=== PATIENT | female | born 1945 | race Caucasian/White ===

== ENCOUNTER 2020-02-11 19:28 | Inpatient (IN) | payer MEDICARE ==
[2020-02-11] MEDS ORDERED: IPRATROPIUM-ALBUTEROL 3 ML NEB INHALATION STA (19:34)
[2020-02-11] MEDS ORDERED: SODIUM CHLORIDE 0.9% 1,000 ML IV STA (19:34)
--- NOTE | 2020-02-11 19:37 | ED ---
SOB HPI - General Stated Complaint: SOB Time Seen by Provider: 02/11/20 19:28 Source: patient, EMS, RN notes reviewed Mode of arrival: EMS - History of Present Illness Initial Comments: This is a 74-year-old female who admits that she is a smoker but denies any past medical history Will any heart or lung disease who states she's had shortness breath or past several days getting worse yesterday and very bad this prior to arrival. She did call 911 due to having weakness dizziness and exertional dyspnea. She states she had a cough of frothy phlegm. She was found have atrial fibrillation heart monitor per paramedics. The patient has no history of that she states. He denies any chest pain palpitations fevers chills nausea vomiting she has some equivocal sweats. No abdominal pain no other modifying factors MD Complaint: shortness of breath, cough - Related Data Allergies Allergy/AdvReac Type Severity Reaction Status Date / Time pollen extracts AdvReac Cough Verified 02/11/20 19:51 Review of Systems ROS Statement: Those systems with pertinent positive or pertinent negative responses have been documented in the HPI. ROS Other: All systems not noted in ROS Statement are negative. General Exam - General Exam Comments Initial Comments: This is a well-developed asthenic appearing female who is awake alert oriented 3 General appearance: alert, anxious, in distress Head exam: Present: atraumatic, normocephalic, normal inspection Eye exam: Present: normal appearance, PERRL, EOMI. Absent: scleral icterus, conjunctival injection, periorbital swelling ENT exam: Present: normal exam, mucous membranes moist Neck exam: Present: normal inspection, full ROM, other (No stridor or bruits). Absent: tenderness, meningismus, lymphadenopathy Respiratory exam: Present: decreased breath sounds. Absent: respiratory distress, wheezes, rales, rhonchi, stridor Cardiovascular Exam: Present: tachycardia, irregular rhythm. Absent: systolic murmur, diastolic murmur, rubs, gallop, clicks GI/Abdominal exam: Present: soft, normal bowel sounds. Absent: distended, tenderness, guarding, rebound, rigid Extremities exam: Present: normal inspection, full ROM, normal capillary refill. Absent: tenderness, pedal edema, joint swelling, calf tenderness Back exam: Present: normal inspection Neurological exam: Present: alert, oriented X3, CN II-XII intact Psychiatric exam: Present: normal affect, normal mood Skin exam: Present: warm, dry, intact, normal color. Absent: rash Course Vital Signs 02/11/20 02/11/20 02/11/20 19:30 20:20 20:30 Temperature 97.5 F L Pulse Rate 126 H 93 100 Respiratory 18 Rate Blood Pressure 146/103 O2 Sat by Pulse 99 Oximetry - Reevaluation(s) Reevaluation #1: 02/11/20 20:41 The patient is feeling somewhat improved after the nebulizer treatment. Medical Decision Making - Medical Decision Making I did discuss findings with patient and her family also with Taylor who is covering Dr. Malave, the patient will be admitted with cardiology consultation she does demonstrate evidence of A. fib CHF pleural effusion COPD exacerbation the elevation of the lactic acid is likely secondary to intravascular bilateral completion - Lab Data Result diagrams: 02/11/20 19:41 02/11/20 19:41 Lab Results 02/11/20 02/11/20 02/11/20 Range/Units 19:41 19:41 19:41 WBC 11.0 H (3.8-10.6) k/uL RBC 4.55 (3.80-5.40) m/uL Hgb 14.3 (11.4-16.0) gm/dL Hct 45.9 (34.0-46.0) % MCV 100.8 H (80.0-100.0) fL MCH 31.5 (25.0-35.0) pg MCHC 31.2 (31.0-37.0) g/dL RDW 14.0 (11.5-15.5) % Plt Count 278 (150-450) k/uL Neutrophils % 73 % Lymphocytes % 19 % Monocytes % 5 % Eosinophils % 1 % Basophils % 1 % Neutrophils # 8.0 H (1.3-7.7) k/uL Lymphocytes # 2.1 (1.0-4.8) k/uL Monocytes # 0.6 (0-1.0) k/uL Eosinophils # 0.1 (0-0.7) k/uL Basophils # 0.1 (0-0.2) k/uL Macrocytosis Slight PT 10.2 (9.0-12.0) sec INR 1.0 (<1.2) APTT 24.0 (22.0-30.0) sec Sodium 137 (137-145) mmol/L Potassium 5.5 H (3.5-5.1) mmol/L Chloride 105 (98-107) mmol/L Carbon Dioxide 23 (22-30) mmol/L Anion Gap 9 mmol/L BUN 16 (7-17) mg/dL Creatinine 0.86 (0.52-1.04) mg/dL Est GFR (CKD-EPI)AfAm 77 (>60 ml/min/1.73 sqM) Est GFR (CKD-EPI)NonAf 67 (>60 ml/min/1.73 sqM) Glucose 185 H (74-99) mg/dL Plasma Lactic Acid Navin (0.7-2.0) mmol/L Calcium 9.5 (8.4-10.2) mg/dL Magnesium 1.8 (1.6-2.3) mg/dL Total Bilirubin 1.5 H (0.2-1.3) mg/dL AST 53 H (14-36) U/L ALT 20 (4-34) U/L Alkaline Phosphatase 131 H (38-126) U/L Creatine Kinase 63 (30-135) U/L Troponin I (0.000-0.034) ng/mL NT-Pro-B Natriuret Pep pg/mL Total Protein 7.5 (6.3-8.2) g/dL Albumin 4.4 (3.5-5.0) g/dL 02/11/20 02/11/20 02/11/20 Range/Units 19:41 19:41 19:41 WBC (3.8-10.6) k/uL RBC (3.80-5.40) m/uL Hgb (11.4-16.0) gm/dL Hct (34.0-46.0) % MCV (80.0-100.0) fL MCH (25.0-35.0) pg MCHC (31.0-37.0) g/dL RDW (11.5-15.5) % Plt Count (150-450) k/uL Neutrophils % % Lymphocytes % % Monocytes % % Eosinophils % % Basophils % % Neutrophils # (1.3-7.7) k/uL Lymphocytes # (1.0-4.8) k/uL Monocytes # (0-1.0) k/uL Eosinophils # (0-0.7) k/uL Basophils # (0-0.2) k/uL Macrocytosis PT (9.0-12.0) sec INR (<1.2) APTT (22.0-30.0) sec Sodium (137-145) mmol/L Potassium (3.5-5.1) mmol/L Chloride (98-107) mmol/L Carbon Dioxide (22-30) mmol/L Anion Gap mmol/L BUN (7-17) mg/dL Creatinine (0.52-1.04) mg/dL Est GFR (CKD-EPI)AfAm (>60 ml/min/1.73 sqM) Est GFR (CKD-EPI)NonAf (>60 ml/min/1.73 sqM) Glucose (74-99) mg/dL Plasma Lactic Acid Navin 2.1 H* (0.7-2.0) mmol/L Calcium (8.4-10.2) mg/dL Magnesium (1.6-2.3) mg/dL Total Bilirubin (0.2-1.3) mg/dL AST (14-36) U/L ALT (4-34) U/L Alkaline Phosphatase (38-126) U/L Creatine Kinase (30-135) U/L Troponin I 0.044 H* (0.000-0.034) ng/mL NT-Pro-B Natriuret Pep 3990 pg/mL Total Protein (6.3-8.2) g/dL Albumin (3.5-5.0) g/dL - EKG Data -: EKG Interpreted by Me Rate: tachycardia EKG Comments: Atrial fibrillation rate of 101 QRS 126 QT since QTC 372/42 that exodeviation left bundle-branch block pattern - Radiology Data Radiology results: report reviewed (I did review the imaging and report evidence of bilateral pleural effusions more so on the right than the left), image reviewed Critical Care Time Critical Care Time: Yes Total Critical Care Time: 39 Critical Care Time: Critical care time includes initial presentation with history physical labs x- rays discussed with paramedics regarding the findings. Evaluation of the patient discussed with patient family regarding findings discussed with the admitting physician admission orders and documentation of the above Disposition Clinical Impression: Congestive heart failure, Acute exacerbation of chronic obstructive pulmonary disease, Acute respiratory distress syndrome in adult, Rapid atrial fibrillation Disposition: ADMITTED IP TO THIS HOSP Condition: Fair Referrals: None,Stated [Primary Care Provider] - 1-2 days
[2020-02-11 19:53] LABS: Basophils # (A) 0.1 k/uL (0-0.2); Basophils % (A) 1 %; Eosinophils # (A) 0.1 k/uL (0-0.7); Eosinophils % (A) 1 %; HCT 45.9 % (34.0-46.0); HGB 14.3 gm/dL (11.4-16.0); Lymphocytes # (A) 2.1 k/uL (1.0-4.8); Lymphocytes % (A) 19 %; MCH 31.5 pg (25.0-35.0); MCHC 31.2 g/dL (31.0-37.0); MCV 100.8 fL (80.0-100.0); Macrocytosis Slight; Mean Platelet Volume 8.6; Monocytes # (A) 0.6 k/uL (0-1.0); Monocytes % (A) 5 %; Neutrophils % (A) 73 %; Platelet Count 278 k/uL (150-450); RBC 4.55 m/uL (3.80-5.40)
[2020-02-11 20:00] LABS: Albumin 4.4 g/dL (3.5-5.0); Calcium 9.5 mg/dL (8.4-10.2); Magnesium 1.8 mg/dL (1.6-2.3); Potassium 5.5 mmol/L (3.5-5.1); Total Bilirubin 1.5 mg/dL (0.2-1.3); Total Protein 7.5 g/dL (6.3-8.2)
[2020-02-11 20:11] LABS: Prothrombin Time 10.2 sec (9.0-12.0)
[2020-02-11] MEDS ORDERED: FUROSEMIDE 10 MG/ML 4 ML VIAL IV STA (20:23)
--- NOTE | 2020-02-11 20:34 | XR ---
EXAMINATION TYPE: XR chest 2V DATE OF EXAM: 02/11/2020 COMPARISON: NONE HISTORY: Dizziness TECHNIQUE: 2 views FINDINGS: There is blunting of both costophrenic angles much more on the right side. Heart size is pr obably normal. There is left shoulder prosthesis. There is chest leads. Bony thorax is intact. IMPRESSION: Right pleural effusion and right lower lobe consolidation and atelectasis. Small left ple ural effusion. Mild heart failure is possible.
[2020-02-11] MEDS ORDERED: HEPARIN SODIUM,PORCINE 5,000 UNIT/ML 1 ML VIAL IV PRN (20:35)
[2020-02-11] MEDS ORDERED: HEPARIN SODIUM,PORCINE 5,000 UNIT/ML 1 ML VIAL IV ONE (20:35)
[2020-02-11] MEDS ORDERED: DILTIAZEM 125 MG in SODIUM CHLORIDE 0.9% 100 ML IV SCH (20:45)
[2020-02-11] MEDS ORDERED: HEPARIN SOD,PORK IN 0.45% NACL 25,000 UNIT in 0.45% NACL 1 250ML.BAG IV SCH (20:45)
[2020-02-11] MEDS ORDERED: NALOXONE 0.4 MG/ML 1 ML VIAL IV PRN (20:47)
[2020-02-11] MEDS ORDERED: NITROGLYCERIN OINT 1 INCH/GM PACKET TOPICAL STA (20:48)
[2020-02-12] MEDS ORDERED: IPRATROPIUM-ALBUTEROL 3 ML NEB INHALATION SCH (02:00)
[2020-02-12 02:41] LABS: Basophils % (A) 0 %; Eosinophils # (A) 0.1 k/uL (0-0.7); Eosinophils % (A) 1 %; HCT 45.5 % (34.0-46.0); HGB 14.4 gm/dL (11.4-16.0); Lymphocytes # (A) 2.8 k/uL (1.0-4.8); Lymphocytes % (A) 25 %; MCH 32.1 pg (25.0-35.0); MCHC 31.7 g/dL (31.0-37.0); MCV 101.3 fL (80.0-100.0); Macrocytosis Slight; Mean Platelet Volume 8.3; Monocytes # (A) 0.7 k/uL (0-1.0); Monocytes % (A) 6 %; Neutrophils # (A) 7.4 k/uL (1.3-7.7); Neutrophils % (A) 66 %; Platelet Count 268 k/uL (150-450); RBC 4.49 m/uL (3.80-5.40); RDW 14.1 % (11.5-15.5); WBC 11.2 k/uL (3.8-10.6)
[2020-02-12] MEDS: FUROSEMIDE 10 MG/ML 4 ML VIAL IV SCH ×3 (06:21→23:18)
[2020-02-12 09:16] LABS: Basophils # (A) 0.1 k/uL (0-0.2); Basophils % (A) 1 %; Eosinophils # (A) 0.2 k/uL (0-0.7); Eosinophils % (A) 1 %; HCT 45.9 % (34.0-46.0); HGB 14.4 gm/dL (11.4-16.0); Lymphocytes # (A) 2.2 k/uL (1.0-4.8); Lymphocytes % (A) 20 %; MCH 31.8 pg (25.0-35.0); MCHC 31.3 g/dL (31.0-37.0); MCV 101.5 fL (80.0-100.0); Macrocytosis Slight; Mean Platelet Volume 8.6; Monocytes # (A) 0.7 k/uL (0-1.0); Monocytes % (A) 6 %; Neutrophils # (A) 7.7 k/uL (1.3-7.7); Neutrophils % (A) 70 %; Platelet Count 274 k/uL (150-450); RBC 4.52 m/uL (3.80-5.40); WBC 10.9 k/uL (3.8-10.6)
[2020-02-12 09:36] LABS: Calcium 9.3 mg/dL (8.4-10.2); Potassium 3.7 mmol/L (3.5-5.1)
--- NOTE | 2020-02-12 09:38 | P.CRDCN ---
History of Present Illness Consult date: 02/12/20 History of present illness: CHIEF COMPLAINT: Shortness of breath HISTORY OF PRESENT ILLNESS: 74-year-old female with a history of nicotine dependence (1 pk/day) who presented to the emergency room secondary to shortness of breath. Patient denies a cardiac history and states she does not follow with a copy director outpatient. Patient reports she has had shortness of breath over the last 2-3 weeks. She reports her shortness of breath is worse when she is laying flat or with exertion. She reports a productive cough. She denies any chest pain. Upon admission to the emergency room patient was found to be in A. fib with RVR. She was started on a Cardizem drip and heparin drip. This morning, the patient denies chest pain. She is still coughing. She reports shortness of breath when she was up using the bathroom. Patient denies medical history besides nicotine dependence. She reports drinking 1 alcoholic drink per day. She reports her mother had uterine cancer and diabetes. She denies family history of cardiac disease to her knowledge. Surgical history includes a D&C. DIAGNOSTICS: EKG reveals atrial fibrillation with RVR. Left bundle branch block Chest xray right pleural effusion and right lower lobe consolidation and atelectasis. Small left pleural effusion. Mild heart failure is possible. Laboratory data: WBC 11.2. Hemoglobin 14.4. Platelet count 268. Sodium 137. Potassium 5.5. BUN 16. Creatinine 0.86. Lactic acid 2.1. Repeat 1.7. BNP 3990. Troponin 0.044. 0.054. 0.062. Current home cardiac medications include: none REVIEW OF SYSTEMS: CONSTITUTIONAL: Denies fever or chills. HEENT: Denies blurred vision, vision changes, or eye pain. Denies hemoptysis CARDIOVASCULAR: Denies chest pain or palpitations RESPIRATORY: Reports shortness of breath. Reports productive cough GASTROINTESTINAL: Denies abdominal pain. Denies nausea or vomiting. HEMATOLOGIC: Denies bleeding disorders. GENITOURINARY: Denies any blood in urine. SKIN: Denies pruitis. Denies rash. PHYSICAL EXAM: VITAL SIGNS: Reviewed. GENERAL: Well-developed in no acute distress. HEENT: Head is normocephalic. Pupils are equal, round. Sclerae anicteric. Mucous membranes of the mouth are moist. Neck supple. No JVD or thyromegaly LUNGS: Respirations even and unlabored. Lungs with occasional scattered rhonchi and crackles to right lower base HEART: Irregular rate and rhythm. S1 and S2 heard. ABDOMEN: Soft. Nondistended. Nontender. EXTREMITIES: Normal range of motion. No clubbing or cyanosis. Peripheral pulses intact. No lower extremity edema NEUROLOGIC: Awake and alert. Oriented x 3. ASSESSMENT: New-onset persistent atrial fibrillation with RVR Elevated troponins, secondary to above Acute exacerbation of congestive heart failure, type unknown, BNP 3900 Possible right-sided pneumonia Bilateral pleural effusions, right greater than left Nicotine dependence, patient smokes 1 pack per day PLAN: Discontinue IV heparin Begin Eliquis 5 mg BID Discontinue Cardizem drip Begin Toprol-XL 25 mg daily Continue IV Lasix for 24 hours. Repeat chest x-ray in a.m. Monitor kidney function Daily weights Accurate I&O Obtain 2-D echo to assess cardiac structure and function Further recommendations pending Nurse practitioner note has been reviewed by physician. Signing provider agrees with the documented findings, assessment, and plan of care. Past Medical History Past Medical History: No Reported History History of Any Multi-Drug Resistant Organisms: None Reported Past Surgical History: Orthopedic Surgery Additional Past Surgical History / Comment(s): Pt states she had a D&C Past Psychological History: Anxiety Smoking Status: Current every day smoker Past Alcohol Use History: Occasional Past Drug Use History: None Reported - Past Family History Mother Family Medical History: Cancer, Diabetes Mellitus Additional Family Medical History / Comment(s): Uterine CA, Father History Unknown: Yes Medications and Allergies Home Medications Medication Instructions Recorded Confirmed Type No Known Home Medications 02/11/20 02/11/20 History Allergies Allergy/AdvReac Type Severity Reaction Status Date / Time pollen extracts AdvReac Cough Verified 02/11/20 21:12 Physical Exam Vitals: Vital Signs Temp Pulse Pulse Resp BP BP Pulse Ox 02/12/20 08:11 94 L 02/12/20 04:22 98.1 F 76 18 128/80 97 02/11/20 23:35 82 18 02/11/20 21:45 97.6 F 91 18 176/95 95 02/11/20 20:38 98.2 F 100 18 140/94 95 02/11/20 20:30 100 02/11/20 20:20 93 02/11/20 19:30 97.5 F L 126 H 18 146/103 99 Intake and Output 02/11/20 02/12/20 02/12/20 22:59 06:59 14:59 Intake Total 53.75 Output Total 1900 Balance -1900 53.75 Intake: Intake, IV Titration 53.75 Amount Diltiazem 125 mg In 53.75 Sodium Chloride 0.9% 100 ml @ 5 MG/HR 5 mls/hr IV .Q24H [facility] Rx#:[id number] Output: Urine 1900 Other: Voiding Method Bedside Commode # Voids 1 Weight 63.503 kg 63.1 kg Results 02/12/20 08:46 02/12/20 08:46 Cardiac Enzymes 02/11/20 02/11/20 02/11/20 Range/Units 19:41 19:41 22:42 AST 53 H (14-36) U/L Troponin I 0.044 H* 0.054 H* (0.000-0.034) ng/mL 02/12/20 Range/Units 02:17 AST (14-36) U/L Troponin I 0.062 H* (0.000-0.034) ng/mL Coagulation 02/11/20 02/12/20 Range/Units 19:41 02:17 PT 10.2 (9.0-12.0) sec APTT 24.0 57.4 H (22.0-30.0) sec CBC 02/11/20 02/12/20 Range/Units 19:41 02:17 WBC 11.0 H 11.2 H (3.8-10.6) k/uL RBC 4.55 4.49 (3.80-5.40) m/uL Hgb 14.3 14.4 (11.4-16.0) gm/dL Hct 45.9 45.5 (34.0-46.0) % Plt Count 278 268 (150-450) k/uL Comprehensive Metabolic Panel 02/11/20 Range/Units 19:41 Sodium 137 (137-145) mmol/L Potassium 5.5 H (3.5-5.1) mmol/L Chloride 105 (98-107) mmol/L Carbon Dioxide 23 (22-30) mmol/L BUN 16 (7-17) mg/dL Creatinine 0.86 (0.52-1.04) mg/dL Glucose 185 H (74-99) mg/dL Calcium 9.5 (8.4-10.2) mg/dL AST 53 H (14-36) U/L ALT 20 (4-34) U/L Alkaline Phosphatase 131 H (38-126) U/L Total Protein 7.5 (6.3-8.2) g/dL Albumin 4.4 (3.5-5.0) g/dL Current Medications Generic Name Dose Route Start Last Admin Trade Name Freq PRN Reason Stop Dose Admin Albuterol/Ipratropium 3 ml 02/11/20 21:34 Duoneb 0.5 Mg-3 Mg/3 Ml Soln INHALATION RT-Q4H PRN Dyspnea Azithromycin 500 mg 02/12/20 09:00 Zithromax PO DAILY TRENT Famotidine 20 mg 02/12/20 09:00 Pepcid IV Q12HR TRENT Furosemide 40 mg 02/12/20 06:00 02/12/20 06:21 Lasix IV 40 mg Q8H TRENT Administration Heparin Sodium (Porcine) 0 unit 02/11/20 20:35 Heparin IV PER PROTOCOL PRN Low PTT Protocol Sodium Chloride 1,000 mls @ 20 mls/hr 02/11/20 19:34 02/11/20 19:49 Saline 0.9% IV 02/12/20 19:33 20 mls/hr .Q24H STA Administration Diltiazem HCl 125 mg/ Sodium 125 mls @ 5 mls/hr 02/11/20 20:45 02/12/20 08:02 Chloride IV 0 mg/hr .Q24H TRENT 0 mls/hr Infusion 5 MG/HR Heparin Sodium/Sodium Chloride 250 mls @ 7.62 mls/hr 02/11/20 20:45 02/11/20 21:14 25,000 unit/ Sodium Chloride IV 12 units/kg/hr .Q24H TRENT 7.62 mls/hr Administration Protocol 12 UNITS/KG/HR Sodium Chloride 1,000 mls @ 20 mls/hr 02/11/20 20:45 Saline 0.9% IV .Q24H TRENT Ceftriaxone Sodium 1 gm/ 50 mls @ 100 mls/hr 02/12/20 09:00 Sodium Chloride IVPB Q24HR TRENT Naloxone HCl 0.2 mg 02/11/20 20:47 Narcan IV Q2M PRN Opioid Reversal Intake and Output 02/11/20 02/12/20 02/12/20 22:59 06:59 14:59 Intake Total 53.75 Output Total 1900 Balance -1900 53.75 Intake: Intake, IV Titration 53.75 Amount Diltiazem 125 mg In 53.75 Sodium Chloride 0.9% 100 ml @ 5 MG/HR 5 mls/hr IV .Q24H [facility] Rx#:[id number] Output: Urine 1900 Other: Voiding Method Bedside Commode # Voids 1 Weight 63.503 kg 63.1 kg 02/12/20 02:17 02/11/20 19:41
[2020-02-12] MEDS: FAMOTIDINE 20 MG/2 ML VIAL IV SCH ×2 (10:09→19:54)
[2020-02-12] MEDS: AZITHROMYCIN 500 MG TAB PO SCH (10:09)
[2020-02-12] MEDS: METOPROLOL SUCCINATE (ER) 25 MG TAB.ER.24H PO SCH (10:29)
[2020-02-12] MEDS: APIXABAN 5 MG TAB PO SCH ×2 (10:29→19:54)
[2020-02-12 11:30] LABS: T4, Free (Free Thyroxine) 1.3 ng/dL (0.78-2.19)
[2020-02-12] MEDS: IPRATROPIUM-ALBUTEROL 3 ML NEB INHALATION PRN ×2 (11:47→15:30)
--- NOTE | 2020-02-12 12:00 | ECHOF ---
Referral Reason:LV function, CHF MEASUREMENTS -------- HEIGHT: 165.1 cm WEIGHT: 63.0 kg BP: 128/80 IVSd: 1.5 cm (0.6 - 1.1) LVIDd: 3.9 cm (3.9 - 5.3) LVPWd: 1.5 cm (0.6 - 1.1) IVSs: 1.5 cm LVIDs: 3.2 cm LVPWs: 1.6 cm LAESV Index (A-L): 29.73 ml/m Ao Diam: 2.7 cm (2.0 - 3.7) AV Cusp: 1.7 cm (1.5 - 2.6) MV EXCURSION: 15.184 mm (> 18.000) MV EF SLOPE: 73 mm/s (70 - 150) EPSS: 0.7 cm AR PHT: 836 ms RAP: 5.00 mmHg RVSP: 25.78 mmHg FINDINGS -------- This was a technically adequate study. The left ventricle is mildly dilated. There is moderate concentric left ventricular hypertrophy. Overall left ventricular systolic function is moderate-severely impaired with, an EF between 30 - 35 %. The right ventricle is normal in size. LA is moderately dilated 34-39 ml/m2 The right atrial size is normal. Interatrial and interventricular septum intact. The aortic valve is trileaflet and appears structurally normal. There is mild aortic valve sclerosi s. There is moderate aortic regurgitation. There is no evidence of aortic stenosis. Mild mitral annular calcification present. There is trace to mild mitral regurgitation. Mild tricuspid regurgitation present. There is no evidence of pulmonary hypertension. The right v entricular systolic pressure, as measured by Doppler, is 25.78mmHg. There is no pulmonic regurgitation present. The aortic root size is normal. Normal inferior vena cava with normal inspiratory collapse consistent with estimated right atrial pre ssure of 5 mmHg. There is a small, generalized pericardial effusion present. There is no evidence of cardiac tampona de. CONCLUSIONS -------- 1. There is moderate concentric left ventricular hypertrophy. 2. Overall left ventricular systolic function is moderate-severely impaired with, an EF between 30 - 35 %. 3. The aortic valve is trileaflet and appears structurally normal. 4. There is mild aortic valve sclerosis. 5. There is moderate aortic regurgitation. 6. Mild mitral annular calcification present. 7. There is trace to mild mitral regurgitation. 8. There is a small, generalized pericardial effusion present. [employer] LIBRARIAN: Florence Willis RDCS
--- NOTE | 2020-02-12 19:41 | P.HPIM ---
History of Present Illness This is a pleasant 74 years old female with no significant past medical history, she has history of anxiety and cigarette smoker. She used to see Dr. Carroll but she stopped doing that because of her insurance, no PCP Presents because of 10-14 days of dyspnea associated with cough and clear phlegm but no chest pain, yesterday she was coughing a lot so she decided to come to the hospital. She denies abdominal pain or nausea vomiting, no change in urine bowel habits, no weakness or numbness or headache, no blurred vision or slurred speech. She smokes about less than a pack per day, she's counseled and agrees to quit and agrees to nicotine patch. She drinks a glass of wine every day. Vitals are stable and she is saturating 97% and 2 L oxygen via nasal cannula. She has mild leukocytosis of 11.2. INR is normal, lap showing mild hyperkalemia at 5.5, rest of the BMP is unremarkable, elevated lactic acid, came back to normal from 2.1 down to 1.7. Bilirubin is slightly elevated at 1.5, AST slightly elevated at 53, ALT is normal at 20. Troponin were elevated at 0.04, 0.05, 0.06. I proBNP at 3990. EKG showing atrial fibrillation with rapid ventricular rate at 101 and QTC of 482 Chest x-ray showing right pleural effusion with right lower lobe consolidation and atelectasis In the emergency room she received 1 Dose of Lasix, and she was started on heparin drip as well as bronchodilator and nitroglycerin ointment. Also she was started on Cardizem drip at 5 mg per hour Review of Systems CONSTITUTIONAL: No fever, no malaise, no fatigue. HEENT: No recent visual problems or hearing problems. Denied any sore throat. CARDIOVASCULAR: No orthopnea, PND, no palpitations, no syncope. PULMONARY: No shortness of breath, no cough, no hemoptysis. GASTROINTESTINAL: No diarrhea, no nausea, no vomiting, no abdominal pain. Normoactive bowel sounds. NEUROLOGICAL: No headaches, no weakness, no numbness. HEMATOLOGICAL: Denies any bleeding or petechiae. GENITOURINARY: Denies any burning micturition, frequency, or urgency. MUSCULOSKELETAL/RHEUMATOLOGICAL: Denies any joint pain, swelling, or any muscle pain. ENDOCRINE: Denies any polyuria or polydipsia. Past Medical History Past Medical History: No Reported History History of Any Multi-Drug Resistant Organisms: None Reported Past Surgical History: Orthopedic Surgery Additional Past Surgical History / Comment(s): Pt states she had a D&C Past Psychological History: Anxiety Smoking Status: Current every day smoker Past Alcohol Use History: Occasional Past Drug Use History: None Reported - Past Family History Mother Family Medical History: Cancer, Diabetes Mellitus Additional Family Medical History / Comment(s): Uterine CA, Father History Unknown: Yes Medications and Allergies Home Medications Medication Instructions Recorded Confirmed Type No Known Home Medications 02/11/20 02/11/20 History Allergies Allergy/AdvReac Type Severity Reaction Status Date / Time pollen extracts AdvReac Cough Verified 02/11/20 21:12 Physical Exam Vitals: Vital Signs Temp Pulse Pulse Resp BP BP Pulse Ox 02/12/20 04:22 98.1 F 76 18 128/80 97 02/11/20 23:35 82 18 02/11/20 21:45 97.6 F 91 18 176/95 95 02/11/20 20:38 98.2 F 100 18 140/94 95 02/11/20 20:30 100 02/11/20 20:20 93 02/11/20 19:30 97.5 F L 126 H 18 146/103 99 Intake and Output 02/11/20 02/12/20 02/12/20 22:59 06:59 14:59 Intake Total 53.75 Output Total 1900 Balance -1900 53.75 Intake: Intake, IV Titration 53.75 Amount Diltiazem 125 mg In 53.75 Sodium Chloride 0.9% 100 ml @ 5 MG/HR 5 mls/hr IV .Q24H [facility] Rx#:[id number] Output: Urine 1900 Other: Voiding Method Bedside Commode # Voids 1 Weight 63.503 kg 63.1 kg GENERAL: The patient is alert and oriented x3, not in any acute distress. Well developed, well nourished. HEENT: Pupils are round and equally reacting to light. EOMI. No scleral icterus. No conjunctival pallor. Normocephalic, atraumatic. No pharyngeal erythema. No thyromegaly. CARDIOVASCULAR: S1 and S2 present. No murmurs, rubs, or gallops. PULMONARY: Chest is clear to auscultation, no wheezing or crackles. ABDOMEN: Soft, nontender, nondistended, normoactive bowel sounds. No palpable organomegaly. MUSCULOSKELETAL: No joint swelling or deformity. EXTREMITIES: No cyanosis, clubbing, or pedal edema. NEUROLOGICAL: Gross neurological examination did not reveal any focal deficits. SKIN: No rashes. No petechiae Results CBC & Chem 7: 02/12/20 08:46 02/12/20 08:46 Labs: Abnormal Lab Results - Last 24 Hours (Table) 02/11/20 02/11/20 02/11/20 Range/Units 19:41 19:41 19:41 WBC 11.0 H (3.8-10.6) k/uL MCV 100.8 H (80.0-100.0) fL Neutrophils # 8.0 H (1.3-7.7) k/uL APTT (22.0-30.0) sec Potassium 5.5 H (3.5-5.1) mmol/L Glucose 185 H (74-99) mg/dL Plasma Lactic Acid Navin 2.1 H* (0.7-2.0) mmol/L Total Bilirubin 1.5 H (0.2-1.3) mg/dL AST 53 H (14-36) U/L Alkaline Phosphatase 131 H (38-126) U/L Troponin I (0.000-0.034) ng/mL 02/11/20 02/11/20 02/12/20 Range/Units 19:41 22:42 02:17 WBC (3.8-10.6) k/uL MCV (80.0-100.0) fL Neutrophils # (1.3-7.7) k/uL APTT 57.4 H (22.0-30.0) sec Potassium (3.5-5.1) mmol/L Glucose (74-99) mg/dL Plasma Lactic Acid Navin (0.7-2.0) mmol/L Total Bilirubin (0.2-1.3) mg/dL AST (14-36) U/L Alkaline Phosphatase (38-126) U/L Troponin I 0.044 H* 0.054 H* (0.000-0.034) ng/mL 02/12/20 02/12/20 Range/Units 02:17 02:17 WBC 11.2 H (3.8-10.6) k/uL MCV 101.3 H (80.0-100.0) fL Neutrophils # (1.3-7.7) k/uL APTT (22.0-30.0) sec Potassium (3.5-5.1) mmol/L Glucose (74-99) mg/dL Plasma Lactic Acid Navin (0.7-2.0) mmol/L Total Bilirubin (0.2-1.3) mg/dL AST (14-36) U/L Alkaline Phosphatase (38-126) U/L Troponin I 0.062 H* (0.000-0.034) ng/mL Assessment and Plan Assessment: Atrial fibrillation with mild RVR with Elevated troponin, rule out cardiac disease Right lower lobe pneumonia Alcohol abuse, arthroscope alcohol withdrawal Elevated lactic acid, came back to normal Hyperkalemia. Nicotine dependence Anxiety, not in active tissue Plan: This is a pleasant 74 years old female who presents with A. fib and RVR pneumonia, rule out coronary artery disease. We'll do serial troponin, continue with heparin drip and Cardizem drip and switched to oral per cardiology team were consulted. Follow-up recommendation by cardiology team. Check a pro- calcitonin and start antibiotic. Follow-up culture results. Check echocardiogram and TSH Labs and medication were reviewed.. Continue same treatment. Continue with symptomatic treatment. Resume home medication. Monitor lytes and vitals. DVT and GI prophylaxis. Further recommendations of the clinical course of the p atient DVT prophylaxis: heparin GI Prophylaxis: Pepcid PT/OT: Pending Prognosis is guarded
[2020-02-12] MEDS: SODIUM CHLORIDE 0.9% 1,000 ML IV SCH (21:18)
[2020-02-13 02:08] LABS: Appearance,Urine Clear (Clear); Bilirubin,Urine Negative (Negative); Blood,Urine Negative (Negative); Color,Urine Colorless; Glucose,Urine (UA) Negative (Negative); Ketones,Urine Negative (Negative); Leukocyte Esterase,Urine Negative (Negative); Nitrite,Urine Negative (Negative); PH, Urine 6.5 (5.0-8.0); Protein,Urine Negative (Negative); Specific Gravity,Urine 1.003 (1.001-1.035); Urobilinogen,Urine <2.0 mg/dL (<2.0)
[2020-02-13] MEDS: FUROSEMIDE 10 MG/ML 4 ML VIAL IV SCH (06:16)
[2020-02-13 06:18] LABS: Basophils # (A) 0.1 k/uL (0-0.2); Basophils % (A) 1 %; Eosinophils # (A) 0.2 k/uL (0-0.7); Eosinophils % (A) 2 %; HCT 47.7 % (34.0-46.0); Lymphocytes # (A) 2.4 k/uL (1.0-4.8); Lymphocytes % (A) 24 %; MCH 31.4 pg (25.0-35.0); MCHC 31.4 g/dL (31.0-37.0); MCV 99.9 fL (80.0-100.0); Mean Platelet Volume 8.3; Monocytes # (A) 0.6 k/uL (0-1.0); Monocytes % (A) 6 %; Neutrophils # (A) 6.6 k/uL (1.3-7.7); Neutrophils % (A) 65 %; Platelet Count 290 k/uL (150-450); RBC 4.78 m/uL (3.80-5.40); RDW 13.9 % (11.5-15.5); WBC 10.2 k/uL (3.8-10.6)
[2020-02-13 06:24] LABS: Calcium 9.2 mg/dL (8.4-10.2); Potassium 3.5 mmol/L (3.5-5.1)
[2020-02-13] MEDS: AZITHROMYCIN 500 MG TAB PO SCH (07:56)
[2020-02-13] MEDS: APIXABAN 5 MG TAB PO SCH ×2 (07:56→19:59)
[2020-02-13] MEDS: METOPROLOL SUCCINATE (ER) 25 MG TAB.ER.24H PO SCH (07:56)
[2020-02-13] MEDS: FAMOTIDINE 20 MG/2 ML VIAL IV SCH (07:56)
--- NOTE | 2020-02-13 09:12 | XR ---
EXAMINATION TYPE: XR chest 2V DATE OF EXAM: 02/13/2020 CLINICAL HISTORY: CHF, pleural effusions, possible pneumonia TECHNIQUE: Frontal and lateral views of the chest are obtained. COMPARISON: 02/11/2020 chest radiograph FINDINGS: The visualized cardiomediastinal silhouette is within normal limits for size. Moderate rig ht pleural effusion. Blunting of the left costophrenic angle is essentially resolved on current exam. There is improved aeration of the bilateral lung bases. Degenerative changes of the spine. Left shou lder prosthesis. IMPRESSION: Moderate right pleural effusion unchanged. Improved aeration of the bilateral lung bases and resolved left pleural effusion versus 02/11/2020.
--- NOTE | 2020-02-13 11:21 | P.PN ---
Subjective Progress Note Date: 02/13/20 CHIEF COMPLAINT: Shortness of breath HISTORY OF PRESENT ILLNESS: Patient examined this morning at the bedside. She denies chest pain or pressure. She reports her shortness of breath is about the same as yesterday. She continues to have an occasional cough. She remains in atrial fibrillation. Heart rate is controlled. Chest x-ray this morning reveals moderate right pleural effusion unchanged. Improved aeration of the bilateral lung bases and resolved left pleural effusion from 02/11/2020. Echocardiogram reveals ejection fraction between 30 and 35%, moderate aortic regurgitation, trace to mild mitral regurgitation and small generalized pericardial effusion. PHYSICAL EXAM: VITAL SIGNS: Reviewed. GENERAL: Well-developed in no acute distress. HEENT: Head is normocephalic. Pupils are equal, round. Sclerae anicteric. Mucous membranes of the mouth are moist. Neck supple. No JVD or thyromegaly LUNGS: Respirations even and unlabored. Lungs with mild expiratory wheezing. HEART: Irregular rate and rhythm. S1 and S2 heard. ABDOMEN: Soft. Nondistended. Nontender. EXTREMITIES: Normal range of motion. No clubbing or cyanosis. Peripheral pulses intact. No lower extremity edema NEUROLOGIC: Awake and alert. Oriented x 3. ASSESSMENT: New-onset persistent atrial fibrillation with RVR Elevated troponins, secondary to above Acute exacerbation of systolic congestive heart failure, BNP 3900, EF 30-35% Possible right-sided pneumonia Bilateral pleural effusions, right greater than left Nicotine dependence, patient smokes 1 pack per day Abnormal TSH, 7.080 PLAN: Continue Eliquis 5 mg BID Continue Toprol 25 mg daily Increase Lasix to 60mg Q8 secondary to unchanged right moderate pleural effusion Monitor kidney function Daily weights Accurate I&O Patient with abnormal TSH. Defer to internal medicine for management. Nurse practitioner note has been reviewed by physician. Signing provider agrees with the documented findings, assessment, and plan of care. Objective - Vital Signs Vital signs: Vital Signs Temp 98 F 02/13/20 07:55 Pulse 96 02/13/20 07:55 Resp 20 02/13/20 07:55 BP 141/76 02/13/20 07:55 Pulse Ox 92 L 02/13/20 07:55 Intake & Output 02/12/20 02/13/20 02/13/20 18:59 06:59 18:59 Intake Total 465.75 200 Output Total 2600 775 400 Balance -2134.25 -775 -200 Weight 63.1 kg 52.7 kg Intake: Intake, IV Titration 243.75 Amount Diltiazem 125 mg In 53.75 Sodium Chloride 0.9% 100 ml @ 5 MG/HR 5 mls/hr IV .Q24H [facility] Rx#:[id number] Sodium Chloride 0.9% 1, 140 000 ml @ 20 mls/hr IV . Q24H [facility] Rx#:[id number] cefTRIAXone 1 gm In 50 Sodium Chloride 0.9% 50 ml @ 100 mls/hr IVPB Q24HR [facility] Rx#:[id number] Oral 222 200 Output: Urine 2600 775 400 Other: Voiding Method Bedside Commode Bedside Commode # Voids 2 1 1 - Labs CBC & Chem 7: 02/13/20 05:51 02/13/20 05:51 Labs: Abnormal Lab Results - Last 24 Hours (Table) 02/12/20 02/12/20 02/12/20 Range/Units 08:46 08:46 21:00 Hct (34.0-46.0) % Glucose 134 H (74-99) mg/dL Troponin I 0.056 H* (0.000-0.034) ng/mL C-Reactive Protein 29.4 H (<10.0) mg/L TSH 7.080 H (0.465-4.680) mIU/L 02/13/20 02/13/20 Range/Units 05:51 05:51 Hct 47.7 H (34.0-46.0) % Glucose 111 H (74-99) mg/dL Troponin I (0.000-0.034) ng/mL C-Reactive Protein (<10.0) mg/L TSH (0.465-4.680) mIU/L
[2020-02-13] MEDS: FUROSEMIDE 10 MG/ML 10 ML VIAL IV SCH ×2 (11:34→18:15)
--- NOTE | 2020-02-13 17:37 | P.PN ---
Subjective This is a pleasant 74 years old female with no significant past medical history, she has history of anxiety and cigarette smoker. She used to see Dr. Carroll but she stopped doing that because of her insurance, no PCP Presents because of 10-14 days of dyspnea associated with cough and clear phlegm but no chest pain, yesterday she was coughing a lot so she decided to come to the hospital. She denies abdominal pain or nausea vomiting, no change in urine bowel habits, no weakness or numbness or headache, no blurred vision or slurred speech. She smokes about less than a pack per day, she's counseled and agrees to quit and agrees to nicotine patch. She drinks a glass of wine every day. Vitals are stable and she is saturating 97% and 2 L oxygen via nasal cannula. She has mild leukocytosis of 11.2. INR is normal, lap showing mild hyperkalemia at 5.5, rest of the BMP is unremarkable, elevated lactic acid, came back to normal from 2.1 down to 1.7. Bilirubin is slightly elevated at 1.5, AST slightly elevated at 53, ALT is normal at 20. Troponin were elevated at 0.04, 0.05, 0.06. I proBNP at 3990. EKG showing atrial fibrillation with rapid ventricular rate at 101 and QTC of 482 Chest x-ray showing right pleural effusion with right lower lobe consolidation and atelectasis In the emergency room she received 1 Dose of Lasix, and she was started on heparin drip as well as bronchodilator and nitroglycerin ointment. Also she was started on Cardizem drip at 5 mg per hour 02/13/20 Patient still tachypneic and short of breath but is improved compared to yesterday, she still have dry cough but no phlegm although it looks wet to her. And she denies chest pain She has some runny nose but no UTI signs and symptoms She is on Eliquis for new onset A. fib and Lasix was increased to 60 mg 3 times a day Cardiology is on the case. High TSH 7.0 with normal T4 at 1.3, I instructed patient to recheck her thyroid function test as an outpatient and she agrees PT/OT is ordered Objective - Vital Signs Vital signs: Vital Signs Temp 98.1 F 02/13/20 15:45 Pulse 100 02/13/20 15:45 Resp 20 02/13/20 15:45 BP 149/81 02/13/20 15:45 Pulse Ox 95 02/13/20 15:45 Intake & Output 02/12/20 02/13/20 02/13/20 18:59 06:59 18:59 Intake Total 465.75 400 Output Total 2600 775 1650 Balance -2134.25 -775 -1250 Weight 63.1 kg 52.7 kg Intake: Intake, IV Titration 243.75 Amount Diltiazem 125 mg In 53.75 Sodium Chloride 0.9% 100 ml @ 5 MG/HR 5 mls/hr IV .Q24H [facility] Rx#:[id number] Sodium Chloride 0.9% 1, 140 000 ml @ 20 mls/hr IV . Q24H [facility] Rx#:[id number] cefTRIAXone 1 gm In 50 Sodium Chloride 0.9% 50 ml @ 100 mls/hr IVPB Q24HR [facility] Rx#:[id number] Oral 222 400 Output: Urine 2600 775 1650 Other: Voiding Method Bedside Commode Bedside Commode Bedside Commode # Voids 2 1 1 - Exam GENERAL: The patient is alert and oriented x3, not in any acute distress. Well developed, well nourished. HEENT: Pupils are round and equally reacting to light. EOMI. No scleral icterus. No conjunctival pallor. Normocephalic, atraumatic. No pharyngeal erythema. No thyromegaly. CARDIOVASCULAR: S1 and S2 present. No murmurs, rubs, or gallops. PULMONARY: Chest is clear to auscultation, no wheezing or crackles. ABDOMEN: Soft, nontender, nondistended, normoactive bowel sounds. No palpable organomegaly. MUSCULOSKELETAL: No joint swelling or deformity. EXTREMITIES: No cyanosis, clubbing, or pedal edema. NEUROLOGICAL: Gross neurological examination did not reveal any focal deficits. SKIN: No rashes. no petechiae. - Labs CBC & Chem 7: 02/13/20 05:51 02/13/20 05:51 Labs: Abnormal Lab Results - Last 24 Hours (Table) 02/12/20 02/13/20 02/13/20 Range/Units 21:00 05:51 05:51 Hct 47.7 H (34.0-46.0) % Glucose 111 H (74-99) mg/dL C-Reactive Protein 29.4 H (<10.0) mg/L Assessment and Plan Assessment: Atrial fibrillation with mild RVR with Elevated troponin, rule out cardiac disease Right lower lobe pneumonia Alcohol abuse, arthroscope alcohol withdrawal Elevated lactic acid, came back to normal Hyperkalemia. Nicotine dependence Anxiety, not in active tissue Plan: This is a pleasant 74 years old female who presents with A. fib and RVR pneumonia, rule out coronary artery disease. We'll do serial troponin, continue with heparin drip and Cardizem drip and switched to oral per cardiology team were consulted. Follow-up recommendation by cardiology team. Check a pro- calcitonin and start antibiotic. Follow-up culture results. Check echocardiogram and TSH Labs and medication were reviewed.. Continue same treatment. Continue with symptomatic treatment. Resume home medication. Monitor lytes and vitals. DVT and GI prophylaxis. Further recommendations of the clinical course of the patient DVT prophylaxis: heparin GI Prophylaxis: Pepcid PT/OT: Pending Prognosis is guarded
[2020-02-13] MEDS: SODIUM CHLORIDE 0.9% 1,000 ML IV SCH (20:00)
[2020-02-14] MEDS: FUROSEMIDE 10 MG/ML 10 ML VIAL IV SCH ×2 (04:31→12:17)
[2020-02-14 07:14] LABS: Basophils # (A) 0.1 k/uL (0-0.2); Basophils % (A) 1 %; Eosinophils # (A) 0.2 k/uL (0-0.7); Eosinophils % (A) 2 %; HCT 51.3 % (34.0-46.0); HGB 16.7 gm/dL (11.4-16.0); Lymphocytes # (A) 2.3 k/uL (1.0-4.8); Lymphocytes % (A) 21 %; MCH 32.7 pg (25.0-35.0); MCHC 32.6 g/dL (31.0-37.0); MCV 100.1 fL (80.0-100.0); Mean Platelet Volume 8.5; Monocytes # (A) 0.8 k/uL (0-1.0); Monocytes % (A) 7 %; Neutrophils # (A) 7.1 k/uL (1.3-7.7); Neutrophils % (A) 65 %; Platelet Count 299 k/uL (150-450); RBC 5.12 m/uL (3.80-5.40); RDW 13.8 % (11.5-15.5); WBC 10.8 k/uL (3.8-10.6)
[2020-02-14 07:38] LABS: Calcium 9.6 mg/dL (8.4-10.2)
[2020-02-14] MEDS: METOPROLOL SUCCINATE (ER) 25 MG TAB.ER.24H PO SCH (08:33)
[2020-02-14] MEDS: APIXABAN 5 MG TAB PO SCH ×2 (08:33→20:53)
[2020-02-14] MEDS: FAMOTIDINE 20 MG/2 ML VIAL IV SCH (08:33)
--- NOTE | 2020-02-14 11:55 | P.PN ---
Subjective Progress Note Date: 02/14/20 CHIEF COMPLAINT: Shortness of breath HISTORY OF PRESENT ILLNESS: Patient examined this morning at the bedside. She denies chest pain or pressure. She reports her shortness of breath is slightly improved. She continues to have an occasional cough. She remains in atrial fibrillation. Heart rate is controlled. IV Lasix was increased yesterday secondary to unchanged pleural effusion. Fluid balance over the last 24 hours is -1640cc. PHYSICAL EXAM: VITAL SIGNS: Reviewed. GENERAL: Well-developed in no acute distress. HEENT: Head is normocephalic. Pupils are equal, round. Sclerae anicteric. Mucous membranes of the mouth are moist. Neck supple. No JVD or thyromegaly LUNGS: Respirations even and unlabored. Lungs diminished at the bases. HEART: Irregular rate and rhythm. S1 and S2 heard. ABDOMEN: Soft. Nondistended. Nontender. EXTREMITIES: Normal range of motion. No clubbing or cyanosis. Peripheral pulses intact. No lower extremity edema NEUROLOGIC: Awake and alert. Oriented x 3. ASSESSMENT: New-onset persistent atrial fibrillation with RVR Elevated troponins, secondary to above Acute exacerbation of systolic congestive heart failure, BNP 3900, EF 30-35% Possible right-sided pneumonia Bilateral pleural effusions, right greater than left Nicotine dependence, patient smokes 1 pack per day Abnormal TSH, 7.080 PLAN: Continue Eliquis 5 mg BID Continue Toprol 25 mg daily Transition lasix to oral. 60mg BID. Will repeat CXR in AM Monitor kidney function Daily weights Accurate I&O Nurse practitioner note has been reviewed by physician. Signing provider agrees with the documented findings, assessment, and plan of care. Objective - Vital Signs Vital signs: Vital Signs Temp 96.1 F L 02/14/20 08:00 Pulse 102 H 02/14/20 08:00 Resp 18 02/14/20 04:00 BP 144/90 02/14/20 08:00 Pulse Ox 94 L 02/14/20 08:00 Intake & Output 02/13/20 02/14/20 02/14/20 18:59 06:59 18:59 Intake Total 500 10 120 Output Total 2150 Balance -1650 10 120 Weight 52.1 kg Intake: IV 10 0.9 10 Intake, IV Titration 100 Amount cefTRIAXone 1 gm In 100 Sodium Chloride 0.9% 50 ml @ 100 mls/hr IVPB Q24HR [facility] Rx#:[id number] Oral 400 120 Output: Urine 2150 Other: Voiding Method Bedside Commode Toilet # Voids 1 2 1 - Labs CBC & Chem 7: 02/14/20 06:46 02/14/20 06:46 Labs: Abnormal Lab Results - Last 24 Hours (Table) 02/14/20 02/14/20 Range/Units 06:46 06:46 WBC 10.8 H (3.8-10.6) k/uL Hgb 16.7 H (11.4-16.0) gm/dL Hct 51.3 H (34.0-46.0) % MCV 100.1 H (80.0-100.0) fL Chloride 97 L (98-107) mmol/L Carbon Dioxide 31 H (22-30) mmol/L BUN 23 H (7-17) mg/dL Creatinine 1.20 H (0.52-1.04) mg/dL Glucose 110 H (74-99) mg/dL
[2020-02-14] MEDS: FUROSEMIDE 20 MG TAB PO SCH (17:49)
[2020-02-14] MEDS: SODIUM CHLORIDE 0.9% 1,000 ML IV SCH (20:54)
--- NOTE | 2020-02-14 20:59 | P.PN ---
Subjective This is a pleasant 74 years old female with no significant past medical history, she has history of anxiety and cigarette smoker. She used to see Dr. Carroll but she stopped doing that because of her insurance, no PCP Presents because of 10-14 days of dyspnea associated with cough and clear phlegm but no chest pain, yesterday she was coughing a lot so she decided to come to the hospital. She denies abdominal pain or nausea vomiting, no change in urine bowel habits, no weakness or numbness or headache, no blurred vision or slurred speech. She smokes about less than a pack per day, she's counseled and agrees to quit and agrees to nicotine patch. She drinks a glass of wine every day. Vitals are stable and she is saturating 97% and 2 L oxygen via nasal cannula. She has mild leukocytosis of 11.2. INR is normal, lap showing mild hyperkalemia at 5.5, rest of the BMP is unremarkable, elevated lactic acid, came back to normal from 2.1 down to 1.7. Bilirubin is slightly elevated at 1.5, AST slightly elevated at 53, ALT is normal at 20. Troponin were elevated at 0.04, 0.05, 0.06. I proBNP at 3990. EKG showing atrial fibrillation with rapid ventricular rate at 101 and QTC of 482 Chest x-ray showing right pleural effusion with right lower lobe consolidation and atelectasis In the emergency room she received 1 Dose of Lasix, and she was started on heparin drip as well as bronchodilator and nitroglycerin ointment. Also she was started on Cardizem drip at 5 mg per hour 02/13/20 Patient still tachypneic and short of breath but is improved compared to yesterday, she still have dry cough but no phlegm although it looks wet to her. And she denies chest pain She has some runny nose but no UTI signs and symptoms She is on Eliquis for new onset A. fib and Lasix was increased to 60 mg 3 times a day Cardiology is on the case. High TSH 7.0 with normal T4 at 1.3, I instructed patient to recheck her thyroid function test as an outpatient and she agrees PT/OT is ordered 02/14/20 Patient is breathing quietly with significantly improved dyspnea, no chest pain. She is hemodynamically stable Lasix is switched to 60 mg by mouth twice daily today Repeat chest x-ray in the morning per cardiology team R following the case closely Continue with metoprolol and Eliquis Possible discharge in 24-48 hours and keep improvement Objective - Vital Signs Vital signs: Vital Signs Temp 96.1 F L 02/14/20 08:00 Pulse 80 02/14/20 16:00 Resp 18 02/14/20 04:00 BP 131/90 02/14/20 16:00 Pulse Ox 95 02/14/20 16:00 Intake & Output 02/13/20 02/14/20 02/14/20 18:59 06:59 18:59 Intake Total 500 10 130 Output Total 2150 Balance -1650 10 130 Weight 52.1 kg Intake: IV 10 0.9 10 Intake, IV Titration 100 10 Amount Sodium Chloride 0.9% 1, 10 000 ml @ 20 mls/hr IV . Q24H [facility] Rx#:[id number] cefTRIAXone 1 gm In 100 Sodium Chloride 0.9% 50 ml @ 100 mls/hr IVPB Q24HR [facility] Rx#:[id number] Oral 400 120 Output: Urine 2150 Other: Voiding Method Bedside Commode Toilet # Voids 1 2 1 - Exam GENERAL: The patient is alert and oriented x3, not in any acute distress. Well developed, well nourished. HEENT: Pupils are round and equally reacting to light. EOMI. No scleral icterus. No conjunctival pallor. Normocephalic, atraumatic. No pharyngeal erythema. No thyromegaly. CARDIOVASCULAR: S1 and S2 present. No murmurs, rubs, or gallops. PULMONARY: Chest is clear to auscultation, no wheezing or crackles. ABDOMEN: Soft, nontender, nondistended, normoactive bowel sounds. No palpable organomegaly. MUSCULOSKELETAL: No joint swelling or deformity. EXTREMITIES: No cyanosis, clubbing, or pedal edema. NEUROLOGICAL: Gross neurological examination did not reveal any focal deficits. SKIN: No rashes. no petechiae. - Labs CBC & Chem 7: 02/14/20 06:46 02/14/20 06:46 Labs: Abnormal Lab Results - Last 24 Hours (Table) 02/14/20 02/14/20 Range/Units 06:46 06:46 WBC 10.8 H (3.8-10.6) k/uL Hgb 16.7 H (11.4-16.0) gm/dL Hct 51.3 H (34.0-46.0) % MCV 100.1 H (80.0-100.0) fL Chloride 97 L (98-107) mmol/L Carbon Dioxide 31 H (22-30) mmol/L BUN 23 H (7-17) mg/dL Creatinine 1.20 H (0.52-1.04) mg/dL Glucose 110 H (74-99) mg/dL Assessment and Plan Assessment: Atrial fibrillation with mild RVR with Elevated troponin, rule out cardiac disease Right lower lobe pneumonia Alcohol abuse, arthroscope alcohol withdrawal Elevated lactic acid, came back to normal Hyperkalemia. Nicotine dependence Anxiety, not in active tissue Plan: This is a pleasant 74 years old female who presents with A. fib and RVR pneumonia, rule out coronary artery disease. We'll do serial troponin, continue with heparin drip and Cardizem drip and switched to oral per cardiology team were consulted. Follow-up recommendation by cardiology team. Check a pro- calcitonin and start antibiotic. Follow-up culture results. Check echocardiogram and TSH Labs and medication were reviewed.. Continue same treatment. Continue with symptomatic treatment. Resume home medication. Monitor lytes and vitals. DVT and GI prophylaxis. Further recommendations of the clinical course of the patient DVT prophylaxis: heparin GI Prophylaxis: Pepcid PT/OT: Pending Prognosis is guarded
[2020-02-14 21:49] LABS: Basophils # (A) 0.1 k/uL (0-0.2); Basophils % (A) 1 %; Eosinophils # (A) 0.3 k/uL (0-0.7); Eosinophils % (A) 2 %; HCT 50.2 % (34.0-46.0); HGB 15.9 gm/dL (11.4-16.0); Lymphocytes # (A) 2.7 k/uL (1.0-4.8); Lymphocytes % (A) 24 %; MCH 31.6 pg (25.0-35.0); MCHC 31.7 g/dL (31.0-37.0); MCV 99.5 fL (80.0-100.0); Mean Platelet Volume 8.6; Monocytes # (A) 0.6 k/uL (0-1.0); Monocytes % (A) 6 %; Neutrophils # (A) 7.1 k/uL (1.3-7.7); Neutrophils % (A) 64 %; Platelet Count 296 k/uL (150-450); RBC 5.04 m/uL (3.80-5.40); RDW 13.6 % (11.5-15.5); WBC 11.1 k/uL (3.8-10.6)
[2020-02-14 22:10] LABS: Calcium 9.6 mg/dL (8.4-10.2); Potassium 3.8 mmol/L (3.5-5.1)
[2020-02-14] MEDS ORDERED: AZITHROMYCIN 500 MG in SODIUM CHLORIDE 0.9% 250 ML IVPB SCH (22:45)
[2020-02-15 07:14] LABS: Basophils # (A) 0.1 k/uL (0-0.2); Basophils % (A) 1 %; Eosinophils # (A) 0.2 k/uL (0-0.7); Eosinophils % (A) 2 %; HCT 50.6 % (34.0-46.0); HGB 15.9 gm/dL (11.4-16.0); Lymphocytes # (A) 2.9 k/uL (1.0-4.8); Lymphocytes % (A) 25 %; MCH 31.6 pg (25.0-35.0); MCHC 31.4 g/dL (31.0-37.0); MCV 100.4 fL (80.0-100.0); Macrocytosis Slight; Mean Platelet Volume 8.4; Monocytes # (A) 0.8 k/uL (0-1.0); Monocytes % (A) 7 %; Neutrophils # (A) 7.2 k/uL (1.3-7.7); Neutrophils % (A) 63 %; Platelet Count 317 k/uL (150-450); RBC 5.04 m/uL (3.80-5.40); RDW 13.8 % (11.5-15.5); WBC 11.5 k/uL (3.8-10.6)
[2020-02-15 07:30] LABS: Calcium 9.7 mg/dL (8.4-10.2)
[2020-02-15] MEDS: APIXABAN 5 MG TAB PO SCH ×2 (08:10→20:56)
[2020-02-15] MEDS: METOPROLOL SUCCINATE (ER) 25 MG TAB.ER.24H PO SCH (08:10)
[2020-02-15] MEDS: FUROSEMIDE 20 MG TAB PO SCH ×2 (08:10→16:48)
[2020-02-15] MEDS: FAMOTIDINE 20 MG/2 ML VIAL IV SCH (08:10)
--- NOTE | 2020-02-15 08:58 | XR ---
EXAMINATION TYPE: XR chest 2V DATE OF EXAM: 02/15/2020 CLINICAL HISTORY: Pleural effusion TECHNIQUE: Frontal and lateral views of the chest are obtained. COMPARISON: 02/13/2020 chest radiograph FINDINGS: The cardiomediastinal silhouette is within normal limits for size. Pulmonary vasculature i s normal. There is unchanged moderate right pleural effusion. No left pleural effusion. No pneumothor ax. Degenerative changes of the spine. IMPRESSION: Unchanged right pleural effusion.
--- NOTE | 2020-02-15 12:30 | P.PN ---
Subjective Progress Note Date: 02/15/20 CHIEF COMPLAINT: Shortness of breath HISTORY OF PRESENT ILLNESS: Patient examined this morning at the bedside. She denies chest pain or pressure. Denies shortness of breath. Patient was transitioned to oral Lasix yesterday. Creatinine 1.27. Repeat chest x-ray this morning reveals unchanged right pleural effusion PHYSICAL EXAM: VITAL SIGNS: Reviewed. GENERAL: Well-developed in no acute distress. HEENT: Head is normocephalic. Pupils are equal, round. Sclerae anicteric. Mucous membranes of the mouth are moist. Neck supple. No JVD or thyromegaly LUNGS: Respirations even and unlabored. Lungs diminished at the bases. HEART: Irregular rate and rhythm. S1 and S2 heard. ABDOMEN: Soft. Nondistended. Nontender. EXTREMITIES: Normal range of motion. No clubbing or cyanosis. Peripheral pulses intact. No lower extremity edema NEUROLOGIC: Awake and alert. Oriented x 3. ASSESSMENT: New-onset persistent atrial fibrillation with RVR Elevated troponins, secondary to above Acute exacerbation of systolic congestive heart failure, BNP 3900, EF 30-35% Possible right-sided pneumonia Bilateral pleural effusions, right greater than left Nicotine dependence, patient smokes 1 pack per day Abnormal TSH, 7.080 PLAN: Continue Eliquis 5 mg BID Continue Toprol 25 mg daily Continue oral Lasix Monitor kidney function Daily weights Accurate I&O Nurse practitioner note has been reviewed by physician. Signing provider agrees with the documented findings, assessment, and plan of care. Objective - Vital Signs Vital signs: Vital Signs Temp 97.5 F L 02/15/20 12:00 Pulse 61 02/15/20 12:00 Resp 20 02/15/20 12:00 BP 159/85 02/15/20 12:00 Pulse Ox 95 02/15/20 12:00 Intake & Output 02/14/20 02/15/20 02/15/20 18:59 06:59 18:59 Intake Total 130 100 Output Total 100 Balance 130 -100 100 Weight 52.2 kg Intake: Intake, IV Titration 10 Amount Sodium Chloride 0.9% 1, 10 000 ml @ 20 mls/hr IV . Q24H [facility] Rx#:[id number] Oral 120 100 Output: Urine 100 Other: Voiding Method Toilet Toilet # Voids 1 2 - Labs CBC & Chem 7: 02/15/20 06:50 09/08/20 06:50 Labs: Abnormal Lab Results - Last 24 Hours (Table) 02/14/20 02/14/20 02/15/20 Range/Units 21:29 21:29 06:50 WBC 11.1 H 11.5 H (3.8-10.6) k/uL Hct 50.2 H 50.6 H (34.0-46.0) % MCV 100.4 H (80.0-100.0) fL Chloride 95 L (98-107) mmol/L Carbon Dioxide (22-30) mmol/L BUN 30 H (7-17) mg/dL Creatinine 1.27 H (0.52-1.04) mg/dL Glucose 145 H (74-99) mg/dL 02/15/20 Range/Units 06:50 WBC (3.8-10.6) k/uL Hct (34.0-46.0) % MCV (80.0-100.0) fL Chloride 96 L (98-107) mmol/L Carbon Dioxide 33 H (22-30) mmol/L BUN 30 H (7-17) mg/dL Creatinine 1.27 H (0.52-1.04) mg/dL Glucose 112 H (74-99) mg/dL
--- NOTE | 2020-02-15 14:24 | CDI ---
Documentation Clarification Form Date: 02/15/2020 1422 CDS: Aliyah Lopez RN, CCDS Admit Date: 02/11/20202043 Patient Name: Marry Duvall ATTENTION: The Clinical Documentation Specialists (CDI) and [facility] Coding Staff appreciate your assistance in clarifying documentation. Please respond to the clarification below the line at the bottom and electronically sign. The CDI & [facility] Coding staff will review the response and follow-up if needed. Please note: Queries are made part of the Legal Health Record. If you have any questions, please contact the author of this message via ITS. Dr. Romano, An increase and BUN and Creatinine has been noted during the stay. Please provide clinical significance. History/Risk Factors: ETOH, DM Patients baseline BUN/CR/GFR: there is no previous lab work from this facility available Clinical Indicators: 02/11 Cardiology consult: "Monitor kidney function Daily weights " 02/12 Cardiology progress note: "Increase Lasix to 60mg Q8 secondary to unchanged right moderate pleural effusion Monitor kidney function." Current BUN: 16/14/16/30/30 Cr: 0.86/.089/1/1.27/1.27 GFR: 67/64/56/41/41 Treatment: IVF: 0.9% NS @ 20 cc/hr 02/10 Lasix 40 mg IVP x 1 02/11 Lasix 40 mg IVP Q 8 hrs 02/12 Lasix 60 mg IVP q 8 hrs 02/13 Lasix 60 mg PO BID In order to capture the severity of condition, please clarify if the condition signifies: Acute renal failure, Please specify etiology (if known): Cortical Necrosis Medullary Necrosis Tubular Necrosis Acute kidney injury Acute on chronic renal failure CKD Stage 1 GFR >90 CKD Stage 2 GFR 60-89 CKD Stage 3 GFR 30-59 CKD Stage 4 GFR 15-29 CKD Stage 5 GFR <15 Other, please specify Unable to determine Please continue to document in your progress notes and discharge summary in order to capture severity of illness and risk of mortality. Include clinical findings that support your diagnosis. mild acute kid injury secondary MTDD
[2020-02-15] MEDS ORDERED: lisinopriL 5 MG TAB PO SCH (14:45)
[2020-02-15] MEDS: SODIUM CHLORIDE 0.9% 1,000 ML IV SCH (16:56)
[2020-02-15 18:18] LABS: Cholesterol 194 mg/dL (<200); HDL Cholesterol 47 mg/dL (40-60); LDL Cholesterol,Calculated 112 mg/dL (0-99); Triglycerides 177 mg/dL (<150)
[2020-02-15] MEDS ORDERED: LEVOFLOXACIN 500MG-D5W PMX 500 MG in DEXTROSE/WATER 1 100ML.BAG IVPB SCH (19:30)
[2020-02-16 07:20] LABS: Basophils # (A) 0.1 k/uL (0-0.2); Basophils % (A) 1 %; Eosinophils # (A) 0.2 k/uL (0-0.7); Eosinophils % (A) 2 %; HCT 47.8 % (34.0-46.0); HGB 14.9 gm/dL (11.4-16.0); Lymphocytes # (A) 2.2 k/uL (1.0-4.8); Lymphocytes % (A) 21 %; MCH 31.3 pg (25.0-35.0); MCHC 31.3 g/dL (31.0-37.0); MCV 100.1 fL (80.0-100.0); Mean Platelet Volume 8.4; Monocytes # (A) 0.7 k/uL (0-1.0); Monocytes % (A) 7 %; Neutrophils # (A) 6.9 k/uL (1.3-7.7); Neutrophils % (A) 66 %; Platelet Count 298 k/uL (150-450); RBC 4.78 m/uL (3.80-5.40); RDW 13.6 % (11.5-15.5); WBC 10.5 k/uL (3.8-10.6)
--- NOTE | 2020-02-16 07:37 | P.PN ---
Subjective This is a pleasant 74 years old female with no significant past medical history, she has history of anxiety and cigarette smoker. She used to see Dr. Carroll but she stopped doing that because of her insurance, no PCP Presents because of 10-14 days of dyspnea associated with cough and clear phlegm but no chest pain, yesterday she was coughing a lot so she decided to come to the hospital. She denies abdominal pain or nausea vomiting, no change in urine bowel habits, no weakness or numbness or headache, no blurred vision or slurred speech. She smokes about less than a pack per day, she's counseled and agrees to quit and agrees to nicotine patch. She drinks a glass of wine every day. Vitals are stable and she is saturating 97% and 2 L oxygen via nasal cannula. She has mild leukocytosis of 11.2. INR is normal, lap showing mild hyperkalemia at 5.5, rest of the BMP is unremarkable, elevated lactic acid, came back to normal from 2.1 down to 1.7. Bilirubin is slightly elevated at 1.5, AST slightly elevated at 53, ALT is normal at 20. Troponin were elevated at 0.04, 0.05, 0.06. I proBNP at 3990. EKG showing atrial fibrillation with rapid ventricular rate at 101 and QTC of 482 Chest x-ray showing right pleural effusion with right lower lobe consolidation and atelectasis In the emergency room she received 1 Dose of Lasix, and she was started on heparin drip as well as bronchodilator and nitroglycerin ointment. Also she was started on Cardizem drip at 5 mg per hour 02/13/20 Patient still tachypneic and short of breath but is improved compared to yesterday, she still have dry cough but no phlegm although it looks wet to her. And she denies chest pain She has some runny nose but no UTI signs and symptoms She is on Eliquis for new onset A. fib and Lasix was increased to 60 mg 3 times a day Cardiology is on the case. High TSH 7.0 with normal T4 at 1.3, I instructed patient to recheck her thyroid function test as an outpatient and she agrees PT/OT is ordered 02/14/20 Patient is breathing quietly with significantly improved dyspnea, no chest pain. She is hemodynamically stable Lasix is switched to 60 mg by mouth twice daily today Repeat chest x-ray in the morning per cardiology team R following the case closely Continue with metoprolol and Eliquis Possible discharge in 24-48 hours and keep improvement 02/15/20 Patient is awake and alert, no chest pain, only little dyspnea. She has rt pleural effusion Also she has acute kidney injury secondary to medications are correct including lisinopril and Lasix however her creatinine is stable over several days at 1.2. No NSAIDs, no hypertension, no contrast Patient still have some leukocytosis, and her pleural effusion, change antibiotics to Levaquin, monitored WBC. Check for procalcitonin Objective - Vital Signs Vital signs: Vital Signs Temp 97.5 F L 02/15/20 12:00 Pulse 61 02/15/20 12:00 Resp 20 02/15/20 12:00 BP 159/85 02/15/20 12:00 Pulse Ox 95 02/15/20 12:00 Intake & Output 02/14/20 02/15/20 02/15/20 18:59 06:59 18:59 Intake Total 130 100 Output Total 100 Balance 130 -100 100 Weight 52.2 kg Intake: Intake, IV Titration 10 Amount Sodium Chloride 0.9% 1, 10 000 ml @ 20 mls/hr IV . Q24H [facility] Rx#:[id number] Oral 120 100 Output: Urine 100 Other: Voiding Method Toilet Toilet # Voids 1 2 - Exam GENERAL: The patient is alert and oriented x3, not in any acute distress. Well developed, well nourished. HEENT: Pupils are round and equally reacting to light. EOMI. No scleral icterus. No conjunctival pallor. Normocephalic, atraumatic. No pharyngeal erythema. No thyromegaly. CARDIOVASCULAR: S1 and S2 present. No murmurs, rubs, or gallops. PULMONARY: Chest is clear to auscultation, no wheezing or crackles. ABDOMEN: Soft, nontender, nondistended, normoactive bowel sounds. No palpable organomegaly. MUSCULOSKELETAL: No joint swelling or deformity. EXTREMITIES: No cyanosis, clubbing, or pedal edema. NEUROLOGICAL: Gross neurological examination did not reveal any focal deficits. SKIN: No rashes. no petechiae. - Labs CBC & Chem 7: 02/16/20 06:56 02/15/20 06:50 Labs: Abnormal Lab Results - Last 24 Hours (Table) 02/14/20 02/14/20 02/15/20 Range/Units 21:29 21:29 06:50 WBC 11.1 H 11.5 H (3.8-10.6) k/uL Hct 50.2 H 50.6 H (34.0-46.0) % MCV 100.4 H (80.0-100.0) fL Chloride 95 L (98-107) mmol/L Carbon Dioxide (22-30) mmol/L BUN 30 H (7-17) mg/dL Creatinine 1.27 H (0.52-1.04) mg/dL Glucose 145 H (74-99) mg/dL 02/15/20 Range/Units 06:50 WBC (3.8-10.6) k/uL Hct (34.0-46.0) % MCV (80.0-100.0) fL Chloride 96 L (98-107) mmol/L Carbon Dioxide 33 H (22-30) mmol/L BUN 30 H (7-17) mg/dL Creatinine 1.27 H (0.52-1.04) mg/dL Glucose 112 H (74-99) mg/dL Assessment and Plan Assessment: Atrial fibrillation with mild RVR with Elevated troponin, rule out cardiac disease Right lower lobe pneumonia rt pleural effusion Also she has acute kidney injury secondary to medications Alcohol abuse, arthroscope alcohol withdrawal Elevated lactic acid, came back to normal Hyperkalemia. Nicotine dependence Anxiety, not in active tissue Plan: This is a pleasant 74 years old female who presents with A. fib and RVR pneumonia, rule out coronary artery disease. We'll do serial troponin, continue with heparin drip and Cardizem drip and switched to oral per cardiology team were consulted. Follow-up recommendation by cardiology team. Check a pro- calcitonin and start antibiotic. Follow-up culture results. Check echocardiogram and TSH Labs and medication were reviewed.. Continue same treatment. Continue with symptomatic treatment. Resume home medication. Monitor lytes and vitals. DVT and GI prophylaxis. Further recommendations of the clinical course of the patient DVT prophylaxis: heparin GI Prophylaxis: Pepcid PT/OT: Pending Prognosis is guarded
[2020-02-16 07:51] LABS: Calcium 9.3 mg/dL (8.4-10.2)
[2020-02-16] MEDS: APIXABAN 5 MG TAB PO SCH (09:37)
[2020-02-16] MEDS: FAMOTIDINE 20 MG TAB PO SCH (09:37)
[2020-02-16] MEDS: METOPROLOL SUCCINATE (ER) 25 MG TAB.ER.24H PO SCH (09:37)
[2020-02-16 11:36] LABS: Basophils # (A) 0.1 k/uL (0-0.2); Basophils % (A) 1 %; Eosinophils # (A) 0.2 k/uL (0-0.7); Eosinophils % (A) 2 %; HCT 48.3 % (34.0-46.0); Lymphocytes # (A) 1.9 k/uL (1.0-4.8); Lymphocytes % (A) 16 %; MCH 31.3 pg (25.0-35.0); MCHC 31.1 g/dL (31.0-37.0); MCV 100.4 fL (80.0-100.0); Mean Platelet Volume 8.7; Monocytes # (A) 0.8 k/uL (0-1.0); Monocytes % (A) 7 %; Neutrophils # (A) 8.3 k/uL (1.3-7.7); Neutrophils % (A) 72 %; Platelet Count 308 k/uL (150-450); RBC 4.81 m/uL (3.80-5.40); RDW 13.6 % (11.5-15.5); WBC 11.6 k/uL (3.8-10.6)
[2020-02-16 12:04] LABS: INR 1.1 (<1.2); Partial Thromboplastin Time 27.2 sec (22.0-30.0); Prothrombin Time 11.6 sec (9.0-12.0)
--- NOTE | 2020-02-16 13:47 | P.PN ---
Subjective Progress Note Date: 02/16/20 CHIEF COMPLAINT: Shortness of breath HISTORY OF PRESENT ILLNESS: Patient examined this morning at the bedside. She denies chest pain or pressure. Denies shortness of breath at rest. Creatinine increased a to 1.73, up from 1.27. Patient has been receiving oral Lasix 60 mg twice a day. Vital signs stable. PHYSICAL EXAM: VITAL SIGNS: Reviewed. GENERAL: Well-developed in no acute distress. HEENT: Head is normocephalic. Pupils are equal, round. Sclerae anicteric. Mucous membranes of the mouth are moist. Neck supple. No JVD or thyromegaly LUNGS: Respirations even and unlabored. Lungs diminished at the bases. HEART: Irregular rate and rhythm. S1 and S2 heard. ABDOMEN: Soft. Nondistended. Nontender. EXTREMITIES: Normal range of motion. No clubbing or cyanosis. Peripheral pulses intact. No lower extremity edema NEUROLOGIC: Awake and alert. Oriented x 3. ASSESSMENT: New-onset persistent atrial fibrillation with RVR Elevated troponins, secondary to above Acute exacerbation of systolic congestive heart failure, BNP 3900, EF 30-35% Possible right-sided pneumonia Bilateral pleural effusions, right greater than left Nicotine dependence, patient smokes 1 pack per day Abnormal TSH, 7.080 Acute kidney injury PLAN: Discontinue oral lasix secondary to ALEE Hold lisinopril secondary to ALEE 250cc 0.9NS fluid bolus Patient does not have prescription insurance coverage for Eliquis. Will discharge patient on Coumadin Patient with EF 30-35%. Cardiac cath was recommended. Discussed with Dr. Funes who will perform cardiac cath possibly tomorrow depending on patients renal function. Will DC Eliquis and begin IV heparin tonight. NPO at midnight. Nurse practitioner note has been reviewed by physician. Signing provider agrees with the documented findings, assessment, and plan of care. Objective - Vital Signs Vital signs: Vital Signs Temp 98.1 F 02/16/20 04:00 Pulse 59 L 02/16/20 04:00 Resp 18 02/16/20 04:00 BP 132/81 02/16/20 04:00 Pulse Ox 94 L 02/16/20 04:00 Intake & Output 02/15/20 02/16/20 02/16/20 18:59 06:59 18:59 Intake Total 200 240 Output Total 400 Balance 200 -400 240 Weight 52.3 kg Intake: Oral 200 240 Output: Urine 400 Other: Voiding Method Toilet Toilet # Voids 3 2 - Labs CBC & Chem 7: 02/16/20 10:53 02/16/20 06:56 Labs: Abnormal Lab Results - Last 24 Hours (Table) 02/15/20 02/16/20 02/16/20 Range/Units 06:50 06:56 06:56 WBC (3.8-10.6) k/uL Hct 47.8 H (34.0-46.0) % MCV 100.1 H (80.0-100.0) fL Neutrophils # (1.3-7.7) k/uL Carbon Dioxide 34 H (22-30) mmol/L BUN 35 H (7-17) mg/dL Creatinine 1.73 H (0.52-1.04) mg/dL Glucose 103 H (74-99) mg/dL Triglycerides 177 H (<150) mg/dL LDL Cholesterol, Calc 112 H (0-99) mg/dL 02/16/20 Range/Units 10:53 WBC 11.6 H (3.8-10.6) k/uL Hct 48.3 H (34.0-46.0) % MCV 100.4 H (80.0-100.0) fL Neutrophils # 8.3 H (1.3-7.7) k/uL Carbon Dioxide (22-30) mmol/L BUN (7-17) mg/dL Creatinine (0.52-1.04) mg/dL Glucose (74-99) mg/dL Triglycerides (<150) mg/dL LDL Cholesterol, Calc (0-99) mg/dL
[2020-02-16] MEDS: SODIUM CHLORIDE 0.9% 250 ML IV SCH ×8 (17:29→18:13)
[2020-02-16] MEDS ORDERED: LEVOFLOXACIN 250MG-D5W PMX 250 MG in DEXTROSE/WATER 1 50ML.BAG IVPB SCH (19:30)
[2020-02-16] MEDS: ATORVASTATIN 40 MG TAB PO SCH (19:56)
--- NOTE | 2020-02-16 20:31 | P.PN ---
Subjective This is a pleasant 74 years old female with no significant past medical history, she has history of anxiety and cigarette smoker. She used to see Dr. Carroll but she stopped doing that because of her insurance, no PCP Presents because of 10-14 days of dyspnea associated with cough and clear phlegm but no chest pain, yesterday she was coughing a lot so she decided to come to the hospital. She denies abdominal pain or nausea vomiting, no change in urine bowel habits, no weakness or numbness or headache, no blurred vision or slurred speech. She smokes about less than a pack per day, she's counseled and agrees to quit and agrees to nicotine patch. She drinks a glass of wine every day. Vitals are stable and she is saturating 97% and 2 L oxygen via nasal cannula. She has mild leukocytosis of 11.2. INR is normal, lap showing mild hyperkalemia at 5.5, rest of the BMP is unremarkable, elevated lactic acid, came back to normal from 2.1 down to 1.7. Bilirubin is slightly elevated at 1.5, AST slightly elevated at 53, ALT is normal at 20. Troponin were elevated at 0.04, 0.05, 0.06. I proBNP at 3990. EKG showing atrial fibrillation with rapid ventricular rate at 101 and QTC of 482 Chest x-ray showing right pleural effusion with right lower lobe consolidation and atelectasis In the emergency room she received 1 Dose of Lasix, and she was started on heparin drip as well as bronchodilator and nitroglycerin ointment. Also she was started on Cardizem drip at 5 mg per hour 02/13/20 Patient still tachypneic and short of breath but is improved compared to yesterday, she still have dry cough but no phlegm although it looks wet to her. And she denies chest pain She has some runny nose but no UTI signs and symptoms She is on Eliquis for new onset A. fib and Lasix was increased to 60 mg 3 times a day Cardiology is on the case. High TSH 7.0 with normal T4 at 1.3, I instructed patient to recheck her thyroid function test as an outpatient and she agrees PT/OT is ordered 02/14/20 Patient is breathing quietly with significantly improved dyspnea, no chest pain. She is hemodynamically stable Lasix is switched to 60 mg by mouth twice daily today Repeat chest x-ray in the morning per cardiology team R following the case closely Continue with metoprolol and Eliquis Possible discharge in 24-48 hours and keep improvement 02/15/20 Patient is awake and alert, no chest pain, only little dyspnea. She has rt pleural effusion Also she has acute kidney injury secondary to medications are correct including lisinopril and Lasix however her creatinine is stable over several days at 1.2. No NSAIDs, no hypertension, no contrast Patient still have some leukocytosis, and her pleural effusion, change antibiotics to Levaquin, monitored WBC. Check for procalcitonin 02/16/20 Patient still awake and alert, she still have some dyspnea on exertion but no chest pain no coughing. She has a right pleural effusion. Creatinine went up today to 1.7, yeast maker up the lisinopril and Lasix. Some normal saline is provided. Patient is planned to go for cardiac cath tomorrow so we called for nephrology consult. Also will check bladder scan She has mild leukocytosis but normal procalcitonin , continue with low dose of Lovenox. Monitor blood pressure closely Objective - Vital Signs Vital signs: Vital Signs Temp 98.1 F 02/16/20 20:00 Pulse 87 02/16/20 20:00 Resp 16 02/16/20 20:00 BP 120/78 02/16/20 20:00 Pulse Ox 96 02/16/20 20:00 Intake & Output 02/16/20 02/16/20 02/17/20 06:59 18:59 06:59 Intake Total 600 Output Total 400 Balance -400 600 Weight 52.3 kg Intake: Oral 600 Output: Urine 400 Other: Voiding Method Toilet Toilet Toilet Bedside Commode Bedside Commode # Voids 1 - Exam GENERAL: The patient is alert and oriented x3, not in any acute distress. Well developed, well nourished. HEENT: Pupils are round and equally reacting to light. EOMI. No scleral icterus. No conjunctival pallor. Normocephalic, atraumatic. No pharyngeal erythema. No thyromegaly. CARDIOVASCULAR: S1 and S2 present. No murmurs, rubs, or gallops. PULMONARY: Chest is clear to auscultation, no wheezing or crackles. ABDOMEN: Soft, nontender, nondistended, normoactive bowel sounds. No palpable organomegaly. MUSCULOSKELETAL: No joint swelling or deformity. EXTREMITIES: No cyanosis, clubbing, or pedal edema. NEUROLOGICAL: Gross neurological examination did not reveal any focal deficits. SKIN: No rashes. no petechiae. - Labs CBC & Chem 7: 02/16/20 10:53 02/16/20 06:56 Labs: Abnormal Lab Results - Last 24 Hours (Table) 02/16/20 02/16/20 02/16/20 Range/Units 06:56 06:56 10:53 WBC 11.6 H (3.8-10.6) k/uL Hct 47.8 H 48.3 H (34.0-46.0) % MCV 100.1 H 100.4 H (80.0-100.0) fL Neutrophils # 8.3 H (1.3-7.7) k/uL Carbon Dioxide 34 H (22-30) mmol/L BUN 35 H (7-17) mg/dL Creatinine 1.73 H (0.52-1.04) mg/dL Glucose 103 H (74-99) mg/dL Assessment and Plan Assessment: Atrial fibrillation with mild RVR with Elevated troponin, rule out cardiac disease rt pleural effusion, Possible Right lower lobe pneumonia but felt less likely in view of normal procalcitonin. acute kidney injury secondary to medications, hold Lasix and lisinopril. Give IV fluids and nephrology consult Alcohol abuse, arthroscope alcohol withdrawal Elevated lactic acid, came back to normal Hyperkalemia. Nicotine dependence Anxiety, not in active tissue Plan: This is a pleasant 74 years old female who presents with A. fib and RVR pneumonia, rule out coronary artery disease. Cardiology on the case the planning for cardiac cath tomorrow however her creatinine is up so we call nephrology consult. We will check bladder scan. Agree with holding lisinopril and Lasix. Monitor blood pressure and give normal saline as needed. Labs and medication were reviewed.. Continue same treatment. Continue with symptomatic treatment. Resume home medication. Monitor lytes and vitals. DVT and GI prophylaxis. Further recommendations of the clinical course of the patient DVT prophylaxis: heparin GI Prophylaxis: Pepcid PT/OT: Pending Prognosis is guarded
[2020-02-16] MEDS ORDERED: HEPARIN SODIUM,PORCINE 5,000 UNIT/ML 1 ML VIAL IV PRN (21:00)
[2020-02-16] MEDS ORDERED: HEPARIN SODIUM,PORCINE 5,000 UNIT/ML 1 ML VIAL IV ONE (21:00)
[2020-02-16] MEDS: HEPARIN SOD,PORK IN 0.45% NACL 25,000 UNIT in 0.45% NACL 1 250ML.BAG IV SCH (22:14)
[2020-02-16] MEDS: SODIUM CHLORIDE 0.9% 1,000 ML IV SCH (22:57)
[2020-02-17 06:56] LABS: Basophils # (A) 0.1 k/uL (0-0.2); Basophils % (A) 0 %; Eosinophils # (A) 0.2 k/uL (0-0.7); Eosinophils % (A) 2 %; HCT 47.3 % (34.0-46.0); HGB 14.5 gm/dL (11.4-16.0); Lymphocytes # (A) 2.9 k/uL (1.0-4.8); Lymphocytes % (A) 25 %; MCH 31.2 pg (25.0-35.0); MCHC 30.8 g/dL (31.0-37.0); MCV 101.4 fL (80.0-100.0); Macrocytosis Slight; Monocytes # (A) 0.8 k/uL (0-1.0); Monocytes % (A) 7 %; Neutrophils # (A) 7.5 k/uL (1.3-7.7); Neutrophils % (A) 64 %; Platelet Count 309 k/uL (150-450); RBC 4.66 m/uL (3.80-5.40); RDW 13.5 % (11.5-15.5); WBC 11.8 k/uL (3.8-10.6)
[2020-02-17 07:29] LABS: Calcium 9.1 mg/dL (8.4-10.2); Potassium 3.7 mmol/L (3.5-5.1)
[2020-02-17] MEDS: METOPROLOL SUCCINATE (ER) 25 MG TAB.ER.24H PO SCH ×2 (08:24→08:30)
[2020-02-17] MEDS: FAMOTIDINE 20 MG TAB PO SCH ×2 (08:24→08:31)
--- NOTE | 2020-02-17 09:53 | P.NPCON ---
History of Present Illness - Reason for Consult acute renal failure - History of Present Illness reason for consultation: Acute kidney injury History of present illness: Patient is a 74-year-old female seen in renal consultation for acute kidney injury. His baseline creatinine is near 1. It peaked at 1.73 this admission and is 1.55 today. Patient presented to the hospital with shortness of breath and orthopnea. Patient was being diuresed with IV Lasix and was subsequently changed over to oral Lasix. Due to worsening renal function diuretics were discontinued. She was noted to have a right-sided pleural effusion which has been persistent. Ejection fraction 30-35%. Plan was for cardiac cath eterization to be done inpatient but will now be done outpatient. No edema. No vomiting or diarrhea. Oral intake is fair. Denies regular use of nonsteroidals. Denies any personal or family history of renal disease. No chest pain or shortness of breath at this time. she was also started on raymundo nopril this admission but has now been discontinued. No history of diabetes. Vital signs are stable. General: The patient appeared well nourished and normally developed. HEENT: Head exam is unremarkable. Neck is without jugular venous distension. LUNGS: Lungs are clear to auscultation and percussion. Breath sounds decreased. HEART: Rate and Rhythm are regular. ABDOMEN: soft, nontender. EXTREMITITES: No clubbing, cyanosis, or edema. 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 History of Any Multi-Drug Resistant Organisms: None Reported Past Surgical History: Orthopedic Surgery Additional Past Surgical History / Comment(s): Pt states she had a D&C Past Psychological History: Anxiety Smoking Status: Current every day smoker Past Alcohol Use History: Occasional Past Drug Use History: None Reported - Past Family History Mother Family Medical History: Cancer, Diabetes Mellitus Additional Family Medical History / Comment(s): Uterine CA, Father History Unknown: Yes Medications and Allergies Home Medications Medication Instructions Recorded Confirmed Type No Known Home Medications 02/11/20 02/11/20 History Allergies Allergy/AdvReac Type Severity Reaction Status Date / Time pollen extracts AdvReac Cough Verified 02/11/20 21:12 Physical Exam Vitals: Vital Signs Temp Pulse Resp BP Pulse Ox 02/17/20 08:31 96.8 F L 91 16 126/72 96 02/17/20 04:00 98.0 F 85 16 112/70 98 02/16/20 22:50 88 16 120/76 97 02/16/20 20:00 98.1 F 87 16 120/78 96 02/16/20 15:58 89 02/16/20 15:57 97.8 F 89 16 105/58 97 Intake and Output 02/16/20 02/17/20 02/17/20 22:59 06:59 14:59 Intake Total 360 Output Total 350 100 Balance 10 -100 Intake: Oral 360 Output: Urine 350 100 Other: Voiding Method Toilet Bedside Commode # Voids 1 Weight 52.8 kg Results - Lab Results Most recent lab results Calcium 9.1 mg/dL (8.4-10.2) 02/17/20 06:04 Magnesium 1.8 mg/dL (1.6-2.3) 02/11/20 19:41 02/17/20 06:04 02/17/20 06:04 Assessment and Plan Plan: assessment: 1. Acute kidney injury mostly prerenal secondary to cardiorenal syndrome and hemodynamic instability. creatinine peaked at 1.73 this admission and is 1.55 today. Baseline creatinine near 1. urinalysis is benign. 2. Acute on chronic systolic CHF with ejection fraction of 30-35%. 3. A. fib with RVR. Stable. 4. Volume overload. Improved with diuresis. Plan: hold diuretics today. Plan to resume low-dose diuretics tomorrow. Avoid nephrotoxins. Continue to monitor renal function and urine output. Thank you for the consultation. I will continue to follow the patient with you during her hospital stay.
[2020-02-17 11:30] VITALS: BMI 19.3
--- NOTE | 2020-02-17 12:43 | P.PN ---
Subjective Progress Note Date: 02/17/20 CHIEF COMPLAINT: Shortness of breath HISTORY OF PRESENT ILLNESS: Patient examined this morning at the bedside. She denies chest pain or pressure. Denies shortness of breath. Creatinine 1.55 today down from 1.73. Diuretics remain on hold. Vital signs stable. PHYSICAL EXAM: VITAL SIGNS: Reviewed. GENERAL: Well-developed in no acute distress. HEENT: Head is normocephalic. Pupils are equal, round. Sclerae anicteric. Mucous membranes of the mouth are moist. Neck supple. No JVD or thyromegaly LUNGS: Respirations even and unlabored. Lungs diminished at the bases. HEART: Irregular rate and rhythm. S1 and S2 heard. ABDOMEN: Soft. Nondistended. Nontender. EXTREMITIES: Normal range of motion. No clubbing or cyanosis. Peripheral p ulses intact. No lower extremity edema NEUROLOGIC: Awake and alert. Oriented x 3. ASSESSMENT: New-onset persistent atrial fibrillation with RVR Elevated troponins, secondary to above Acute exacerbation of systolic congestive heart failure, BNP 3900, EF 30-35% Possible right-sided pneumonia Bilateral pleural effusions, right greater than left Nicotine dependence, patient smokes 1 pack per day Abnormal TSH, 7.080 Acute kidney injury PLAN: Continue to hold oral lasix secondary to ALEE. Nephrology following. Will likely initiate low-dose oral diuretic tomorrow if creatinine improves Hold lisinopril secondary to ALEE Patient will require cardiac catheterization. However due to AKA, this may be performed on an outpatient basis. Will begin patient on Coumadin. Patient has no prescription drug coverage. Continue IV heparin until INR is therapeutic Nurse practitioner note has been reviewed by physician. Signing provider agrees with the documented findings, assessment, and plan of care. Objective - Vital Signs Vital signs: Vital Signs Temp 96.5 F L 02/17/20 11:17 Pulse 68 02/17/20 11:17 Resp 16 02/17/20 11:17 BP 127/75 02/17/20 11:17 Pulse Ox 96 02/17/20 11:17 Intake & Output 02/16/20 02/17/20 02/17/20 18:59 06:59 18:59 Intake Total 600 120 120 Output Total 450 200 Balance 600 -330 -80 Weight 52.8 kg 52.8 kg Intake: Oral 600 120 120 Output: Urine 450 200 Other: Voiding Method Toilet Toilet Bedside Commode Bedside Commode # Voids 1 0 - Labs CBC & Chem 7: 02/17/20 06:04 02/17/20 06:04 Labs: Abnormal Lab Results - Last 24 Hours (Table) 02/17/20 02/17/20 02/17/20 Range/Units 06:04 06:04 06:04 WBC 11.8 H (3.8-10.6) k/uL Hct 47.3 H (34.0-46.0) % MCV 101.4 H (80.0-100.0) fL MCHC 30.8 L (31.0-37.0) g/dL APTT 51.3 H (22.0-30.0) sec BUN 31 H (7-17) mg/dL Creatinine 1.55 H (0.52-1.04) mg/dL Glucose 104 H (74-99) mg/dL C-Reactive Protein (<10.0) mg/L 02/17/20 Range/Units 06:04 WBC (3.8-10.6) k/uL Hct (34.0-46.0) % MCV (80.0-100.0) fL MCHC (31.0-37.0) g/dL APTT (22.0-30.0) sec BUN (7-17) mg/dL Creatinine (0.52-1.04) mg/dL Glucose (74-99) mg/dL C-Reactive Protein 12.4 H (<10.0) mg/L
[2020-02-17] MEDS ORDERED: WARFARIN 5 MG TAB PO ONE (18:00)
[2020-02-17] MEDS: LEVOFLOXACIN 250 MG TAB PO SCH (19:10)
--- NOTE | 2020-02-17 19:36 | P.PN ---
Subjective This is a pleasant 74 years old female with no significant past medical history, she has history of anxiety and cigarette smoker. She used to see Dr. Carroll but she stopped doing that because of her insurance, no PCP Presents because of 10-14 days of dyspnea associated with cough and clear phlegm but no chest pain, yesterday she was coughing a lot so she decided to come to the hospital. She denies abdominal pain or nausea vomiting, no change in urine bowel habits, no weakness or numbness or headache, no blurred vision or slurred speech. She smokes about less than a pack per day, she's counseled and agrees to quit and agrees to nicotine patch. She drinks a glass of wine every day. Vitals are stable and she is saturating 97% and 2 L oxygen via nasal cannula. She has mild leukocytosis of 11.2. INR is normal, lap showing mild hyperkalemia at 5.5, rest of the BMP is unremarkable, elevated lactic acid, came back to normal from 2.1 down to 1.7. Bilirubin is slightly elevated at 1.5, AST slightly elevated at 53, ALT is normal at 20. Troponin were elevated at 0.04, 0.05, 0.06. I proBNP at 3990. EKG showing atrial fibrillation with rapid ventricular rate at 101 and QTC of 482 Chest x-ray showing right pleural effusion with right lower lobe consolidation and atelectasis In the emergency room she received 1 Dose of Lasix, and she was started on heparin drip as well as bronchodilator and nitroglycerin ointment. Also she was started on Cardizem drip at 5 mg per hour 02/13/20 Patient still tachypneic and short of breath but is improved compared to yesterday, she still have dry cough but no phlegm although it looks wet to her. And she denies chest pain She has some runny nose but no UTI signs and symptoms She is on Eliquis for new onset A. fib and Lasix was increased to 60 mg 3 times a day Cardiology is on the case. High TSH 7.0 with normal T4 at 1.3, I instructed patient to recheck her thyroid function test as an outpatient and she agrees PT/OT is ordered 02/14/20 Patient is breathing quietly with significantly improved dyspnea, no chest pain. She is hemodynamically stable Lasix is switched to 60 mg by mouth twice daily today Repeat chest x-ray in the morning per cardiology team R following the case closely Continue with metoprolol and Eliquis Possible discharge in 24-48 hours and keep improvement 02/15/20 Patient is awake and alert, no chest pain, only little dyspnea. She has rt pleural effusion Also she has acute kidney injury secondary to medications are correct including lisinopril and Lasix however her creatinine is stable over several days at 1.2. No NSAIDs, no hypertension, no contrast Patient still have some leukocytosis, and her pleural effusion, change antibiotics to Levaquin, monitored WBC. Check for procalcitonin 02/16/20 Patient still awake and alert, she still have some dyspnea on exertion but no chest pain no coughing. She has a right pleural effusion. Creatinine went up today to 1.7, center director up the lisinopril and Lasix. Some normal saline is provided. Patient is planned to go for cardiac cath tomorrow so we called for nephrology consult. Also will check bladder scan She has mild leukocytosis but normal procalcitonin , continue with low dose of Lovenox. Monitor blood pressure closely 02/17/2020 pt is awake and alert , she is only a little short of breath , no chest pain , no coughing , breathing somewhat better as per pt she remains on heparin drip and center director started her on coumadine for insurance issues can not have eliquis, she is developing worsening kidney function however her creatinine is improving today 1.7 down to 1.5, nephrology on case , keep holding diurtics and may resume low dose lasix tomorrow , keeping holding baldomero inhibitor bladder scan showing only 7 ml due to her yoly, center director opted to do cardiac cath as outpatient Objective - Vital Signs Vital signs: Vital Signs Temp 98.2 F 02/17/20 15:53 Pulse 75 02/17/20 15:53 Resp 18 02/17/20 15:53 BP 118/81 02/17/20 15:53 Pulse Ox 96 02/17/20 15:53 Intake & Output 02/16/20 02/17/20 02/17/20 18:59 06:59 18:59 Intake Total 600 120 120 Output Total 450 200 Balance 600 -330 -80 Weight 52.8 kg 52.8 kg Intake: Oral 600 120 120 Output: Urine 450 200 Other: Voiding Method Toilet Toilet Bedside Commode Bedside Commode # Voids 1 2 - Exam GENERAL: The patient is alert and oriented x3, not in any acute distress. Well developed, well nourished. HEENT: Pupils are round and equally reacting to light. EOMI. No scleral icterus. No conjunctival pallor. Normocephalic, atraumatic. No pharyngeal erythema. No thyromegaly. CARDIOVASCULAR: S1 and S2 present. No murmurs, rubs, or gallops. PULMONARY: Chest is clear to auscultation, no wheezing or crackles. ABDOMEN: Soft, nontender, nondistended, normoactive bowel sounds. No palpable organomegaly. MUSCULOSKELETAL: No joint swelling or deformity. EXTREMITIES: No cyanosis, clubbing, or pedal edema. NEUROLOGICAL: Gross neurological examination did not reveal any focal deficits. SKIN: No rashes. no petechiae. - Labs CBC & Chem 7: 02/17/20 06:04 02/17/20 06:04 Labs: Abnormal Lab Results - Last 24 Hours (Table) 02/17/20 02/17/20 02/17/20 Range/Units 06:04 06:04 06:04 WBC 11.8 H (3.8-10.6) k/uL Hct 47.3 H (34.0-46.0) % MCV 101.4 H (80.0-100.0) fL MCHC 30.8 L (31.0-37.0) g/dL APTT 51.3 H (22.0-30.0) sec BUN 31 H (7-17) mg/dL Creatinine 1.55 H (0.52-1.04) mg/dL Glucose 104 H (74-99) mg/dL C-Reactive Protein (<10.0) mg/L 02/17/20 Range/Units 06:04 WBC (3.8-10.6) k/uL Hct (34.0-46.0) % MCV (80.0-100.0) fL MCHC (31.0-37.0) g/dL APTT (22.0-30.0) sec BUN (7-17) mg/dL Creatinine (0.52-1.04) mg/dL Glucose (74-99) mg/dL C-Reactive Protein 12.4 H (<10.0) mg/L Assessment and Plan Assessment: Atrial fibrillation with mild RVR with Elevated troponin, rule out cardiac disease rt pleural effusion, Possible Right lower lobe pneumonia but felt less likely in view of normal procalcitonin. acute kidney injury secondary to medications, hold Lasix and lisinopril. nephrology consult Alcohol abuse, arthroscope alcohol withdrawal Elevated lactic acid, came back to normal Hyperkalemia. Nicotine dependence Anxiety, not in active tissue Plan: This is a pleasant 74 years old female who presents with A. fib and RVR pneumonia, rule out coronary artery disease. Cardiology on the case the planning for cardiac cath which can be done as outpt for worsening kidney function , nephrology on case , keep holding lisinopril , may start diuretics per nephrology lateron Labs and medication were reviewed.. Continue same treatment. Continue with symptomatic treatment. Resume home medication. Monitor lytes and vitals. DVT and GI prophylaxis. Further recommendations of the clinical course of the patient DVT prophylaxis: heparin GI Prophylaxis: Pepcid PT/OT: Pending Prognosis is guarded
[2020-02-17] MEDS: ATORVASTATIN 40 MG TAB PO SCH (21:11)
[2020-02-17] MEDS: SODIUM CHLORIDE 0.9% 1,000 ML IV SCH (22:55)
[2020-02-17] MEDS: HEPARIN SOD,PORK IN 0.45% NACL 25,000 UNIT in 0.45% NACL 1 250ML.BAG IV SCH (22:55)
[2020-02-18 06:35] LABS: Basophils # (A) 0.1 k/uL (0-0.2); Basophils % (A) 1 %; Eosinophils # (A) 0.3 k/uL (0-0.7); Eosinophils % (A) 3 %; HCT 45.1 % (34.0-46.0); HGB 14.1 gm/dL (11.4-16.0); Lymphocytes # (A) 2.6 k/uL (1.0-4.8); Lymphocytes % (A) 26 %; MCH 31.4 pg (25.0-35.0); MCHC 31.3 g/dL (31.0-37.0); MCV 100.3 fL (80.0-100.0); Mean Platelet Volume 8.7; Monocytes # (A) 0.7 k/uL (0-1.0); Monocytes % (A) 6 %; Neutrophils # (A) 6.2 k/uL (1.3-7.7); Neutrophils % (A) 62 %; Platelet Count 293 k/uL (150-450); RDW 13.4 % (11.5-15.5); WBC 10.1 k/uL (3.8-10.6)
[2020-02-18 06:45] LABS: INR 1.1 (<1.2); Partial Thromboplastin Time 41.8 sec (22.0-30.0); Prothrombin Time 10.9 sec (9.0-12.0)
[2020-02-18 06:47] LABS: Calcium 9.2 mg/dL (8.4-10.2); Potassium 4.1 mmol/L (3.5-5.1)
[2020-02-18] MEDS: METOPROLOL SUCCINATE (ER) 25 MG TAB.ER.24H PO SCH (08:43)
[2020-02-18] MEDS: FAMOTIDINE 20 MG TAB PO SCH (08:43)
--- NOTE | 2020-02-18 10:13 | P.PN ---
Subjective patient is seen in follow-up for acute kidney injury. Renal function improving. No chest pain or shortness of breath at this time. Good urine output. Complains of loose bowel movements. Vital signs are stable. General: The patient appeared well nourished and normally developed. HEENT: Head exam is unremarkable. Neck is without jugular venous distension. LUNGS: Breath sounds decreased. HEART: Rate and Rhythm are regular. ABDOMEN: soft, nontender. EXTREMITITES: No clubbing, cyanosis, or edema. Objective - Vital Signs Vital signs: Vital Signs Temp 97.7 F 02/18/20 08:00 Pulse 72 02/18/20 08:00 Resp 16 02/18/20 08:00 BP 125/78 02/18/20 08:00 Pulse Ox 97 02/18/20 08:00 Intake & Output 02/17/20 02/18/20 02/18/20 18:59 06:59 18:59 Intake Total 120 154.913 61.191 Output Total 200 300 Balance -80 -145.087 61.191 Weight 52.8 kg 55 kg Intake: Intake, IV Titration 154.913 61.191 Amount Heparin Sod,Pork in 0.45% 154.913 61.191 NaCl 25,000 unit In 0.45 % NaCl 1 250ml.bag @ 12 UNITS/KG/HR 6.276 mls/hr IV .Q24H [facility] Rx#: [id number] Oral 120 Output: Urine 200 300 Other: # Voids 2 1 - Labs CBC & Chem 7: 02/18/20 05:59 02/18/20 05:59 Labs: Abnormal Lab Results - Last 24 Hours (Table) 02/18/20 02/18/20 02/18/20 Range/Units 05:59 05:59 05:59 MCV 100.3 H (80.0-100.0) fL APTT 41.8 H (22.0-30.0) sec Carbon Dioxide 33 H (22-30) mmol/L BUN 26 H (7-17) mg/dL Creatinine 1.31 H (0.52-1.04) mg/dL Assessment and Plan Plan: assessment: 1. Acute kidney injury mostly prerenal secondary to cardiorenal syndrome and hemodynamic instability. creatinine peaked at 1.73 this admission and is 1.31 today. Baseline creatinine near 1. urinalysis is benign. 2. Acute on chronic systolic CHF with ejection fraction of 30-35%. 3. A. fib with RVR. Stable. 4. Volume overload. Improved with diuresis. Plan: start Lasix 20 mg orally once daily. Avoid nephrotoxins. Continue to monitor renal function and urine output.
[2020-02-18] MEDS: FUROSEMIDE 20 MG TAB PO SCH (11:43)
[2020-02-18] MEDS: HEPARIN SOD,PORK IN 0.45% NACL 25,000 UNIT in 0.45% NACL 1 250ML.BAG IV SCH (11:45)
--- NOTE | 2020-02-18 12:52 | P.PN ---
Subjective Progress Note Date: 02/18/20 CHIEF COMPLAINT: Shortness of breath HISTORY OF PRESENT ILLNESS: Patient examined this morning at the bedside. She denies chest pain or pressure. Denies shortness of breath. Creatinine 1.31. Patient was started on Coumadin yesterday. INR 1.1 today. PHYSICAL EXAM: VITAL SIGNS: Reviewed. GENERAL: Well-developed in no acute distress. HEENT: Head is normocephalic. Pupils are equal, round. Sclerae anicteric. Mucous membranes of the mouth are moist. Neck supple. No JVD or thyromegaly LUNGS: Respirations even and unlabored. Lungs diminished at the bases. HEART: Irregular rate and rhythm. S1 and S2 heard. ABDOMEN: Soft. Nondistended. Nontender. EXTREMITIES: Normal range of motion. No clubbing or cyanosis. Peripheral pulses intact. No lower extremity edema NEUROLOGIC: Awake and alert. Oriented x 3. ASSESSMENT: New-onset persistent atrial fibrillation with RVR Elevated troponins, secondary to above Acute exacerbation of systolic congestive heart failure, BNP 3900, EF 30-35% Possible right-sided pneumonia Bilateral pleural effusions, right greater than left Nicotine dependence, patient smokes 1 pack per day Abnormal TSH, 7.080 Acute kidney injury PLAN: Oral Lasix reinitiated per nephrology. Continue to monitor kidney function Hold lisinopril secondary to ALEE Patient will require cardiac catheterization. However due to ALEE, this may be performed on an outpatient basis. Continue Coumadin. Patient has no prescription drug coverage. Continue IV heparin until INR is therapeutic Patient may be discharged home from a cardiac standpoint with Lovenox bridging Follow up in the office with Dr. Funes Nurse practitioner note has been reviewed by physician. Signing provider agrees with the documented findings, assessment, and plan of care. Objective - Vital Signs Vital signs: Vital Signs Temp 97.7 F 02/18/20 08:00 Pulse 77 02/18/20 11:40 Resp 18 02/18/20 11:40 BP 157/77 02/18/20 11:40 Pulse Ox 97 02/18/20 08:00 Intake & Output 02/17/20 02/18/20 02/18/20 18:59 06:59 18:59 Intake Total 120 154.913 203.767 Output Total 200 300 Balance -80 -145.087 203.767 Weight 52.8 kg 55 kg Intake: Intake, IV Titration 154.913 83.767 Amount Heparin Sod,Pork in 0.45% 154.913 83.767 NaCl 25,000 unit In 0.45 % NaCl 1 250ml.bag @ 12 UNITS/KG/HR 6.276 mls/hr IV .Q24H [facility] Rx#: [id number] Oral 120 120 Output: Urine 200 300 Other: # Voids 2 1 - Labs CBC & Chem 7: 02/18/20 05:59 02/18/20 05:59 Labs: Abnormal Lab Results - Last 24 Hours (Table) 02/18/20 02/18/20 02/18/20 Range/Units 05:59 05:59 05:59 MCV 100.3 H (80.0-100.0) fL APTT 41.8 H (22.0-30.0) sec Carbon Dioxide 33 H (22-30) mmol/L BUN 26 H (7-17) mg/dL Creatinine 1.31 H (0.52-1.04) mg/dL
[2020-02-18] MEDS ORDERED: WARFARIN 5 MG TAB PO ONE (18:00)
[2020-02-18] MEDS: LEVOFLOXACIN 250 MG TAB PO SCH (18:29)
[2020-02-18] MEDS: SODIUM CHLORIDE 0.9% 1,000 ML IV SCH (21:10)
[2020-02-18] MEDS: ATORVASTATIN 40 MG TAB PO SCH (21:36)
--- NOTE | 2020-02-19 04:24 | P.PN ---
Subjective This is a pleasant 74 years old female with no significant past medical history, she has history of anxiety and cigarette smoker. She used to see Dr. Carroll but she stopped doing that because of her insurance, no PCP Presents because of 10-14 days of dyspnea associated with cough and clear phlegm but no chest pain, yesterday she was coughing a lot so she decided to come to the hospital. She denies abdominal pain or nausea vomiting, no change in urine bowel habits, no weakness or numbness or headache, no blurred vision or slurred speech. She smokes about less than a pack per day, she's counseled and agrees to quit and agrees to nicotine patch. She drinks a glass of wine every day. Vitals are stable and she is saturating 97% and 2 L oxygen via nasal cannula. She has mild leukocytosis of 11.2. INR is normal, lap showing mild hyperkalemia at 5.5, rest of the BMP is unremarkable, elevated lactic acid, came back to normal from 2.1 down to 1.7. Bilirubin is slightly elevated at 1.5, AST slightly elevated at 53, ALT is normal at 20. Troponin were elevated at 0.04, 0.05, 0.06. I proBNP at 3990. EKG showing atrial fibrillation with rapid ventricular rate at 101 and QTC of 482 Chest x-ray showing right pleural effusion with right lower lobe consolidation and atelectasis In the emergency room she received 1 Dose of Lasix, and she was started on heparin drip as well as bronchodilator and nitroglycerin ointment. Also she was started on Cardizem drip at 5 mg per hour 02/13/20 Patient still tachypneic and short of breath but is improved compared to yesterday, she still have dry cough but no phlegm although it looks wet to her. And she denies chest pain She has some runny nose but no UTI signs and symptoms She is on Eliquis for new onset A. fib and Lasix was increased to 60 mg 3 times a day Cardiology is on the case. High TSH 7.0 with normal T4 at 1.3, I instructed patient to recheck her thyroid function test as an outpatient and she agrees PT/OT is ordered 02/14/20 Patient is breathing quietly with significantly improved dyspnea, no chest pain. She is hemodynamically stable Lasix is switched to 60 mg by mouth twice daily today Repeat chest x-ray in the morning per cardiology team R following the case closely Continue with metoprolol and Eliquis Possible discharge in 24-48 hours and keep improvement 02/15/20 Patient is awake and alert, no chest pain, only little dyspnea. She has rt pleural effusion Also she has acute kidney injury secondary to medications are correct including lisinopril and Lasix however her creatinine is stable over several days at 1.2. No NSAIDs, no hypertension, no contrast Patient still have some leukocytosis, and her pleural effusion, change antibiotics to Levaquin, monitored WBC. Check for procalcitonin 02/16/20 Patient still awake and alert, she still have some dyspnea on exertion but no chest pain no coughing. She has a right pleural effusion. Creatinine went up today to 1.7, licensed life and health agent up the lisinopril and Lasix. Some normal saline is provided. Patient is planned to go for cardiac cath tomorrow so we called for nephrology consult. Also will check bladder scan She has mild leukocytosis but normal procalcitonin , continue with low dose of Lovenox. Monitor blood pressure closely 02/17/2020 pt is awake and alert , she is only a little short of breath , no chest pain , no coughing , breathing somewhat better as per pt she remains on heparin drip and licensed life and health agent started her on coumadine for insurance issues can not have eliquis, she is developing worsening kidney function however her creatinine is improving today 1.7 down to 1.5, nephrology on case , keep holding diurtics and may resume low dose lasix tomorrow , keeping holding baldomero inhibitor bladder scan showing only 7 ml due to her yoly, licensed life and health agent opted to do cardiac cath as outpatient 02/18/20 Patient breathing a little better, she looks more comfortable today. She remains on heparin drip, Patient could not qualify for Eliquis and switched on warfarin however INR is subtherapeutic and is questionable about the ability of patient given herself of Lovenox after the nurse tried to teach her, given her age and limited capacity to understand, we will ask speech therapist to assess mental status. Patient had elevated troponin and licensed life and health agent recommended cardiac cath which is held for outpatient as creatinine is high Patient is short of breath and Lasix has been added by asparagus buncher, and monitor creatinine which is improving down to 1.3 now. Chest x-ray showing improvement in vascular congestion. Repeat chest x-ray in the morning Objective - Vital Signs Vital signs: Vital Signs Temp 98.3 F 02/18/20 19:39 Pulse 85 02/18/20 19:39 Resp 16 02/18/20 19:39 BP 138/74 02/18/20 19:39 Pulse Ox 97 02/18/20 08:00 Intake & Output 02/18/20 02/18/20 02/19/20 06:59 18:59 06:59 Intake Total 154.913 803.767 Output Total 300 400 Balance -145.087 403.767 Weight 55 kg Intake: Intake, IV Titration 154.913 83.767 Amount Heparin Sod,Pork in 0.45% 154.913 83.767 NaCl 25,000 unit In 0.45 % NaCl 1 250ml.bag @ 12 UNITS/KG/HR 6.276 mls/hr IV .Q24H [facility] Rx#: [id number] Oral 720 Output: Urine 300 400 Other: Voiding Method Toilet Bedside Commode # Voids 1 1 - Exam GENERAL: The patient is alert and oriented x3, not in any acute distress. Well developed, well nourished. HEENT: Pupils are round and equally reacting to light. EOMI. No scleral icterus. No conjunctival pallor. Normocephalic, atraumatic. No pharyngeal erythema. No thyromegaly. CARDIOVASCULAR: S1 and S2 present. No murmurs, rubs, or gallops. PULMONARY: Chest is clear to auscultation, no wheezing or crackles. ABDOMEN: Soft, nontender, nondistended, normoactive bowel sounds. No palpable organomegaly. MUSCULOSKELETAL: No joint swelling or deformity. EXTREMITIES: No cyanosis, clubbing, or pedal edema. NEUROLOGICAL: Gross neurological examination did not reveal any focal deficits. SKIN: No rashes. no petechiae. - Labs CBC & Chem 7: 02/18/20 05:59 02/18/20 05:59 Labs: Abnormal Lab Results - Last 24 Hours (Table) 02/18/20 02/18/20 02/18/20 Range/Units 05:59 05:59 05:59 MCV 100.3 H (80.0-100.0) fL APTT 41.8 H (22.0-30.0) sec Carbon Dioxide 33 H (22-30) mmol/L BUN 26 H (7-17) mg/dL Creatinine 1.31 H (0.52-1.04) mg/dL 02/18/20 Range/Units 14:43 MCV (80.0-100.0) fL APTT 53.5 H (22.0-30.0) sec Carbon Dioxide (22-30) mmol/L BUN (7-17) mg/dL Creatinine (0.52-1.04) mg/dL Assessment and Plan Assessment: Atrial fibrillation with mild RVR with Elevated troponin, rule out cardiac disease rt pleural effusion, secondary to fluid overload acute kidney injury secondary to medications, hold Lasix and lisinopril. nephrology consult Alcohol abuse, arthroscope alcohol withdrawal Elevated lactic acid, came back to normal Hyperkalemia. Nicotine dependence Anxiety, not in active tissue Plan: This is a pleasant 74 years old female who presents with A. fib and RVR pneumonia, rule out coronary artery disease. Cardiology on the case the planning for cardiac cath which can be done as outpt for worsening kidney function , nephrology on case , keep holding lisinopril , may start diuretics per nephrology team. Check chest x-ray. Follow-up creatinine. Assess for dementia. Continue with metoprolol Labs and medication were reviewed.. Continue same treatment. Continue with symptomatic treatment. Resume home medication. Monitor lytes and vitals. DVT and GI prophylaxis. Further recommendations of the clinical course of the patient DVT prophylaxis: heparin GI Prophylaxis: Pepcid PT/OT: Pending Prognosis is guarded
[2020-02-19 06:51] LABS: INR 1.1 (<1.2); Partial Thromboplastin Time 61.5 sec (22.0-30.0); Prothrombin Time 11.7 sec (9.0-12.0)
[2020-02-19 06:52] LABS: Basophils # (A) 0.1 k/uL (0-0.2); Basophils % (A) 1 %; Eosinophils # (A) 0.2 k/uL (0-0.7); Eosinophils % (A) 2 %; HCT 43.8 % (34.0-46.0); HGB 13.6 gm/dL (11.4-16.0); Lymphocytes # (A) 2.3 k/uL (1.0-4.8); Lymphocytes % (A) 25 %; MCH 31.1 pg (25.0-35.0); MCV 100.1 fL (80.0-100.0); Mean Platelet Volume 8.7; Monocytes # (A) 0.5 k/uL (0-1.0); Monocytes % (A) 6 %; Neutrophils # (A) 5.9 k/uL (1.3-7.7); Neutrophils % (A) 64 %; Platelet Count 274 k/uL (150-450); RBC 4.37 m/uL (3.80-5.40); RDW 13.6 % (11.5-15.5); WBC 9.3 k/uL (3.8-10.6)
[2020-02-19 07:13] LABS: Calcium 9.2 mg/dL (8.4-10.2); Magnesium 1.9 mg/dL (1.6-2.3); Potassium 3.9 mmol/L (3.5-5.1)
--- NOTE | 2020-02-19 09:42 | XR ---
EXAMINATION TYPE: XR chest 1V DATE OF EXAM: 02/19/2020 CLINICAL HISTORY: Shortness of breath TECHNIQUE: Portable upright view of the chest obtained COMPARISON: 02/15/2020 chest radiograph FINDINGS: The cardiomediastinal silhouette is within normal limits for size. Pulmonary vasculature i s normal. Moderate right pleural effusion not significantly changed. No pneumothorax seen. Left shoul nadege arthroplasty. IMPRESSION: Unchanged moderate right pleural effusion.
[2020-02-19] MEDS: FAMOTIDINE 20 MG TAB PO SCH (09:46)
[2020-02-19] MEDS: METOPROLOL SUCCINATE (ER) 25 MG TAB.ER.24H PO SCH (09:46)
[2020-02-19] MEDS: FUROSEMIDE 20 MG TAB PO SCH (09:46)
--- NOTE | 2020-02-19 09:58 | P.PN ---
Subjective patient is seen in follow-up for acute kidney injury. Renal function improving. No chest pain or shortness of breath at this time. Good urine output. maintained on oral Lasix. Eager to go home. Vital signs are stable. General: The patient appeared well nourished and normally developed. HEENT: Head exam is unremarkable. Neck is without jugular venous distension. LUNGS: Breath sounds decreased. HEART: Rate and Rhythm are regular. ABDOMEN: soft, nontender. EXTREMITITES: No clubbing, cyanosis, or edema. Objective - Vital Signs Vital signs: Vital Signs Temp 98.5 F 02/19/20 08:00 Pulse 60 02/19/20 08:00 Resp 18 02/19/20 08:00 BP 139/79 02/19/20 08:00 Pulse Ox 97 02/19/20 08:00 Intake & Output 02/18/20 02/19/20 02/19/20 18:59 06:59 18:59 Intake Total 803.767 200 Output Total 400 900 200 Balance 403.767 -900 0 Weight 53 kg Intake: Intake, IV Titration 83.767 Amount Heparin Sod,Pork in 0.45% 83.767 NaCl 25,000 unit In 0.45 % NaCl 1 250ml.bag @ 12 UNITS/KG/HR 6.276 mls/hr IV .Q24H [facility] Rx#: [id number] Oral 720 200 Output: Urine 400 900 200 Other: Voiding Method Toilet Toilet Bedside Commode # Voids 1 1 - Labs CBC & Chem 7: 02/19/20 05:57 02/19/20 05:57 Labs: Abnormal Lab Results - Last 24 Hours (Table) 02/18/20 02/19/20 02/19/20 Range/Units 14:43 05:57 05:57 MCV 100.1 H (80.0-100.0) fL APTT 53.5 H 61.5 H (22.0-30.0) sec BUN (7-17) mg/dL Creatinine (0.52-1.04) mg/dL 02/19/20 Range/Units 05:57 MCV (80.0-100.0) fL APTT (22.0-30.0) sec BUN 23 H (7-17) mg/dL Creatinine 1.08 H (0.52-1.04) mg/dL Assessment and Plan Plan: assessment: 1. Acute kidney injury mostly prerenal secondary to cardiorenal syndrome and hemodynamic instability. creatinine peaked at 1.73 this admission and is 1.08 today. Baseline creatinine near 1. urinalysis is benign. 2. Acute on chronic systolic CHF with ejection fraction of 30-35%. 3. A. fib with RVR. Stable. 4. Volume overload. Improved with diuresis. Plan: Lasix 20 mg orally once daily. Avoid nephrotoxins. Continue to monitor renal function and urine output. advised patient to follow a low-salt diet. Anticipate discharge soon. Follow up outpatient in 1-2 weeks.
[2020-02-19] MEDS ORDERED: WARFARIN 10 MG TAB PO ONE (18:00)
[2020-02-19] MEDS: ATORVASTATIN 40 MG TAB PO SCH (20:58)
[2020-02-19] MEDS: SODIUM CHLORIDE 0.9% 1,000 ML IV SCH (20:58)
[2020-02-19] MEDS: HEPARIN SOD,PORK IN 0.45% NACL 25,000 UNIT in 0.45% NACL 1 250ML.BAG IV SCH (20:59)
[2020-02-20 06:55] LABS: INR 1.6 (<1.2); Partial Thromboplastin Time 62.9 sec (22.0-30.0); Prothrombin Time 15.5 sec (9.0-12.0)
[2020-02-20] MEDS: FAMOTIDINE 20 MG TAB PO SCH (08:17)
[2020-02-20] MEDS: METOPROLOL SUCCINATE (ER) 25 MG TAB.ER.24H PO SCH (08:17)
[2020-02-20] MEDS: FUROSEMIDE 20 MG TAB PO SCH (08:19)
[2020-02-20 08:24] VITALS: RESP 16
--- NOTE | 2020-02-20 09:55 | P.PN ---
Subjective patient is seen in follow-up for acute kidney injury. Renal function improving. No chest pain or shortness of breath at this time. Good urine output. maintained on oral Lasix. Eager to go home. Vital signs are stable. General: The patient appeared well nourished and normally developed. HEENT: Head exam is unremarkable. Neck is without jugular venous distension. LUNGS: Breath sounds decreased. HEART: Rate and Rhythm are regular. ABDOMEN: soft, nontender. EXTREMITITES: No clubbing, cyanosis, or edema. Objective - Vital Signs Vital signs: Vital Signs Temp 97.6 F 02/20/20 08:00 Pulse 73 02/20/20 08:00 Resp 16 02/20/20 08:00 BP 149/80 02/20/20 08:00 Pulse Ox 95 02/20/20 08:00 Intake & Output 02/19/20 02/20/20 02/20/20 18:59 06:59 18:59 Intake Total 320 393.334 200 Output Total 200 Balance 120 393.334 200 Weight 52.8 kg Intake: Intake, IV Titration 243.334 Amount Heparin Sod,Pork in 0.45% 243.334 NaCl 25,000 unit In 0.45 % NaCl 1 250ml.bag @ 12 UNITS/KG/HR 6.276 mls/hr IV .Q24H [facility] Rx#: [id number] Oral 320 150 200 Output: Urine 200 Other: Voiding Method Toilet # Voids 1 - Labs CBC & Chem 7: 02/19/20 05:57 02/19/20 05:57 Labs: Abnormal Lab Results - Last 24 Hours (Table) 02/20/20 Range/Units 06:34 PT 15.5 H (9.0-12.0) sec INR 1.6 H (<1.2) APTT 62.9 H (22.0-30.0) sec Assessment and Plan Plan: assessment: 1. Acute kidney injury mostly prerenal secondary to cardiorenal syndrome and hemodynamic instability. creatinine peaked at 1.73 this admission and 1.08 as of yesterday. Baseline creatinine near 1. urinalysis is benign. 2. Acute on chronic systolic CHF with ejection fraction of 30-35%. 3. A. fib with RVR. Stable. 4. Volume overload. Improved with diuresis. Plan: Lasix 20 mg orally once daily. Avoid nephrotoxins. Continue to monitor renal function and urine output. advised patient to follow a low-salt diet. Anticipate discharge soon. Follow up outpatient in 1-2 weeks.
--- NOTE | 2020-02-20 14:11 | P.PN ---
Subjective Progress Note Date: 02/19/20 Principal diagnosis: New onset atrial fibrillation, congestive heart failure, right pleural effusion Mrs. Duvall is a 74-year-old female with a past medical history of anxiety and nicotine dependence admitted for dyspnea that has been ongoing for 2 weeks. At the time of admission, she was found to have atrial fibrillation with rapid ventricle or right. She was started on Cardizem and heparin drips and admitted. Patient also developed acute kidney injury for which nephrology was consulted. Patient was found to have a moderate right-sided pleural effusion. Patient had an echocardiogram done showing ejection fraction of 30-35%, so cardiac That radiation was planned. But as the patient's creatinine was high, cardiac catheterization was on hold. On 02/19/2020- patient was comfortably resting in the bed appears to be in no acute distress. Patient denies having any chest pain or palpitations. No cough or difficulty in breathing. She denies having any abdominal pain, nausea vomiting or diarrhea. No dysuria or hematuria. Patient denies having any blood in her stool or no bleeding from any other sites. On reviewing her vitals T-max 99, heart rate irregularly irregular rate controlled below 90, respiratory rate around 18, blood pressure 132.83 saturating at 90% on room air. On reviewing her labs her INR is 1.1, APTT 61.5, patient continues to be on heparin drip. Creatinine is trending down it is 1.08. Active Medications Albuterol/Ipratropium (Duoneb 0.5 Mg-3 Mg/3 Ml Soln) 3 ml INHALATION RT-Q4H PRN PRN Reason: Dyspnea Last Admin: 02/12/20 15:30 Dose: 3 ml Documented by: Atorvastatin Calcium (Lipitor) 40 mg PO HS [facility] Last Admin: 02/19/20 20:58 Dose: 40 mg Documented by: Famotidine (Famotidine 20 Mg Tab) 20 mg PO DAILY [facility] Last Admin: 02/19/20 09:46 Dose: 20 mg Documented by: Furosemide (Furosemide 20 Mg Tab) 20 mg PO DAILY [facility] Last Admin: 02/19/20 09:46 Dose: 20 mg Documented by: Heparin Sodium (Porcine) (Heparin) 0 unit IV PER PROTOCOL PRN; Protocol PRN Reason: Low PTT Last Admin: 02/18/20 08:41 Dose: 1,375 unit Documented by: Sodium Chloride (Saline 0.9%) 1,000 mls @ 20 mls/hr IV .Q24H [facility] Last Admin: 02/19/20 20:58 Dose: 20 mls/hr Documented by: Heparin Sodium/Sodium Chloride (25,000 unit/ Sodium Chloride) 250 mls @ 6.276 mls/hr IV .Q24H [facility]; Protocol Last Admin: 02/19/20 20:59 Dose: 14 units/kg/hr, 7.322 mls/hr Documented by: Metoprolol Succinate (Metoprolol Succinate (Er) 25 Mg Tab.Er.24h) 25 mg PO DAILY [facility] Last Admin: 02/19/20 09:46 Dose: 25 mg Documented by: Miscellaneous Information (Warfarin Per Pharmacy) 1 each MISCELLANE DIRECTED PRN; Protocol PRN Reason: Per Protocol Naloxone HCl (Narcan) 0.2 mg IV Q2M PRN PRN Reason: Opioid Reversal Objective - Vital Signs Vital signs: Vital Signs Temp 99 F 02/19/20 16:00 Pulse 60 02/19/20 16:00 Resp 16 02/19/20 16:00 BP 132/83 02/19/20 16:00 Pulse Ox 98 02/19/20 16:00 Intake & Output 02/18/20 02/19/20 02/19/20 18:59 06:59 18:59 Intake Total 803.767 320 Output Total 400 900 200 Balance 403.767 -900 120 Weight 53 kg Intake: Intake, IV Titration 83.767 Amount Heparin Sod,Pork in 0.45% 83.767 NaCl 25,000 unit In 0.45 % NaCl 1 250ml.bag @ 12 UNITS/KG/HR 6.276 mls/hr IV .Q24H [facility] Rx#: [id number] Oral 720 320 Output: Urine 400 900 200 Other: Voiding Method Toilet Toilet Bedside Commode # Voids 1 1 - Exam PHYSICAL EXAM GENERAL: The patient is alert and oriented x3, not in any acute distress. Well developed, well nourished. HEENT: Pupils are round and equally reacting to light. EOMI. No scleral icterus. No conjunctival pallor. No thyromegaly. CARDIOVASCULAR: S1 and S2 present. No murmurs, rubs, or gallops. PULMONARY: Chest is clear to auscultation. Diminished breath sounds on the right lower lobe. ABDOMEN: Soft, nontender, nondistended, normoactive bowel sounds. No palpable organomegaly. MUSCULOSKELETAL: No joint swelling or deformity. EXTREMITIES: No cyanosis, clubbing, or pedal edema. NEUROLOGICAL: Gross neurological examination did not reveal any focal deficits. SKIN: No rashes. no petechiae. - Labs CBC & Chem 7: 02/19/20 05:57 02/19/20 05:57 Labs: Abnormal Lab Results - Last 24 Hours (Table) 02/19/20 02/19/20 02/19/20 Range/Units 05:57 05:57 05:57 MCV 100.1 H (80.0-100.0) fL APTT 61.5 H (22.0-30.0) sec BUN 23 H (7-17) mg/dL Creatinine 1.08 H (0.52-1.04) mg/dL Assessment and Plan Assessment: ASSESSMENT Atrial fibrillation with rapid ventricular rate Right-sided pleural effusion Acute kidney injury New-onset congestive heart failure Acute exacerbation of systolic congestive heart failure EF 30-35% Hyperkalemia Nicotine dependence Macrocytosis PLAN: Patient's heart rate is better control, still in atrial fibrillation. Patient is being anticoagulated with Coumadin, as her insurance would not cover new oral anticoagulants. Cardiology signed off, advised to follow-up as outpatient for cardiac cath. Patient's creatinine is trending down, nephrology on board and following the patient. Continue the current medication regimen. Further recommendations to follow depending on the progress of the patient.
--- NOTE | 2020-02-20 16:24 | P.PN ---
Subjective Progress Note Date: 02/20/20 Principal diagnosis: New onset atrial fibrillation, congestive heart failure, right pleural effusion Mrs. Duvall is a 74-year-old female with a past medical history of anxiety and nicotine dependence admitted for dyspnea that has been ongoing for 2 weeks. At the time of admission, she was found to have atrial fibrillation with rapid ventricle or right. She was started on Cardizem and heparin drips and admitted. Patient also developed acute kidney injury for which nephrology was consulted. Patient was found to have a moderate right-sided pleural effusion. Patient had an echocardiogram done showing ejection fraction of 30-35%, so cardiac That radiation was planned. But as the patient's creatinine was high, cardiac catheterization was on hold. On 02/19/2020- patient was comfortably resting in the bed appears to be in no acute distress. Patient denies having any chest pain or palpitations. No cough or difficulty in breathing. She denies having any abdominal pain, nausea vomiting or diarrhea. No dysuria or hematuria. Patient denies having any blood in her stool or no bleeding from any other sites. On reviewing her vitals T-max 99, heart rate irregularly irregular rate controlled below 90, respiratory rate around 18, blood pressure 132.83 saturating at 90% on room air. On reviewing her labs her INR is 1.1, APTT 61.5, patient continues to be on heparin drip. Creatinine is trending down it is 1.08. On 02/20/2020 - patient is comfortably sitting up on her bed appears to be no acute distress. Patient denies having any chest pain or palpitations. No cough or difficulty in breathing. Patient denies having any abdominal pain, nausea vomiting or diarrhea. Last bowel movement was couple of days back. Patient denies having any dysuria or hematuria. On reviewing her vitals she has been afebrile for the past 24 hours, irregularly irregular heart rate with mostly below 100, Saturating at 95% on room air. On reviewing her labs her INR is 1.6, APTT of 62.9. She is currently being bridged to Coumadin on heparin. Active Medications Albuterol/Ipratropium (Duoneb 0.5 Mg-3 Mg/3 Ml Soln) 3 ml INHALATION RT-Q4H PRN PRN Reason: Dyspnea Last Admin: 02/12/20 15:30 Dose: 3 ml Documented by: Atorvastatin Calcium (Lipitor) 40 mg PO HS [facility] Last Admin: 02/19/20 20:58 Dose: 40 mg Documented by: Famotidine (Famotidine 20 Mg Tab) 20 mg PO DAILY [facility] Last Admin: 02/20/20 08:17 Dose: 20 mg Documented by: Furosemide (Furosemide 20 Mg Tab) 20 mg PO DAILY [facility] Last Admin: 02/20/20 08:19 Dose: 20 mg Documented by: Heparin Sodium (Porcine) (Heparin) 0 unit IV PER PROTOCOL PRN; Protocol PRN Reason: Low PTT Last Admin: 02/18/20 08:41 Dose: 1,375 unit Documented by: Sodium Chloride (Saline 0.9%) 1,000 mls @ 20 mls/hr IV .Q24H [facility] Last Admin: 02/19/20 20:58 Dose: 20 mls/hr Documented by: Heparin Sodium/Sodium Chloride (25,000 unit/ Sodium Chloride) 250 mls @ 6.276 mls/hr IV .Q24H [facility]; Protocol Last Admin: 02/19/20 20:59 Dose: 14 units/kg/hr, 7.322 mls/hr Documented by: Metoprolol Succinate (Metoprolol Succinate (Er) 25 Mg Tab.Er.24h) 25 mg PO DAILY [facility] Last Admin: 02/20/20 08:17 Dose: 25 mg Documented by: Miscellaneous Information (Warfarin Per Pharmacy) 1 each MISCELLANE DIRECTED PRN; Protocol PRN Reason: Per Protocol Naloxone HCl (Narcan) 0.2 mg IV Q2M PRN PRN Reason: Opioid Reversal Warfarin Sodium (Warfarin 7.5 Mg Tab) 7.5 mg PO ONCE@1800 ONE Stop: 02/20/20 18:01 Objective - Vital Signs Vital signs: Vital Signs Temp 98.4 F 02/20/20 12:00 Pulse 67 02/20/20 12:00 Resp 16 02/20/20 12:00 BP 154/79 02/20/20 12:00 Pulse Ox 95 02/20/20 12:00 Intake & Output 02/19/20 02/20/20 02/20/20 18:59 06:59 18:59 Intake Total 320 393.334 200 Output Total 200 Balance 120 393.334 200 Weight 52.8 kg 52.8 kg Intake: Intake, IV Titration 243.334 Amount Heparin Sod,Pork in 0.45% 243.334 NaCl 25,000 unit In 0.45 % NaCl 1 250ml.bag @ 12 UNITS/KG/HR 6.276 mls/hr IV .Q24H [facility] Rx#: [id number] Oral 320 150 200 Output: Urine 200 Other: Voiding Method Toilet # Voids 1 2 - Exam PHYSICAL EXAM GENERAL: The patient is alert and oriented x3, not in any acute distress. Well developed, well nourished. HEENT: Pupils are round and equally reacting to light. EOMI. No scleral icterus. No conjunctival pallor. CARDIOVASCULAR: S1 and S2 present. No murmurs, rubs, or gallops. PULMONARY: Chest is clear to auscultation. Diminished breath sounds on the right lower lobe. ABDOMEN: Soft, nontender, nondistended, normoactive bowel sounds. No palpable organomegaly. MUSCULOSKELETAL: No joint swelling or deformity. EXTREMITIES: No cyanosis, clubbing, or pedal edema. NEUROLOGICAL: Gross neurological examination did not reveal any focal deficits. SKIN: No rashes. no petechiae. - Labs CBC & Chem 7: 02/19/20 05:57 02/19/20 05:57 Labs: Abnormal Lab Results - Last 24 Hours (Table) 02/20/20 Range/Units 06:34 PT 15.5 H (9.0-12.0) sec INR 1.6 H (<1.2) APTT 62.9 H (22.0-30.0) sec Assessment and Plan Assessment: ASSESSMENT Atrial fibrillation with rapid ventricular rate Right-sided pleural effusion Acute kidney injury New-onset congestive heart failure Acute exacerbation of systolic congestive heart failure EF 30-35% Hyperkalemia Nicotine dependence Macrocytosis PLAN: Patient continues to be in atrial fibrillation, rate controlled. Patient is being anticoagulated with Coumadin, as her insurance would not cover new oral anticoagulants. PT of 1.6, trending up, pharmacy to dose for an INR between 2- 3. Cardiology signed off, advised to follow-up as outpatient for cardiac cath. Patient's creatinine is trending down, nephrology on board and following the patient. Discussed in detail with the patient today, about had echocardiogram results and that her ejection fraction is 30-35%, and the need for her to get cardiac catheterization as a workup for her congestive heart failure. Continue the current medication regimen. Further recommendations to follow depending on the progress of the patient.
[2020-02-20] MEDS ORDERED: WARFARIN 7.5 MG TAB PO ONE (18:00)
[2020-02-20] MEDS: HEPARIN SOD,PORK IN 0.45% NACL 25,000 UNIT in 0.45% NACL 1 250ML.BAG IV SCH (20:35)
[2020-02-20] MEDS: ATORVASTATIN 40 MG TAB PO SCH (20:35)
[2020-02-20] MEDS: SODIUM CHLORIDE 0.9% 1,000 ML IV SCH (20:36)
[2020-02-21 06:57] LABS: Basophils # (A) 0.1 k/uL (0-0.2); Basophils % (A) 1 %; Eosinophils # (A) 0.2 k/uL (0-0.7); Eosinophils % (A) 2 %; HCT 46.2 % (34.0-46.0); HGB 14.4 gm/dL (11.4-16.0); Lymphocytes # (A) 3.3 k/uL (1.0-4.8); Lymphocytes % (A) 34 %; MCH 31.4 pg (25.0-35.0); MCHC 31.2 g/dL (31.0-37.0); MCV 100.6 fL (80.0-100.0); Monocytes # (A) 0.6 k/uL (0-1.0); Monocytes % (A) 6 %; Neutrophils # (A) 5.3 k/uL (1.3-7.7); Neutrophils % (A) 55 %; Platelet Count 277 k/uL (150-450); RBC 4.59 m/uL (3.80-5.40); RDW 13.5 % (11.5-15.5); WBC 9.7 k/uL (3.8-10.6)
[2020-02-21 07:03] LABS: INR 2.6 (<1.2); Prothrombin Time 25.7 sec (9.0-12.0)
[2020-02-21 07:46] LABS: Calcium 9.4 mg/dL (8.4-10.2); Potassium 3.8 mmol/L (3.5-5.1)
[2020-02-21] MEDS: FUROSEMIDE 20 MG TAB PO SCH (08:59)
[2020-02-21] MEDS: FAMOTIDINE 20 MG TAB PO SCH (08:59)
[2020-02-21] MEDS: METOPROLOL SUCCINATE (ER) 25 MG TAB.ER.24H PO SCH (08:59)
[2020-02-21 09:31] VITALS: PULSE 89
[2020-02-21 09:32] VITALS: TEMP 98.3
[2020-02-21 12:08] VITALS: BP 145/83
--- NOTE | 2020-02-21 15:00 | P.DS ---
Providers Date of admission: 02/11/20 20:44 Expected date of discharge: 02/21/20 Attending physician: Sandra Malave Consults: 02/11/20 20:44 Consult Physician Routine Consulting Provider: Ki Funes Consult Reason/Comments: CHF, atrial fibrillation Do you want consulting provider notified?: Yes 02/16/20 14:34 Consult Physician Urgent Consulting Provider: Papi Sheikh Consult Reason/Comments: yoly going for cardiac cath Do you want consulting provider notified?: Yes 02/16/20 20:13 Consult Physician Urgent Consulting Provider: Papi Sheikh Consult Reason/Comments: yoly going for cardiac cath Do you want consulting provider notified?: Yes Primary care physician: Stated None Hospital Course: FRANCISCO schmid is a pleasant 74 years old female with no significant past medical history, she has history of anxiety and cigarette smoker. She used to see Dr. Carroll but she stopped doing that because of her insurance, no PCP Presents because of 10-14 days of dyspnea associated with cough and clear phlegm but no chest pain, yesterday she was coughing a lot so she decided to come to the hospital. She denies abdominal pain or nausea vomiting, no change in urine bowel habits, no weakness or numbness or headache, no blurred vision or slurred speech. She smokes about less than a pack per day, she's counseled and agrees to quit and agrees to nicotine patch. She drinks a glass of wine every day. Vitals are stable and she is saturating 97% and 2 L oxygen via nasal cannula. She has mild leukocytosis of 11.2. INR is normal, lap showing mild hyperkalemia at 5.5, rest of the BMP is unremarkable, elevated lactic acid, came back to normal from 2.1 down to 1.7. Bilirubin is slightly elevated at 1.5, AST slightly elevated at 53, ALT is normal at 20. Troponin were elevated at 0.04, 0.05, 0.06. I proBNP at 3990. EKG showing atrial fibrillation with rapid ventricular rate at 101 and QTC of 482 Chest x-ray showing right pleural effusion with right lower lobe consolidation and atelectasis In the emergency room she received 1 Dose of Lasix, and she was started on heparin drip as well as bronchodilator and nitroglycerin ointment. Also she was started on Cardizem drip at 5 mg per hour. Hospital course: The patient was found to have atrial fibrillation with rapid ventricular rate, she was started on Cardizem drip and heparin drip and admitted for further management. Patient also had acute kidney injury for which nephrology was consulted. Patient also developed moderate right-sided pleural effusion. He she had an echocardiogram done showing ejection fraction of 30- 35%. Cardiology was following the patient, as the patient had acute kidney injury, he suggested cardiac catheterization as outpatient. As the patient has insurance issues and coverage with her medications and none of the new and that oral contents could not be covered and she could not afford any. So patient was bridged to Coumadin on heparin. Patient denies having any bleeding from any site. Today her INR was at 2.6. She has been cleared by cardiology and nephrology to be discharged home. Patient was advised to follow-up with cardiology to have cardiac catheterization done as a part of workup for her new onset congestive heart failure. This was discussed in detail with the patient at bedside and she is agreeable to the plan. So the patient is being discharged home in a stable condition with home healthcare services. She also has a follow-up appointment with Dr. Woods on Friday. She was advised to get her PT/INR checked in 2 days and the prescription was provided to her today. Vital Signs 02/21/20 02/21/20 08:00 11:43 Temperature 98.3 F Pulse Rate [ 89 60 Left] Respiratory 16 16 Rate Blood Pressure 152/95 145/83 [Left Arm] O2 Sat by Pulse 98 94 L Oximetry PHYSICAL EXAM GENERAL: The patient is alert and oriented x3, not in any acute distress. Well developed, well nourished. HEENT: Pupils are round and equally reacting to light. EOMI. No scleral icterus. No conjunctival pallor. CARDIOVASCULAR: S1 and S2 present. No murmurs, rubs, or gallops. PULMONARY: Chest is clear to auscultation. Diminished breath sounds on the right lower lobe. ABDOMEN: Soft, nontender, nondistended, normoactive bowel sounds. No palpable organomegaly. MUSCULOSKELETAL: No joint swelling or deformity. EXTREMITIES: No cyanosis, clubbing, or pedal edema. NEUROLOGICAL: Gross neurological examination did not reveal any focal deficits. SKIN: No rashes. no petechiae. DISCHARGE DIAGNOSIS Atrial fibrillation with rapid ventricular rate Right-sided pleural effusion Acute kidney injury New-onset congestive heart failure Acute exacerbation of systolic congestive heart failure EF 30-35% Hyperkalemia Nicotine dependence Macrocytosis Follow-up: Patient is advised to follow with her PCP in 2 days she has an appointment with Dr. Woods advised to get her PT/INR checked and prescription provided today. Follow-up with cardiology within 1 week for possible cardiac catheterization for new onset CHF. More than 40 minutes spent with the discharge of the patient. Health Concerns: Thyroid panel upon follow up with primary care physician. Patient Condition at Discharge: Fair Plan - Discharge Summary New Discharge Prescriptions: New Warfarin [Coumadin] 5 mg PO ONCE 30 Days #30 tab Furosemide [Lasix] 20 mg PO DAILY 30 Days #30 tab Atorvastatin [Lipitor] 40 mg PO HS 30 Days #30 tab Famotidine [Pepcid] 20 mg PO DAILY 30 Days #30 tab Metoprolol Succinate (ER) [Toprol XL] 25 mg PO DAILY 30 Days #30 tab.er.24h Discharge Medication List Atorvastatin [Lipitor] 40 mg PO HS 30 Days #30 tab 02/21/20 [Rx] Famotidine [Pepcid] 20 mg PO DAILY 30 Days #30 tab 02/21/20 [Rx] Furosemide [Lasix] 20 mg PO DAILY 30 Days #30 tab 02/21/20 [Rx] Metoprolol Succinate (ER) [Toprol XL] 25 mg PO DAILY 30 Days #30 tab.er.24h 02/21/20 [Rx] Warfarin [Coumadin] 5 mg PO ONCE 30 Days #30 tab 02/21/20 [Rx] Follow up Appointment(s)/Referral(s): Ara Woods III, MD [STAFF PHYSICIAN] - 02/23/20 2:30 pm (with Pastora GONSALES) [facility], [NON-STAFF] - Ki Funes MD [STAFF PHYSICIAN] - 1 Week Ambulatory/Diagnostic Orders: Prothrombin Time INR [LAB.AMB] Time Frame: 2 Days, Location: None Selected Patient Instructions/Handouts: A-fib (Atrial Fibrillation) (DC), Safe Use of Anticoagulants (DC) Discharge Disposition: HOME WITH HOME HEALTH SERVICES
--- NOTE | 2020-02-21 15:59 | PN ---
PROGRESS NOTE Patient is seen for followup for acute kidney injury. She is currently doing well. Serum creatinine is down to 0.9 mg/dL. PHYSICAL EXAMINATION: On examination today, blood pressure was 145/83, heart rate 60 per minute, she is afebrile. Examination of the heart S1, S2. Examination of the lungs decreased breath sounds at bases. Abdomen is soft, nontender. Examination of the lower extremities shows trace edema. [employer] exam grossly intact. LABS: Show sodium of 141, potassium 3.8, chloride 103, BUN 19, serum creatinine 0.95. ASSESSMENT: 1. Acute kidney injury, mostly prerenal and cardiorenal, currently improved. 2. Acute on chronic systolic congestive heart failure, now improved. 3. Atrial fibrillation with RVR currently with controlled ventricular response. 4. Volume overload improved with diuresis. PLAN: Continue current medications including loop diuretics. Maintain salt and fluid restriction. Monitor labs as outpatient. MMODL / IJN: [id number] /
[2020-02-21] MEDS: ATORVASTATIN 40 MG TAB PO SCH (16:52)
[2020-02-21] MEDS ORDERED: WARFARIN 5 MG TAB PO ONE (18:00)
== END 2020-02-21 17:12 | disposition home health service (06) | DRG 291 ==
LOC: EC 19:28 → 3SCARD 20:44
PROVIDERS: ADMIT Internal Medicine; ATTEND Internal Medicine
DX: I13.0 Hypertensive heart and chronic kidney disease with heart failure and stage 1 through stage 4 chronic kidney disease, or unspecified chronic kidney disease (principal); I50.21 Acute systolic (congestive) heart failure; I48.19 Other persistent atrial fibrillation; N17.9 Acute kidney failure, unspecified; J44.1 Chronic obstructive pulmonary disease with (acute) exacerbation; J98.11 Atelectasis; F10.239 Alcohol dependence with withdrawal, unspecified; I08.0 Rheumatic disorders of both mitral and aortic valves; N18.9 Chronic kidney disease, unspecified; D75.89 Other specified diseases of blood and blood-forming organs; I44.7 Left bundle-branch block, unspecified; E87.5 Hyperkalemia; T50.1X5A Adverse effect of loop [high-ceiling] diuretics, initial encounter; T46.4X5A Adverse effect of angiotensin-converting-enzyme inhibitors, initial encounter; R79.89 Other specified abnormal findings of blood chemistry; F17.210 Nicotine dependence, cigarettes, uncomplicated; Z71.6 Tobacco abuse counseling; Z87.39 Personal history of other diseases of the musculoskeletal system and connective tissue; Z87.42 Personal history of other diseases of the female genital tract; Z86.59 Personal history of other mental and behavioral disorders; Z96.612 Presence of left artificial shoulder joint; Z98.890 Other specified postprocedural states; Z91.048 Other nonmedicinal substance allergy status; Z80.49 Family history of malignant neoplasm of other genital organs; Z83.3 Family history of diabetes mellitus
CPT/HCPCS: 36415; 71045; 71046; 80048; 80053; 80061; 81003; 82550; 83605; 83735; 83880; 84145; 84439; 84443; 84484; 85025; 85610; 85730; 86140; 93005; 93306; 94640; 94760; 96365; 96368; 96375; 96376; 99291

== ENCOUNTER 2020-03-14 06:29 | Day surgery (SDC) | payer MEDICARE ==
[2020-03-13 12:17] VITALS: BMI 19.3
[~2020-03-14 06:29] MED LIST: ALPRAZolam 0.25 MG TAB PO PRN; ALPRAZolam 0.5 MG TAB PO PRN; ASPIRIN 325 MG TAB PO STA; ATORVASTATIN 80 MG TAB PO STA; NITROGLYCERIN SL TABS 0.4 MG TAB SUBLINGUAL PRN; SODIUM CHLORIDE 0.9% 1,000 ML in EMPTY BAG 1 BAG IV ONE
[2020-03-14] MEDS ORDERED: SODIUM CHLORIDE 0.9% 1,000 ML IV ONE (06:42)
[2020-03-14 07:17] VITALS: RESP 16; TEMP 98.3
[2020-03-14] MEDS ORDERED: LIDOCAINE 1% INJ 10MG/ML (20 ML MDV) ONE (07:25)
[2020-03-14 07:37] LABS: INR 1.2 (<1.2)
[2020-03-14] MEDS ORDERED: fentaNYL (PF) 50 MCG/ML 2 ML AMP ONE (07:44)
[2020-03-14] MEDS ORDERED: MIDAZOLAM 2 MG/2 ML VIAL IV ONE (07:47)
[2020-03-14] MEDS ORDERED: fentaNYL (PF) 50 MCG/ML 2 ML AMP IV ONE (07:48)
[2020-03-14] MEDS ORDERED: LIDOCAINE 1% INJ 10MG/ML (20 ML MDV) SQ ONE (07:49)
[2020-03-14] MEDS ORDERED: IOPAMIDOL-370 125ML BTL INJ ONE (08:06)
[2020-03-14] MEDS ORDERED: RX INFO: IV CONTRAST WAS GIVEN 1 EACH MISC MISCELLANE PRN (08:07)
--- NOTE | 2020-03-14 10:31 | LTR ---
DATE OF SERVICE: 03/14/2020 RE: Marry Duvall; Dear Sacha; I performed cardiac catheterization on Marry Duvall, a detailed catheterization noted is being forwarded for your records. In brief, the cardiac catheterization did not reveal significant obstructive CAD and patient's cardiomyopathy is nonischemic in origin. Thank you for giving me the privilege to participate in the care of this pleasant lady. Sincerely, MD JOAO Crook / SHADY: [id number] /
--- NOTE | 2020-03-14 10:31 | CC ---
CARDIAC CATHETERIZATION REPORT INDICATION: Cardiomyopathy. PROCEDURE NOTE: After obtaining informed consent, left heart catheterization is performed using standard True catheters. Patient tolerated the procedure well without any obvious immediate complication. A femoral angiogram was performed and Angio-Seal was deployed for hemostasis. Patient received moderate conscious sedation. Total sedation time was 16 minutes. FINDINGS: HEMODYNAMICS: Left ventricular end-diastolic pressure is 20 mm. There is no significant gradient across the aortic valve. LEFT VENTRICULOGRAM: Left ventriculogram is not performed. ANGIOGRAPHIC DATA: LEFT MAIN CORONARY ARTERY: Left main coronary artery is a normal-sized vessel and is free of stenosis. Divides into left anterior descending coronary artery and circumflex coronary artery. LEFT ANTERIOR DESCENDING CORONARY ARTERY: LAD shows appears calcified but is free of significant stenosis. CIRCUMFLEX CORONARY ARTERY: Is a codominant vessel and shows mild nonobstructive disease. RIGHT CORONARY ARTERY: Shows mild atherosclerotic plaque in its midportion. CONCLUSION: 1. No significant obstructive CAD on this study. 2. Cardiomyopathy is nonischemic in origin. MMODL / IJN: [id number] /
[2020-03-14 15:00] VITALS: BP 142/78; PULSE 86
== END 2020-03-14 13:30 | disposition home or self-care (01) ==
LOC: CATHCVL 06:29
PROVIDERS: ATTEND Internal Medicine Cardiovascular Disease
DX: I25.10 Atherosclerotic heart disease of native coronary artery without angina pectoris (principal); I25.84 Coronary atherosclerosis due to calcified coronary lesion; I48.19 Other persistent atrial fibrillation; I42.8 Other cardiomyopathies; I50.23 Acute on chronic systolic (congestive) heart failure; Z87.01 Personal history of pneumonia (recurrent); R93.1 Abnormal findings on diagnostic imaging of heart and coronary circulation; N28.9 Disorder of kidney and ureter, unspecified; F17.200 Nicotine dependence, unspecified, uncomplicated; Z79.01 Long term (current) use of anticoagulants; Z79.899 Other long term (current) drug therapy
CPT/HCPCS: 93458; 85610; C1769 ×2; C1760; C1894; J2250; J2001; J3010; Q9967

== ENCOUNTER → 2020-07-21 | Outpatient (CLI) | payer MEDICARE ==
--- NOTE | 2020-07-22 09:43 | US ---
EXAMINATION TYPE: US kidneys/renal and bladder DATE OF EXAM: 07/21/2020 COMPARISON: NONE CLINICAL HISTORY: 75-year-old female R94.4 Abnormal Kidney Function. Abnormal labs. TECHNIQUE: Multiple sonographic images of the kidneys and bladder are obtained. FINDINGS: EXAM MEASUREMENTS: Right Kidney: 7.7 x 3.6 x 3.5 cm Left Kidney: 9.0 x 5.0 x 4.2 cm No hydronephrosis on either side. Bladder: wnl Bilateral Jets seen: Yes IMPRESSION: No hydronephrosis on either side.
== END | disposition home or self-care (01) ==
LOC: RADUSWWP 15:49
PROVIDERS: ATTEND Family Medicine
DX: R94.4 Abnormal results of kidney function studies (principal)
CPT/HCPCS: 76770

== ENCOUNTER 2023-07-08 18:07 | Inpatient (IN) | payer MEDICARE ==
--- NOTE | 2023-07-08 19:36 | ED ---
Headache HPI - General Source: patient, family Mode of arrival: ambulatory Limitations: no limitations <Keshawn Dao - Last Filed: 07/09/23 04:05> - General Source: RN notes reviewed, old records reviewed, Caregiver Mode of arrival: ambulatory Limitations: no limitations - History of Present Illness MD Complaint: headache -: hour(s) Onset Description: gradual Location: frontal Severity: moderate Severity scale (1-10): 5 Quality: throbbing, pulsatile Consistency: constant Improves With: nothing Worsens With: none Associated Symptoms: nausea Other Symptoms: other Treatments Prior to Arrival: none <Rojelio Santos - Last Filed: 07/16/23 11:30> - General Chief Complaint: Headache Stated Complaint: headache dizziness Time Seen by Provider: 07/08/23 19:36 - History of Present Illness Initial Comments: 78-year-old female presenting with chief complaint of headache. Headache has been ongoing since this morning. She admits to nausea. She is unsure if she took her blood pressure medication today. (Keshawn Dao) This is a 78-year-old female to the ER for evaluation. Patient has a headache since waking up this morning also complaining of nausea some confusion, patient's brings her in for headache is on coumadin for atrial fibrillation, denies any trauma (Rojelio Santos) - Related Data Home Medications Medication Instructions Recorded Confirmed lisinopriL [Prinivil] 20 mg PO DAILY 07/08/23 07/08/23 Previous Rx's Medication Instructions Recorded Atorvastatin [Lipitor] 40 mg PO HS 30 Days #30 tab 07/13/23 Famotidine [Pepcid] 20 mg PO DAILY tab 07/13/23 Metoprolol Succinate (ER) [Toprol 50 mg PO DAILY #60 tab 07/14/23 XL] Warfarin [Coumadin] 6 mg PO ONCE@1800 30 Days #60 tab 07/14/23 Allergies Allergy/AdvReac Type Severity Reaction Status Date / Time pollen extracts AdvReac Cough Verified 07/08/23 22:39 Review of Systems ROS Other: All systems not noted in ROS Statement are negative. <Keshawn Dao - Last Filed: 07/09/23 04:05> ROS Other: All systems not noted in ROS Statement are negative. <Rojelio Santos - Last Filed: 07/16/23 11:30> ROS Statement: Those systems with pertinent positive or pertinent negative responses have been documented in the HPI. Past Medical History Past Medical History: Atrial Fibrillation, Hyperlipidemia, Hypertension Additional Past Medical History / Comment(s): daughter states pt is etoh, occasional diarrhea, recent admission for dyspnea History of Any Multi-Drug Resistant Organisms: None Reported Past Surgical History: Orthopedic Surgery Additional Past Surgical History / Comment(s): Pt states she had a D&C, shoulder surg. Past Anesthesia/Blood Transfusion Reactions: No Reported Reaction Past Psychological History: Anxiety Smoking Status: Current every day smoker - Past Family History Mother Family Medical History: Cancer, Diabetes Mellitus Additional Family Medical History / Comment(s): Uterine CA, Father History Unknown: Yes <Keshawn Dao - Last Filed: 07/09/23 04:05> General Exam Limitations: no limitations <Keshawn Dao - Last Filed: 07/09/23 04:05> General appearance: alert, in no apparent distress Head exam: Present: atraumatic, normocephalic, normal inspection Eye exam: Present: normal appearance, PERRL, EOMI. Absent: scleral icterus, conjunctival injection, periorbital swelling ENT exam: Present: normal exam, mucous membranes moist Neck exam: Present: normal inspection. Absent: tenderness, meningismus, lymphadenopathy Respiratory exam: Present: normal lung sounds bilaterally. Absent: respiratory distress, wheezes, rales, rhonchi, stridor Cardiovascular Exam: Present: regular rate, normal rhythm, normal heart sounds. Absent: systolic murmur, diastolic murmur, rubs, gallop, clicks GI/Abdominal exam: Present: soft, normal bowel sounds. Absent: distended, tenderness, guarding, rebound, rigid Extremities exam: Present: normal inspection, full ROM, normal capillary refill. Absent: tenderness, pedal edema, joint swelling, calf tenderness Back exam: Present: normal inspection Neurological exam: Present: alert, oriented X3, CN II-XII intact Psychiatric exam: Present: normal affect, normal mood Skin exam: Present: warm, dry, intact, normal color. Absent: rash <Rojelio Santos - Last Filed: 07/16/23 11:30> - General Exam Comments Initial Comments: Visual Physical Exam Vital signs reviewed General: no acute distress. Head: Normocephalic, atraumatic Eyes: no periorbital swelling ENT: Airway patent Chest: Nonlabored breathing Skin: No visual rash, normal skin tone Musculoskeletal: No gross abnormalities (Keshawn Dao) Course <Rojelio Santos B - Last Filed: 07/16/23 11:30> Vital Signs 07/08/23 07/08/23 07/08/23 18:26 21:28 21:41 Temperature 98.2 F Pulse Rate 103 H 102 H 110 H Pulse Rate [ Pulse Oximetery ] Respiratory 20 18 16 Rate Blood Pressure 199/91 167/136 162/91 O2 Sat by Pulse 95 94 L 94 L Oximetry 07/08/23 07/08/23 07/08/23 21:46 22:04 22:50 Temperature 97.8 F 98.4 F Pulse Rate 102 H 98 87 Pulse Rate [ Pulse Oximetery ] Respiratory 16 18 18 Rate Blood Pressure 152/92 163/98 158/129 O2 Sat by Pulse 88 L 96 99 Oximetry 07/08/23 07/09/23 07/09/23 23:59 00:02 01:00 Temperature 98.3 F Pulse Rate 92 94 90 Pulse Rate [ Pulse Oximetery ] Respiratory 16 3 L 18 Rate Blood Pressure 142/109 153/116 153/116 O2 Sat by Pulse 96 94 L 98 Oximetry 07/09/23 07/09/23 07/09/23 02:00 03:37 05:48 Temperature 98.2 F 97.9 F Pulse Rate 80 64 88 Pulse Rate [ Pulse Oximetery ] Respiratory 13 16 16 Rate Blood Pressure 153/116 129/70 149/95 O2 Sat by Pulse 97 96 Oximetry 07/09/23 07/09/23 07/09/23 07:00 08:00 09:00 Temperature Pulse Rate 81 83 78 Pulse Rate [ Pulse Oximetery ] Respiratory 18 16 18 Rate Blood Pressure 150/108 148/98 151/101 O2 Sat by Pulse Oximetry 07/09/23 07/09/23 07/09/23 10:00 11:00 15:36 Temperature Pulse Rate 81 93 74 Pulse Rate [ Pulse Oximetery ] Respiratory 18 18 18 Rate Blood Pressure 154/76 146/86 149/75 O2 Sat by Pulse 98 Oximetry 07/09/23 07/09/23 07/09/23 18:19 19:27 20:00 Temperature 98.3 F 98.4 F Pulse Rate 70 95 Pulse Rate [ 88 Pulse Oximetery ] Respiratory 18 19 16 Rate Blood Pressure 149/75 160/92 O2 Sat by Pulse 95 96 Oximetry 07/09/23 20:36 Temperature Pulse Rate Pulse Rate [ Pulse Oximetery ] Respiratory Rate Blood Pressure O2 Sat by Pulse 95 Oximetry - Reevaluation(s) Reevaluation #1: 07/08/23 22:29 Medical records reviewed 07/08/23 22:29 Code stroke was paged as patient is not a tenecteplase candidate secondary to being on anticoagulation (Rojelio Santos) Reevaluation #2: 07/08/23 22:29 Patient symptoms unchanged (Rojelio Santos) Reevaluation #3: 07/08/23 22:29 Patient informed of results and questions answered (Rojelio Santos) Reevaluation #4: 07/08/23 22:29 Was pt. sent in by a medical professional or institution ([facility], [employer], urgent care, hospital, or [place] health [place] facility...) When possible be specific @ -no Did you speak to anyone other than the patient for history (EMS, parent, family, police, friend...)? What history was obtained from this source @ -no Did you review nursing and triage notes (agree or disagree)? Why? @ -agree Are old charts reviewed (outside hosp., previous admission, EMS record, old EKG, old radiological studies, urgent care reports/EKG's, [place] health [facility] facility records)? Report findings @ -yes Differential Diagnosis (chest pain, altered mental status, abdominal pain women, abdominal pain men, vaginal bleeding, weakness, fever, dyspnea, syncope, headache, dizziness, GI bleed, back pain, seizure, CVA, palpatations, mental health, musculoskeletal)? @ -prior EKG interpreted by me (3pts min.). @ -yes X-rays interpreted by me (1pt min.). @ -no CT interpreted by me (1pt min.). @ -yes negative for acute disease U/S interpreted by me (1pt. min.). @ -no What testing was considered but not performed or refused? (CT, X-rays, U/S, labs)? Why? @ -none What meds were considered but not given or refused? Why? @ -none Did you discuss the management of the patient with other professionals (professionals i.e. , PA, [employer], lab, RT, psych nurse, rn social services, account development specialist, teacher, state patrol officer, egg caser)? Give summary @ -no Was smoking cessation discussed for >3mins.? @ -no Was critical care preformed (if so, how long)? @ -yes31 Were there social determinants of health that impacted care today? How? (Homelessness, low income, unemployed, alcoholism, drug addiction, transportation, low edu. Level, literacy, decrease access to med. care, correction, rehab)? @ -none Was there de-escalation of care discussed even if they declined (Discuss DNR or withdrawal of care, Hospice)? DNR status @ -no What co-morbidities impacted this encounter? (DM, HTN, Smoking, COPD, CAD, Cancer, CVA, ARF, Chemo, Hep., AIDS, mental health diagnosis, sleep apnea, morbid obesity)? @ -none Was patient admitted / discharged? Hospital course, mention meds given and route, prescriptions, significant lab abnormalities, going to OR and other pertinent info. @ - 78 female to ER for evaluation of acute headache progressing throughout the day symptoms of acute CVA, significant headache here in the ER, with elevated hypertensive blood pressure here in the ER patient is on Coumadin, does have Coumadin coagulopathy, patient admitted for neurology evaluation Admitted Undiagnosed new problem with uncertain prognosis? @ -no Drug Therapy requiring intensive monitoring for toxicity (Heparin, Nitro, Insulin, Cardizem)? @ -no Were any procedures done? @ -no Diagnosis/symptom? @ -Headache, including coagulopathy, CVA Acute, or Chronic, or Acute on Chronic? @ -Acute Uncomplicated (without systemic symptoms) or Complicated (systemic symptoms)? @ -Complicated Side effects of treatment? @ -no Exacerbation, Progression, or Severe Exacerbation? @ -exacerbation Poses a threat to life or bodily function? How? (Chest pain, [place], [place], pneumonia, PE, COPD, DKA, ARF, appy, cholecystitis, CVA, Diverticulitis, Homicidal, Suicidal, threat to staff... and all critical care pts) @ -yes Coumadin coagulopathy headache and CVA (Rojelio Santos) Reevaluation #5: 07/08/23 22:29 Differential Headache: Migraine, tension, cluster, carbon monoxide, central venous thrombosis, pension karma temporal arteritis, acute closure glaucoma, intercranial hemorrhage, mastoiditis, sinusitis, head injury, this is not meant to be an all-inclusive list. Differential CVA Ischemic stroke, hemorrhagic stroke, brain tumor, atypical migraine, Wernicke's encephalopathy, seizure, multiple sclerosis, meningitis, encephalitis, hypoglycemia, Guillain-Norton, electrolytes disturbance, myasthenia gravis.... This is not meant to be an all-inclusive list (Rojelio Santos) - Consultations Consultation #1: Spoke with interventional neurology with no recommendations (Rojelio Santos) Consultation #2: Poke with [facility] [address] who agrees to admit this patient (Rojelio Santos) Medical Decision Making - Lab Data Result diagrams: 07/08/23 19:24 07/08/23 19:24 <Keshawn Dao - Last Filed: 07/09/23 04:05> - Lab Data Result diagrams: 07/11/23 08:44 07/13/23 09:21 - EKG Data -: EKG Interpreted by Me (EKG is atrial fibrillation with RVR 115 QRS 102 QTc 402) - Radiology Data Radiology results: report reviewed (CT brain is negative for acute disease CT angio is negative for acute disease), image reviewed <Rojelio Santos - Last Filed: 07/16/23 11:30> - Medical Decision Making I performed the quick note portion of this visit electronically signed Keshawn Dao PA-C (Keshawn Dao) 78 female to ER for evaluation of acute headache progressing throughout the day symptoms of acute CVA, significant headache here in the ER, with elevated hypertensive blood pressure here in the ER patient is on Coumadin, does have Coumadin coagulopathy, patient admitted for neurology evaluation (Winnie Santos) - Lab Data Lab Results 07/08/23 07/08/23 07/08/23 Range/Units 19:24 19:24 19:24 WBC 13.2 H (3.8-10.6) k/uL RBC 5.22 (3.80-5.40) m/uL Hgb 15.5 (11.4-16.0) gm/dL Hct 47.2 H (34.0-46.0) % MCV 90.4 (80.0-100.0) fL MCH 29.6 (25.0-35.0) pg MCHC 32.8 (31.0-37.0) g/dL RDW 13.8 (11.5-15.5) % Plt Count 267 (150-450) k/uL MPV 8.3 Neutrophils % 76 % Lymphocytes % 18 % Monocytes % 4 % Eosinophils % 1 % Basophils % 0 % Neutrophils # 10.0 H (1.3-7.7) k/uL Lymphocytes # 2.3 (1.0-4.8) k/uL Monocytes # 0.6 (0-1.0) k/uL Eosinophils # 0.1 (0-0.7) k/uL Basophils # 0.0 (0-0.2) k/uL PT 71.8 H (10.0-12.5) sec INR 7.3 H* (<1.2) APTT 58.5 H (22.0-30.0) sec Sodium 138 (137-145) mmol/L Potassium 4.3 (3.5-5.1) mmol/L Chloride 102 (98-107) mmol/L Carbon Dioxide 24 (22-30) mmol/L Anion Gap 12 mmol/L BUN 23 H (7-17) mg/dL Creatinine 1.16 H (0.52-1.04) mg/dL Est GFR (CKD-EPI)AfAm 52 (>60 ml/min/1.73 sqM) Est GFR (CKD-EPI)NonAf 45 (>60 ml/min/1.73 sqM) Glucose 147 H (74-99) mg/dL Calcium 9.4 (8.4-10.2) mg/dL Total Bilirubin 0.6 (0.2-1.3) mg/dL AST 31 (14-36) U/L ALT 22 (4-34) U/L Alkaline Phosphatase 118 (38-126) U/L Creatine Kinase 57 (30-135) U/L Troponin I (0.000-0.034) ng/mL Total Protein 7.4 (6.3-8.2) g/dL Albumin 4.3 (3.5-5.0) g/dL 07/08/23 Range/Units 19:24 WBC (3.8-10.6) k/uL RBC (3.80-5.40) m/uL Hgb (11.4-16.0) gm/dL Hct (34.0-46.0) % MCV (80.0-100.0) fL MCH (25.0-35.0) pg MCHC (31.0-37.0) g/dL RDW (11.5-15.5) % Plt Count (150-450) k/uL MPV Neutrophils % % Lymphocytes % % Monocytes % % Eosinophils % % Basophils % % Neutrophils # (1.3-7.7) k/uL Lymphocytes # (1.0-4.8) k/uL Monocytes # (0-1.0) k/uL Eosinophils # (0-0.7) k/uL Basophils # (0-0.2) k/uL PT (10.0-12.5) sec INR (<1.2) APTT (22.0-30.0) sec Sodium (137-145) mmol/L Potassium (3.5-5.1) mmol/L Chloride (98-107) mmol/L Carbon Dioxide (22-30) mmol/L Anion Gap mmol/L BUN (7-17) mg/dL Creatinine (0.52-1.04) mg/dL Est GFR (CKD-EPI)AfAm (>60 ml/min/1.73 sqM) Est GFR (CKD-EPI)NonAf (>60 ml/min/1.73 sqM) Glucose (74-99) mg/dL Calcium (8.4-10.2) mg/dL Total Bilirubin (0.2-1.3) mg/dL AST (14-36) U/L ALT (4-34) U/L Alkaline Phosphatase (38-126) U/L Creatine Kinase (30-135) U/L Troponin I 0.012 (0.000-0.034) ng/mL Total Protein (6.3-8.2) g/dL Albumin (3.5-5.0) g/dL Critical Care Time Critical Care Time: Yes Total Critical Care Time: 31 <Rojelio Santos - Last Filed: 07/16/23 11:30> Disposition <Keshawn Dao - Last Filed: 07/09/23 04:05> Is patient prescribed a controlled substance at d/c from ED?: No Time of Disposition: 22:30 <Rojelio Santos - Last Filed: 07/16/23 11:30> Clinical Impression: Coagulopathy, Headache, CVA (cerebral vascular accident), Hypertension Disposition: ADMITTED IP TO THIS HOSP Condition: Serious
[2023-07-08 19:46] LABS: Basophils % (A) 0 %; Eosinophils # (A) 0.1 k/uL (0-0.7); Eosinophils % (A) 1 %; HCT 47.2 % (34.0-46.0); HGB 15.5 gm/dL (11.4-16.0); Lymphocytes # (A) 2.3 k/uL (1.0-4.8); Lymphocytes % (A) 18 %; MCH 29.6 pg (25.0-35.0); MCHC 32.8 g/dL (31.0-37.0); MCV 90.4 fL (80.0-100.0); Mean Platelet Volume 8.3; Monocytes # (A) 0.6 k/uL (0-1.0); Monocytes % (A) 4 %; Neutrophils % (A) 76 %; Platelet Count 267 k/uL (150-450); RBC 5.22 m/uL (3.80-5.40); RDW 13.8 % (11.5-15.5); WBC 13.2 k/uL (3.8-10.6)
[2023-07-08 19:58] LABS: ALT 22 U/L (4-34); AST 31 U/L (14-36); African American GFR (CKD) 52 (>60 ml/min/1.73 sqM); Albumin 4.3 g/dL (3.5-5.0); Alkaline Phosphatase 118 U/L (38-126); Anion Gap 12 mmol/L; Blood Urea Nitrogen 23 mg/dL (7-17); Calcium 9.4 mg/dL (8.4-10.2); Carbon Dioxide 24 mmol/L (22-30); Chloride 102 mmol/L (98-107); Creatine Kinase 57 U/L (30-135); Glucose 147 mg/dL (74-99); Non-African American GFR(CKD) 45 (>60 ml/min/1.73 sqM); Potassium 4.3 mmol/L (3.5-5.1); Sodium 138 mmol/L (137-145); Total Bilirubin 0.6 mg/dL (0.2-1.3); Total Protein 7.4 g/dL (6.3-8.2)
[2023-07-08 20:05] LABS: Partial Thromboplastin Time 58.5 sec (22.0-30.0); Prothrombin Time 71.8 sec (10.0-12.5)
[2023-07-08 20:10] LABS: INR 7.3 (<1.2)
[2023-07-08] MEDS: ONDANSETRON 4 MG/2 ML VIAL IVP STA (20:51)
[2023-07-08] MEDS: LABETALOL 5 MG/ML VIAL MDV IVP STA (21:24)
[2023-07-08] MEDS: HYDROmorphone 1 MG/ML 1 ML SYRINGE IVP STA (21:24)
--- NOTE | 2023-07-08 21:38 | CT ---
EXAMINATION TYPE: CT brain wo con CT DLP: 1153.4 mGycm, Automated exposure control for dose reduction was used. DATE OF EXAM: 07/08/2023 9:03 PM COMPARISON: None. CLINICAL INDICATION:Female, 78 years old with history of headache, high INR, headache, high INR, conf usion. TECHNIQUE: Brain: Axial CT images of the brain were obtained with coronal and sagittal reformats created and rev iewed. Contrast used: None. Oral contrast used: None. FINDINGS: Extra-axial spaces: No abnormal extra-axial fluid collections. Ventricular system: Ventricles appear dilated in proportion to the degree of cerebral atrophy. Cerebral parenchyma: No increased attenuation to suggest acute intraparenchymal hemorrhage. The gra y-white matter interface appears maintained. Moderate generalized brain atrophy. Scattered hypoatte nuating areas are seen within the cerebral white matter, nonspecific but most often seen with chronic microvascular ischemic changes; moderate in degree. Moderate-sized area of hypoattenuation involvin g the cortex and deep white matter in the right parietal lobe consistent with remote infarct. Cerebellum: No acute abnormality. Mass effect: No evidence of mass effect or midline shift. Intracranial vasculature: Mild calcifications of the cavernous ICAs. Soft tissues: No acute or concerning abnormality. Visualized orbits: Orbital contents appear grossly intact. Calvarium/osseous structures: No evidence of calvarial fracture. Bones appear osteopenic. Paranasal sinuses and mastoid air cells: Frontal sinuses are developmentally hypoplastic. Soft tissue opacification of the left sphenoid sinus. No significant paranasal sinus fluid. Mastoid air cells ar e clear. Material in the right more than left external auditory canal suggesting cerumen. Nasal septa l deviation towards the left in its anterior to midportion. MRI is more sensitive for detecting acute processes such as infarct, and may be considered if clinica lly warranted. IMPRESSION: 1. No acute intracranial hemorrhage, mass effect, or midline shift. 2. Moderate atrophy and chronic microvascular ischemic changes. 3. Moderate size remote right parietal infarct.
[2023-07-08] MEDS: SODIUM CHLORIDE 0.9% 1,000 ML IV SCH (22:49)
--- NOTE | 2023-07-08 23:06 | CT ---
EXAMINATION TYPE: CT angio head neck DATE OF EXAM: 07/08/2023 10:19 PM COMPARISON: CT head without contrast earlier today. CLINICAL INDICATION:Female, 78 years old with history of pain; PHH, Code stroke TECHNIQUE: Axially acquired helical CT angiogram of the head and neck was obtained with contrast. Axi al images are supplemented with 3D reconstructions which [facility] NASCET criteria used. Contrast used: 65 ml mL of Isovue 370 with IV Contrast, Oral contrast used: None. CT DLP: 474.2 mGycm, Automated exposure control for dose reduction was used. FINDINGS: Adoption Worker view shows left humeral head arthroplasty. CTA Neck: A 3 vessel aortic arch is shown. Atherosclerotic plaque is present in the aortic arch and at the rema gin of the branch vessels without hemodynamically significant stenosis seen. Right carotid system: The common carotid is patent. Mixed atherosclerotic disease at the bifurcation and proximal ICA with no hemodynamically significant stenosis. There is mild narrowing of the proxima l ECA. ICA appears patent to the skull base. Left carotid system: The common carotid is patent. Minimal atherosclerotic disease at the bifurcation without hemodynamically significant stenosis. ICA is rather tortuous proximally but appears normally patent to the skull base. ECA is patent. Vertebral arteries: There is no significant atherosclerotic plaque at the origins of the vertebral ar teries. Proximal left vertebral is tortuous. The left vertebral is dominant. The vertebrals are then otherwise patent to the skull base. Other: Visualized neck soft tissues show no concerning abnormality. Admixing of unenhanced and enhanc ed blood in the left internal jugular vein is likely present, rather than thrombus. Cervical spine shows mild degenerative changes without evidence of critical canal or foraminal stenos is. Included lung apices show probable emphysematous changes without evidence of acute infiltrate or pneumothorax. Mild biapical scarring. CTA Head: Left vertebral artery is dominant. Basilar artery is normally patent. No evidence of basilar tip aneu rysm. The bilateral superior cerebellar arteries appear patent. On the right, the V[employer]UAL [employer] .NET DEVELOPER appears supplie d from the anterior circulation, variant origin of the VISUAL [employer]IC .NET DEVELOPER. Left VIS[employer]IC .NET DEVELOPER appears supplied from the basilar. Both proximal motel operator appear patent. The bilateral intracranial ICAs are patent. Bilateral MCAs and ACAs appear patent. No evidence of lar ge vessel occlusion, hemodynamically significant stenosis, AVM, or aneurysm detected in the limits of CTA. Anterior cerebral arteries appear patent with an anterior communicating artery appearing presen t. No abnormal masslike intracranial enhancement is seen. Area of hypoattenuation consistent with enc ephalomalacia from remote infarct in the right parietal lobe is again seen. Grossly preserved enhancement of the dural venous sinuses, without evidence of thrombosis. Other: Please refer to same-day CT head report for further description of findings. IMPRESSION: CTA neck: 1. No dissection, hemodynamically significant stenosis, or pseudoaneurysm detected in the carotid or vertebral arteries in the neck. 2. Mixed atherosclerotic disease at the right carotid bifurcation and proximal ICA with no hemodynam ically significant stenosis. CTA head: No intracranial large vessel occlusion, significant stenosis, or sizable aneurysm detected in the stinson its of CTA.
--- NOTE | 2023-07-09 00:09 | XR ---
EXAMINATION TYPE: XR chest 2V DATE OF EXAM: 07/08/2023 9:09 PM CLINICAL INDICATION:Female, 78 years old with history of altered mental status; [facility] COMPARISON: Chest x-ray 02/19/2020 TECHNIQUE: XR chest 2V. Frontal and lateral views of the chest.. FINDINGS: Heart size upper limits of normal. Mildly tortuous aorta. Pulmonary vasculature appears similar to pr evious. No overt edema, consolidation, sizable effusion, or pneumothorax. Lungs appear mildly hyperin flated with coarsening of the interstitium suggesting background COPD. Left humeral head arthroplasty. Mild to moderate diffuse degenerative changes. No acute bony patholog y demonstrated. IMPRESSION: No acute cardiopulmonary abnormality.
[2023-07-09] MEDS: ASPIRIN 325 MG TAB PO SCH (07:34)
--- NOTE | 2023-07-09 08:25 | P.HPIM ---
History of Present Illness This is a pleasant 78 years old female with past medical history of atrial fibrillation, hypertension, hyperlipidemia Patient awake and alert and follows commands and communicates appropriately however she has memory problem. She wasn't sure of why she came to the hospital On reviewing the symptoms with her she says that she had a headache earlier but now feels better, and she states yesterday she had blurred vision and slurred speech but now is better. She denies dizziness weakness or tingling currently She denies chest pain or dyspnea. Denies GI or urinary symptoms. She states she smokes but she could not remember, she smokes and then with difficulty she said it might be half pack per day and she was counseled to quit and she agrees but she declines nicotine patch. She denies alcohol or illicit drugs. As per documentation came with frontal headache and dizziness, also there was some mention about nausea and confusion, currently patient does not think she is confused. I called the Mr. Jamar Duvall at [phone] and , cystoscopy called back Patient is hemodynamically stable INR is elevated 7.3 WBCs 13.2, rest of the CBC is unremarkable, creatinine 1.1 which is within the reference range at baseline 1.0-1.5. Liver enzymes were unremarkable EKG showing atrial fibrillation at [address]-T changes Add process CT of the brain showing moderate size remote right parietal infarct with no acute process CTA of the head and neck is negative for acute pathology in either one. Patient was started on aspirin 325 mg daily and admitted with a neurology consult Review of Systems Review of systems CONSTITUTIONAL: No fever, no malaise, no fatigue. HEENT: No recent visual problems or hearing problems. Denied any sore throat. CARDIOVASCULAR: No orthopnea, PND, no palpitations, no syncope. PULMONARY: No shortness of breath, no cough, no hemoptysis. GASTROINTESTINAL: No diarrhea, no nausea, no vomiting, no abdominal pain. Normoactive bowel sounds. NEUROLOGICAL: No headaches, no weakness, no numbness. HEMATOLOGICAL: Denies any bleeding or petechiae. GENITOURINARY: Denies any burning micturition, frequency, or urgency. MUSCULOSKELETAL/RHEUMATOLOGICAL: Denies any joint pain, swelling, or any muscle pain. ENDOCRINE: Denies any polyuria or polydipsia. Past Medical History Past Medical History: Atrial Fibrillation, Hyperlipidemia, Hypertension Additional Past Medical History / Comment(s): daughter states pt is etoh, occasional diarrhea, recent admission for dyspnea History of Any Multi-Drug Resistant Organisms: None Reported Past Surgical History: Orthopedic Surgery Additional Past Surgical History / Comment(s): Pt states she had a D&C, shoulder surg. Past Anesthesia/Blood Transfusion Reactions: No Reported Reaction Past Psychological History: Anxiety Smoking Status: Current every day smoker - Past Family History Mother Family Medical History: Cancer, Diabetes Mellitus Additional Family Medical History / Comment(s): Uterine CA, Father History Unknown: Yes Medications and Allergies Home Medications Medication Instructions Recorded Confirmed Type Metoprolol Succinate (ER) [Toprol 25 mg PO DAILY 30 Days #30 02/21/20 07/08/23 Rx XL] tab.er.24h Warfarin [Coumadin] 7.5 mg PO DAILY@1800 07/08/23 07/08/23 History lisinopriL [Prinivil] 20 mg PO DAILY 07/08/23 07/08/23 History Allergies Allergy/AdvReac Type Severity Reaction Status Date / Time pollen extracts AdvReac Cough Verified 07/08/23 22:39 Physical Exam Vitals: Vital Signs Temp Pulse Resp BP Pulse Ox 07/09/23 05:48 97.9 F 88 16 149/95 96 07/09/23 03:37 98.2 F 64 16 129/70 97 07/08/23 23:59 98.3 F 92 16 142/109 96 07/08/23 22:50 98.4 F 87 18 158/129 99 07/08/23 22:04 98 18 163/98 96 07/08/23 21:46 97.8 F 102 H 16 152/92 88 L 07/08/23 21:41 110 H 16 162/91 94 L 07/08/23 21:28 102 H 18 167/136 94 L 07/08/23 18:26 98.2 F 103 H 20 199/91 95 Intake and Output 07/08/23 07/09/23 07/09/23 22:59 06:59 14:59 Other: Weight 58.967 kg GENERAL: The patient is alert and oriented x3, not in any acute distress. Well developed, well nourished. HEENT: Pupils are round and equally reacting to light. EOMI. No scleral icterus. No conjunctival pallor. Normocephalic, atraumatic. No pharyngeal erythema. No thyromegaly. CARDIOVASCULAR: S1 and S2 present. No murmurs, rubs, or gallops. PULMONARY: Chest is clear to auscultation, no wheezing , no crackles. ABDOMEN: Soft, nontender, nondistended, normoactive bowel sounds. No palpable organomegaly. MUSCULOSKELETAL: No joint swelling or deformity. EXTREMITIES: No cyanosis, clubbing, or pedal edema. NEUROLOGICAL: Gross neurological examination did not reveal any focal deficits. SKIN: No rashes. no petechiae. Results CBC & Chem 7: 07/08/23 19:24 07/08/23 19:24 Labs: Abnormal Lab Results - Last 24 Hours (Table) 07/08/23 07/08/23 07/08/23 Range/Units 19:24 19:24 19:24 WBC 13.2 H (3.8-10.6) k/uL Hct 47.2 H (34.0-46.0) % Neutrophils # 10.0 H (1.3-7.7) k/uL PT 71.8 H (10.0-12.5) sec INR 7.3 H* (<1.2) APTT 58.5 H (22.0-30.0) sec BUN 23 H (7-17) mg/dL Creatinine 1.16 H (0.52-1.04) mg/dL Glucose 147 H (74-99) mg/dL Assessment and Plan Assessment: Transient Period is of headache and dizziness Memory problem could be vascular dementia Nicotine dependence Paroxysmal atrial fibrillation hypertension Hyperlipidemia Plan: Continue with aspirin hold Coumadin and monitor INR Neurology consult Echocardiogram ordered by emergency room Labs and medication were reviewed.. Continue same treatment. Continue with symptomatic treatment. Resume home medication. Monitor labs and vitals. DVT and GI prophylaxis. Further recommendations as per clinical course of the patient DVT prophylaxis: on warfarin GI Prophylaxis: Pepcid PT/OT: Pending Prognosis is guarded
[2023-07-09] MEDS: HEPARIN SODIUM,PORCINE 5,000 UNIT/ML 1 ML VIAL SQ SCH (08:59)
[2023-07-09] MEDS: FAMOTIDINE 20 MG/2 ML VIAL IV SCH (08:59)
[2023-07-09 10:36] LABS: INR 6.2 (<1.2); Prothrombin Time 61.3 sec (10.0-12.5)
--- NOTE | 2023-07-09 12:29 | CA ---
Transthoracic Echo Report Name: Marry Duvall Age: 78 Gender: F : 1945 Exam Date: 07/09/2023 10:00 Exam Location: [facility] Ht (in): 65 Wt (lb): 130 Ordering Physician: Rojelio Santos DO Attending/Referring Phys: [id number], Danielle Engineering Manager [employer] Donovan Golden RD Procedure CPT: Indications: Thrombus Cardiac Hx: Technical Quality: Fair Contrast 1: Total Dose (mL): Contrast 2: Total Dose (mL): MEASUREMENTS (Male / Female) Normal Values 2D ECHO LV Diastolic Diameter PLAX 3.8 cm 4.2 - 5.9 / 3.9 - 5.3 cm LV Systolic Diameter PLAX 3.2 cm IVS Diastolic Thickness 1.3 cm 0.6 - 1.0 / 0.6 - 0.9 cm LVPW Diastolic Thickness 1.3 cm 0.6 - 1.0 / 0.6 - 0.9 cm LV Relative Wall Thickness 0.7 RV Internal Dim ED PLAX 2.2 cm LVOT Diameter 1.9 cm Aortic Root Diameter 2.3 cm LA Systolic Diameter LX 2.7 cm 3.0 - 4.0 / 2.7 - 3.8 cm LV Diastolic Volume MOD BP 34.3 cm??? 67 - 155 / 56 - 104 cm??? LV Systolic Volume MOD BP 13.8 cm??? 22 - 58 / 19 - 49 cm??? LV Ejection Fraction MOD BP 59.8 % >= 55 % LV Cardiac Index MOD BP 1023.5 cm???/min???m??? LV Diastolic Volume MOD 4C 32.5 cm??? LV Systolic Volume MOD 4C 12.5 cm??? LV Ejection Fraction MOD 4C 61.5 % LV Cardiac Index MOD 4C 994.3 cm???/min???m??? LV Diastolic Length 4C 5.7 cm LV Systolic Length 4C 5.2 cm LV Diastolic Volume MOD 2C 35.0 cm??? LV Systolic Volume MOD 2C 15.4 cm??? LV Ejection Fraction MOD 2C 56.0 % LV Cardiac Index MOD 2C 978.1 cm???/min???m??? LV Diastolic Length 2C 5.9 cm LV Systolic Length 2C 5.2 cm LA Volume 43.8 cm??? 18 - 58 / 22 - 52 cm??? LA Volume Index 26.6 cm???/m??? 16 - 28 cm???/m??? DOPPLER AV Peak Velocity 103.7 cm/s AV Peak Gradient 4.3 mmHg AV Mean Velocity 74.4 cm/s AV Mean Gradient 2.5 mmHg AV Velocity Time Integral 20.8 cm AI Peak Velocity 415.4 cm/s AI Peak Gradient 69.0 mmHg AI Pressure Half Time 695.2 ms LVOT Peak Velocity 70.5 cm/s LVOT Peak Gradient 2.0 mmHg LVOT Velocity Time Integral 13.4 cm LVOT Stroke Volume 39.9 cm??? LVOT Stroke Volume Index 24.2 ml/m??? LVOT Cardiac Index 1989.4 cm???/min???m??? AV Area Cont Eq vti 1.9 cm??? AV Area Cont Eq pk 2.0 cm??? MV Peak Velocity 133.0 cm/s MV Peak Gradient 7.1 mmHg MV Mean Velocity 74.0 cm/s MV Mean Gradient 2.7 mmHg MV Velocity Time Integral 23.0 cm MR Peak Velocity 416.6 cm/s MR Peak Gradient 69.4 mmHg TR Peak Velocity 240.6 cm/s TR Peak Gradient 23.1 mmHg Right Ventricular Systolic Press 28.1 mmHg PV Peak Velocity 86.5 cm/s PV Peak Gradient 3.0 mmHg FINDINGS Left Ventricle Normal LV size. Mild concentric LVH. Left ventricular ejection fraction is estimated at 50-55 %. Right Ventricle Normal right ventricular size and function. RVSP= 28mmHg. Right Atrium Normal right atrial size. Left Atrium Mild left atrial dilatation. LA volume index= 27ml/m2 Mitral Valve Structurally normal mitral valve. Mild MR. Aortic Valve Trileaflet aortic valve. No aortic stenosis. Mild to moderate regurgitation. Tricuspid Valve Structurally normal tricuspid valve. Mild TR. Pulmonic Valve Pulmonic valve not well visualized. Mild PI. Pericardium Small posterior pericardial effusion. Aorta Normal size aortic gerardo. CONCLUSIONS LVEF estimated at 55% No obvious regional wall motion abnormality. Paradoxical septal motion suggestive of bundle branch block Mild MR Mild to moderate AI Mild left atrial dilatation dilatation Small pericardial effusion, likely physiological Previewed by: Dr Ankush Pruitt (Electronically Signed) Final Date: 09 July 2023 12:28
--- NOTE | 2023-07-09 14:03 | MR ---
EXAMINATION TYPE: MR brain wo con DATE OF EXAM: 07/09/2023 12:51 PM COMPARISON: NONE HISTORY: Encephalopathy of unknown etiology. FINDINGS: The ventricles, basal cisterns and sulci overlying the cerebral convexities are mildly to moderately enlarged. Remote insult posterior right MCA territory. There is evidence of moderate periventricular white matter ischemic demyelination. Remote deep white matter insults are also noted. Tiny focus of increased signal on diffusion-weighted imaging posterior left temporal lobe image 14 of 32 could reflect a small area of acute ischemic insult. There is no evidence for midline shift or mass effect. Acute intracranial hemorrhage or extra-axial collection is not evident. The paranasal sinuses and mastoid air cells are well-aerated. IMPRESSION: Age-related atrophic and chronic small vessel ischemic change. Tiny focus of increased signal on dif fusion-weighted imaging posterior left temporal lobe image 14 of 32 could reflect a small area of acu te ischemic insult.
[2023-07-09] MEDS: WARFARIN 0.5 MG TAB PO ONE (15:44)
[2023-07-09 16:28] LABS: Chol/HDL Ratio 6.04 Ratio; LDL Cholesterol,Calculated 144.5 mg/dL (0.0-131.0)
--- NOTE | 2023-07-09 19:58 | P.CNNES ---
History of Present Illness Consult date: 07/09/23 Requesting physician: Rojelio Santos Reason for Consult: cva History of Present Illness: This is a 78-year-old woman with history of atrial from position on Coumadin, hypertension who states that she came to the hospital because of a headache. She states the headache is over the left frontal temporal region and she noticed a headache yesterday when she woke up and felt severe and felt a 10 over 10 and just felt like an aggravating headache. She had nausea and vomiting episodes. Denies any visual disturbance, focal weakness, numbness. She denies any radiation of the headache. She stated the headache lasted yesterday and today at it's dramatically better the headache is very mild and 3 out of 10. She d enies any similar headaches like this in the past. Denies any head trauma or fall. She states she is on Coumadin for A. fib and the does not always check her INR level. Her INR presentation was 7.3 and currently 6.2. Denies any history of stroke. It seems the per the primary team and she has mem ory issues. Some of the workup during this hospital visit consisted of: As stated earlier her INR was supratherapeutic, PTT is 71.8 and PTT is 58.5. Creatinine is 1.16. Platelets is 277,000 hemoglobin 15.5. Sodium is 138, AST ALT, CK level is within normal limits Lipid panel is triglycerides 183, cholesterol is 217, LDLs 144 HDL is 35.9 Vitamin B12 is 581 Folate is 11.3 TSH is a 3.480 CT of the head is reported as no acute intracranial hemorrhage, mass effect or midline shift. Moderate atrophy and chronic microvascular ischemic changes. A moderate sized remote right parietal infarct. I personally reviewed the CT head and I agree the patient has an hypodensity over the right parietal and this seems old. There is no previous images to compare with. There is no bleeding that is noticeable. CT angiography of the head and neck was reported as no intracranial large vessel occlusion, significant stenosis or sizable aneurysm detected in the limits of CTA. Regarding CT of the artery of the neck is reported as no dissection, hemodynamically significant stenosis or pseudoaneurysm detected in the carotid vertebral artery in the neck. Mixed upper sclerotic disease at the right carotid bifurcation and proximal ICA with no hemodynamic significant stenosis. MRI the brain is reported as age-related atrophy and chronic small vessel ischemic change. Tiny focus of increased signal on diffusion-weighted image left temporal lobe image 14 and of 30 to could reflect a small area of acute is chemic insult. I personally reviewed that MRI and I felt the spot that the radiologist was taken off there is no ADC with DWI correlation felt was more artifact and again was a very tiny small spot on the left temporal 2-D echo was reported as a ejection fraction 55%. No obvious regional wall jluis on abnormality. Paradoxical septal motion suggestive of bundle branch block. Review of Systems The positive and negative as per HPI. Past Medical History Past Medical History: Atrial Fibrillation, Hyperlipidemia, Hypertension Additional Past Medical History / Comment(s): daughter states pt is etoh, occa sional diarrhea, recent admission for dyspnea History of Any Multi-Drug Resistant Organisms: None Reported Past Surgical History: Orthopedic Surgery Additional Past Surgical History / Comment(s): Pt states she had a D&C, shoulder surg. Past Anesthesia/Blood Transfusion Reactions: No Reported Reaction Past Psychological History: Anxiety Smoking Status: Current every day smoker - Past Family History Mother Family Medical History: Cancer, Diabetes Mellitus Additional Family Medical History / Comment(s): Uterine CA, Father History Unknown: Yes Medications and Allergies Home Medications Medication Instructions Recorded Confirmed Type Metoprolol Succinate (ER) [Toprol 25 mg PO DAILY 30 Days #30 02/21/20 07/08/23 Rx XL] tab.er.24h Warfarin [Coumadin] 7.5 mg PO DAILY@1800 07/08/23 07/08/23 History lisinopriL [Prinivil] 20 mg PO DAILY 07/08/23 07/08/23 History Allergies Allergy/AdvReac Type Severity Reaction Status Date / Time pollen extracts AdvReac Cough Verified 07/08/23 22:39 Physical Examination - Vital Signs Vital Signs: Vital Signs Temp Pulse Resp BP Pulse Ox 07/09/23 18:19 70 18 149/75 07/09/23 15:36 74 18 149/75 98 07/09/23 11:00 93 18 146/86 07/09/23 10:00 81 18 154/76 07/09/23 09:00 78 18 151/101 07/09/23 08:00 83 16 148/98 07/09/23 07:00 81 18 150/108 07/09/23 05:48 97.9 F 88 16 149/95 96 07/09/23 03:37 98.2 F 64 16 129/70 97 07/09/23 02:00 80 13 153/116 07/09/23 01:00 90 18 153/116 98 07/09/23 00:02 94 3 L 153/116 94 L 07/08/23 23:59 98.3 F 92 16 142/109 96 07/08/23 22:50 98.4 F 87 18 158/129 99 07/08/23 22:04 98 18 163/98 96 07/08/23 21:46 97.8 F 102 H 16 152/92 88 L 07/08/23 21:41 110 H 16 162/91 94 L 07/08/23 21:28 102 H 18 167/136 94 L GENERAL: The patient is lying in bed and is not in acute distress. NEUROLOGICAL: Higher mental function: The patient is awake, alert, oriented to self, place and time. Somewhat slow responding at time. Patient is following simple commands. No aphasia and no neglect. Cranial nerves: The pupils are round, equal and reactive to light. Visual duke are full to confrontation throughout. Extraocular movement is intact no nystagmus is noted. Facial sensation is normal to touch throughout. The facial strength is normal throughout. Hearing is mildly to moderate decreased to hand rub bilaterally. Tongue is midline and moved [id number] without any difficulty. No dysarthria is noted. Shoulder shrug is normal bilaterally. Motor: The strength is 5 over 5 throughout. Normal tone and bulk. Cerebellum: Normal finger to nose bilaterally. Sensation: Sensation is normal to touch throughout. Reflexes (right/left): 2+ Plantars are mute bilaterally. Results - Laboratory Findings CBC and BMP: 07/08/23 19:24 07/08/23 19:24 Abnormal Lab Findings: Abnormal Labs 07/08/23 07/08/23 07/08/23 19:24 19:24 19:24 WBC 13.2 H Hct 47.2 H Neutrophils # 10.0 H PT 71.8 H INR 7.3 H* APTT 58.5 H BUN 23 H Creatinine 1.16 H Glucose 147 H Triglycerides Cholesterol LDL Cholesterol, Calc HDL Cholesterol 07/09/23 07/09/23 09:04 09:04 WBC Hct Neutrophils # PT 61.3 H INR 6.2 H* APTT BUN Creatinine Glucose Triglycerides 183.00 H Cholesterol 217.00 H LDL Cholesterol, Calc 144.5 H HDL Cholesterol 35.90 L Assessment and Plan Assessment: This is a 78-year-old woman with history of atrial fibrillation on Coumadin who presents because the headache over the left frontal temporal region that new onset. She was found to have INR supratherapeutic as high 7.3 and currently 6.2. Her headache has drastically improved. He denies of any new focal deficit. So on presentation her blood pressure was as high as 199/91 which is improved. She states that she does not get her INR monitored on a regular basis Cephalgia likely due to escalated hypertension with supratherapeutic INR.---headache drastically improved. CT of the head and CT angiography of the head and neck is negative for bleed or aneurysm. Shows an old stroke over the right parietal. MRI the brain is reported increased signal diffusion weighted over the left temporal and it's a tiny focus and it's reported as good reflect a small acute ischemic insult but I pursue reviewed the MRI and there is no correlation with the DWI and ADC for ischemia and I felt more artifact. Supratherapeutic INR as high as 7.3-->6.2 Escalated hypertension Dyslipidemia Atrial fibrillation on Coumadin Underlying history of hypertension Plan: Tomrrow I'll have the reading radiologist we reviewed the MRI brain. I personally do not feel there is an acute or subacute stroke. Since the patient is a having difficulty monitoring her Coumadin consider switching to a different anticoagulant we'll defer that decision to the primary and electrical high tension tester I ordered a routine EEG and the preliminary read is a mild encephalopathy. Otherwise there is no focal slowing, epileptiform discharges or seizure on the EEG. Regarding the per therapeutic INR will defer the management to the primary team Patient started on aspirin 325 daily by the ED team as well as Lipitor 80 mg daily at bedtime. I'll defer dose of statin to the primary team. From a neurology perspective the patient to be on the Lipitor 4 mg Neurochecks Cardiac monitoring PT OT, OT and ACCOUNT EXECUTIVE KEY ACCOUNTS are consulted We'll defer the rest of the medical management to the primary team For DVT prophylaxis patient has a super therapeutic INR but the primary team started her on subcu heparin. Not sure if she needs subcu heparin since she has supratherapeutic INR but I'll defer that decision to the primary team Thank you for the consultation Time with Patient: Greater than 30
[2023-07-09] MEDS: ATORVASTATIN 80 MG TAB PO SCH (21:00)
--- NOTE | 2023-07-09 22:10 | EEG ---
ELECTROENCEPHALOGRAM REPORT CLINICAL HISTORY: This is a 78-year-old woman with memory loss. The video EEG is obtained to evaluate for seizure epileptiform activity. RELEVANT MEDICATION: The patient is not on any antiepileptic drugs. EEG TYPE: A routine 21-channel EEG with video using the 10/20 electrode placement system. DESCRIPTION: Wakefulness is only obtained. During the awake state, the posterior-dominant rhythm consists of [id number] voltage of 6.5 to 7 hertz activity that is well modulated and well sustained. There is no physiological stage 2 sleep architecture. There is no focal slowing. Interictal and ictal is none. ACTIVATION PROCEDURE: Photic stimulation did not evoke posterior driving response. There is no abnormality during the photic stimulation. Hyperventilation is not performed. CLINICAL INTERPRETATION: This is an abnormal routine EEG. The background slowing is suggestive of mild encephalopathy. Otherwise, there is no focal slowing, epileptiform discharges or seizure on the EEG. Clinical correlation is recommended. JOAO / SHADY: [id number] / MTDD
[2023-07-10 09:32] LABS: INR 4.4 (<1.2); Prothrombin Time 43.1 sec (10.0-12.5)
[2023-07-10 09:45] LABS: African American GFR (CKD) 48 (>60 ml/min/1.73 sqM); Blood Urea Nitrogen 19 mg/dL (7-17); Calcium 8.6 mg/dL (8.4-10.2); Carbon Dioxide 26 mmol/L (22-30); Glucose 128 mg/dL (74-99); Non-African American GFR(CKD) 41 (>60 ml/min/1.73 sqM)
[2023-07-10 09:46] LABS: Anion Gap 6 mmol/L; Chloride 107 mmol/L (98-107); Potassium 4.3 mmol/L (3.5-5.1); Sodium 139 mmol/L (137-145)
[2023-07-10 09:55] LABS: Basophils # (A) 0.1 k/uL (0-0.2); Basophils % (A) 1 %; Eosinophils # (A) 0.1 k/uL (0-0.7); Eosinophils % (A) 1 %; HCT 41.3 % (34.0-46.0); Lymphocytes # (A) 2.8 k/uL (1.0-4.8); Lymphocytes % (A) 27 %; MCH 28.8 pg (25.0-35.0); MCHC 31.4 g/dL (31.0-37.0); MCV 91.6 fL (80.0-100.0); Monocytes # (A) 0.5 k/uL (0-1.0); Monocytes % (A) 5 %; Neutrophils # (A) 6.5 k/uL (1.3-7.7); Neutrophils % (A) 64 %; Platelet Count 234 k/uL (150-450); RBC 4.51 m/uL (3.80-5.40); RDW 14.2 % (11.5-15.5); WBC 10.2 k/uL (3.8-10.6)
[2023-07-10] MEDS: FAMOTIDINE 20 MG/2 ML VIAL IV SCH (10:35)
--- NOTE | 2023-07-10 15:59 | P.PN ---
Subjective This is a pleasant 78 years old female with past medical history of atrial fibrillation, hypertension, hyperlipidemia Patient awake and alert and follows commands and communicates appropriately however she has memory problem. She wasn't sure of why she came to the hospital On reviewing the symptoms with her she says that she had a headache earlier but now feels better, and she states yesterday she had blurred vision and slurred speech but now is better. She denies dizziness weakness or tingling currently She denies chest pain or dyspnea. Denies GI or urinary symptoms. She states she smokes but she could not remember, she smokes and then with difficulty she said it might be half pack per day and she was counseled to quit and she agrees but she declines nicotine patch. She denies alcohol or illicit drugs. As per documentation came with frontal headache and dizziness, also there was some mention about nausea and confusion, currently patient does not think she is confused. I called the Mr. Jamar Duvall at [phone] and , cystoscopy called back Patient is hemodynamically stable INR is elevated 7.3 WBCs 13.2, rest of the CBC is unremarkable, creatinine 1.1 which is within the reference range at baseline 1.0-1.5. Liver enzymes were unremarkable EKG showing atrial fibrillation at [address]-T changes Add process CT of the brain showing moderate size remote right parietal infarct with no acute process CTA of the head and neck is negative for acute pathology in either one. Patient was started on aspirin 325 mg daily and admitted with a neurology consult 07/10/2023 Patient's has mild headache but dizziness improved She feels little congested with cough No diarrhea no chest pain no dyspnea Patient originally normal saline 100 mL/h which will be stopped. Also I'll give the patient one time dose of Lasix 40 mg times once. No other new complaints MRI of the brain shows tiny temporal region in the left temporal area, per neurologist is of no significance. EEG is of no significant abnormality for epileptiform discharge. I reviewed myself Also she is on aspirin 325 mg. Lipitor dose w2 milligrams on 40 mg She remains on Coumadin 4.4, WBC back to normal 10.2. Creatinine is stable at 1.2 and patient is known to have chronic kidney disease. Patient educated about the need to check her INR as an outpatient and she had poor monitoring noncompliance and now she verbalized understanding and acceptance. I think it's possible for the patient remains on Coumadin for now and start monitoring as an outpatient. Echocardiogram ordered by emergency roomEjection fraction 50-55% with [id number] aortic regurgitation . Results reviewed by myself Possible discharge in 24-48 hours if patient remains stable and improving Review of systems CONSTITUTIONAL: No fever, no malaise, no fatigue. HEENT: No recent visual problems or hearing problems. Denied any sore throat. CARDIOVASCULAR: No orthopnea, PND, no palpitations, no syncope. PULMONARY: No shortness of breath, no cough, no hemoptysis. GASTROINTESTINAL: No diarrhea, no nausea, no vomiting, no abdominal pain. Normoa ctive bowel sounds. Active Medications Generic Name Dose Route Start Last Admin Trade Name Freq PRN Reason Stop Dose Admin Aspirin 325 mg 07/09/23 09:00 07/10/23 10:40 Aspirin 325 Mg Tab PO 325 mg DAILY [facility] Administration Atorvastatin Calcium 40 mg 07/10/23 21:00 Atorvastatin 40 Mg Tab PO HS [facility] Famotidine 20 mg 07/11/23 09:00 Famotidine 20 Mg Tab PO DAILY [facility] Metoprolol Succinate 25 mg 07/11/23 09:00 Metoprolol Succinate (Er) 25 Mg Tab.Er.24h PO DAILY [facility] Miscellaneous Information 1 each 07/09/23 08:24 Warfarin Per Pharmacy MISCELLANE DIRECTED PRN Per Protocol Protocol Warfarin Sodium 0 mg 07/10/23 18:00 Warfarin 0.5 Mg Tab PO 07/10/23 18:01 ONCE@1800 ONE Objective - Vital Signs Vital signs: Vital Signs Temp 96.3 F L 07/10/23 11:30 Pulse 83 07/10/23 11:30 Resp 18 07/10/23 11:30 BP 149/76 07/10/23 11:30 Pulse Ox 93 L 07/10/23 11:30 FiO2 Intake & Output 07/09/23 07/10/23 07/10/23 18:59 06:59 18:59 Intake Total 236 Balance 236 Intake: Oral 236 Other: Voiding Method Toilet # Voids 1 - Exam GENERAL: The patient is alert and oriented x3, not in any acute distress. Well developed, well nourished. HEENT: Pupils are round and equally reacting to light. EOMI. No scleral icterus. No conjunctival pallor. Normocephalic, atraumatic. No pharyngeal erythema. No thyromegaly. CARDIOVASCULAR: S1 and S2 present. No murmurs, rubs, or gallops. PULMONARY: Chest is clear to auscultation, no wheezing , no crackles. ABDOMEN: Soft, nontender, nondistended, normoactive bowel sounds. No palpable organomegaly. MUSCULOSKELETAL: No joint swelling or deformity. EXTREMITIES: No cyanosis, clubbing, or pedal edema. NEUROLOGICAL: Gross neurological examination did not reveal any focal deficits. SKIN: No rashes. no petechiae. - Labs CBC & Chem 7: 07/10/23 08:42 07/10/23 08:28 Labs: Abnormal Lab Results - Last 24 Hours (Table) 07/09/23 07/10/23 07/10/23 Range/Units 09:04 08:28 08:42 PT 43.1 H (10.0-12.5) sec INR 4.4 H (<1.2) BUN 19 H (7-17) mg/dL Creatinine 1.24 H (0.52-1.04) mg/dL Glucose 128 H (74-99) mg/dL Triglycerides 183.00 H (0.00-149.00) mg/dL Cholesterol 217.00 H (0.00-200.00) mg/dL LDL Cholesterol, Calc 144.5 H (0.0-131.0) mg/dL HDL Cholesterol 35.90 L (40.00-60.00) mg/dL Assessment and Plan Assessment: Transient Period is of headache and dizziness. 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 Continue same treatment. Continue with symptomatic treatment. Resume home medication. Monitor labs and vitals. DVT and GI prophylaxis. Further recommendations as per clinical course of the patient DVT prophylaxis: on warfarin GI Prophylaxis: Pepcid PT/OT: Pending Prognosis is guarded
[2023-07-10] MEDS: WARFARIN 0.5 MG TAB PO ONE (17:30)
[2023-07-10] MEDS: FUROSEMIDE 40 MG TAB PO STA (17:31)
--- NOTE | 2023-07-10 18:11 | P.PN ---
Subjective Progress Note Date: 07/10/23 I am following-up with patient and she feels she is doing well. Denies currently of headache. Feels headache is drastically better compared to initial presentation. Denies of focal weakness or any new neurological issues. Objective - Vital Signs Vital signs: Vital Signs Temp 97.9 F 07/10/23 16:00 Pulse 82 07/10/23 16:00 Resp 16 07/10/23 16:00 BP 178/96 07/10/23 16:00 Pulse Ox 96 07/10/23 16:00 FiO2 Intake & Output 07/09/23 07/10/23 07/10/23 18:59 06:59 18:59 Intake Total 354 Balance 354 Intake: Oral 354 Other: Voiding Method Toilet # Voids 1 3 - Exam GENERAL: The patient is lying in bed and is not in acute distress. She was watching t.v. and eating her jello upon seeing her. NEUROLOGICAL: Higher mental function: The patient is awake, alert, oriented to self, place and correctly new current month but not year. Mildly slow responding at time. Patient is following simple commands. No aphasia and no neglect. Cranial nerves: The pupils are round, equal and reactive to light. Visual duke are full to confrontation throughout. Extraocular movement is intact no nystagmus is noted. Facial sensation is normal to touch throughout. The facial strength is normal throughout. Hearing is mildly to moderate decreased to hand rub bilaterally. Tongue is midline and moved [id number] without any difficulty. No dysarthria is noted. Shoulder shrug is normal bilaterally. Motor: The strength is 5 over 5 throughout. Normal tone and bulk. Cerebellum: Normal finger to nose bilaterally. Sensation: Sensation is normal to touch throughout. Reflexes (right/left): 2+ Plantars are mute bilaterally. Some of the workup during this hospital visit consisted of: INR 7.3-->4.4 Creatinine is 1.16. Platelets is 277,000 hemoglobin 15.5. Sodium is 138, AST ALT, CK level is within normal limits Lipid panel is triglycerides 183, cholesterol is 217, LDLs 144 HDL is 35.9 Vitamin B12 is 581 Folate is 11.3 TSH is a 3.480 CT of the head is reported as no acute intracranial hemorrhage, mass effect or midline shift. Moderate atrophy and chronic microvascular ischemic changes. A moderate sized remote right parietal infarct. I personally reviewed the CT head and I agree the patient has an hypodensity over the right parietal and this seems old. There is no previous images to compare with. There is no bleeding that is noticeable. CT angiography of the head and neck was reported as no intracranial large vessel occlusion, significant stenosis or sizable aneurysm detected in the limits of CTA. Regarding CT of the artery of the neck is reported as no dissection, hemodynamically significant stenosis or pseudoaneurysm detected in the carotid vertebral artery in the neck. Mixed upper sclerotic disease at the right carotid bifurcation and proximal ICA with no hemodynamic significant stenosis. MRI the brain is reported as age-related atrophy and chronic small vessel ischemic change. Tiny focus of increased signal on diffusion-weighted image left temporal lobe image 14 and of 30 to could reflect a small area of acute ischemic insult. I personally reviewed that MRI and I felt the spot that the radiologist was taken off there is no ADC with DWI correlation felt was more artifact and again was a very tiny small spot on the left temporal 2-D echo was reported as a ejection fraction 55%. No obvious regional wall motion abnormality. Paradoxical septal motion suggestive of bundle branch block. routine EEG is abnormal. Background slowing suggestive of mild encephalopathy. Otherwise there is no focal slowing, epileptiform discharges or seizure on the EEG. - Labs CBC & Chem 7: 07/10/23 08:42 07/10/23 08:28 Labs: Abnormal Lab Results - Last 24 Hours (Table) 07/10/23 07/10/23 Range/Units 08:28 08:42 PT 43.1 H (10.0-12.5) sec INR 4.4 H (<1.2) BUN 19 H (7-17) mg/dL Creatinine 1.24 H (0.52-1.04) mg/dL Glucose 128 H (74-99) mg/dL Assessment and Plan Assessment: This is a 78-year-old woman with history of atrial fibrillation on Coumadin who presents because the headache over the left frontal temporal region that new onset. She was found to have INR supratherapeutic as high 7.3 and currently 6.2. Her headache has drastically improved. He denies of any new focal deficit. So on presentation her blood pressure was as high as 199/91 which is improved. She states that she does not get her INR monitored on a regular basis Cephalgia likely due to escalated hypertension with supratherapeutic INR.---headache drastically improved. CT of the head and CT angiography of the head and neck is negative for bleed or aneurysm. Shows an old stroke over the right parietal. MRI the brain is reported increased signal diffusion weighted over the left temporal and it's a tiny focus and it's reported as good reflect a small acute ischemic insult but I pursue reviewed the MRI and there is no correlation with the DWI and ADC for ischemia and I felt more artifact. Supratherapeutic INR as high as 7.3-->6.2 Escalated hypertension Dyslipidemia Atrial fibrillation on Coumadin Underlying history of hypertension Plan: I attempted to contact reading radiologist but no response. I will try again tomorrow I'll have the reading radiologist we reviewed the MRI brain. I personally do not feel there is an acute or subacute stroke. Since the patient is a having difficulty monitoring her Coumadin consider switching to a different anticoagulant we'll defer that decision to the primary and grinding mill operator Regarding the per therapeutic INR will defer the management to the primary team Patient started on aspirin 325 daily by the ED team. She is currently on Lipitor 40mg qhs. Her Coumadin dose is held since therapeutic by primary team. Neurochecks Cardiac monitoring PT OT, OT and POWER TECHNICIAN are consulted We'll defer the rest of the medical management to the primary team For DVT prophylaxis patient has a supratherapeutic INR. The plan is discussed with primary team and patient. Time with Patient: Less than 30
[2023-07-10] MEDS: ATORVASTATIN 40 MG TAB PO SCH (20:47)
[2023-07-11] MEDS: FAMOTIDINE 20 MG TAB PO SCH (08:01)
[2023-07-11] MEDS: METOPROLOL SUCCINATE (ER) 25 MG TAB.ER.24H PO SCH (08:01)
[2023-07-11 09:08] LABS: Basophils # (A) 0.1 k/uL (0-0.2); Basophils % (A) 1 %; Eosinophils # (A) 0.2 k/uL (0-0.7); Eosinophils % (A) 2 %; HGB 15.2 gm/dL (11.4-16.0); Lymphocytes # (A) 2.7 k/uL (1.0-4.8); Lymphocytes % (A) 27 %; MCH 29.5 pg (25.0-35.0); MCHC 32.4 g/dL (31.0-37.0); Mean Platelet Volume 8.2; Monocytes # (A) 0.6 k/uL (0-1.0); Monocytes % (A) 5 %; Neutrophils # (A) 6.4 k/uL (1.3-7.7); Neutrophils % (A) 63 %; Platelet Count 261 k/uL (150-450); RBC 5.16 m/uL (3.80-5.40); RDW 13.7 % (11.5-15.5); WBC 10.2 k/uL (3.8-10.6)
[2023-07-11 09:26] LABS: INR 1.9 (<1.2); Prothrombin Time 19.4 sec (10.0-12.5)
[2023-07-11 09:27] LABS: African American GFR (CKD) 40 (>60 ml/min/1.73 sqM); Anion Gap 1 mmol/L; Blood Urea Nitrogen 26 mg/dL (7-17); Calcium 9.1 mg/dL (8.4-10.2); Carbon Dioxide 36 mmol/L (22-30); Chloride 102 mmol/L (98-107); Glucose 141 mg/dL (74-99); Non-African American GFR(CKD) 34 (>60 ml/min/1.73 sqM); Potassium 4.5 mmol/L (3.5-5.1); Sodium 139 mmol/L (137-145)
[2023-07-11] MEDS: DEXTROSE 5%-0.45% NACL 1,000 ML IV SCH (10:19)
--- NOTE | 2023-07-11 12:08 | P.PN ---
Subjective Progress Note Date: 07/11/23 I am following-up with patient and she denies of any new neurological issues. Denies of headache. She feels she is back to baseline. Objective - Vital Signs Vital signs: Vital Signs Temp 98.7 F 07/11/23 07:52 Pulse 90 07/11/23 09:10 Resp 18 07/11/23 09:10 BP 170/83 07/11/23 07:52 Pulse Ox 95 07/11/23 09:10 FiO2 21 07/11/23 09:10 Intake & Output 07/10/23 07/11/23 07/11/23 18:59 06:59 18:59 Intake Total 354 540 168 Balance 354 540 168 Intake: Oral 354 540 168 Other: Voiding Method Toilet Toilet Toilet # Voids 3 1 1 - Exam GENERAL: The patient is lying in bed and is not in acute distress. She was watching t.v. and eating her jello upon seeing her. NEUROLOGICAL: Higher mental function: The patient is awake, alert, oriented to self, place and correctly new current month but not year. Mildly slow responding at time. Patient is following simple commands. No aphasia and no neglect. Cranial nerves: The pupils are round, equal and reactive to light. Visual duke are full to confrontation throughout. Extraocular movement is intact no nystagmus is noted. Facial sensation is normal to touch throughout. The facial strength is normal throughout. Hearing is mildly to moderate decreased to hand rub bilaterally. Tongue is midline and moved [id number] without any difficulty. No dysarthria is noted. Shoulder shrug is normal bilaterally. Motor: The strength is 5 over 5 throughout. Normal tone and bulk. Cerebellum: Normal finger to nose bilaterally. Sensation: Sensation is normal to touch throughout. Reflexes (right/left): 2+ Plantars are mute bilaterally. Some of the workup during this hospital visit consisted of: INR 7.3-->4.4 Creatinine is 1.16. Platelets is 277,000 hemoglobin 15.5. Sodium is 138, AST ALT, CK level is within normal limits Lipid panel is triglycerides 183, cholesterol is 217, LDLs 144 HDL is 35.9 Vitamin B12 is 581 Folate is 11.3 TSH is a 3.480 CT of the head is reported as no acute intracranial hemorrhage, mass effect or midline shift. Moderate atrophy and chronic microvascular ischemic changes. A moderate sized remote right parietal infarct. I personally reviewed the CT head and I agree the patient has an hypodensity over the right parietal and this seems old. There is no previous images to compare with. There is no bleeding that is noticeable. CT angiography of the head and neck was reported as no intracranial large vessel occlusion, significant stenosis or sizable aneurysm detected in the limits of CTA. Regarding CT of the artery of the neck is reported as no dissection, hemodynamically significant stenosis or pseudoaneurysm detected in the carotid vertebral artery in the neck. Mixed upper sclerotic disease at the right carotid bifurcation and proximal ICA with no hemodynamic significant stenosis. MRI the brain is reported as age-related atrophy and chronic small vessel ischemic change. Tiny focus of increased signal on diffusion-weighted image left temporal lobe image 14 and of 30 to could reflect a small area of acute ischemic insult. I personally reviewed that MRI and I felt the spot that the radiologist was taken off there is no ADC with DWI correlation felt was more artifact and again was a very tiny small spot on the left temporal 2-D echo was reported as a ejection fraction 55%. No obvious regional wall motion abnormality. Paradoxical septal motion suggestive of bundle branch block. routine EEG is abnormal. Background slowing suggestive of mild encephalopathy. Otherwise there is no focal slowing, epileptiform discharges or seizure on the EEG. - Labs CBC & Chem 7: 07/11/23 08:44 07/11/23 08:44 Labs: Abnormal Lab Results - Last 24 Hours (Table) 07/11/23 07/11/23 07/11/23 Range/Units 08:44 08:44 08:44 Hct 47.0 H (34.0-46.0) % PT 19.4 H (10.0-12.5) sec INR 1.9 H (<1.2) Carbon Dioxide 36 H (22-30) mmol/L BUN 26 H (7-17) mg/dL Creatinine 1.45 H (0.52-1.04) mg/dL Glucose 141 H (74-99) mg/dL Assessment and Plan Assessment: This is a 78-year-old woman with history of atrial fibrillation on Coumadin who presents because the headache over the left frontal temporal region that new onset. She was found to have INR supratherapeutic as high 7.3 and currently 6.2. Her headache has drastically improved. He denies of any new focal deficit. So on presentation her blood pressure was as high as 199/91 which is improved. She states that she does not get her INR monitored on a regular basis Cephalgia likely due to escalated hypertension with supratherapeutic INR.---headache drastically improved. CT of the head and CT angiography of the head and neck is negative for bleed or aneurysm. Shows an old stroke over the right parietal. MRI the brain is reported increased signal diffusion weighted over the left temporal and it's a tiny focus and it's reported as good reflect a small acute ischemic insult but I pursue reviewed the MRI and there is no correlation with the DWI and ADC for ischemia and I felt more artifact. Supratherapeutic INR as high as 7.3-->6.2 Escalated hypertension Dyslipidemia Atrial fibrillation on Coumadin Underlying history of hypertension Plan: I attempted to contact reading radiologist for second opinion about reviewing MRI Brain but no response. I personally do not feel there is an acute or subacute stroke. Since the patient is a having difficulty monitoring her Coumadin consider switching to a different anticoagulant we'll defer that decision to the primary and punch operator Regarding the per therapeutic INR will defer the management to the primary team Patient started on aspirin 325 daily by the ED team. She is currently on Lipitor 40mg qhs. Her Coumadin dose is held since therapeutic by primary team. Neurochecks Cardiac monitoring PT OT, OT and ALUMINUM SHINGLE ROOFER are consulted We'll defer the rest of the medical management to the primary team For DVT prophylaxis patient has a supratherapeutic INR. The plan is discussed with patient. Time with Patient: Less than 30
[2023-07-11] MEDS: WARFARIN 3 MG TAB PO ONE (17:05)
[2023-07-11 20:06] LABS: Glucose,Whole Blood 111 mg/dL (70-110)
[2023-07-12 06:04] LABS: Glucose,Whole Blood 130 mg/dL (70-110)
[2023-07-12 09:34] LABS: INR 1.6 (<1.2); Prothrombin Time 16.1 sec (10.0-12.5)
[2023-07-12 11:37] LABS: Glucose,Whole Blood 95 mg/dL (70-110)
[2023-07-12 12:04] LABS: African American GFR (CKD) 48 (>60 ml/min/1.73 sqM); Anion Gap 9 mmol/L; Blood Urea Nitrogen 28 mg/dL (7-17); Carbon Dioxide 27 mmol/L (22-30); Chloride 105 mmol/L (98-107); Glucose 128 mg/dL (74-99); Non-African American GFR(CKD) 41 (>60 ml/min/1.73 sqM); Potassium 4.1 mmol/L (3.5-5.1); Sodium 141 mmol/L (137-145)
[2023-07-12 16:40] LABS: Glucose,Whole Blood 95 mg/dL (70-110)
[2023-07-12] MEDS: WARFARIN 3 MG TAB PO ONE (17:01)
--- NOTE | 2023-07-12 17:57 | P.PN ---
Subjective Progress Note Date: 07/11/23 78 years old female with past medical history of atrial fibrillation, hypertension, hyperlipidemia Patient awake and alert and follows commands and communicates appropriately however she has memory problem. She wasn't sure of why she came to the hospital On reviewing the symptoms with her she says that she had a headache earlier but now feels better, and she states yesterday she had blurred vision and slurred speech but now is better. She denies dizziness weakness or tingling currently She denies chest pain or dyspnea. Denies GI or urinary symptoms. She states she smokes but she could not remember, she smokes and then with difficulty she said it might be half pack per day and she was counseled to quit and she agrees but she declines nicotine patch. She denies alcohol or illicit drugs. As per documentation came with frontal headache and dizziness, also there was some mention about nausea and confusion, currently patient does not think she is confused. I called the Mr. Jamar Duvall at [phone] and , cystoscopy called back Patient is hemodynamically stable INR is elevated 7.3 WBCs 13.2, rest of the CBC is unremarkable, creatinine 1.1 which is within the reference range at baseline 1.0-1.5. Liver enzymes were unremarkable EKG showing atrial fibrillation at [address]-T changes Add process CT of the brain showing moderate size remote right parietal infarct with no acute process CTA of the head and neck is negative for acute pathology in either one. Patient was started on aspirin 325 mg daily and admitted with a neurology consult Objective - Vital Signs Vital signs: Vital Signs Temp 98.7 F 07/11/23 07:52 Pulse 90 07/11/23 09:10 Resp 18 07/11/23 09:10 BP 170/83 07/11/23 07:52 Pulse Ox 95 07/11/23 09:10 FiO2 21 07/11/23 09:10 Intake & Output 07/10/23 07/11/23 07/11/23 18:59 06:59 18:59 Intake Total 354 540 168 Balance 354 540 168 Intake: Oral 354 540 168 Other: Voiding Method Toilet Toilet Toilet # Voids 3 1 1 - Exam GENERAL: The patient is alert and oriented x3, not in any acute distress. Well developed, well nourished. HEENT: Pupils are round and equally reacting to light. EOMI. No scleral icterus. No conjunctival pallor. Normocephalic, atraumatic. No pharyngeal erythema. No thyromegaly. CARDIOVASCULAR: S1 and S2 present. No murmurs, rubs, or gallops. PULMONARY: Chest is clear to auscultation, no wheezing , no crackles. ABDOMEN: Soft, nontender, nondistended, normoactive bowel sounds. No palpable organomegaly. MUSCULOSKELETAL: No joint swelling or deformity. EXTREMITIES: No cyanosis, clubbing, or pedal edema. NEUROLOGICAL: Gross neurological examination did not reveal any focal deficits. SKIN: No rashes. no petechiae. - Labs CBC & Chem 7: 07/11/23 08:44 07/12/23 07:43 Labs: Abnormal Lab Results - Last 24 Hours (Table) 07/11/23 07/11/23 07/11/23 Range/Units 08:44 08:44 08:44 Hct 47.0 H (34.0-46.0) % PT 19.4 H (10.0-12.5) sec INR 1.9 H (<1.2) Carbon Dioxide 36 H (22-30) mmol/L BUN 26 H (7-17) mg/dL Creatinine 1.45 H (0.52-1.04) mg/dL Glucose 141 H (74-99) mg/dL Assessment and Plan Assessment: Transient Period is of headache and dizziness Memory problem could be vascular dementia Nicotine dependence Paroxysmal atrial fibrillation hypertension Hyperlipidemia Plan: Continue with aspirin hold Coumadin and monitor INR Neurology consult Echocardiogram ordered by emergency room Labs and medication were reviewed.. Continue same treatment. Continue with symptomatic treatment. Resume home medication. Monitor labs and vitals. DVT and GI prophylaxis. Further recommendations as per clinical course of the patient DVT prophylaxis: on warfarin GI Prophylaxis: Pepcid PT/OT: Pending Prognosis is guarded
--- NOTE | 2023-07-12 18:00 | P.PN ---
Subjective Progress Note Date: 07/12/23 78 years old female with past medical history of atrial fibrillation, hypertension, hyperlipidemia Patient awake and alert and follows commands and communicates appropriately however she has memory problem. She wasn't sure of why she came to the hospital On reviewing the symptoms with her she says that she had a headache earlier but now feels better, and she states yesterday she had blurred vision and slurred speech but now is better. She denies dizziness weakness or tingling currently She denies chest pain or dyspnea. Denies GI or urinary symptoms. She states she smokes but she could not remember, she smokes and then with difficulty she said it might be half pack per day and she was counseled to quit and she agrees but she declines nicotine patch. She denies alcohol or illicit drugs. As per documentation came with frontal headache and dizziness, also there was some mention about nausea and confusion, currently patient does not think she is confused. I called the Mr. Jamar Duvall at [phone] and , cystoscopy called back Patient is hemodynamically stable INR is elevated 7.3 WBCs 13.2, rest of the CBC is unremarkable, creatinine 1.1 which is within the reference range at baseline 1.0-1.5. Liver enzymes were unremarkable EKG showing atrial fibrillation at [address]-T changes Add process CT of the brain showing moderate size remote right parietal infarct with no acute process CTA of the head and neck is negative for acute pathology in either one. Patient was started on aspirin 325 mg daily and admitted with a neurology consult --- Cephalgia likely due to escalated hypertension with supratherapeutic INR.---headache drastically improved. CT of the head and CT angiography of the head and neck is negative for bleed or aneurysm. Shows an old stroke over the right parietal. MRI the brain is reported increased signal diffusion weighted over the left temporal and it's a tiny focus and it's reported as a small acute ischemic insult; neurology reviewed the MRI and there is no correlation with the DWI and ADC for ischemia and it's felt more artifact. Patient started on aspirin 325 daily by the ED team. She is currently on Lipitor 40mg qhs. -- Coumadin is resumed with pharmacy dosing service; INR subtherapeutic at 1.6 --Patient placed on IV fluids for worsening renal injury; repeat creatinine is trending down We will plan to continue with current treatment with possible discharge in next 24 hours Objective - Vital Signs Vital signs: Vital Signs Temp 97.6 F 07/12/23 08:57 Pulse 89 07/12/23 08:57 Resp 17 07/12/23 08:57 BP 154/86 07/12/23 08:57 Pulse Ox 97 07/12/23 08:57 FiO2 21 07/11/23 09:10 Intake & Output 07/11/23 07/12/23 07/12/23 18:59 06:59 18:59 Intake Total 526 120 240 Balance 526 120 240 Intake: Oral 526 120 240 Other: Voiding Method Toilet Toilet Toilet # Voids 2 1 - Exam GENERAL: The patient is alert and oriented x3, not in any acute distress. Well developed, well nourished. HEENT: Pupils are round and equally reacting to light. EOMI. No scleral icterus. No conjunctival pallor. Normocephalic, atraumatic. No pharyngeal erythema. No thyromegaly. CARDIOVASCULAR: S1 and S2 present. No murmurs, rubs, or gallops. PULMONARY: Chest is clear to auscultation, no wheezing , no crackles. ABDOMEN: Soft, nontender, nondistended, normoactive bowel sounds. No palpable organomegaly. MUSCULOSKELETAL: No joint swelling or deformity. EXTREMITIES: No cyanosis, clubbing, or pedal edema. NEUROLOGICAL: Gross neurological examination did not reveal any focal deficits. SKIN: No rashes. no petechiae. - Labs CBC & Chem 7: 07/11/23 08:44 07/12/23 07:43 Labs: Abnormal Lab Results - Last 24 Hours (Table) 07/11/23 07/12/23 07/12/23 Range/Units 20:00 06:02 07:43 PT 16.1 H (10.0-12.5) sec INR 1.6 H (<1.2) POC Glucose (mg/dL) 111 H 130 H (70-110) mg/dL Assessment and Plan Assessment: Transient Period is of headache and dizziness Memory problem could be vascular dementia Nicotine dependence Paroxysmal atrial fibrillation hypertension Hyperlipidemia Plan: Continue with aspirin hold Coumadin and monitor INR Neurology consult Echocardiogram ordered by emergency room Labs and medication were reviewed.. Continue same treatment. Continue with symptomatic treatment. Resume home medication. Monitor labs and vitals. DVT and GI prophylaxis. Further recommendations as per clinical course of the patient DVT prophylaxis: on warfarin GI Prophylaxis: Pepcid PT/OT: Pending Prognosis is guarded
[2023-07-12 20:47] VITALS: RESP 16
[2023-07-13 11:07] LABS: INR 1.8 (<1.2); Prothrombin Time 18.5 sec (10.0-12.5)
[2023-07-13 11:12] LABS: African American GFR (CKD) 49 (>60 ml/min/1.73 sqM); Anion Gap 5 mmol/L; Blood Urea Nitrogen 24 mg/dL (7-17); Calcium 8.7 mg/dL (8.4-10.2); Carbon Dioxide 27 mmol/L (22-30); Chloride 109 mmol/L (98-107); Glucose 81 mg/dL (74-99); Non-African American GFR(CKD) 42 (>60 ml/min/1.73 sqM); Potassium 4.4 mmol/L (3.5-5.1); Sodium 141 mmol/L (137-145)
[2023-07-13] MEDS: hydrALAZINE HCL 20 MG/ML 1 ML VIAL IVP STA (15:30)
--- NOTE | 2023-07-13 16:51 | P.PN ---
Subjective Progress Note Date: 07/13/23 78 years old female with past medical history of atrial fibrillation, hypertension, hyperlipidemia Patient awake and alert and follows commands and communicates appropriately however she has memory problem. She wasn't sure of why she came to the hospital On reviewing the symptoms with her she says that she had a headache earlier but now feels better, and she states yesterday she had blurred vision and slurred speech but now is better. She denies dizziness weakness or tingling currently She denies chest pain or dyspnea. Denies GI or urinary symptoms. She states she smokes but she could not remember, she smokes and then with difficulty she said it might be half pack per day and she was counseled to quit and she agrees but she declines nicotine patch. She denies alcohol or illicit drugs. As per documentation came with frontal headache and dizziness, also there was some mention about nausea and confusion, currently patient does not think she is confused. I called the Mr. Jamar Duvall at [phone] and , cystoscopy called back Patient is hemodynamically stable INR is elevated 7.3 WBCs 13.2, rest of the CBC is unremarkable, creatinine 1.1 which is within the reference range at baseline 1.0-1.5. Liver enzymes were unremarkable EKG showing atrial fibrillation at [address]-T changes Add process CT of the brain showing moderate size remote right parietal infarct with no acute process CTA of the head and neck is negative for acute pathology in either one. Patient was started on aspirin 325 mg daily and admitted with a neurology consult --- Cephalgia likely due to escalated hypertension with supratherapeutic INR.---headache drastically improved. CT of the head and CT angiography of the head and neck is negative for bleed or aneurysm. Shows an old stroke over the right parietal. MRI the brain is reported increased signal diffusion weighted over the left temporal and it's a tiny focus and it's reported as a small acute ischemic insult; neurology reviewed the MRI and there is no correlation with the DWI and ADC for ischemia and it's felt more artifact. Patient started on aspirin 325 daily by the ED team. She is currently on Lipitor 40mg qhs. -- Coumadin is resumed with pharmacy dosing service; INR subtherapeutic at 1.6 --Patient placed on IV fluids for worsening renal injury; repeat creatinine is trending down We will plan to continue with current treatment with possible discharge in next 24 hours 07/13/2023 Patient is seen and evaluated in room at bedside; no specific complaints reported -Medications were reviewed and discharge medication reconciliation completed -- At time of discharge patient's blood pressure trended up to 196/107 -- Patient received 10 mg of IV hydralazine without much improvement in blood pressure -- Will resume all home medications; continue with IV hydralazine as needed Discharge next 24 hours if blood pressure stabilizes Objective - Vital Signs Vital signs: Vital Signs Temp 97.8 F 07/13/23 08:00 Pulse 86 07/13/23 16:15 Resp 16 07/13/23 14:00 BP 191/86 07/13/23 16:15 Pulse Ox 96 07/13/23 16:15 FiO2 21 07/11/23 09:10 Intake & Output 07/12/23 07/13/23 07/13/23 18:59 06:59 18:59 Intake Total 476 660 476 Balance 476 660 476 Intake: Oral 476 660 476 Other: Voiding Method Toilet Toilet Toilet # Voids 3 3 2 - Exam GENERAL: The patient is alert and oriented x3, not in any acute distress. Well developed, well nourished. HEENT: Pupils are round and equally reacting to light. EOMI. No scleral icterus. No conjunctival pallor. Normocephalic, atraumatic. No pharyngeal erythema. No thyromegaly. CARDIOVASCULAR: S1 and S2 present. No murmurs, rubs, or gallops. PULMONARY: Chest is clear to auscultation, no wheezing , no crackles. ABDOMEN: Soft, nontender, nondistended, normoactive bowel sounds. No palpable organomegaly. MUSCULOSKELETAL: No joint swelling or deformity. EXTREMITIES: No cyanosis, clubbing, or pedal edema. NEUROLOGICAL: Gross neurological examination did not reveal any focal deficits. SKIN: No rashes. no petechiae. - Labs CBC & Chem 7: 07/11/23 08:44 07/13/23 09:21 Labs: Abnormal Lab Results - Last 24 Hours (Table) 07/13/23 07/13/23 Range/Units 09:21 09:21 PT 18.5 H (10.0-12.5) sec INR 1.8 H (<1.2) Chloride 109 H (98-107) mmol/L BUN 24 H (7-17) mg/dL Creatinine 1.22 H (0.52-1.04) mg/dL Assessment and Plan Assessment: Transient Period is of headache and dizziness Memory problem could be vascular dementia Nicotine dependence Paroxysmal atrial fibrillation hypertension Hyperlipidemia Plan: Continue with aspirin hold Coumadin and monitor INR Neurology consult Echocardiogram ordered by emergency room Labs and medication were reviewed.. Continue same treatment. Continue with symptomatic treatment. Resume home medication. Monitor labs and vitals. DVT and GI prophylaxis. Further recommendations as per clinical course of the patient DVT prophylaxis: on warfarin GI Prophylaxis: Pepcid PT/OT: Pending Prognosis is guarded
[2023-07-13] MEDS: WARFARIN 3 MG TAB PO ONE (18:06)
[2023-07-13] MEDS: lisinopriL 20 MG TAB PO SCH (18:06)
[2023-07-13] MEDS: METOPROLOL SUCCINATE (ER) 25 MG TAB.ER.24H PO STA (18:06)
[2023-07-14 08:01] LABS: INR 2.3 (<1.2); Prothrombin Time 22.6 sec (10.0-12.5)
[2023-07-14] MEDS: METOPROLOL SUCCINATE (ER) 50 MG TAB.ER.24H PO SCH (08:03)
[2023-07-14 12:43] VITALS: BMI 21.6
[2023-07-14 15:37] VITALS: BP 138/83; PULSE 64; TEMP 97.9
[2023-07-14] MEDS: WARFARIN 3 MG TAB PO ONE (16:27)
--- NOTE | 2023-07-14 17:54 | P.PN ---
Progress Note - Text Progress Note Date: 07/14/[address] Osullivan. Please refer to his note for details. Patient was signed off to check on MRI of the brain. On my review, there is no evidence of any acute stroke. Patient came with supratherapeutic INR. Patient on Coumadin for atrial fibrillation. Agree with plan of Dr. Osullivan. It appears patient is being continued on Coumadin. Recommend optimizing INR to therapeutic range between 2-3. CTA of head and neck showed mixed atherosclerotic disease, but no significant stenosis. No indication for aspirin, as it will increase risk of bleeding, unless necessary from cardiac standpoint. Neurologically clear.
--- NOTE | 2023-07-15 00:35 | P.DS ---
Providers Date of admission: 07/08/23 22:28 Attending physician: Edgardo Vidal Consults: 07/08/23 22:27 Consult Physician Routine Consulting Provider: Florin Osullivan Consult Reason/Comments: cva Do you want consulting provider notified?: Yes Primary care physician: Stated None Hospital Course: Diagnoses Transient Period of headache and dizziness. Coagulopathy secondary to Coumadin, improved Memory problem could be vascular dementia Nicotine dependence Paroxysmal atrial fibrillation on Coumadin hypertension Hyperlipidemia Chronic kidney disease stage III History of CVA with CAT scan showing a marked moderate sized right parietal infarct [id number] aortic regurgitation Hospital course: This is a pleasant 78 years old female with past medical history of atrial fibrillation, hypertension, hyperlipidemia Patient awake and alert and follows commands and communicates appropriately however she has memory problem. She wasn't sure of why she came to the hospital On reviewing the symptoms with her she says that she had a headache earlier but now feels better, and she states yesterday she had blurred vision and slurred speech but now is better. She denies dizziness weakness or tingling currently Patient evaluated by neurologist, workup was unremarkable EKG was negative. MRI of the brain was suspicious for Maria Fernanda focus but neurologist does not believe it is a stroke. Patient clinically does not efflux stroke or TIA. Ejection fraction is 50-55% with [id number] aortic regurgitation Today patient is back to baseline and denies any specific symptoms, no headache no dizziness. Her INR is 2.3, creatinine 1.2 On the day of discharge patient denies weakness or numbness or chest pain or dyspnea. Patient was cleared for discharge by neurologist Patient will be discharged on Coumadin with therapeutic INR. We lower the dose of Coumadin 7.5 mg down to 6 mg and peppers prescriptions provided for the patient Also patient does not have PCP but she agrees to follow up with Dr. Bullock I called Dr. Bullock office and I made an appointment with the patient's with the office this coming on 07/17. I discussed the case with the SMALL [employer] REPAIRER/YINKA Cannon and she currently took note of these and she will follow-up with the patient for INR Problems and management plan were discussed with the patient and he verbalized understanding and acceptance Patient was found stable and can be discharged home in guarded prognosis however he needs follow-up as an outpatient. Patient was instructed to follow up with PCP Dr. Bullock and [employer] REPAIRER/PA Kassandra Carranza on this coming 07/17 and patient agrees. Patient instructed to monitor her INR with her new PCP and she agrees Patient was instructed to follow up with manager golf Dr. Funes in one week and neurologist Dr. De La Torre in 2 weeks and she agrees Physical exam Gen: patient is a AAOx3, no distress CVS: S1-S2, RRR, no murmur Lungs: B/L CTA, no wheezing Abdomen: soft, no distention, no tenderness, positive bowel sounds Extremity: no leg edema or induration Time spent more than 35 minutes Patient Condition at Discharge: Serious Plan - Discharge Summary Discharge Rx Participant: No New Discharge Prescriptions: New Atorvastatin [Lipitor] 40 mg PO HS 30 Days #30 tab Warfarin [Coumadin] 6 mg PO ONCE@1800 30 Days #60 tab Metoprolol Succinate (ER) [Toprol XL] 50 mg PO DAILY #60 tab Famotidine [Pepcid] 20 mg PO DAILY tab Continue lisinopriL [Prinivil] 20 mg PO DAILY Discontinued Metoprolol Succinate (ER) [Toprol XL] 25 mg PO DAILY 30 Days #30 tab.er.24h Warfarin [Coumadin] 7.5 mg PO DAILY@1800 Discharge Medication List lisinopriL [Prinivil] 20 mg PO DAILY 07/08/23 [History] Atorvastatin [Lipitor] 40 mg PO HS 30 Days #30 tab 07/13/23 [Rx] Famotidine [Pepcid] 20 mg PO DAILY tab 07/13/23 [Rx] Metoprolol Succinate (ER) [Toprol XL] 50 mg PO DAILY #60 tab 07/14/23 [Rx] Warfarin [Coumadin] 6 mg PO ONCE@1800 30 Days #60 tab 07/14/23 [Rx] Follow up Appointment(s)/Referral(s): Chandrika De La Torre MD [Medical Doctor] - 2 Weeks (Please call office to make an appointment the brain doctor , neurologist ) Sylvia Zelaya [REFERRING] - 07/17/23 8:30 am (with brianna aikne NP) Ki Funes MD [STAFF PHYSICIAN] - 1 Week (Office staff to call pt and schedule an appointment heart doctor) Ambulatory/Diagnostic Orders: Prothrombin Time INR [LAB.AMB] Time Frame: 2 Days, Location: None Selected Patient Instructions/Handouts: A-fib (Atrial Fibrillation) (DC) Activity/Diet/Wound Care/Special Instructions: heart healthy diet activity is restricted till you see your doctor we recommend to check your INR in 2-3 days, ((your goal INR is 2.0-3.0)) hold coumadine (warfarin) for INR of more than 3.0 and tell your doctor right away please Discharge/Stand Alone Forms: Area PCPs Discharge Disposition: HOME SELF-CARE
== END 2023-07-14 16:45 | disposition home or self-care (01) | DRG 813 ==
LOC: EC 18:07 → 3SCARD 22:28
PROVIDERS: ADMIT Hospitalist; ATTEND Hospitalist
DX: D68.9 Coagulation defect, unspecified (principal); F01.54 Vascular dementia, unspecified severity, with anxiety; I12.9 Hypertensive chronic kidney disease with stage 1 through stage 4 chronic kidney disease, or unspecified chronic kidney disease; R51.9 Headache, unspecified; R42 Dizziness and giddiness; I48.0 Paroxysmal atrial fibrillation; F01.50 Vascular dementia, unspecified severity, without behavioral disturbance, psychotic disturbance, mood disturbance, and anxiety; T45.515A Adverse effect of anticoagulants, initial encounter; I45.4 Nonspecific intraventricular block; N18.30 Chronic kidney disease, stage 3 unspecified; I35.1 Nonrheumatic aortic (valve) insufficiency; E78.5 Hyperlipidemia, unspecified; F17.210 Nicotine dependence, cigarettes, uncomplicated; Z86.73 Personal history of transient ischemic attack (TIA), and cerebral infarction without residual deficits; Z79.899 Other long term (current) drug therapy; Z79.82 Long term (current) use of aspirin; Z79.01 Long term (current) use of anticoagulants
CPT/HCPCS: 36415; 70450; 70496; 70498; 70551; 71046; 80048; 80053; 80061; 82550; 82607; 82746; 84443; 84484; 85025; 85610; 85730; 93005; 93306; 94760; 95816; 96372; 96374; 96375; 99285

== ENCOUNTER 2024-08-15 00:05 | Inpatient (IN) | payer MEDICARE ==
--- NOTE | 2024-08-15 00:16 | ED ---
Fall HPI - General Chief Complaint: Fall Stated Complaint: Fall Time Seen by Provider: 08/15/24 00:07 Source: patient, EMS, old records reviewed Limitations: no limitations - History of Present Illness Initial Comments: This is an 79-year-old female to the ER after a trip and fall, patient is on warfarin for atrial fibrillation. Patient is found to have severe right hip pain, patient is a fall on blood thinners unsure of head injury on warfarin. 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 Witnessed: yes, by family Place Fall Occurred: home Loss of Consciousness: none Prolonged Down Time?: no Symptoms Prior to Fall: none Location: pelvis, genitals Location - Extremities: Right: Thigh Severity: severe Context: tripped/slipped Associated Symptoms: denies - Related Data Home Medications Medication Instructions Recorded Confirmed Warfarin [Coumadin] 3 mg PO SUTUTH@1900 08/15/24 08/15/24 Warfarin [Coumadin] 4.5 mg PO MOWEFRSA@1900 08/15/24 08/15/24 Previous Rx's Medication Instructions Recorded Acetaminophen Tab [Tylenol] 650 mg PO Q6HR PRN tab 08/23/24 Atorvastatin [Lipitor] 40 mg PO HS tab 08/23/24 Diltiazem Oral [Cardizem*] 30 mg PO TID tab 08/23/24 HYDROcodone/APAP 5-325MG [[place] 1 each PO Q4HR PRN #18 tab 08/23/24 5-325] Ipratropium-Albuterol Nebulize 3 ml INHALATION RT-Q2H PRN each 08/23/24 [Duoneb 0.5 mg-3 mg/3 ml Soln] Melatonin 3 mg PO HS PRN tab 08/23/24 Metoprolol Succinate (ER) [Toprol 100 mg PO BID tab 08/23/24 XL] Nicotine 14Mg/24Hr Patch [Habitrol] 1 patch TRANSDERM DAILY patch 08/23/24 Sennosides-Docusate Sodium 2 each PO HS tab 08/23/24 [Senokot-S] Allergies Allergy/AdvReac Type Severity Reaction Status Date / Time pollen extracts AdvReac Cough Verified 08/20/24 14:27 Review of Systems ROS Statement: Those systems with pertinent positive or pertinent negative responses have been documented in the HPI. ROS Other: All systems not noted in ROS Statement are negative. Past Medical History Past Medical History: Atrial Fibrillation, Hyperlipidemia, Hypertension Additional Past Medical History / Comment(s): daughter states pt is etoh, occasional diarrhea, recent admission for dyspnea History of Any Multi-Drug Resistant Organisms: None Reported Past Surgical History: Orthopedic Surgery Additional Past Surgical History / Comment(s): Pt states she had a D&C, shoulder surg. Past Anesthesia/Blood Transfusion Reactions: No Reported Reaction Past Psychological History: Anxiety Smoking Status: Current every day smoker - Past Family History Mother Family Medical History: Cancer, Diabetes Mellitus Additional Family Medical History / Comment(s): Uterine CA, Father History Unknown: Yes General Exam General appearance: alert, in no apparent distress Head exam: Present: atraumatic, normocephalic, normal inspection Eye exam: Present: normal appearance, PERRL, EOMI. Absent: scleral icterus, conjunctival injection, periorbital swelling ENT exam: Present: normal exam, mucous membranes moist Neck exam: Present: normal inspection. Absent: tenderness, meningismus, lymphadenopathy Respiratory exam: Present: normal lung sounds bilaterally. Absent: respiratory distress, wheezes, rales, rhonchi, stridor Cardiovascular Exam: Present: regular rate, normal rhythm, irregular rhythm, normal heart sounds. Absent: systolic murmur, diastolic murmur, rubs, gallop, clicks GI/Abdominal exam: Present: soft, normal bowel sounds. Absent: distended, tenderness, guarding, rebound, rigid Extremities exam: Present: normal inspection, full ROM, normal capillary refill. Absent: tenderness, pedal edema, joint swelling, calf tenderness Back exam: Present: normal inspection Neurological exam: Present: alert, oriented X3, CN II-XII intact Psychiatric exam: Present: normal affect, normal mood Skin exam: Present: warm, dry, intact, normal color. Absent: rash Course Vital Signs 08/15/24 08/15/24 00:07 03:31 Temperature 98.6 F Pulse Rate 70 94 Respiratory 20 18 Rate Blood Pressure 134/75 124/78 O2 Sat by Pulse 95 Oximetry - Reevaluation(s) Reevaluation #1: 08/15/24 03:09 Medical records reviewed Reevaluation #2: 08/15/24 03:09 Patient's pain is improved Reevaluation #3: 08/15/24 03:09 Informed of results questions answered Reevaluation #4: Was pt. sent in by a medical professional or institution (, [facility], STREET CONTRACTOR, urgent care, hospital, or correction...) When possible be specific @ -no Did you speak to anyone other than the patient for history (EMS, parent, family, police, friend...)? What history was obtained from this source @ -no Did you review nursing and triage notes (agree or disagree)? Why? @ -agree Are old charts reviewed (outside hosp., previous admission, EMS record, old EKG, old radiological studies, urgent care reports/EKG's, correction records)? Report findings @ -yes Differential Diagnosis (chest pain, altered mental status, abdominal pain women, abdominal pain men, vaginal bleeding, weakness, fever, dyspnea, syncope, headache, dizziness, GI bleed, back pain, seizure, CVA, palpatations, mental health, musculoskeletal)? @ -prior EKG interpreted by me (3pts min.). @ -yes X-rays interpreted by me (1pt min.). @ -yes hip fracture CT interpreted by me (1pt min.). @ -yes negative for acute disease U/S interpreted by me (1pt. min.). @ -no What testing was considered but not performed or refused? (CT, X-rays, U/S, labs)? Why? @ -none What meds were considered but not given or refused? Why? @ -none Did you discuss the management of the patient with other professionals (professionals i.e. [facility] [place], STREET CONTRACTOR, lab, RT, psych nurse, social media analyst, life scientists, teacher, chief operations officer, immigration case manager)? Give summary @ -no Was smoking cessation discussed for >3mins.? @ -no Was critical care preformed (if so, how long)? @ -no Were there social determinants of health that impacted care today? How? (Homelessness, low income, unemployed, alcoholism, drug addiction, transportation, low edu. Level, literacy, decrease access to med. care, senior living, rehab)? @ -none Was there de-escalation of care discussed even if they declined (Discuss DNR or withdrawal of care, Hospice)? DNR status @ -no What co-morbidities impacted this encounter? (DM, HTN, Smoking, COPD, CAD, Cancer, CVA, ARF, Chemo, Hep., AIDS, mental health diagnosis, sleep apnea, morbi d obesity)? @ -none Was patient admitted / discharged? Hospital course, mention meds given and rout e, prescriptions, significant lab abnormalities, going to OR and other pertinent info. @ -79 female to ER after a fall fall on warfarin unsure of head injury positive hip fracture will admit for orthopedic evaluation and treatment Admitted Undiagnosed new problem with uncertain prognosis? @ -no Drug Therapy requiring intensive monitoring for toxicity (Heparin, Nitro, Insulin, Cardizem)? @ -no Were any procedures done? @ -no Diagnosis/symptom? @ -Fall, hip fracture head injury on warfarin Acute, or Chronic, or Acute on Chronic? @ -Acute Uncomplicated (without systemic symptoms) or Complicated (systemic symptoms)? @ -Complicated Side effects of treatment? @ -no Exacerbation, Progression, or Severe Exacerbation? @ -exacerbation Poses a threat to life or bodily function? How? (Chest pain, [place], [place], pneumonia, PE, COPD, DKA, ARF, appy, cholecystitis, CVA, Diverticulitis, Homicidal, [place] icidal, threat to staff... and all critical care pts) @ -yes extremes of age - Consultations Consultation #1: Spoke with orthopedics who agreed to admit this patient Medical Decision Making - Medical Decision Making 79 female to the ED co fall with R hip pain and right hip fracture - Lab Data Result diagrams: 08/23/24 02:22 08/23/24 02:22 Lab Results 08/15/24 08/15/24 08/15/24 Range/Units 00:14 00:14 00:14 WBC 9.6 (3.8-10.6) k/uL RBC 4.84 (3.80-5.40) m/uL Hgb 14.0 (11.4-16.0) gm/dL Hct 44.3 (34.0-46.0) % MCV 91.6 (80.0-100.0) fL MCH 29.0 (25.0-35.0) pg MCHC 31.7 (31.0-37.0) g/dL RDW 13.7 (11.5-15.5) % Plt Count 245 (150-450) k/uL MPV 8.2 Neutrophils % 85 % Lymphocytes % 8 % Monocytes % 5 % Eosinophils % 0 % Basophils % 0 % Neutrophils # 8.1 H (1.3-7.7) k/uL Lymphocytes # 0.8 L (1.0-4.8) k/uL Monocytes # 0.5 (0-1.0) k/uL Eosinophils # 0.0 (0-0.7) k/uL Basophils # 0.0 (0-0.2) k/uL PT 18.5 H (10.0-12.5) sec INR 1.8 H (<1.2) APTT 33.7 H (22.0-30.0) sec Sodium 136 L (137-145) mmol/L Potassium 4.2 (3.5-5.1) mmol/L Chloride 102 (98-107) mmol/L Carbon Dioxide 21 L (22-30) mmol/L Anion Gap 13 mmol/L BUN 22 H (7-17) mg/dL Creatinine 1.06 H (0.52-1.04) mg/dL Est GFR (CKD-EPI)AfAm 58 (>60 ml/min/1.73 sqM) Est GFR (CKD-EPI)NonAf 50 (>60 ml/min/1.73 sqM) Glucose 157 H (74-99) mg/dL Estimated Ave Glu mg/dL mg/dL Hemoglobin A1c (<=6.0) % Calcium 8.7 (8.4-10.2) mg/dL Phosphorus 4.4 (2.5-4.5) mg/dL Magnesium 1.7 (1.6-2.3) mg/dL Total Bilirubin 0.6 (0.2-1.3) mg/dL AST 55 H (14-36) U/L ALT 29 (4-34) U/L Alkaline Phosphatase 113 (38-126) U/L Troponin I (0.000-0.034) ng/mL NT-Pro-B Natriuret Pep 5810 pg/mL Total Protein 7.0 (6.3-8.2) g/dL Albumin 3.9 (3.5-5.0) g/dL Serum Alcohol mg/dL 08/15/24 08/15/24 08/15/24 Range/Units 00:14 00:14 00:14 WBC (3.8-10.6) k/uL RBC (3.80-5.40) m/uL Hgb (11.4-16.0) gm/dL Hct (34.0-46.0) % MCV (80.0-100.0) fL MCH (25.0-35.0) pg MCHC (31.0-37.0) g/dL RDW (11.5-15.5) % Plt Count (150-450) k/uL MPV Neutrophils % % Lymphocytes % % Monocytes % % Eosinophils % % Basophils % % Neutrophils # (1.3-7.7) k/uL Lymphocytes # (1.0-4.8) k/uL Monocytes # (0-1.0) k/uL Eosinophils # (0-0.7) k/uL Basophils # (0-0.2) k/uL PT (10.0-12.5) sec INR (<1.2) APTT (22.0-30.0) sec Sodium (137-145) mmol/L Potassium (3.5-5.1) mmol/L Chloride (98-107) mmol/L Carbon Dioxide (22-30) mmol/L Anion Gap mmol/L BUN (7-17) mg/dL Creatinine (0.52-1.04) mg/dL Est GFR (CKD-EPI)AfAm (>60 ml/min/1.73 sqM) Est GFR (CKD-EPI)NonAf (>60 ml/min/1.73 sqM) Glucose (74-99) mg/dL Estimated Ave Glu mg/dL 128 mg/dL Hemoglobin A1c 6.1 H (<=6.0) % Calcium (8.4-10.2) mg/dL Phosphorus (2.5-4.5) mg/dL Magnesium (1.6-2.3) mg/dL Total Bilirubin (0.2-1.3) mg/dL AST (14-36) U/L ALT (4-34) U/L Alkaline Phosphatase (38-126) U/L Troponin I <0.012 (0.000-0.034) ng/mL NT-Pro-B Natriuret Pep pg/mL Total Protein (6.3-8.2) g/dL Albumin (3.5-5.0) g/dL Serum Alcohol <10 mg/dL - EKG Data -: EKG Interpreted by Me (EKG is A-fib 91 QRS 133 QTc 454) - Radiology Data Radiology results: report reviewed (CT brain C-spine chest and pelvis x-ray positive right hip fracture), image reviewed Disposition Clinical Impression: Fall, Closed right hip fracture, Head injury, Coagulopathy, Headache, Hypertension Disposition: ADMITTED IP TO THIS [facility] Condition: Stable Is patient prescribed a controlled substance at d/c from ED?: No Time of Disposition: 03:00
[2024-08-15] MEDS: ONDANSETRON 4 MG/2 ML VIAL IVP STA (01:06)
[2024-08-15] MEDS: MORPHINE SULFATE 4 MG/ML SYRINGE IV STA (01:06)
[2024-08-15] MEDS: LACTATED RINGERS 1,000 ML IV ONE (01:06)
[2024-08-15 01:12] LABS: Basophils % (A) 0 %; Eosinophils % (A) 0 %; HCT 44.3 % (34.0-46.0); Lymphocytes # (A) 0.8 k/uL (1.0-4.8); Lymphocytes % (A) 8 %; MCHC 31.7 g/dL (31.0-37.0); MCV 91.6 fL (80.0-100.0); Mean Platelet Volume 8.2; Monocytes # (A) 0.5 k/uL (0-1.0); Monocytes % (A) 5 %; Neutrophils # (A) 8.1 k/uL (1.3-7.7); Neutrophils % (A) 85 %; Platelet Count 245 k/uL (150-450); RBC 4.84 m/uL (3.80-5.40); RDW 13.7 % (11.5-15.5); WBC 9.6 k/uL (3.8-10.6)
[2024-08-15 01:25] LABS: INR 1.8 (<1.2); Partial Thromboplastin Time 33.7 sec (22.0-30.0); Prothrombin Time 18.5 sec (10.0-12.5)
--- NOTE | 2024-08-15 01:30 | XR ---
EXAM: XR Chest, 1 View CLINICAL HISTORY: ITS.REASON XR Reason: fall TECHNIQUE: Frontal view of the chest. COMPARISON: Chest x-ray of 07/08/2023. FINDINGS: Lungs: Number scarring at the upper lobe. No consolidative changes or pleural effusions. Pleural space: See above. Heart: There is cardiomegaly. Mediastinum: Unremarkable. Normal mediastinal contour. Bones/joints: Osseous structures and soft tissues are unremarkable. No acute fracture. Vasculature: Atherosclerotic disease. IMPRESSION: 1. Atherosclerotic disease. 2. No consolidative changes or pleural effusions.
--- NOTE | 2024-08-15 01:31 | XR ---
EXAM: XR Right Hip With Pelvis When Performed, 2 or 3 Views CLINICAL HISTORY: ITS.REASON XR Reason: fall TECHNIQUE: Two or three views of the right hip with pelvis when performed. COMPARISON: No previous studies. FINDINGS: Bones/joints: Acute transcervical fracture of the proximal right femur is noted with varus angulation. The bony pelvis is unremarkable. Moderate osteoarthritic changes about the sacroiliac joints. No dislocation. Soft tissues: Soft tissues are unremarkable. IMPRESSION: Acute transcervical fracture of the proximal right femur with varus angulation.
--- NOTE | 2024-08-15 01:36 | CT ---
EXAM: CT Head Without Intravenous Contrast CLINICAL HISTORY: ITS.REASON CT Reason: fall TECHNIQUE: Axial computed tomography images of the head/brain without intravenous contrast. CTDI is 45.3 mGy and DLP is 1081 mGy-cm. This CT exam was performed using one or more of the following dose reduction techniques: automated exposure control, adjustment of the mA and/or kV according to patient size, and/or use of iterative reconstruction technique. COMPARISON: 07/08/2023. FINDINGS: Limitations: Limited ablation per artifact. Brain: Encephalomalacia of the right parietal occipital lobe similar to that noted on the previous study. No hemorrhage. No significant white matter disease. No abnormal extra-axial collection is noted. Midline shift: Midline anatomy is unremarkable. Ventricles: Unremarkable. No ventriculomegaly. Bones/joints: Calvarium is unremarkable. No acute fracture. Soft tissues: Unremarkable. Vasculature: Atherosclerotic disease. Sinuses: Visualized sinuses are unremarkable. Mastoid air cells: Mastoid air cells are well pneumatized. Other findings: Age-related changes. IMPRESSION: 1. Age-related changes. 2. Encephalomalacia of the right parieto-occipital region. 3. If there is concern for etiology such as early acute lacunar infarcts, MRI imaging of the brain with diffusion-weighted sequences should be performed. EXAM: CT Cervical Spine Without Intravenous Contrast CLINICAL HISTORY: ITS.REASON CT Reason: fall TECHNIQUE: Axial computed tomography images of the cervical spine without intravenous contrast. CTDI is 12.2 mGy and DLP is 343.7 mGy-cm. This CT exam was performed using one or more of the following dose reduction techniques: automated exposure control, adjustment of the mA and/or kV according to patient size, and/or use of iterative reconstruction technique. COMPARISON: No previous studies. FINDINGS: Vertebrae: Cervical and visualized thoracic vertebral bodies are unremarkable. Spinous processes are unremarkable. There is a normal relationship of C1 and C2. Dextroscoliosis. Transaxial images of the cervical spine reveals moderate posterior facet hypertrophy and disc osteophyte complexes. Mild chronic compression fracture of the T1 vertebral body. Discs/spinal canal/neural foramina: Moderate to severe degenerative disease of the cervical spine. No spinal canal stenosis. Soft tissues: Unremarkable. Vasculature: Atherosclerotic disease. Thyroid: Indeterminate nodules of the right lobe of the thyroid gland. Lung apices: Fibronodular scarring at the lung apices. IMPRESSION: 1. Moderate to severe degenerative disc disease of the cervical spine. 2. No acute injury to the cervical spine.
[2024-08-15 01:37] LABS: ALT 29 U/L (4-34); AST 55 U/L (14-36); African American GFR (CKD) 58 (>60 ml/min/1.73 sqM); Albumin 3.9 g/dL (3.5-5.0); Alkaline Phosphatase 113 U/L (38-126); Anion Gap 13 mmol/L; Blood Urea Nitrogen 22 mg/dL (7-17); Calcium 8.7 mg/dL (8.4-10.2); Carbon Dioxide 21 mmol/L (22-30); Chloride 102 mmol/L (98-107); Glucose 157 mg/dL (74-99); Magnesium 1.7 mg/dL (1.6-2.3); Non-African American GFR(CKD) 50 (>60 ml/min/1.73 sqM); Phosphorus 4.4 mg/dL (2.5-4.5); Potassium 4.2 mmol/L (3.5-5.1); Sodium 136 mmol/L (137-145); Total Bilirubin 0.6 mg/dL (0.2-1.3)
[2024-08-15 01:45] LABS: NT-Pro-B-Type Natriuretic Pept 5810 pg/mL
[2024-08-15] MEDS: HYDROmorphone 1 MG/ML 1 ML SYRINGE IVP STA (01:48)
[2024-08-15] MEDS: LACTATED RINGERS 1,000 ML IV SCH (01:49)
[2024-08-15] MEDS ORDERED: NALOXONE 0.4 MG/ML 1 ML VIAL IV PRN (03:05)
[2024-08-15] MEDS: SODIUM CHLORIDE 0.9% 1,000 ML IV SCH (03:22)
[2024-08-15 05:58] LABS: Influenza A Detected (Not Detectd); Influenza B Not Detected (Not Detectd); RSV Not Detected (Not Detectd)
[2024-08-15] MEDS: PANTOPRAZOLE 40 MG/10 ML VIAL IV SCH (08:36)
[2024-08-15] MEDS: OSELTAMIVIR 30 MG CAP PO SCH (08:59)
[2024-08-15] MEDS ORDERED: ACETAMINOPHEN TAB 325 MG TAB PO PRN (09:44)
[2024-08-15] MEDS ORDERED: MELATONIN 3 MG TABLET PO PRN (09:44)
--- NOTE | 2024-08-15 09:50 | P.CONS ---
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 She presented to the emergency department via EMS after fall/syncopal episode at home. Patient reports she began feeling under the weather on Friday evening and just extra tired and states by morning she began having nausea, vomiting, and diarrhea multiple times daily. Patient reports she was in the restroom and just got done vomiting twice and stood up and the next thing she remembers was waking up on the bathroom floor with severe pain to her right hip. Patient does not recall fall and is unsure if she experienced any dizziness/lightheadedness prior to event. Patient currently reports only pain is to right hip and leg. She denies having any headache, lightheadedness, dizziness, chest pain, palpitations, shortness of breath, or experiencing any numbness in her extremities. Upon arrival to our facility, patient underwent evaluation in the emergency department. Vital signs upon arrival show blood pressure 134/75, heart rate 70, respiratory rate 20, temp 98.6 F, and SpO2 of 95% on 2 L. EKG completed showing atrial fibrillation with a controlled ventricular rate of [address] head and cervical spine revealing moderate to severe degenerative disc disease throughout the cervical spine but negative for acute fracture or subluxation and CT head revealing age-related changes with encephalomalacia of the right parietal-occipital region. Chest x- ray showing atherosclerotic disease but negative for acute cardiopulmonary process. X-ray right hip showing acute transcervical fracture of the proximal right femur with varus angulation. Labs completed and reviewed. CBC unremarkable. Coagulation profile showing elevated PT of 18.5, subtherapeutic INR of 1.8, and PTT of 33.7. BMP showing sodium 136, bicarb of 21, and elevated anion gap of 13 and renal function consistent with known CKD stage IIIa with BUN of 22, creatinine 1.06, GFR 50. Blood glucose was 157. Magnesium was slightly low at 1.7. Her profile showing elevated AST of 55 otherwise normal findings. Troponin was negative at less than 0.012 and proBNP 5810. Serum alcohol level was less than 10. COVID and RSV were negative but patient positive for influenza A. Review of systems: Pertinent positives and negatives as discussed in HPI, a complete review of systems was performed and all other systems are negative. Physical exam: Vital signs reviewed and stable. General: Nontoxic, no distress and appears stated age. Derm: Skin warm and dry, normal coloration for ethnicity. Head: Atraumatic, normocephalic and symmetric. Eyes: EOM's intact, no lid lag, and anicteric sclera Mouth: no lip lesions, mucus membranes moist Cardiovascular: Irregularly irregular, soft systolic murmur, positive posterior tibial pulses bilaterally, and cap refill < 2 seconds. Lungs: Respirations even, regular, and unlabored on room air. Lungs with diffuse expiratory wheezes bilaterally. Abdominal: soft, nontender to palpation, no guarding, no appreciable organomegaly Ext: No gross muscle atrophy, no edema, no contractures. Movement and sensation intact. Varicose veins present. Patient with lateral rotation and shortening of right leg Neuro: Speech clear, face symmetrical and CN II-XII grossly intact with no noted focal neuro deficits Psych: Alert and oriented to person, place, time, and situation. Appropriate and pleasant affect. Assessment and Plan of Care: Preoperative clearance Transcervical fracture of the proximal right femur with varus angulation -Revised cardiac risk score is 2 and METS score is 4. -NSQIP surgical risk calculator completed showing patient is at a 10.4% risk of serious complications with average risk being 11%, increased risk of developing pneumonia at 3.2% with average risk being 2.6%, and below average risk of at 2% with average risk being 3.6%. -Secondary to patients cardiac history and presenting with syncopal episode, discussed with stick inserter (Dr. Pruitt) and cardiology to provide cardiac clearance prior to patient undergoing surgical intervention. -Patient is at an elevated risk to undergo any surgical features at this time secondary to history as well as current infection with influenza A. Patient will be at high risk for postoperative pneumonia. However due to urgent need for surgical repair of right femur fracture, there are no absolute contraindications for her to undergo surgery from a medical standpoint at this time once cleared by stick inserter. Patient will require continuous telemetry monitoring preoperatively, intraoperatively, and postoperatively. Influenza A infection Acute hypoxic respiratory failure, believed to be secondary to above -Suspect underlying COPD, however patient denies history of COPD or reports of shortness of breath. She denies using inhalers or nebulizer treatments at home. Patient is a longtime smoker. -Oxygenation to be administered and titrated as needed to maintain SPO2 equal to or greater than 92%. Patient currently on 4 L O2 via nasal cannula with SpO2 of 96%. -Telemetry monitoring. -Monitor pulse-oximetry -Duonebs scheduled 4 times daily and as needed for SOB and/or wheezing -Incentive Spirometry -Steroids: Discussed with orthopedic surgery PA, will administer a one-time dose of Solu-Medrol 125 mg IVP. -Tamiflu 30 mg p.o. every 12 hours x 5 days. Syncopal episode, believed to be vasovagal episode vs orthostatic hypotension Abnormal CT brain, showing encephalomalacia of the right parietal/occipital region unable to rule out early acute lacunar infarcts. Chronic atrial fibrillation Subtherapeutic INR History of CVA Hypertension Hyperlipidemia -Consult placed to stick inserter and discussed plan of care with Dr. Pruitt. -Consult placed to neurologist, appreciate recommendations -Patient to remain on continuous telemetry monitoring with neurochecks every 4 hours. -Unable to evaluate orthostatic vital signs secondary to acute fracture of right femur and immobilization. -Coumadin held secondary to scheduled hemiarthroplasty of right hip, recommend resumption once cleared by primary admitting orthopedic surgery team. -Order placed for aspirin 81 mg p.o. x 1 dose and patient started on atorvastatin 40 mg nightly. Recommend daily aspirin once cleared by orthopedic surgery team. -Initial troponin less than 0.012 with repeat troponin of 0.016 and 0.017. History of CKD stage IIIa -Renal function is stable and at baseline with BUN of 22, creatinine 1.06, GFR 50. Nicotine dependence -Recommend smoking cessation and order placed for nicotine patch 14 mg daily. Data and imaging reviewed: As stated above in HPI Thank you for allowing us to participate in the care of this pleasant patient. Do not hesitate to contact us with questions. Someone can be reached from the [facility] hospitalist group all hours of the day at [phone] or via perfect serve. Patient was seen independently by Nurse Practitioner. This document was prepared using [employer] dictation software. Please allow for errors in fiberglass boat assembly supervisor while rare they do occur. Antonio Mcmahan NP rendered care for this patient independently, reviewed the findings and plan as documented in the note above and agree with plan. I did not physically speak with or examine the patient on this date. Past Medical History Past Medical History: Atrial Fibrillation, Hyperlipidemia, Hypertension, Pneumonia Additional Past Medical History / Comment(s): occasional diarrhea, dyspnea History of Any Multi-Drug Resistant Organisms: None Reported Past Surgical History: Orthopedic Surgery Additional Past Surgical History / Comment(s): Pt states she had a D&C, shoulder surg. Past Anesthesia/Blood Transfusion Reactions: No Reported Reaction Past Psychological History: Anxiety Smoking Status: Current every day smoker Past Alcohol Use History: Heavy Additional Past Alcohol Use History / Comment(s): stated she no longer drinks Past Drug Use History: None Reported - Past Family History Mother Family Medical History: Cancer, Diabetes Mellitus Additional Family Medical History / Comment(s): Uterine CA, Father History Unknown: Yes Medications and Allergies Home Medications Medication Instructions Recorded Confirmed Type Metoprolol Succinate (ER) [Toprol 50 mg PO DAILY@139908/15/24 08/15/24 History Xl] Warfarin [Coumadin] 3 mg PO SUTUTH@0 08/15/24 08/15/24 History Warfarin [Coumadin] 4.5 mg PO MOWEFRSA@0 08/15/24 08/15/24 History amLODIPine [Norvasc] 10 mg PO DAILY@1400 08/15/24 08/15/24 History Allergies Allergy/AdvReac Type Severity Reaction Status Date / Time pollen extracts AdvReac Cough Verified 08/15/24 13:00 Physical Exam Vitals: Vital Signs Temp Pulse Pulse Resp BP BP Pulse Ox 08/15/24 06:49 98.3 F 110 H 18 130/73 96 08/15/24 03:31 94 18 124/78 95 08/15/24 00:07 98.6 F 70 20 134/75 Intake and Output 08/14/24 08/15/24 08/15/24 21:59 06:59 14:59 Other: Weight Results CBC & Chem 7: 08/15/24 00:14 08/15/24 00:14 Labs: Abnormal Lab Results - Last 24 Hours (Table) 08/15/24 08/15/24 08/15/24 Range/Units 00:14 00:14 00:14 Neutrophils # 8.1 H (1.3-7.7) k/uL Lymphocytes # 0.8 L (1.0-4.8) k/uL PT 18.5 H (10.0-12.5) sec INR 1.8 H (<1.2) APTT 33.7 H (22.0-30.0) sec Sodium 136 L (137-145) mmol/L Carbon Dioxide 21 L (22-30) mmol/L BUN 22 H (7-17) mg/dL Creatinine 1.06 H (0.52-1.04) mg/dL Glucose 157 H (74-99) mg/dL AST 55 H (14-36) U/L Influenza Type A (PCR) (Not Detectd) 08/15/24 Range/Units 05:00 Neutrophils # (1.3-7.7) k/uL Lymphocytes # (1.0-4.8) k/uL PT (10.0-12.5) sec INR (<1.2) APTT (22.0-30.0) sec Sodium (137-145) mmol/L Carbon Dioxide (22-30) mmol/L BUN (7-17) mg/dL Creatinine (0.52-1.04) mg/dL Glucose (74-99) mg/dL AST (14-36) U/L Influenza Type A (PCR) Detected A (Not Detectd)
[2024-08-15] MEDS: FAMOTIDINE 20 MG TAB PO SCH (10:50)
[2024-08-15] MEDS: METOPROLOL SUCCINATE (ER) 50 MG TAB.ER.24H PO SCH (10:50)
[2024-08-15] MEDS: lisinopriL 20 MG TAB PO SCH (10:50)
[2024-08-15] MEDS: HYDROmorphone 1 MG/ML 1 ML SYRINGE IVP PRN (10:53)
--- NOTE | 2024-08-15 12:38 | P.HPOR ---
History of Present Illness H&P Date: 08/15/24 This is an 79-year-old female who is admitted for a right hip fracture. Patient is seen and evaluated at bedside today and states that she fell yesterday at home. Patient states that she has been sick for the last few days and is unsure if she passed out or had a mechanical fall. Patient states that she is unsure if she hit her head. Patient reports pain in the right hip, but denies any obvious pain anywhere else. X-rays in the emergency room revealed a right femoral neck fracture. Patient states that she lives at home with her . Patient's past medical history significant for atrial fibrillation on Coumadin, hyperlipidemia, hypertension and history of pneumonia. Patient denies any fever/chills, chest pain, shortness breath, abdominal pain, numbness, weakness or tingling. Review of Systems See HPI. Past Medical History Past Medical History: Atrial Fibrillation, Hyperlipidemia, Hypertension, Pneumonia Additional Past Medical History / Comment(s): occasional diarrhea, dyspnea History of Any Multi-Drug Resistant Organisms: None Reported Past Surgical History: Orthopedic Surgery Additional Past Surgical History / Comment(s): Pt states she had a D&C, shoulder surg. Past Anesthesia/Blood Transfusion Reactions: No Reported Reaction Past Psychological History: Anxiety Smoking Status: Current every day smoker Past Alcohol Use History: Heavy Additional Past Alcohol Use History / Comment(s): stated she no longer drinks Past Drug Use History: None Reported - Past Family History Mother Family Medical History: Cancer, Diabetes Mellitus Additional Family Medical History / Comment(s): Uterine CA, Father History Unknown: Yes Medications and Allergies Home Medications Medication Instructions Recorded Confirmed Type lisinopriL [Prinivil] 20 mg PO DAILY 07/08/23 07/08/23 History Atorvastatin [Lipitor] 40 mg PO HS 30 Days #30 tab 07/13/23 Rx Famotidine [Pepcid] 20 mg PO DAILY tab 07/13/23 Rx Metoprolol Succinate (ER) [Toprol 50 mg PO DAILY #60 tab 07/14/23 Rx XL] Warfarin [Coumadin] 6 mg PO ONCE@1800 30 Days #60 tab 07/14/23 Rx Allergies Allergy/AdvReac Type Severity Reaction Status Date / Time pollen extracts AdvReac Cough Verified 08/15/24 00:12 Physical Examination On exam patient is resting comfortably in bed in no acute distress. Patient is alert and oriented 3. Right lower extremity: Skin is intact. There is mild soft tissue swelling. There is tenderness over the right hip. Patient has limited range of motion of the right hip secondary to pain. Right lower extremity is warm and well- perfused. Calf is soft and nontender to palpation. Sensation intact. Neurovascular status and circulatory status are intact. Exams of the head, neck, bilateral upper extremities, and the left lower extremity are within normal limits. Results X-rays of the right hip and pelvis dated 08/15/2024 reveal a right femoral neck fracture. A CT report of the brain and C-spine dated 08/15/2024 shows: 1. Age-related changes. 2. Encephalomalacia of the right parieto-occipital region. 3. If there is concern for etiology such as early acute lacunar infarcts, MRI imaging of the brain with diffusion weighted sequences should be performed. CT cervical spine report shows: 1. Moderate to severe degenerative disc disease of the cervical spine. 2. No acute injury to the cervical spine. - Labs Labs: Abnormal Lab Results - Last 24 Hours (Table) 08/15/24 08/15/24 08/15/24 Range/Units 00:14 00:14 00:14 Neutrophils # 8.1 H (1.3-7.7) k/uL Lymphocytes # 0.8 L (1.0-4.8) k/uL PT 18.5 H (10.0-12.5) sec INR 1.8 H (<1.2) APTT 33.7 H (22.0-30.0) sec Sodium 136 L (137-145) mmol/L Carbon Dioxide 21 L (22-30) mmol/L BUN 22 H (7-17) mg/dL Creatinine 1.06 H (0.52-1.04) mg/dL Glucose 157 H (74-99) mg/dL AST 55 H (14-36) U/L Influenza Type A (PCR) (Not Detectd) 08/15/24 Range/Units 05:00 Neutrophils # (1.3-7.7) k/uL Lymphocytes # (1.0-4.8) k/uL PT (10.0-12.5) sec INR (<1.2) APTT (22.0-30.0) sec Sodium (137-145) mmol/L Carbon Dioxide (22-30) mmol/L BUN (7-17) mg/dL Creatinine (0.52-1.04) mg/dL Glucose (74-99) mg/dL AST (14-36) U/L Influenza Type A (PCR) Detected A (Not Detectd) H & H 08/15/24 Range/Units 00:14 Hgb 14.0 (11.4-16.0) gm/dL Hct 44.3 (34.0-46.0) % Coagulation 08/15/24 Range/Units 00:14 INR 1.8 H (<1.2) Result Diagrams: 08/15/24 00:14 08/15/24 00:14 Assessment and Plan (1) Closed right hip fracture Current Visit: Yes Status: Acute Code(s): S72.001A - FRACTURE OF UNSP PART OF NECK OF RIGHT FEMUR, INIT SNOMED Code(s): 925242443 (2) Fall Current Visit: Yes Status: Acute Code(s): W19.XXXA - UNSPECIFIED FALL, INITIAL ENCOUNTER SNOMED Code(s): 1537015 Plan: 1. N.p.o. after midnight. 2. Continue bedrest and pain control. 3. Appreciate input from internal medicine. 4. Imaging is reviewed. Planning for right hip hemiarthroplasty on 08/16/2024 pending medical clearance and patient consent.
[2024-08-15] MEDS ORDERED: IPRATROPIUM-ALBUTEROL 3 ML NEB INHALATION PRN (15:57)
[2024-08-15] MEDS: IPRATROPIUM-ALBUTEROL 3 ML NEB INHALATION SCH (16:39)
[2024-08-15] MEDS: ASPIRIN 81 MG PO STA (17:34)
[2024-08-15] MEDS: methylPREDNISolone SOD SUCCI 125 MG/2 ML VIAL IV STA (17:34)
[2024-08-15] MEDS: MAGNESIUM OXIDE 400 MG TAB PO STA (17:34)
[2024-08-15 18:18] LABS: Appearance,Urine Cloudy (Clear); Bilirubin,Urine Negative (Negative); Blood,Urine Trace (Negative); Color,Urine Yellow; Glucose,Urine (UA) Negative (Negative); Ketones,Urine Negative (Negative); Leukocyte Esterase,Urine Negative (Negative); Mucus,Urine Rare /hpf; Nitrite,Urine Negative (Negative); PH, Urine 5.5 (5.0-8.0); Protein,Urine 1+ (Negative); RBC,Urine 4 /hpf (0-5); Specific Gravity,Urine 1.023 (1.001-1.035); Squamous Epithelial Cell,Urine <1 /hpf (0-4); Urobilinogen,Urine <2.0 mg/dL (<2.0); WBC,Urine 2 /hpf (0-5)
--- NOTE | 2024-08-15 20:18 | P.CRDCN ---
History of Present Illness Consult date: 08/15/24 History of present illness: HISTORY OF PRESENTING ILLNESS: Patient is a 79-year-old female with past medical history of chronic atrial fibrillation on anticoagulation with warfarin, hypertension dyslipidemia prior CVA. She also has CKD and is a smoker. She presented to the hospital because for last few days she has been feeling more weak, nauseous, having vomiting and diarrhea. Apparently she had influenza A and since then she has been very weak. She reports that she was in the restroom and was just gotten vomiting and when she stood up she remember waking up on the floor of the bathroom with severe pain in the right hip. She is not able to give me specifications if she passed out. The last thing she remembers was vomiting the next and she remembers was finding herself on floor. REVIEW OF SYSTEMS: 14 point review of system is negative except what is mentioned above in HPI. PHYSICAL EXAMINATION: Neck: Brisk carotid upstroke, no jugular venous distention. Lungs: Clear to auscultation. Heart: Irregularly irregular pulse, mild systolic murmur audible Abdomen: Soft nontender, positive bowel sounds. Extremities: Limited motion in right leg, 1+ swelling in bilateral lower extremity Neuro: Alert, oritented, no focal deficits. Detailed neuro exam was not performed. ASSESSMENT: # Syncope, likely vasovagal in setting of vomiting # Right hip fracture # Chronic atrial fibrillation # Prior history of CVA # Essential hypertension and dyslipidemia # CKD PLAN: At this time patient appears euvolemic. Her labs are essentially at her baseline with troponin not being elevated and NT-proBNP at 5800. Her previous NT-proBNP was 4000 which appears to be similar in the range 5 years ago. She has chronic atrial fibrillation and appears rate controlled. At this time patient is at moderate risk for the hip surgery which is most likely urgent considering patient's right hip pain. Patient is cleared for surgery from cardiovascular standpoint with no obvious contraindications at this time. INR is 1.8, hold warfarin Resume warfarin once cleared by surgery for A-fib stroke prevention especially because this patient has prior history of CVA. She is on aspirin and Lipitor, will continue. She is on metoprolol succinate 50 mg daily at home. Will continue. Obtain echocardiogram and HBa1c levels Ankush Pruitt MD, FACC, RPVI Thank you for allowing [facility] to participate in this patient's care. Feel free to reach out in case of any followup questions. Past Medical History Past Medical History: Atrial Fibrillation, Hyperlipidemia, Hypertension, Pneumonia Additional Past Medical History / Comment(s): occasional diarrhea, dyspnea History of Any Multi-Drug Resistant Organisms: None Reported Past Surgical History: Orthopedic Surgery Additional Past Surgical History / Comment(s): Pt states she had a D&C, shoulder surg. Past Anesthesia/Blood Transfusion Reactions: No Reported Reaction Past Psychological History: Anxiety Smoking Status: Current every day smoker Past Alcohol Use History: Heavy Additional Past Alcohol Use History / Comment(s): stated she no longer drinks Past Drug Use History: None Reported - Past Family History Mother Family Medical History: Cancer, Diabetes Mellitus Additional Family Medical History / Comment(s): Uterine CA, Father History Unknown: Yes Medications and Allergies Home Medications Medication Instructions Recorded Confirmed Type Metoprolol Succinate (ER) [Toprol 50 mg PO DAILY@1400 08/15/24 08/15/24 History Xl] Warfarin [Coumadin] 3 mg PO SUTUTH@1900 08/15/24 08/15/24 History Warfarin [Coumadin] 4.5 mg PO MOWEFRSA@1900 08/15/24 08/15/24 History amLODIPine [Norvasc] 10 mg PO DAILY@1400 08/15/24 08/15/24 History Allergies Allergy/AdvReac Type Severity Reaction Status Date / Time pollen extracts AdvReac Cough Verified 08/15/24 13:00 Physical Exam Vitals: Vital Signs Temp Pulse Pulse Resp BP BP Pulse Ox 08/15/24 16:53 60 08/15/24 16:39 62 08/15/24 13:19 98.6 F 67 18 131/68 93 L 08/15/24 06:49 98.3 F 110 H 18 130/73 96 08/15/24 03:31 94 18 124/78 95 08/15/24 00:07 98.6 F 70 20 134/75 Intake and Output 08/15/24 08/15/24 08/15/24 06:59 14:59 22:59 Other: # Voids 2 # Bowel Movements 1 Weight Results 08/15/24 00:14 08/15/24 00:14 Cardiac Enzymes 08/15/24 08/15/24 08/15/24 Range/Units 00:14 00:14 06:20 AST 55 H (14-36) U/L Troponin I <0.012 0.016 (0.000-0.034) ng/mL 08/15/24 Range/Units 09:01 AST (14-36) U/L Troponin I 0.017 (0.000-0.034) ng/mL Coagulation 08/15/24 Range/Units 00:14 PT 18.5 H (10.0-12.5) sec APTT 33.7 H (22.0-30.0) sec CBC 08/15/24 Range/Units 00:14 WBC 9.6 (3.8-10.6) k/uL RBC 4.84 (3.80-5.40) m/uL Hgb 14.0 (11.4-16.0) gm/dL Hct 44.3 (34.0-46.0) % Plt Count 245 (150-450) k/uL Comprehensive Metabolic Panel 08/15/24 Range/Units 00:14 Sodium 136 L (137-145) mmol/L Potassium 4.2 (3.5-5.1) mmol/L Chloride 102 (98-107) mmol/L Carbon Dioxide 21 L (22-30) mmol/L BUN 22 H (7-17) mg/dL Creatinine 1.06 H (0.52-1.04) mg/dL Glucose 157 H (74-99) mg/dL Calcium 8.7 (8.4-10.2) mg/dL AST 55 H (14-36) U/L ALT 29 (4-34) U/L Alkaline Phosphatase 113 (38-126) U/L Total Protein 7.0 (6.3-8.2) g/dL Albumin 3.9 (3.5-5.0) g/dL Current Medications Generic Name Dose Route Start Last Admin Trade Name Freq PRN Reason Stop Dose Admin Acetaminophen 650 mg 08/15/24 09:44 Acetaminophen Tab 325 Mg Tab PO Q6HR PRN Mild Pain or Fever > 100.5 Hydrocodone Bitart/Acetaminophen 1 each 08/15/24 09:44 Hydrocodone/Apap 5-325mg 1 Each Tab PO Q4HR PRN Moderate Pain (Scale 4 to 6) Albuterol/Ipratropium 3 ml 08/15/24 16:00 08/15/24 16:39 Ipratropium-Albuterol 3 Ml Neb INHALATION 3 ml RT-QID TRENT Administration Albuterol/Ipratropium 3 ml 08/15/24 15:57 Ipratropium-Albuterol 3 Ml Neb INHALATION RT-Q2H PRN Shortness Of Breath Or Wheezing Atorvastatin Calcium 40 mg 08/15/24 21:00 Atorvastatin 40 Mg Tab PO HS TRENT Hydromorphone HCl 1 mg 08/15/24 03:05 08/15/24 17:35 Hydromorphone 1 Mg/Ml 1 Ml Syringe IVP 1 mg Q3HR PRN Administration Severe Pain (Scale 7 to 10) Lactated Ringer's 1,000 mls @ 130 mls/hr 08/15/24 01:00 08/15/24 17:35 Lactated Ringers IV Not Given .[id number] TRENT Sodium Chloride 1,000 mls @ 75 mls/hr 08/15/24 03:15 08/15/24 17:36 Saline 0.9% IV 75 mls/hr .[id number] TRENT Administration Melatonin 3 mg 08/15/24 09:44 Melatonin 3 Mg Tablet PO HS PRN Insomnia Metoprolol Succinate 50 mg 08/16/24 14:00 Metoprolol Succinate (Er) 50 Mg Tab.Er.24h PO DAILY@1400 TRENT Naloxone HCl 0.2 mg 08/15/24 03:05 Naloxone 0.4 Mg/Ml 1 Ml Vial IV Q2M PRN Opioid Reversal Nicotine 1 patch 08/16/24 09:00 Nicotine 14mg/24hr Patch TRANSDERM DAILY TRENT Ondansetron HCl 4 mg 08/15/24 03:05 Ondansetron 4 Mg/2 Ml Vial IVP Q8HR PRN Nausea And Vomiting Oseltamivir Phosphate 30 mg 08/15/24 09:00 08/15/24 08:59 Oseltamivir 30 Mg Cap PO 08/19/24 21:01 30 mg Q12HR TRENT Administration Protocol Pantoprazole Sodium 40 mg 08/15/24 09:00 08/15/24 08:36 Pantoprazole 40 Mg/10 Ml Vial IV 40 mg DAILY TRENT Administration Intake and Output 08/15/24 08/15/24 08/15/24 06:59 14:59 22:59 Other: # Voids 2 # Bowel Movements 1 Weight 08/15/24 00:14 08/15/24 00:14
[2024-08-15] MEDS: ATORVASTATIN 40 MG TAB PO SCH (20:30)
[2024-08-15] MEDS ORDERED: ATORVASTATIN 40 MG TAB PO SCH (21:00)
[2024-08-16] MEDS: HYDROcodone/APAP 5-325MG 1 EACH TAB PO PRN (01:48)
[2024-08-16 03:27] LABS: INR 1.6 (<1.2); Prothrombin Time 16.9 sec (10.0-12.5)
[2024-08-16 08:24] LABS: ALT 28 U/L (8-44); AST 64 U/L (13-35); Albumin 3.4 g/dL (3.8-4.9); Albumin/Globulin Ratio 1.55 Ratio (1.60-3.17); Alkaline Phosphatase 95 U/L (41-126); BUN/Creat Ratio 18.65 Ratio (12.00-20.00); Blood Urea Nitrogen 31.7 mg/dL (9.0-27.0); Calcium 8.2 mg/dL (8.7-10.3); Carbon Dioxide 22.7 mmol/L (21.6-31.8); Chloride 101 mmol/L (96-109); Globulin 2.2 g/dL (1.6-3.3); Glucose 135 mg/dL (70-110); Magnesium 1.9 mg/dL (1.5-2.4); Phosphorus 4.9 mg/dL (2.4-5.1); Sodium 136 mmol/L (135-145); Total Bilirubin <0.2 mg/dL (0.3-1.2); Total Protein 5.6 g/dL (6.2-8.2)
[2024-08-16 09:00] LABS: Basophils # (A) 0.01 X 10*3/uL (0.00-0.10); Basophils % (A) 0.1 %; Eosinophils # (A) 0 X 10*3/uL (0.04-0.35); Eosinophils % (A) 0 %; HCT 39.5 % (37.2-46.3); HGB 12.4 g/dL (12.0-15.0); Lymphocytes # (A) 0.55 X 10*3/uL (0.90-5.00); Lymphocytes % (A) 6.4 %; MCH 29.3 pg (27.0-32.0); MCHC 31.4 g/dL (32.0-37.0); MCV 93.4 FL (80.0-97.0); Mean Platelet Volume 11.1 FL (9.5-12.2); Monocytes # (A) 0.38 X 10*3/uL (0.20-1.00); Monocytes % (A) 4.4 %; NRBC Per 100 WBC 0 X 10*3/uL (0.00-0.01); Neutrophils # (A) 7.67 X 10*3/uL (1.80-7.70); Neutrophils % (A) 88.8 %; Platelet Count 216 X 10*3/uL (140-440); RBC 4.23 X 10*6/uL (4.10-5.20); RDW 14.8 % (11.5-14.5); WBC 8.64 X 10*3/uL (4.50-10.00)
[2024-08-16] MEDS: NICOTINE 14MG/24HR PATCH TRANSDERM SCH (09:38)
--- NOTE | 2024-08-16 09:59 | P.PN ---
Subjective Progress Note Date: 08/16/24 This is an 79-year-old female who is admitted for right hip fracture. Patient is seen and evaluated at bedside today and denies any new complaints today. Coumadin is being held. Objective - Vital Signs Vital signs: Vital Signs Temp 98.5 F 08/16/24 07:17 Pulse 78 08/16/24 08:16 Resp 18 08/16/24 07:17 BP 111/72 08/16/24 07:17 Pulse Ox 91 L 08/16/24 08:09 FiO2 Intake & Output 08/15/24 08/16/24 08/16/24 18:59 06:59 18:59 Output Total 250 Balance -250 Output: Urine 250 Other: Voiding Method Indwelling Catheter # Voids 2 # Bowel Movements 1 - Exam On exam patient is resting comfortably in bed in no acute distress. Patient is alert and oriented 3. Right lower extremity: Skin is intact. There is mild soft tissue swelling. There is tenderness over the right hip. Patient has limited range of motion of the right hip secondary to pain. Right lower extremity is warm and well- perfused. Calf is soft and nontender to palpation. Sensation intact. Neurovascular status and circulatory status are intact. Exams of the head, neck, bilateral upper extremities, and the left lower extremity are within normal limits. - Labs CBC & Chem 7: 08/16/24 02:32 08/16/24 02:32 Labs: Abnormal Lab Results - Last 24 Hours (Table) 08/15/24 08/15/24 08/16/24 Range/Units 00:14 16:56 02:32 MCHC 31.4 L (32.0-37.0) g/dL RDW 14.8 H (11.5-14.5) % Lymphocytes # 0.55 L (0.90-5.00) X 10*3/uL Eosinophils # 0 L (0.04-0.35) X 10*3/uL PT (10.0-12.5) sec INR (<1.2) Anion Gap (4.00-12.00) mmol/L BUN (9.0-27.0) mg/dL Creatinine (0.6-1.5) mg/dL Est GFR (CKD-EPI) (>=60) Glucose (70-110) mg/dL Hemoglobin A1c 6.1 H (<=6.0) % Calcium (8.7-10.3) mg/dL Total Bilirubin (0.3-1.2) mg/dL AST (13-35) U/L Total Protein (6.2-8.2) g/dL Albumin (3.8-4.9) g/dL Albumin/Globulin Ratio (1.60-3.17) Ratio Urine Appearance Cloudy H (Clear) Urine Protein 1+ H (Negative) Urine Blood Trace H (Negative) Urine Mucus Rare H (None) /hpf 08/16/24 08/16/24 Range/Units 02:32 02:32 MCHC (32.0-37.0) g/dL RDW (11.5-14.5) % Lymphocytes # (0.90-5.00) X 10*3/uL Eosinophils # (0.04-0.35) X 10*3/uL PT 16.9 H (10.0-12.5) sec INR 1.6 H (<1.2) Anion Gap 12.30 H (4.00-12.00) mmol/L BUN 31.7 H (9.0-27.0) mg/dL Creatinine 1.7 H (0.6-1.5) mg/dL Est GFR (CKD-EPI) 30 L (>=60) Glucose 135 H (70-110) mg/dL Hemoglobin A1c (<=6.0) % Calcium 8.2 L (8.7-10.3) mg/dL Total Bilirubin <0.2 L (0.3-1.2) mg/dL AST 64 H (13-35) U/L Total Protein 5.6 L (6.2-8.2) g/dL Albumin 3.4 L (3.8-4.9) g/dL Albumin/Globulin Ratio 1.55 L (1.60-3.17) Ratio Urine Appearance (Clear) Urine Protein (Negative) Urine Blood (Negative) Urine Mucus (None) /hpf Assessment and Plan (1) Closed right hip fracture Current Visit: Yes Status: Acute Code(s): S72.001A - FRACTURE OF UNSP PART OF NECK OF RIGHT FEMUR, INIT SNOMED Code(s): 190554251 (2) Fall Current Visit: Yes Status: Acute Code(s): W19.XXXA - UNSPECIFIED FALL, INITIAL ENCOUNTER SNOMED Code(s): 7866419 Plan: 1. N.p.o. after midnight. 2. Continue bedrest and pain control. 3. Appreciate input from internal medicine and cardiology. 4. INR is still elevated at 1.6 today. Planning to recheck INR in the morning. Planning for right hip hemiarthroplasty on 08/17/2024.
[2024-08-16] MEDS: SODIUM CHLORIDE 0.9% 1,000 ML IV ONE (10:12)
[2024-08-16] MEDS: METOPROLOL SUCCINATE (ER) 50 MG TAB.ER.24H PO SCH (14:18)
--- NOTE | 2024-08-16 15:37 | P.CNNES ---
History of Present Illness Consult date: 08/16/24 Requesting physician: Antonio Mcmahan Reason for Consult: syncope, abnormal CT brain with encephalomalacia of the right parietal-occi History of Present Illness: This is an 79-year-old woman who presented emergency department because of a fall. Stated that she was in the kitchen and she was walking back to her room and she fell. She stated that earlier that day she had 2 episodes of vomiting. She denies losing consciousness. Denies any new focal deficit. She denies any seizure-like activity that she remembers. She presents with right hip pain. Patient has been feeling under the weather recently and began to have nausea vomiting and diarrhea multiple times. Per the primary team nurse practitioner she stated that the patient woke up on the bathroom floor with severe pain of the right hip. Patient did not provide the information. Denies any seizure- like activity in the past. She does have a history of stroke in the past. Patient has history of atrial fibrillation and she is on Coumadin. Some of the workup during this hospital visit consisted of: Sodium is 136, initial serum glucose is 157, AST is 55 ALT is 29 Influenza A PCR is detected. CT of the head is reported as encephalomalacia over the right parietal occipital region. There is no acute process. I reviewed the CT and I agree there is no acute process. Encephalomalacia is more right parietal. CT cervical spine is reported as moderate to severe degenerative disc disease of the cervical spine. No acute injury of the cervical spine. Review of Systems per HPI. Past Medical History Past Medical History: Atrial Fibrillation, Hyperlipidemia, Hypertension Additional Past Medical History / Comment(s): occasional diarrhea, dyspnea History of Any Multi-Drug Resistant Organisms: None Reported Past Surgical History: Orthopedic Surgery Additional Past Surgical History / Comment(s): Pt states she had a D&C, shoulder surg. Past Anesthesia/Blood Transfusion Reactions: No Reported Reaction Past Psychological History: Anxiety Smoking Status: Current every day smoker Past Alcohol Use History: Heavy Additional Past Alcohol Use History / Comment(s): stated she no longer drinks Past Drug Use History: None Reported - Past Family History Mother Family Medical History: Cancer, Diabetes Mellitus Additional Family Medical History / Comment(s): Uterine CA, Father History Unknown: Yes Medications and Allergies Home Medications Medication Instructions Recorded Confirmed Type Metoprolol Succinate (ER) [Toprol 50 mg PO DAILY@1400 08/15/24 08/15/24 History Xl] Warfarin [Coumadin] 3 mg PO SUTUTH@1900 08/15/24 08/15/24 History Warfarin [Coumadin] 4.5 mg PO MOWEFRSA@1900 08/15/24 08/15/24 History amLODIPine [Norvasc] 10 mg PO DAILY@1400 08/15/24 08/15/24 History Allergies Allergy/AdvReac Type Severity Reaction Status Date / Time pollen extracts AdvReac Cough Verified 08/15/24 13:00 Physical Examination - Vital Signs Vital Signs: Vital Signs Temp Pulse Pulse Resp BP Pulse Ox 08/16/24 13:15 98.4 F 82 18 105/67 90 L 08/16/24 11:38 82 90 L 08/16/24 11:26 82 08/16/24 08:16 78 08/16/24 08:09 91 L 08/16/24 08:06 83 08/16/24 07:17 98.5 F 71 18 111/72 90 L 08/16/24 01:30 99.1 F 71 18 104/66 91 L 08/15/24 21:13 72 08/15/24 21:03 75 08/15/24 18:59 99.0 F 72 18 103/63 96 08/15/24 16:53 60 08/15/24 16:39 62 Intake and Output 08/16/24 08/16/24 08/16/24 06:59 14:59 22:59 Output Total 250 Balance -250 Output: Urine 250 Other: Voiding Method Indwelling Catheter GENERAL: The patient is lying in bed and is not in acute distress. NEUROLOGICAL: Higher mental function: The patient is awake, alert, oriented to self, place and time. Patient is following commands. No aphasia and no neglect. Cranial nerves: The pupils are round, equal and reactive to light and accommodation. Visual duke are full to confrontation throughout. Extraocular movement is intact no nystagmus is noted. Facial sensation is normal to touch throughout. The facial strength is normal throughout. Hearing is mildly decreased bilaterally to hand rub. Tongue is midline and moved [id number] without any difficulty. No dysarthria is noted. Shoulder shrug is normal bilaterally. Motor: The strength is uppers are 5 out of 5 while lowers is severely limited because of the pain but the patient was able to wiggle her toes. Cerebellum: Normal finger to nose bilaterally. Patient does have end of action tremor. No resting tremor noted. Sensation: Sensation is normal to touch throughout. Plantars are mute bilaterally. Results - Laboratory Findings CBC and BMP: 08/16/24 02:32 08/16/24 02:32 Abnormal Lab Findings: Abnormal Labs 08/15/24 08/15/24 08/15/24 00:14 00:14 00:14 MCHC RDW Neutrophils # 8.1 H Lymphocytes # 0.8 L Eosinophils # PT 18.5 H INR 1.8 H APTT 33.7 H Sodium 136 L Carbon Dioxide 21 L Anion Gap BUN 22 H Creatinine 1.06 H Est GFR (CKD-EPI) Glucose 157 H Hemoglobin A1c Calcium Total Bilirubin AST 55 H Total Protein Albumin Albumin/Globulin Ratio Urine Appearance Urine Protein Urine Blood Urine Mucus Influenza Type A (PCR) 08/15/24 08/15/24 08/15/24 00:14 05:00 16:56 MCHC RDW Neutrophils # Lymphocytes # Eosinophils # PT INR APTT Sodium Carbon Dioxide Anion Gap BUN Creatinine Est GFR (CKD-EPI) Glucose Hemoglobin A1c 6.1 H Calcium Total Bilirubin AST Total Protein Albumin Albumin/Globulin Ratio Urine Appearance Cloudy H Urine Protein 1+ H Urine Blood Trace H Urine Mucus Rare H Influenza Type A (PCR) Detected A 08/16/24 08/16/24 08/16/24 02:32 02:32 02:32 MCHC 31.4 L RDW 14.8 H Neutrophils # Lymphocytes # 0.55 L Eosinophils # 0 L PT 16.9 H INR 1.6 H APTT Sodium Carbon Dioxide Anion Gap 12.30 H BUN 31.7 H Creatinine 1.7 H Est GFR (CKD-EPI) 30 L Glucose 135 H Hemoglobin A1c Calcium 8.2 L Total Bilirubin <0.2 L AST 64 H Total Protein 5.6 L Albumin 3.4 L Albumin/Globulin Ratio 1.55 L Urine Appearance Urine Protein Urine Blood Urine Mucus Influenza Type A (PCR) Assessment and Plan Assessment: This is an 79-year-old woman who presented emergency department because of a fa ll. Seems that recently she has been having multiple episodes of nausea vomiting as well as diarrhea and later during the day as she had a fall. She is having she came in with right hip pain. Patient was found to have influenza A she denies any history of seizure. She does have underlying history of stroke in the past as well as has history of atrial fibrillation on A-fib. Recent fall/syncopal episode likely due to vasovagal from recurrent diarrhea vomiting. Right hip pain due to fall Positive influenza A History of stroke and it seems right parietal Chronic ongoing atrial fibrillation and patient is on Coumadin Hypertension Hyperlipidemia Chronic kidney insufficiency Nicotine use Plan: I ordered a routine EEG. I doubt this was due to stroke. Notified the primary team nurse practitioner that CT findings are old from her previous stroke. 2D echo was ordered by the cardiology team Patient is on aspirin 81 mg and Lipitor 40 mg nightly. The Coumadin is held for surgery from orthopedic team and they are planning for right hemiarthroplasty. Cardiology is on board Commend resuming Coumadin once cleared by orthopedic surgery team especially with a history of A-fib with history of stroke Will defer the rest of the medical management to primary and other specialist Plan discussed with the patient and the primary team nurse practitioner Thank you for the consultation Time with Patient: Greater than 30
--- NOTE | 2024-08-16 16:25 | CA ---
Transthoracic Echo Report Name: Marry Duvall Age: 79 Gender: F : 1945 Exam Date: 08/16/2024 07:22 Exam Location: [place] [facility] Ht (in): 65 Wt (lb): 155 Ordering Physician: Ankush Pruitt MD ([id number]) Attending/Referring Phys: General Production Laborer Michael Hoang, STEPHANIE Procedure CPT: Indications: cardiomyopathy Cardiac Hx: A-Fib, HTN, CVA, CKD Technical Quality: Fair Contrast 1: Definity Total Dose (mL): 2 Contrast 2: Total Dose (mL): MEASUREMENTS (Male / Female) Normal Values 2D ECHO LV Diastolic Diameter PLAX 4.3 cm 4.2 - 5.9 / 3.9 - 5.3 cm LV Systolic Diameter PLAX 3.3 cm IVS Diastolic Thickness 1.1 cm 0.6 - 1.0 / 0.6 - 0.9 cm LVPW Diastolic Thickness 1.1 cm 0.6 - 1.0 / 0.6 - 0.9 cm LV Relative Wall Thickness 0.5 RV Internal Dim ED PLAX 2.6 cm LVOT Diameter 1.6 cm Aortic Root Diameter 2.8 cm LA Systolic Diameter LX 3.3 cm 3.0 - 4.0 / 2.7 - 3.8 cm LV Diastolic Volume MOD BP 61.2 cm??? 67 - 155 / 56 - 104 cm??? LV Systolic Volume MOD BP 31.3 cm??? 22 - 58 / 19 - 49 cm??? LV Ejection Fraction MOD BP 48.9 % >= 55 % LV Diastolic Volume MOD 4C 74.8 cm??? LV Systolic Volume MOD 4C 31.8 cm??? LV Ejection Fraction MOD 4C 57.4 % LV Diastolic Length 4C 6.7 cm LV Systolic Length 4C 6.6 cm LV Diastolic Volume MOD 2C 49.9 cm??? LV Systolic Volume MOD 2C 26.0 cm??? LV Ejection Fraction MOD 2C 47.9 % LV Diastolic Length 2C 6.8 cm LV Systolic Length 2C 5.5 cm LA Volume 47.3 cm??? 18 - 58 / 22 - 52 cm??? LA Volume Index 26.1 cm???/m??? 16 - 28 cm???/m??? DOPPLER AI Peak Velocity 324.9 cm/s AI Peak Gradient 42.2 mmHg AI Pressure Half Time 415.5 ms MV Peak Velocity 104.9 cm/s MV Peak Gradient 4.4 mmHg MV Mean Velocity 46.5 cm/s MV Mean Gradient 1.8 mmHg MV Velocity Time Integral 19.3 cm MV Area PHT 3.2 cm??? Mitral E Point Velocity 119.8 cm/s Mitral A Point Velocity 130.9 cm/s Mitral E to A Ratio 0.9 MV Deceleration Time 209.7 ms TR Peak Velocity 311.5 cm/s TR Peak Gradient 38.8 mmHg Right Atrial Pressure 10.0 mmHg Pulmonary Artery Systolic Pressu 48.8 mmHg Right Ventricular Systolic Press 48.8 mmHg FINDINGS Left Ventricle Left ventricular ejection fraction is estimated at 50-55%. Mildly increased septal wall thickness. Mildly increased posterior wall thickness. Mildly decreased left ventricular ejection fraction. Right Ventricle Moderate right ventricular dilatation. Moderate pulmonary hypertension. Right Atrium Mild right atrial dilatation. Left Atrium Normal left atrial size. Mitral Valve Mitral valve thickened. No mitral stenosis. Trace mitral regurgitation. Aortic Valve Trileaflet aortic valve. Thickened aortic valve without stenosis. Mild-to- moderate aortic regurgitation. Tricuspid Valve Structurally normal tricuspid valve. No tricuspid stenosis. Mild tricuspid regurgitation. Pulmonic Valve Pulmonic valve not well visualized No pulmonic stenosis. No pulmonic regurgitation. Pericardium No pericardial effusion. Aorta Normal size aortic root and proximal ascending aorta. CONCLUSIONS Left ventricular ejection fraction is estimated at 50-55% Moderate right ventricular dilatation RVSP 48 Mild to moderate aortic regurgitation Mild tricuspid regurgitation Previewed by: Dr. Kaan Thayer DO (Electronically Signed) Final Date: 16 August 2024 16:24
--- NOTE | 2024-08-16 17:07 | P.PN ---
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 She presented to the emergency department via EMS after fall/syncopal episode at home. Patient reports she began feeling under the weather on Friday evening and just extra tired and states by morning she began having nausea, vomiting, and diarrhea multiple times daily. Patient reports she was in the restroom and just got done vomiting twice and stood up and the next thing she remembers was waking up on the bathroom floor with severe pain to her right hip. Patient does not recall fall and is unsure if she experienced any dizziness/lightheadedness prior to event. Patient currently reports only pain is to right hip and leg. She denies having any headache, lightheadedness, dizziness, chest pain, palpitations, shortness of breath, or experiencing any numbness in her extremities. Upon arrival to our facility, patient underwent evaluation in the emergency department. Vital signs upon arrival show blood pressure 134/75, heart rate 70, respiratory rate 20, temp 98.6 F, and SpO2 of 95% on 2 L. EKG completed showing atrial fibrillation with a controlled ventricular rate of [address] head and cervical spine revealing moderate to severe degenerative disc disease throughout the cervical spine but negative for acute fracture or subluxation and CT head revealing age-related changes with encephalomalacia of the right parietal-occipital region. Chest x- ray showing atherosclerotic disease but negative for acute cardiopulmonary process. X-ray right hip showing acute transcervical fracture of the proximal right femur with varus angulation. Labs completed and reviewed. CBC unremarkable. Coagulation profile showing elevated PT of 18.5, subtherapeutic INR of 1.8, and PTT of 33.7. BMP showing sodium 136, bicarb of 21, and elevated anion gap of 13 and renal function consistent with known CKD stage IIIa with BUN of 22, creatinine 1.06, GFR 50. Blood glucose was 157. Magnesium was slightly low at 1.7. Her profile showing elevated AST of 55 otherwise normal findings. Troponin was negative at less than 0.012 and proBNP 5810. Serum alcohol level was less than 10. COVID and RSV were negative but patient positive for influenza A. Physical exam: Patient was seen and fully evaluated at bedside this morning. Vital signs reviewed and stable. General: Nontoxic, no distress and appears stated age. Derm: Skin warm and dry, normal coloration for ethnicity. Head: Atraumatic, normocephalic and symmetric. Eyes: EOM's intact, no lid lag, and anicteric sclera Mouth: no lip lesions, mucus membranes moist Cardiovascular: Irregularly irregular, soft systolic murmur, positive posterior tibial pulses bilaterally, and cap refill < 2 seconds. Lungs: Respirations even, regular, and unlabored on 4 L O2 via nasal cannula. Lungs with diffuse expiratory wheezes bilaterally. Abdominal: soft, nontender to palpation, no guarding, no appreciable organomegaly Ext: No gross muscle atrophy, no edema, no contractures. Movement and sensation intact. Varicose veins present. Patient with lateral rotation and shortening of right leg Neuro: Speech clear, face symmetrical and CN II-XII grossly intact with no noted focal neuro deficits Psych: Alert and oriented to person, place, time, and situation. Appropriate and pleasant affect. Assessment and Plan of Care: Preoperative clearance Transcervical fracture of the proximal right femur with varus angulation -Revised cardiac risk score is 2 and METS score is 4. -NSQIP surgical risk calculator completed showing patient is at a 10.4% risk of serious complications with average risk being 11%, increased risk of developing pneumonia at 3.2% with average risk being 2.6%, and below average risk of at 2% with average risk being 3.6%. -Secondary to patients cardiac history and presenting with syncopal episode, discussed with furnace charging machine operator (Dr. Pruitt) and cardiology to provide cardiac clearance prior to patient undergoing surgical intervention. -Patient is at an elevated risk to undergo any surgical procedures at this time secondary to history as well as current infection with influenza A. Patient will be at high risk for postoperative pneumonia. However due to urgent need for surgical repair of right femur fracture, there are no absolute contraindica tions for her to undergo surgery from a medical standpoint at this time once cleared by furnace charging machine operator and solid waste truck driver. Patient will require continuous telemetry monitoring preoperatively, intraoperatively, and postoperatively. Influenza A infection Acute hypoxic respiratory failure, secondary to above and suspect underlying undiagnosed COPD -Suspect underlying COPD, however patient denies history of COPD or reports of shortness of breath at home. She denies using inhalers or nebulizer treatments at home. Patient is a longtime smoker. -Consult placed to pulmonology as patient is requiring 4 L O2 with morning SpO2 of 91%. With increased oxygen needs and current influenza A infection with suspected underlying COPD, recommend pulmonology clearance for surgery. Discussed case in detail with Dr. Gunn. -Oxygenation to be administered and titrated as needed to maintain SPO2 equal to or greater than 92%. Patient currently on 4 L O2 via nasal cannula with SpO2 of 96%. -Telemetry monitoring. -Monitor pulse-oximetry -Duonebs scheduled 4 times daily and as needed for SOB and/or wheezing -Incentive Spirometry -Steroids: Discussed with orthopedic surgery PA, they were in agreement for administration of one-time dose of Solu-Medrol 125 mg IVP prior to surgery. -Tamiflu 30 mg p.o. every 12 hours x 5 days (day 2). Syncopal episode, believed to be vasovagal episode vs orthostatic hypotension Abnormal CT brain, showing encephalomalacia of the right parietal/occipital region Chronic atrial fibrillation Subtherapeutic INR History of CVA Hypertension Hyperlipidemia -Consult placed to furnace charging machine operator and discussed plan of care with Dr. Pruitt stating patient cleared from cardiac perspective for discharge. -Consult placed to neurologist, discussed with neurologist, Dr. Osullivan stating a bnormal CT findings appear old, not acute finding. -Patient to remain on continuous telemetry monitoring with neurochecks every 4 hours. -Unable to evaluate orthostatic vital signs secondary to acute fracture of right femur and immobilization. -Coumadin held secondary to scheduled hemiarthroplasty of right hip, recommend resumption once cleared by primary admitting orthopedic surgery team. -Order placed for aspirin 81 mg p.o. x 1 dose and patient started on atorvastatin 40 mg nightly. Recommend daily aspirin once cleared by orthopedic surgery team. -Initial troponin less than 0.012 with repeat troponin of 0.016 and 0.017. -Echocardiogram completed, awaiting report ALEE on CKD stage IIIa -BMP showing ALEE on CKD stage IIIa with BUN of 31.7, creatinine 1.7, GFR of 30. Nolasco catheter in place, patient has only had a documented 250 cc of urinary output over the past 24 hours. Nolasco catheter flushed and tubing checked for kinks. Patient to be given a 1 L bolus and continue gentle IV fluid hydration with 0.9% normal saline at 100 cc/h. -Strict I's and O's -Continue close monitoring with repeat morning labs. Nicotine dependence -Recommend smoking cessation and order placed for nicotine patch 14 mg daily. Data and imaging reviewed: Vital signs reviewed. Blood pressure 111/72, heart rate 71, respiratory rate 18, temp 98.5 F, and SpO2 of 90% on 4 L. -Morning labs reviewed. CBC showing no significant abnormalities with stable hemoglobin of 12.4 and WBC count of 8.64 with platelet count of 206. Coagulation profile showing PT of 16.9 and INR of 1.6. BMP showing acute kidney injury BMP showing acute kidney injury with BUN of 31.7, creatinine of 1.7, GFR of 30. Blood glucose 135. Magnesium 1.9. Liver profile showing slightly elevated AST of 64 and hypoalbuminemia with albumin of 3.4. Thank you for allowing us to participate in the care of this pleasant patient. Do not hesitate to contact us with questions. Someone can be reached from the [facility] hospitalist group all hours of the day at [phone] or via [employer]. Patient was seen independently by Nurse Practitioner. This document was prepared using [employer] dictation software. Please allow for errors in equipment validation engineer while rare they do occur. Antonio Mcmahan NP rendered care for this patient independently, reviewed the findings and plan as documented in the note above and agree with plan. I did not physically speak with or examine the patient on this date. Objective - Vital Signs Vital signs: Vital Signs Temp 98.5 F 08/16/24 07:17 Pulse 78 08/16/24 08:16 Resp 18 08/16/24 07:17 BP 111/72 08/16/24 07:17 Pulse Ox 91 L 08/16/24 08:09 FiO2 Intake & Output 08/15/24 08/16/24 08/16/24 18:59 06:59 18:59 Output Total 250 Balance -250 Output: Urine 250 Other: # Voids 2 # Bowel Movements 1 - Labs CBC & Chem 7: 08/16/24 02:32 08/16/24 02:32 Labs: Abnormal Lab Results - Last 24 Hours (Table) 08/15/24 08/15/24 08/16/24 Range/Units 00:14 16:56 02:32 MCHC 31.4 L (32.0-37.0) g/dL RDW 14.8 H (11.5-14.5) % Lymphocytes # 0.55 L (0.90-5.00) X 10*3/uL Eosinophils # 0 L (0.04-0.35) X 10*3/uL PT (10.0-12.5) sec INR (<1.2) Anion Gap (4.00-12.00) mmol/L BUN (9.0-27.0) mg/dL Creatinine (0.6-1.5) mg/dL Est GFR (CKD-EPI) (>=60) Glucose (70-110) mg/dL Hemoglobin A1c 6.1 H (<=6.0) % Calcium (8.7-10.3) mg/dL Total Bilirubin (0.3-1.2) mg/dL AST (13-35) U/L Total Protein (6.2-8.2) g/dL Albumin (3.8-4.9) g/dL Albumin/Globulin Ratio (1.60-3.17) Ratio Urine Appearance Cloudy H (Clear) Urine Protein 1+ H (Negative) Urine Blood Trace H (Negative) Urine Mucus Rare H (None) /hpf 08/16/24 08/16/24 Range/Units 02:32 02:32 MCHC (32.0-37.0) g/dL RDW (11.5-14.5) % Lymphocytes # (0.90-5.00) X 10*3/uL Eosinophils # (0.04-0.35) X 10*3/uL PT 16.9 H (10.0-12.5) sec INR 1.6 H (<1.2) Anion Gap 12.30 H (4.00-12.00) mmol/L BUN 31.7 H (9.0-27.0) mg/dL Creatinine 1.7 H (0.6-1.5) mg/dL Est GFR (CKD-EPI) 30 L (>=60) Glucose 135 H (70-110) mg/dL Hemoglobin A1c (<=6.0) % Calcium 8.2 L (8.7-10.3) mg/dL Total Bilirubin <0.2 L (0.3-1.2) mg/dL AST 64 H (13-35) U/L Total Protein 5.6 L (6.2-8.2) g/dL Albumin 3.4 L (3.8-4.9) g/dL Albumin/Globulin Ratio 1.55 L (1.60-3.17) Ratio Urine Appearance (Clear) Urine Protein (Negative) Urine Blood (Negative) Urine Mucus (None) /hpf
--- NOTE | 2024-08-16 17:13 | P.CNPUL ---
History of Present Illness Consult date: 08/16/24 Reason for consult: dyspnea, hypoxemia History of present illness: This is a 79-year-old female patient who is being seen in consult for an acute hypoxic respiratory failure and a fall and a hip fracture. This patient has history of CVA without any residual deficits, chronic stage IIIa kidney disease, hypertension hyperlipidemia and history of chronic atrial fibrillation and she has been maintained on anticoagulation with warfarin. The patient presents to the emergency department after a fall. Apparently, she was getting progressively more tired and she was also having episodes of nausea and emesis and diarrhea on multiple occasions. She was getting progressively more dehydrated. She is not recalling the fall and she is unsure if she experienced any dizziness or lightheadedness prior to this event. The patient is complaining of pain in her right hip/right lower extremity area. In the emergency department, further investigation was done. CAT scan of the brain showed no acute abnormalities other than some age-related changes with encephalomalacia and an old right occipital/parietal infarcts. CT scan of the neck showed moderate to severe degenerative changes involving the cervical spine. The blood work showed a white cell count of 8.6 with a was 1.4 and a platelet count of 216. Her INR is at 1.6 and a PT of 16.9 off warfarin. Her BUN is at 31 with a creatinine of 1.7 and the patient has sustained acute kidney injury probably due to his advanced ago depletion and dehydration. Sodium levels at 136 and a potassium of 5. Serum bicarb is at 22. LFTs are normal. She tested positive for influenza A. Serum alcohol was negative. UA was nonsignificant other than +1 protein. Chest x-ray was reviewed and it showed no acute abnormalities. There is some increased bilateral pulmonary vascular markings. No consolidation. No airspace disease. Echocardiogram showed a preserved LV function. X-ray of the hip and the pelvis showed a acute transcervical fracture of the proximal right femur and orthopedic surgery has been consulted and the patient is being contemplated for surgery with the next 24 hours. In terms of oxygenation, the patient was initially on 2 L and her oxygen requirements progressively went up and she is currently up to 8 L nasal cannula. No previous history of DVTs or pulmonary embolism. No angina. No palpitations. No other complaints otherwise for now. Review of Systems Constitutional: Reports fatigue, Reports lethargy Eyes: denies as per HPI, denies blurred vision, denies bulging eye, denies decreased vision, denies diplopia, denies discharge, denies dry eye, denies irritation, denies itching, denies pain, denies photophobia, denies loss of peripheral vision, denies loss of vision, denies tunnel vision/blind spots Ears: deny: decreased hearing, ear discharge, earache, tinnitus Ears, nose, mouth and throat: Reports as per HPI Breasts: absent: as per HPI, change in shape, gynecomastia, masses, nipple discharge, pain, skin changes, swelling Cardiovascular: Reports decreased exercise tolerance, Reports dyspnea on exertion Respiratory: Reports dyspnea Gastrointestinal: Reports diarrhea, Reports nausea, Reports vomiting Genitourinary: Reports as per HPI Menstruation: Reports as per HPI Musculoskeletal: Reports fractures Musculoskeletal: absent: ankle pain, ankle stiffness, ankle swelling, as per HPI, elbow pain, elbow stiffness, elbow swelling, foot pain, foot stiffness, foot swelling, hand pain, hand stiffness, hand swelling, hip pain, hip stiffnes s, hip swelling, knee pain, knee stiffness, knee swelling, shoulder pain, shoulder stiffness, shoulder swelling, wrist pain, wrist stiffness, wrist swelling Integumentary: Reports as per HPI Neurological: Reports as per HPI Psychiatric: Reports as per HPI Endocrine: Reports as per HPI Hematologic/Lymphatic: Reports as per HPI Allergic/Immunologic: Reports as per HPI Past Medical History Past Medical History: Atrial Fibrillation, Hyperlipidemia, Hypertension Additional Past Medical History / Comment(s): occasional diarrhea, dyspnea History of Any Multi-Drug Resistant Organisms: None Reported Past Surgical History: Orthopedic Surgery Additional Past Surgical History / Comment(s): Pt states she had a D&C, shoulder surg. Past Anesthesia/Blood Transfusion Reactions: No Reported Reaction Past Psychological History: Anxiety Smoking Status: Current every day smoker Past Alcohol Use History: Heavy Additional Past Alcohol Use History / Comment(s): stated she no longer drinks Past Drug Use History: None Reported - Past Family History Mother Family Medical History: Cancer, Diabetes Mellitus Additional Family Medical History / Comment(s): Uterine CA, Father History Unknown: Yes Medications and Allergies Home Medications Medication Instructions Recorded Confirmed Type Metoprolol Succinate (ER) [Toprol 50 mg PO DAILY@1400 08/15/24 08/15/24 History Xl] Warfarin [Coumadin] 3 mg PO SUTUTH@1900 08/15/24 08/15/24 History Warfarin [Coumadin] 4.5 mg PO MOWEFRSA@1900 08/15/24 08/15/24 History amLODIPine [Norvasc] 10 mg PO DAILY@1400 08/15/24 08/15/24 History Allergies Allergy/AdvReac Type Severity Reaction Status Date / Time pollen extracts AdvReac Cough Verified 08/15/24 13:00 Physical Exam Vitals: Vital Signs Temp Pulse Pulse Resp BP Pulse Ox 08/16/24 11:38 82 90 L 08/16/24 11:26 82 08/16/24 08:16 78 08/16/24 08:09 91 L 08/16/24 08:06 83 08/16/24 07:17 98.5 F 71 18 111/72 90 L 08/16/24 01:30 99.1 F 71 18 104/66 91 L 08/15/24 21:13 72 08/15/24 21:03 75 08/15/24 18:59 99.0 F 72 18 103/63 96 08/15/24 16:53 60 08/15/24 16:39 62 Intake and Output 08/15/24 08/16/24 08/16/24 22:59 06:59 14:59 Output Total 250 Balance -250 Output: Urine 250 Other: Voiding Method Indwelling Catheter # Voids 2 # Bowel Movements 1 The patient is currently on 8 L of oxygen by nasal cannula. Denies having any significant respiratory distress General: Nontoxic, no distress and appears stated age. Derm: Skin warm and dry, normal coloration for ethnicity. Head: Atraumatic, normocephalic and symmetric. Eyes: EOM's intact, no lid lag, and anicteric sclera Mouth: no lip lesions, mucus membranes moist Cardiovascular: Irregularly irregular, soft systolic murmur, positive posterior tibial pulses bilaterally, and cap refill < 2 seconds. Lungs: Respirations even, regular, and unlabored on room air. Lungs with diffuse expiratory wheezes bilaterally. Abdominal: soft, nontender to palpation, no guarding, no appreciable organomegaly Ext: No gross muscle atrophy, no edema, no contractures. Movement and sensation intact. Varicose veins present. Patient with lateral rotation and shortening of right leg Neuro: Speech clear, face symmetrical and CN II-XII grossly intact with no noted focal neuro deficits Psych: Alert and oriented to person, place, time, and situation. Appropriate and pleasant affect. Results - Laboratory Findings CBC and BMP: 08/16/24 02:32 08/16/24 02:32 PT/INR, D-dimer PT 16.9 sec (10.0-12.5) H 08/16/24 02:32 INR 1.6 (<1.2) H 08/16/24 02:32 Abnormal lab findings: Abnormal Labs 08/15/24 08/15/24 08/15/24 00:14 00:14 00:14 MCHC RDW Neutrophils # 8.1 H Lymphocytes # 0.8 L Eosinophils # PT 18.5 H INR 1.8 H APTT 33.7 H Sodium 136 L Carbon Dioxide 21 L Anion Gap BUN 22 H Creatinine 1.06 H Est GFR (CKD-EPI) Glucose 157 H Hemoglobin A1c Calcium Total Bilirubin AST 55 H Total Protein Albumin Albumin/Globulin Ratio Urine Appearance Urine Protein Urine Blood Urine Mucus Influenza Type A (PCR) 08/15/24 08/15/24 08/15/24 00:14 05:00 16:56 MCHC RDW Neutrophils # Lymphocytes # Eosinophils # PT INR APTT Sodium Carbon Dioxide Anion Gap BUN Creatinine Est GFR (CKD-EPI) Glucose Hemoglobin A1c 6.1 H Calcium Total Bilirubin AST Total Protein Albumin Albumin/Globulin Ratio Urine Appearance Cloudy H Urine Protein 1+ H Urine Blood Trace H Urine Mucus Rare H Influenza Type A (PCR) Detected A 08/16/24 08/16/24 08/16/24 02:32 02:32 02:32 MCHC 31.4 L RDW 14.8 H Neutrophils # Lymphocytes # 0.55 L Eosinophils # 0 L PT 16.9 H INR 1.6 H APTT Sodium Carbon Dioxide Anion Gap 12.30 H BUN 31.7 H Creatinine 1.7 H Est GFR (CKD-EPI) 30 L Glucose 135 H Hemoglobin A1c Calcium 8.2 L Total Bilirubin <0.2 L AST 64 H Total Protein 5.6 L Albumin 3.4 L Albumin/Globulin Ratio 1.55 L Urine Appearance Urine Protein Urine Blood Urine Mucus Influenza Type A (PCR) - Diagnostic Findings Chest x-ray: image reviewed Assessment and Plan Plan: Acute hypoxic respiratory failure, under investigation. Chest x-ray shows no airspace disease or consolidation. Pulmonary embolism is less likely. The patient has been maintained on warfarin on outpatient basis regarding chronic atrial fibrillation. CAT scan of the chest is to follow Acute influenza A infection Acute dehydration with nausea emesis and diarrhea with intravascular volume depletion Acute kidney injury likely due to intravascular volume depletion Acute fracture of the right femur post fall Presyncope secondary to above History of CVA Chronic A-fib, maintained on anticoagulation with warfarin. PT/INR subtherapeutic at this point in the Coumadin is on hold in preparation for hip surgery Hypertension Hyperlipidemia Plan Based on ongoing hypoxemia, repeat chest x-ray was done and is clearly shows the development of a right upper lobe lobar pulmonary infiltrate. Pneumonia is whitney spected. This could be a bacterial pneumonia on top of influenza A and based on that the patient will be covered with a combination of Rocephin and Zithromax. Continue Tamiflu. Monitor oxygenation status. Echocardiogram was within normal limits. Coumadin will be placed on hold for now in preparation for hip surgery as long as the patient remains stable and there is no interval worsening and her respiratory status. Meanwhile, the patient will be given IV fluids. She was already given a liter of IV fluids and the patient will maintain lactated Ringer at rate of 130 cc an hour. Will continue to follow. Continue bronchodilators. Time with Patient: Greater than 30
--- NOTE | 2024-08-16 17:14 | XR ---
EXAMINATION TYPE: XR chest 1V portable DATE OF EXAM: 08/16/2024 4:58 PM COMPARISON: Chest radiographs from 07/08/2023 TECHNIQUE: XR chest 1V portable Portable AP radiograph of the chest. CLINICAL INDICATION:Female, 79 years old with history of increased O2 needs, influenza A; FINDINGS: Lungs/Pleura: No pleural effusion or pneumothorax. Right upper lung patchy airspace opacities. Pulmonary vascularity: Unremarkable. Heart/mediastinum: Cardiomediastinal silhouette is unremarkable. Musculoskeletal: No acute osseous pathology. Postsurgical changes from left shoulder arthroplasty. IMPRESSION: Right upper lobe patchy airspace opacities consistent with pneumonia. [facility], , 08/16/2024 5:12 PM
--- NOTE | 2024-08-16 17:26 | P.PN ---
Subjective HISTORY OF PRESENTING ILLNESS: Patient is a 79-year-old female with past medical history of chronic atrial fibrillation on anticoagulation with warfarin, hypertension dyslipidemia prior CVA. She also has CKD and is a smoker. She presented to the hospital because for last few days she has been feeling more weak, nauseous, having vomiting and diarrhea. Apparently she had influenza A and since then she has been very weak. She reports that she was in the restroom and was just gotten vomiting and when she stood up she remember waking up on the floor of the bathroom with severe pain in the right hip. She is not able to give me specifications if she passed out. The last thing she remembers was vomiting the next and she remembers was finding herself on floor. 08/16 Patient seen and examined. Patient has been having some more confusion. She has with a one-to-one sitter. Her creatinine went from 1.0-1.7 and had decreased urine output and therefore given liter bolus. She has had worsening hypoxia with increasing oxygen demands and currently on high flow. She denies any chest pain or pressure. She states she has some appetite. Currently receiving IV fluids at 100 cc/h. Echocardiogram performed which shows EF 50 to 55%. Chest x-ray concerning for upper infiltrate. PHYSICAL EXAMINATION: Neck: Brisk carotid upstroke, no jugular venous distention. Lungs: Clear to auscultation. Heart: Irregularly irregular pulse, mild systolic murmur audible Abdomen: Soft nontender, positive bowel sounds. Extremities: Limited motion in right leg, 1+ swelling in bilateral lower extremity Neuro: Alert, oritented, no focal deficits. Detailed neuro exam was not performed. ASSESSMENT: # Syncope, likely vasovagal in setting of vomiting # Right hip fracture # Chronic atrial fibrillation # Prior history of CVA # Essential hypertension and dyslipidemia # CKD PLAN: Patient with acute kidney injury and monitor response of IV fluids. Echo s howing preserved EF. Increasing oxygen demands and may be related to pneumonia, always possibility of aspiration. Continue with current regimen. Prognosis guarded. Objective - Vital Signs Vital signs: Vital Signs Temp 98.4 F 08/16/24 13:15 Pulse 76 08/16/24 15:49 Resp 18 08/16/24 13:15 BP 105/67 08/16/24 13:15 Pulse Ox 90 L 08/16/24 13:15 FiO2 Intake & Output 08/15/24 08/16/24 08/16/24 18:59 06:59 18:59 Output Total 250 Balance -250 Output: Urine 250 Other: Voiding Method Indwelling Catheter # Voids 2 # Bowel Movements 1 - Labs CBC & Chem 7: 08/16/24 02:32 08/16/24 02:32 Labs: Abnormal Lab Results - Last 24 Hours (Table) 08/15/24 08/15/24 08/16/24 Range/Units 00:14 16:56 02:32 MCHC 31.4 L (32.0-37.0) g/dL RDW 14.8 H (11.5-14.5) % Lymphocytes # 0.55 L (0.90-5.00) X 10*3/uL Eosinophils # 0 L (0.04-0.35) X 10*3/uL PT (10.0-12.5) sec INR (<1.2) Anion Gap (4.00-12.00) mmol/L BUN (9.0-27.0) mg/dL Creatinine (0.6-1.5) mg/dL Est GFR (CKD-EPI) (>=60) Glucose (70-110) mg/dL Hemoglobin A1c 6.1 H (<=6.0) % Calcium (8.7-10.3) mg/dL Total Bilirubin (0.3-1.2) mg/dL AST (13-35) U/L Total Protein (6.2-8.2) g/dL Albumin (3.8-4.9) g/dL Albumin/Globulin Ratio (1.60-3.17) Ratio Urine Appearance Cloudy H (Clear) Urine Protein 1+ H (Negative) Urine Blood Trace H (Negative) Urine Mucus Rare H (None) /hpf 08/16/24 08/16/24 Range/Units 02:32 02:32 MCHC (32.0-37.0) g/dL RDW (11.5-14.5) % Lymphocytes # (0.90-5.00) X 10*3/uL Eosinophils # (0.04-0.35) X 10*3/uL PT 16.9 H (10.0-12.5) sec INR 1.6 H (<1.2) Anion Gap 12.30 H (4.00-12.00) mmol/L BUN 31.7 H (9.0-27.0) mg/dL Creatinine 1.7 H (0.6-1.5) mg/dL Est GFR (CKD-EPI) 30 L (>=60) Glucose 135 H (70-110) mg/dL Hemoglobin A1c (<=6.0) % Calcium 8.2 L (8.7-10.3) mg/dL Total Bilirubin <0.2 L (0.3-1.2) mg/dL AST 64 H (13-35) U/L Total Protein 5.6 L (6.2-8.2) g/dL Albumin 3.4 L (3.8-4.9) g/dL Albumin/Globulin Ratio 1.55 L (1.60-3.17) Ratio Urine Appearance (Clear) Urine Protein (Negative) Urine Blood (Negative) Urine Mucus (None) /hpf
[2024-08-16] MEDS: AZITHROMYCIN 500 MG in SODIUM CHLORIDE 0.9% 250 ML IVPB SCH (18:36)
[2024-08-17 05:20] LABS: INR 1.5 (<1.2); Prothrombin Time 15.9 sec (10.0-12.5)
--- NOTE | 2024-08-17 07:11 | XR ---
EXAMINATION TYPE: XR chest 1V portable DATE OF EXAM: 08/17/2024 CLINICAL INDICATION: Female, 79 years old with history of follow up on RUL consolidation, acute resp failure, progress study. TECHNIQUE: Single AP portable upright view of the chest is obtained. COMPARISON: Chest x-ray from one day earlier FINDINGS: Persistent right upper lobe increased opacity. New right basilar increased opacity. Left l jimy remains clear. Cardiac silhouette size is stable and upper limits of normal. Surgical change left shoulder is redemonstrated. IMPRESSION: Persistent right upper lung acute infiltrate with new right basilar acute infiltrate and/ or atelectasis. [facility] Francisca Gusman, , 08/17/2024 7:08 AM
[2024-08-17] MEDS: OSELTAMIVIR 30 MG CAP PO SCH (07:52)
[2024-08-17 08:41] LABS: HCT 37.5 % (37.2-46.3); HGB 11.8 g/dL (12.0-15.0); MCH 29.1 pg (27.0-32.0); MCHC 31.5 g/dL (32.0-37.0); MCV 92.6 FL (80.0-97.0); Mean Platelet Volume 11.3 FL (9.5-12.2); NRBC Per 100 WBC 0 X 10*3/uL (0.00-0.01); Platelet Count 211 X 10*3/uL (140-440); RBC 4.05 X 10*6/uL (4.10-5.20); RDW 15.2 % (11.5-14.5); WBC 10.88 X 10*3/uL (4.50-10.00)
[2024-08-17 08:43] LABS: ALT 30 U/L (8-44); AST 84 U/L (13-35); Albumin 3.1 g/dL (3.8-4.9); Albumin/Globulin Ratio 1.41 Ratio (1.60-3.17); Alkaline Phosphatase 82 U/L (41-126); BUN/Creat Ratio 20.19 Ratio (12.00-20.00); Blood Urea Nitrogen 32.3 mg/dL (9.0-27.0); Calcium 8.1 mg/dL (8.7-10.3); Chloride 109 mmol/L (96-109); Globulin 2.2 g/dL (1.6-3.3); Glucose 109 mg/dL (70-110); Potassium 4.8 mmol/L (3.5-5.5); Sodium 142 mmol/L (135-145); Total Bilirubin <0.2 mg/dL (0.3-1.2); Total Protein 5.3 g/dL (6.2-8.2)
[2024-08-17 10:18] LABS: INR 1.6 (<1.2); Prothrombin Time 16.3 sec (10.0-12.5)
--- NOTE | 2024-08-17 11:07 | P.PN ---
Subjective Progress Note Date: 08/17/24 This is an 79-year-old female who is admitted for a right hip fracture. Patient is being followed closely for influenza and pneumonia. Patient is currently requiring 4-8 L of oxygen. INR is 1.6 today. Patient is seen and evaluated at bedside today and she states that her pain is well controlled. Surgery has been postponed until patient is cleared medically. Objective - Vital Signs Vital signs: Vital Signs Temp 98.2 F 08/17/24 07:10 Pulse 85 08/17/24 07:10 Resp 16 08/17/24 07:10 BP 121/74 08/17/24 07:10 Pulse Ox 93 L 08/17/24 10:33 FiO2 Intake & Output 08/16/24 08/17/24 08/17/24 18:59 06:59 18:59 Output Total 500 700 Balance -500 -700 Output: Urine 500 700 Uretheral (Nolasco) 700 Other: Voiding Method Indwelling Catheter Indwelling Catheter - Exam On exam patient is resting comfortably in bed in no acute distress. Patient is alert and oriented 3. Right lower extremity: Skin is intact. There is mild soft tissue swelling. There is tenderness over the right hip. Patient has limited range of motion of the right hip secondary to pain. Right lower extremity is warm and well- perfused. Calf is soft and nontender to palpation. Sensation intact. Neurovascular status and circulatory status are intact. - Labs CBC & Chem 7: 08/17/24 03:07 08/17/24 03:07 Labs: Abnormal Lab Results - Last 24 Hours (Table) 08/17/24 08/17/24 08/17/24 Range/Units 03:07 03:07 03:07 WBC 10.88 H (4.50-10.00) X 10*3/uL RBC 4.05 L (4.10-5.20) X 10*6/uL Hgb 11.8 L (12.0-15.0) g/dL MCHC 31.5 L (32.0-37.0) g/dL RDW 15.2 H (11.5-14.5) % PT 15.9 H (10.0-12.5) sec INR 1.5 H (<1.2) BUN 32.3 H (9.0-27.0) mg/dL Creatinine 1.6 H (0.6-1.5) mg/dL Est GFR (CKD-EPI) 32 L (>=60) BUN/Creatinine Ratio 20.19 H (12.00-20.00) Ratio Calcium 8.1 L (8.7-10.3) mg/dL Total Bilirubin <0.2 L (0.3-1.2) mg/dL AST 84 H (13-35) U/L Total Protein 5.3 L (6.2-8.2) g/dL Albumin 3.1 L (3.8-4.9) g/dL Albumin/Globulin Ratio 1.41 L (1.60-3.17) Ratio /05/03 Range/Units 09:54 WBC (4.50-10.00) X 10*3/uL RBC (4.10-5.20) X 10*6/uL Hgb (12.0-15.0) g/dL MCHC (32.0-37.0) g/dL RDW (11.5-14.5) % PT 16.3 H (10.0-12.5) sec INR 1.6 H (<1.2) BUN (9.0-27.0) mg/dL Creatinine (0.6-1.5) mg/dL Est GFR (CKD-EPI) (>=60) BUN/Creatinine Ratio (12.00-20.00) Ratio Calcium (8.7-10.3) mg/dL Total Bilirubin (0.3-1.2) mg/dL AST (13-35) U/L Total Protein (6.2-8.2) g/dL Albumin (3.8-4.9) g/dL Albumin/Globulin Ratio (1.60-3.17) Ratio Assessment and Plan (1) Closed right hip fracture Current Visit: Yes Status: Acute Code(s): S72.001A - FRACTURE OF UNSP PART OF NECK OF RIGHT FEMUR, INIT SNOMED Code(s): 823371478 (2) Fall Current Visit: Yes Status: Acute Code(s): W19.XXXA - UNSPECIFIED FALL, INITIAL ENCOUNTER SNOMED Code(s): 4331925 Plan: 1. N.p.o. after midnight. 2. Continue bedrest and pain control. 3. Appreciate input from internal medicine, pulmonology and cardiology. 4. Planning for right hip hemiarthroplasty on 08/18/2024 pending medical clearance.
--- NOTE | 2024-08-17 14:18 | P.PN ---
Subjective Progress Note Date: 08/17/24 I am following up with the patient and she feels about the same. It seems that her surgery was postponed till tomorrow because of her elevated INR. Objective - Vital Signs Vital signs: Vital Signs Temp 98.2 F 08/17/24 07:10 Pulse 70 08/17/24 12:17 Resp 16 08/17/24 07:10 BP 121/74 08/17/24 07:10 Pulse Ox 90 L 08/17/24 12:08 FiO2 Intake & Output 08/16/24 08/17/24 08/17/24 18:59 06:59 18:59 Output Total 500 700 Balance -500 -700 Output: Urine 500 700 Uretheral (Nolasco) 700 Other: Voiding Method Indwelling Catheter Indwelling Catheter Indwelling Catheter - Exam GENERAL: The patient is lying in bed and is not in acute distress. NEUROLOGICAL: Higher mental function: The patient is awake, alert, oriented to self, place and time. Patient is following commands. No aphasia and no neglect. Cranial nerves: The pupils are round, equal and reactive to light and accommodation. Visual duke are full to confrontation throughout. Extraocular movement is intact no nystagmus is noted. Facial sensation is normal to touch throughout. The facial strength is normal throughout. Hearing is mildly decreased bilaterally to hand rub. Tongue is midline and moved [id number] without any difficulty. No dysarthria is noted. Shoulder shrug is normal bilaterally. Motor: The strength is uppers are 5 out of 5 while lowers is severely limited because of the pain but the patient was able to wiggle her toes. Cerebellum: Normal finger to nose bilaterally. Patient does have end of action tremor. No resting tremor noted. Sensation: Sensation is normal to touch throughout. Plantars are mute bilaterally. Some of the workup during this hospital visit consisted of: Sodium is 136, initial serum glucose is 157, AST is 55 ALT is 29 Influenza A PCR is detected. CT of the head is reported as encephalomalacia over the right parietal occipital region. There is no acute process. I reviewed the CT and I agree there is no acute process. Encephalomalacia is more right parietal. CT cervical spine is reported as moderate to severe degenerative disc disease of the cervical spine. No acute injury of the cervical spine. - Labs CBC & Chem 7: 08/17/24 03:07 08/17/24 03:07 Labs: Abnormal Lab Results - Last 24 Hours (Table) 08/17/24 08/17/24 08/17/24 Range/Units 03:07 03:07 03:07 WBC 10.88 H (4.50-10.00) X 10*3/uL RBC 4.05 L (4.10-5.20) X 10*6/uL Hgb 11.8 L (12.0-15.0) g/dL MCHC 31.5 L (32.0-37.0) g/dL RDW 15.2 H (11.5-14.5) % PT 15.9 H (10.0-12.5) sec INR 1.5 H (<1.2) BUN 32.3 H (9.0-27.0) mg/dL Creatinine 1.6 H (0.6-1.5) mg/dL Est GFR (CKD-EPI) 32 L (>=60) BUN/Creatinine Ratio 20.19 H (12.00-20.00) Ratio Calcium 8.1 L (8.7-10.3) mg/dL Total Bilirubin <0.2 L (0.3-1.2) mg/dL AST 84 H (13-35) U/L Total Protein 5.3 L (6.2-8.2) g/dL Albumin 3.1 L (3.8-4.9) g/dL Albumin/Globulin Ratio 1.41 L (1.60-3.17) Ratio 08/17/24 Range/Units 09:54 WBC (4.50-10.00) X 10*3/uL RBC (4.10-5.20) X 10*6/uL Hgb (12.0-15.0) g/dL MCHC (32.0-37.0) g/dL RDW (11.5-14.5) % PT 16.3 H (10.0-12.5) sec INR 1.6 H (<1.2) BUN (9.0-27.0) mg/dL Creatinine (0.6-1.5) mg/dL Est GFR (CKD-EPI) (>=60) BUN/Creatinine Ratio (12.00-20.00) Ratio Calcium (8.7-10.3) mg/dL Total Bilirubin (0.3-1.2) mg/dL AST (13-35) U/L Total Protein (6.2-8.2) g/dL Albumin (3.8-4.9) g/dL Albumin/Globulin Ratio (1.60-3.17) Ratio Assessment and Plan Assessment: This is an 79-year-old woman who presented emergency department because of a f all. Seems that recently she has been having multiple episodes of nausea vomiting as well as diarrhea and later during the day as she had a fall. She is having she came in with right hip pain. Patient was found to have influenza A she denies any history of seizure. She does have underlying history of stroke in the past as well as has history of atrial fibrillation on A-fib. Recent fall/syncopal episode likely due to vasovagal from recurrent diarrhea vomiting. Preliminary EEG is negative for seizure or discharges. Right hip pain due to fall Positive influenza A History of stroke and it seems right parietal Chronic ongoing atrial fibrillation and patient is on Coumadin Hypertension Hyperlipidemia Chronic kidney insufficiency Nicotine use Plan: Preliminary EEG is negative for seizure or discharges. Notified the primary team nurse practitioner that CT findings are old from her previous stroke. 2D echo was ordered by the cardiology team Patient is on aspirin 81 mg and Lipitor 40 mg nightly. The Coumadin is held for surgery from orthopedic team and they are planning for right hemiarthroplasty. Cardiology is on board Recommend resuming Coumadin once cleared by orthopedic surgery team especially with a history of A-fib with history of stroke Will defer the rest of the medical management to primary and other specialist Plan discussed with the patient and the primary team nurse practitioner There is no further neurological workup. Will sign off. Please reconsult if needed. Time with Patient: Less than 30
--- NOTE | 2024-08-17 14:29 | P.PN ---
Subjective HISTORY OF PRESENTING ILLNESS: Patient is a 79-year-old female with past medical history of chronic atrial fibrillation on anticoagulation with warfarin, hypertension dyslipidemia prior CVA. She also has CKD and is a smoker. She presented to the hospital because for last few days she has been feeling more weak, nauseous, having vomiting and diarrhea. Apparently she had influenza A and since then she has been very weak. She reports that she was in the restroom and was just gotten vomiting and when she stood up she remember waking up on the floor of the bathroom with severe pain in the right hip. She is not able to give me specifications if she passed out. The last thing she remembers was vomiting the next and she remembers was finding herself on floor. 08/16 Patient seen and examined. Patient has been having some more confusion. She has with a one-to-one sitter. Her creatinine went from 1.0-1.7 and had decreased urine output and therefore given liter bolus. She has had worsening hypoxia with increasing oxygen demands and currently on high flow. She denies any chest pain or pressure. She states she has some appetite. Currently receiving IV fluids at 100 cc/h. Echocardiogram performed which shows EF 50 to 55%. Chest x-ray concerning for upper infiltrate. 08/17 Patient seen and examined. Patient denies any chest pain or pressure. Tolerating diet. Creatinine mildly improved from 1.7-1.6 with IV fluids. PHYSICAL EXAMINATION: Neck: Brisk carotid upstroke, no jugular venous distention. Lungs: Clear to auscultation. Heart: Irregularly irregular pulse, mild systolic murmur audible Abdomen: Soft nontender, positive bowel sounds. Extremities: Limited motion in right leg, 1+ swelling in bilateral lower extremity Neuro: Alert, oritented, no focal deficits. Detailed neuro exam was not performed. ASSESSMENT: # Syncope, likely vasovagal in setting of vomiting # Right hip fracture # Chronic atrial fibrillation # Prior history of CVA # Essential hypertension and dyslipidemia # CKD PLAN: Patient with acute kidney injury and monitor response of IV fluids. Echo showing preserved EF. Monitor patient symptomatically. Further recommendations to follow. Objective - Vital Signs Vital signs: Vital Signs Temp 98.2 F 08/17/24 07:10 Pulse 70 08/17/24 12:17 Resp 16 08/17/24 07:10 BP 121/74 08/17/24 07:10 Pulse Ox 90 L 08/17/24 12:08 FiO2 Intake & Output 08/16/24 08/17/24 08/17/24 18:59 06:59 18:59 Output Total 500 700 Balance -500 -700 Output: Urine 500 700 Uretheral (Nolasco) 700 Other: Voiding Method Indwelling Catheter Indwelling Catheter Indwelling Catheter - Labs CBC & Chem 7: 08/17/24 03:07 08/17/24 03:07 Labs: Abnormal Lab Results - Last 24 Hours (Table) 08/17/24 08/17/24 08/17/24 Range/Units 03:07 03:07 03:07 WBC 10.88 H (4.50-10.00) X 10*3/uL RBC 4.05 L (4.10-5.20) X 10*6/uL Hgb 11.8 L (12.0-15.0) g/dL MCHC 31.5 L (32.0-37.0) g/dL RDW 15.2 H (11.5-14.5) % PT 15.9 H (10.0-12.5) sec INR 1.5 H (<1.2) BUN 32.3 H (9.0-27.0) mg/dL Creatinine 1.6 H (0.6-1.5) mg/dL Est GFR (CKD-EPI) 32 L (>=60) BUN/Creatinine Ratio 20.19 H (12.00-20.00) Ratio Calcium 8.1 L (8.7-10.3) mg/dL Total Bilirubin <0.2 L (0.3-1.2) mg/dL AST 84 H (13-35) U/L Total Protein 5.3 L (6.2-8.2) g/dL Albumin 3.1 L (3.8-4.9) g/dL Albumin/Globulin Ratio 1.41 L (1.60-3.17) Ratio 08/17/24 Range/Units 09:54 WBC (4.50-10.00) X 10*3/uL RBC (4.10-5.20) X 10*6/uL Hgb (12.0-15.0) g/dL MCHC (32.0-37.0) g/dL RDW (11.5-14.5) % PT 16.3 H (10.0-12.5) sec INR 1.6 H (<1.2) BUN (9.0-27.0) mg/dL Creatinine (0.6-1.5) mg/dL Est GFR (CKD-EPI) (>=60) BUN/Creatinine Ratio (12.00-20.00) Ratio Calcium (8.7-10.3) mg/dL Total Bilirubin (0.3-1.2) mg/dL AST (13-35) U/L Total Protein (6.2-8.2) g/dL Albumin (3.8-4.9) g/dL Albumin/Globulin Ratio (1.60-3.17) Ratio
[2024-08-17] MEDS: TRANEXAMIC 1,000 MG/100ML-NACL 1,000 MG in SALINE 1 100ML.BAG IVPB ONE (14:53)
--- NOTE | 2024-08-17 17:06 | P.PN ---
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 She presented to the emergency department via EMS after fall/syncopal episode at home. Patient reports she began feeling under the weather on Friday evening and just extra tired and states by morning she began having nausea, vomiting, and diarrhea multiple times daily. Patient reports she was in the restroom and just got done vomiting twice and stood up and the next thing she remembers was waking up on the bathroom floor with severe pain to her right hip. Patient does not recall fall and is unsure if she experienced any dizziness/lightheadedness prior to event. Patient currently reports only pain is to right hip and leg. She denies having any headache, lightheadedness, dizziness, chest pain, palpitations, shortness of breath, or experiencing any numbness in her extremities. Upon arrival to our facility, patient underwent evaluation in the emergency department. Vital signs upon arrival show blood pressure 134/75, heart rate 70, respiratory rate 20, temp 98.6 F, and SpO2 of 95% on 2 L. EKG completed showing atrial fibrillation with a controlled ventricular rate of [address] head and cervical spine revealing moderate to severe degenerative disc disease throughout the cervical spine but negative for acute fracture or subluxation and CT head revealing age-related changes with encephalomalacia of the right parietal-occipital region. Chest x- ray showing atherosclerotic disease but negative for acute cardiopulmonary process. X-ray right hip showing acute transcervical fracture of the proximal right femur with varus angulation. Labs completed and reviewed. CBC unremarkable. Coagulation profile showing elevated PT of 18.5, subtherapeutic INR of 1.8, and PTT of 33.7. BMP showing sodium 136, bicarb of 21, and elevated anion gap of 13 and renal function consistent with known CKD stage IIIa with BUN of 22, creatinine 1.06, GFR 50. Blood glucose was 157. Magnesium was slightly low at 1.7. Her profile showing elevated AST of 55 otherwise normal findings. Troponin was negative at less than 0.012 and proBNP 5810. Serum alcohol level was less than 10. COVID and RSV were negative but patient positive for influenza A. Physical exam: Patient was seen and fully evaluated at bedside, she continues to have increased oxygenation needs throughout the night and currently remains on 8 LO2 via high flow NC cannula. Currently SpO2 is 97% on 8 L. Patient turned down to 6 L at this time maintaining SpO2 of 96%. Discussed with RN at bedside attempt to wean as patient tolerates. Vital signs reviewed and stable. General: Nontoxic, no distress and appears stated age. Derm: Skin warm and dry, normal coloration for ethnicity. Head: Atraumatic, normocephalic and symmetric. Eyes: EOM's intact, no lid lag, and anicteric sclera Mouth: no lip lesions, mucus membranes moist Cardiovascular: Irregularly irregular, soft systolic murmur, positive posterior tibial pulses bilaterally, and cap refill < 2 seconds. Lungs: Respirations even, regular, and unlabored on 4 L O2 via nasal cannula. Lungs with diffuse rhonchi and soft expiratory wheezes bilaterally. Abdominal: Soft, nontender to palpation, no guarding, no appreciable organomegaly Ext: No gross muscle atrophy, no edema, no contractures. Movement and sensation intact. Varicose veins present. Patient with lateral rotation and shortening of right leg Neuro: Speech clear, face symmetrical and CN II-XII grossly intact with no noted focal neuro deficits Psych: Alert and oriented to person, place, time, and situation. Appropriate and pleasant affect. Assessment and Plan of Care: Preoperative clearance Transcervical fracture of the proximal right femur with varus angulation -Revised cardiac risk score is 2 and METS score is 4. -NSQIP surgical risk calculator completed showing patient is at a 10.4% risk of serious complications with average risk being 11%, increased risk of developing pneumonia at 3.2% with average risk being 2.6%, and below average risk of at 2% with average risk being 3.6%. -Secondary to patients cardiac history and presenting with syncopal episode, discussed with physical ther (Dr. Pruitt) and cardiology to provide cardiac clearance prior to patient undergoing surgical intervention. -Patient is at an elevated risk to undergo any surgical procedures at this time secondary to history as well as current infection with influenza A. Patient will be at high risk for postoperative pneumonia. However due to urgent need for surgical repair of right femur fracture, there are no absolute contraindications for her to undergo surgery from a medical standpoint at this time once cleared by physical ther and regional commercial sales manager. Patient will require continuous telemetry monitoring preoperatively, intraoperatively, and postoperatively. Influenza A infection Acute hypoxic respiratory failure, secondary to above and suspect underlying undiagnosed COPD -Suspect underlying COPD, however patient denies history of COPD or reports of shortness of breath at home. She denies using inhalers or nebulizer treatments at home. Patient is a longtime smoker. -Consult placed to pulmonology as patient is requiring 4 L O2 with morning SpO2 of 91%. With increased oxygen needs and current influenza A infection with suspected underlying COPD, recommend pulmonology clearance for surgery. Discussed case in detail with Dr. Gunn. -Oxygenation to be administered and titrated as needed to maintain SPO2 equal to or greater than 92%. Patient currently on 4 L O2 via nasal cannula with SpO2 of 96%. -Telemetry monitoring. -Monitor pulse-oximetry -Duonebs scheduled 4 times daily and as needed for SOB and/or wheezing -Incentive Spirometry -Steroids: Discussed with orthopedic surgery PA, they were in agreement for administration of one-time dose of Solu-Medrol 125 mg IVP prior to surgery. -Tamiflu 30 mg p.o. every 12 hours x 5 days (day 2). Syncopal episode, believed to be vasovagal episode vs orthostatic hypotension Abnormal CT brain, showing encephalomalacia of the right parietal/occipital region Chronic atrial fibrillation Subtherapeutic INR History of CVA Hypertension Hyperlipidemia -Consult placed to physical ther and discussed plan of care with Dr. Pruitt stating patient cleared from cardiac perspective for discharge. -Consult placed to neurologist, discussed with neurologist, Dr. Osullivan stating abnormal CT findings appear old, not acute finding. -Patient to remain on continuous telemetry monitoring with neurochecks every 4 hours. -Unable to evaluate orthostatic vital signs secondary to acute fracture of right femur and immobilization. -Coumadin held secondary to scheduled hemiarthroplasty of right hip, recommend resumption once cleared by primary admitting orthopedic surgery team. -Order placed for aspirin 81 mg p.o. x 1 dose and patient started on atorvastatin 40 mg nightly. Recommend daily aspirin once cleared by orthopedic surgery team. -Initial troponin less than 0.012 with repeat troponin of 0.016 and 0.017. -Echocardiogram completed, awaiting report ALEE on CKD stage IIIa -Nolasco catheter in place. Documented urine output over the past 24 hours is 1200 cc. -Strict I's and O's -Continue IV fluid hydration with lactated Ringer's at 130 cc/h with close monitoring of renal function with repeat morning labs. Nicotine dependence -Recommend smoking cessation and order placed for nicotine patch 14 mg daily. Data and imaging reviewed: -Vital signs reviewed. Blood pressure 121/74, heart rate 85, respiratory rate 16, temp 98.2 F, and SpO2 of 97% on 8 L, decreasing to 6 L with SpO2 of 96%. -Morning labs reviewed. CBC showing leukocytosis with WBC count of 10.88, hemoglobin 11.8. Coagulation profile showing PT of 15.9 and INR of 1.5. BMP showing continued elevated but slightly improved renal function with BUN of 32.3, creatinine 1.6, and GFR of 32. Liver profile showing elevated AST of 84, albumin 3.1, and total protein of 5.3. Thank you for allowing us to participate in the care of this pleasant patient. Do not hesitate to contact us with questions. Someone can be reached from the [facility] hospitalist group all hours of the day at [phone] or via [employer]. Patient was seen independently by Nurse Practitioner. This document was prepared using ubigrate dictation software. Please allow for errors in scalehouse attendant while rare they do occur. Antonio Mcmahan NP rendered care for this patient independently, reviewed the findings and plan as documented in the note above and agree with plan. I did not physically speak with or examine the patient on this date. Objective - Vital Signs Vital signs: Vital Signs Temp 98.6 F 08/17/24 14:05 Pulse 76 08/17/24 15:10 Resp 18 08/17/24 14:05 BP 148/72 08/17/24 14:05 Pulse Ox 94 L 08/17/24 14:05 FiO2 Intake & Output 08/16/24 08/17/24 08/17/24 18:59 06:59 18:59 Output Total 500 700 Balance -500 -700 Output: Urine 500 700 Uretheral (Nolasco) 700 Other: Voiding Method Indwelling Catheter Indwelling Catheter Indwelling Catheter - Labs CBC & Chem 7: 08/17/24 03:07 08/17/24 03:07 Labs: Abnormal Lab Results - Last 24 Hours (Table) 08/17/24 08/17/24 08/17/24 Range/Units 03:07 03:07 03:07 WBC 10.88 H (4.50-10.00) X 10*3/uL RBC 4.05 L (4.10-5.20) X 10*6/uL Hgb 11.8 L (12.0-15.0) g/dL MCHC 31.5 L (32.0-37.0) g/dL RDW 15.2 H (11.5-14.5) % PT 15.9 H (10.0-12.5) sec INR 1.5 H (<1.2) BUN 32.3 H (9.0-27.0) mg/dL Creatinine 1.6 H (0.6-1.5) mg/dL Est GFR (CKD-EPI) 32 L (>=60) BUN/Creatinine Ratio 20.19 H (12.00-20.00) Ratio Calcium 8.1 L (8.7-10.3) mg/dL Total Bilirubin <0.2 L (0.3-1.2) mg/dL AST 84 H (13-35) U/L Total Protein 5.3 L (6.2-8.2) g/dL Albumin 3.1 L (3.8-4.9) g/dL Albumin/Globulin Ratio 1.41 L (1.60-3.17) Ratio 08/17/24 Range/Units 09:54 WBC (4.50-10.00) X 10*3/uL RBC (4.10-5.20) X 10*6/uL Hgb (12.0-15.0) g/dL MCHC (32.0-37.0) g/dL RDW (11.5-14.5) % PT 16.3 H (10.0-12.5) sec INR 1.6 H (<1.2) BUN (9.0-27.0) mg/dL Creatinine (0.6-1.5) mg/dL Est GFR (CKD-EPI) (>=60) BUN/Creatinine Ratio (12.00-20.00) Ratio Calcium (8.7-10.3) mg/dL Total Bilirubin (0.3-1.2) mg/dL AST (13-35) U/L Total Protein (6.2-8.2) g/dL Albumin (3.8-4.9) g/dL Albumin/Globulin Ratio (1.60-3.17) Ratio
--- NOTE | 2024-08-17 18:30 | P.PN ---
Subjective Progress Note Date: 08/17/24 This is a 79-year-old female patient who is being seen in consult for an acute hypoxic respiratory failure and a fall and a hip fracture. This patient has history of CVA without any residual deficits, chronic stage IIIa kidney disease, hypertension hyperlipidemia and history of chronic atrial fibrillation and she has been maintained on anticoagulation with warfarin. The patient presents to the emergency department after a fall. Apparently, she was getting progressively more tired and she was also having episodes of nausea and emesis and diarrhea on multiple occasions. She was getting progressively more dehydrated. She is not recalling the fall and she is unsure if she experienced any dizziness or lightheadedness prior to this event. The patient is complaining of pain in her right hip/right lower extremity area. In the emergency department, further investigation was done. CAT scan of the brain showed no acute abnormalities other than some age-related changes with encephalomalacia and an old right occipital/parietal infarcts. CT scan of the neck showed moderate to severe degenerative changes involving the cervical spine. The blood work showed a white cell count of 8.6 with a was 1.4 and a platelet count of 216. Her INR is at 1.6 and a PT of 16.9 off warfarin. Her BUN is at 31 with a creatinine of 1.7 and the patient has sustained acute kidney injury probably due to his advanced ago depletion and dehydration. Sodium levels at 136 and a potassium of 5. Serum bicarb is at 22. LFTs are normal. She tested positive for influenza A. Serum alcohol was negative. UA was no nsignificant other than +1 protein. Chest x-ray was reviewed and it showed no acute abnormalities. There is some increased bilateral pulmonary vascular markings. No consolidation. No airspace disease. Echocardiogram showed a preserved LV function. X-ray of the hip and the pelvis showed a acute transcervical fracture of the proximal right femur and orthopedic surgery has been consulted and the patient is being contemplated for surgery with the next 24 hours. In terms of oxygenation, the patient was initially on 2 L and her oxygen requirements progressively went up and she is currently up to 8 L nasal cannula. No previous history of DVTs or pulmonary embolism. No angina. No palpitations. No other complaints otherwise for now. On 08/17/2024, the patient is still awaiting a hip surgery. This was postponed that the patient was having an acute hypoxic respiratory failure and the patient is currently on 60 L O2 nasal cannula with a pulse ox of 96%. Follow-up chest x-ray showed right upper lobe consolidation repeat chest x-ray from today shows a persistent right upper lobe infiltrate with a new right basilar infiltrate/atelectasis. The patient remains on DuoNeb. The patient remains on a combination of Rocephin and Zithromax. The patient is also on Tamiflu. The white cell count is at 10.8, hemoglobin 11.8 and platelet count of 211. Sodium is at 142, BUN 32 with a creatinine of 1.6. Potassium is at 4.8, LFTs are normal.Noted the patient also sustained acute kidney injury. Creatinine from yesterday was at 1.7 and the patient is currently receiving IV fluids and sub sequent creatinine from today is at 1.6. She remains on lactated Ringer at rate of 130 cc an hour. Pain is under adequate control for now.Echocardiogram was also completed and the patient was found to have a preserved LV function, moderate right ventricular dilatation with a RVSP of 48 with mild to moderate aortic regurgitation. Objective - Vital Signs Vital signs: Vital Signs Temp 98.6 F 08/17/24 14:05 Pulse 76 08/17/24 15:10 Resp 18 08/17/24 14:05 BP 148/72 08/17/24 14:05 Pulse Ox 94 L 08/17/24 14:05 FiO2 Intake & Output 08/16/24 08/17/24 08/17/24 18:59 06:59 18:59 Output Total 893 431 8121 Balance -500 -700 -1200 Output: Urine 920 577 1334 Uretheral (Nolasco) 700 Other: Voiding Method Indwelling Catheter Indwelling Catheter Indwelling Catheter # Bowel Movements 1 - Exam The patient is currently on 6 L of oxygen by nasal cannula. Denies having any significant respiratory distress General: Nontoxic, no distress and appears stated age. Derm: Skin warm and dry, normal coloration for ethnicity. Head: Atraumatic, normocephalic and symmetric. Eyes: EOM's intact, no lid lag, and anicteric sclera Mouth: no lip lesions, mucus membranes moist Cardiovascular: Irregularly irregular, soft systolic murmur, positive posterior tibial pulses bilaterally, and cap refill < 2 seconds. Lungs: Respirations even, regular, and unlabored on room air. Lungs with diffuse expiratory wheezes bilaterally. Abdominal: soft, nontender to palpation, no guarding, no appreciable organomegaly Ext: No gross muscle atrophy, no edema, no contractures. Movement and sensation intact. Varicose veins present. Patient with lateral rotation and shortening of right leg Neuro: Speech clear, face symmetrical and CN II-XII grossly intact with no noted focal neuro deficits Psych: Alert and oriented to person, place, time, and situation. Appropriate and pleasant affect. - Labs CBC & Chem 7: 08/17/24 03:07 08/17/24 03:07 Labs: Abnormal Lab Results - Last 24 Hours (Table) 08/17/24 08/17/24 08/17/24 Range/Units 03:07 03:07 03:07 WBC 10.88 H (4.50-10.00) X 10*3/uL RBC 4.05 L (4.10-5.20) X 10*6/uL Hgb 11.8 L (12.0-15.0) g/dL MCHC 31.5 L (32.0-37.0) g/dL RDW 15.2 H (11.5-14.5) % PT 15.9 H (10.0-12.5) sec INR 1.5 H (<1.2) BUN 32.3 H (9.0-27.0) mg/dL Creatinine 1.6 H (0.6-1.5) mg/dL Est GFR (CKD-EPI) 32 L (>=60) BUN/Creatinine Ratio 20.19 H (12.00-20.00) Ratio Calcium 8.1 L (8.7-10.3) mg/dL Total Bilirubin <0.2 L (0.3-1.2) mg/dL AST 84 H (13-35) U/L Total Protein 5.3 L (6.2-8.2) g/dL Albumin 3.1 L (3.8-4.9) g/dL Albumin/Globulin Ratio 1.41 L (1.60-3.17) Ratio 08/17/24 Range/Units 09:54 WBC (4.50-10.00) X 10*3/uL RBC (4.10-5.20) X 10*6/uL Hgb (12.0-15.0) g/dL MCHC (32.0-37.0) g/dL RDW (11.5-14.5) % PT 16.3 H (10.0-12.5) sec INR 1.6 H (<1.2) BUN (9.0-27.0) mg/dL Creatinine (0.6-1.5) mg/dL Est GFR (CKD-EPI) (>=60) BUN/Creatinine Ratio (12.00-20.00) Ratio Calcium (8.7-10.3) mg/dL Total Bilirubin (0.3-1.2) mg/dL AST (13-35) U/L Total Protein (6.2-8.2) g/dL Albumin (3.8-4.9) g/dL Albumin/Globulin Ratio (1.60-3.17) Ratio Assessment and Plan Plan: Acute hypoxic respiratory failure, currently on 6 L of oxygen by nasal cannula Right upper lobe infiltrate/consolidation involving on subsequent chest x-ray. Rule out influenza infection with secondary pneumonia, which could be potentially bacterial. The patient is currently on a combination of Rocephin and Zithromax and Tamiflu. Acute influenza A infection, currently on Tamiflu Acute dehydration with nausea emesis and diarrhea with intravascular volume depletion, improving Acute kidney injury likely due to intravascular volume depletion,, still on IV fluids and the patient is on lactated Ringer at rate of 130 cc an hour. Creatinine is down to 1.6 Acute fracture of the right femur post fall Presyncope secondary to above History of CVA Chronic A-fib, maintained on anticoagulation with warfarin. PT/INR subth erapeutic at this point in the Coumadin is on hold in preparation for hip surgery Hypertension Hyperlipidemia Plan Titrate oxygen flow to maintain saturation above 90%, currently on 6 L Continue Rocephin and Zithromax Continue Tamiflu Continue IV fluids lactated Ringer at rate of 130 cc an hour Echo was noted and the patient has a preserved LV function Keep off warfarin and monitor the PT/INR Monitor renal function Right hip ORIF once clinically more stable. Will continue to follow.
--- NOTE | 2024-08-17 20:57 | EEG ---
ELECTROENCEPHALOGRAM REPORT CLINICAL HISTORY: This is an 79-year-old woman with a syncopal spell. The video EEG is obtained to evaluate for seizure epileptiform activity. RELEVANT MEDICATIONS: The patient is not on any antiseizure medication. EEG TYPE: This is a routine 21-channel EEG with video using the 10/20 electrode placement system. DESCRIPTION: Wakefulness is only obtained. During awake state, the background consists of low-to- moderate voltage of 5 to 6 hertz activity. There is no physiological stage 2 sleep architecture. There is no focal slowing noted. There is diffuse moderate amount of myogenic artifact. Interictal and ictal is none. ACTIVATION PROCEDURE: Photic stimulation did not evoke a posterior driving response with the limitation of examination. There is no abnormality during the photic stimulation. Hyperventilation is not performed. CLINICAL INTERPRETATION: This is an abnormal routine EEG. The background slowing is suggestive of moderate encephalopathy. Otherwise, there is no focal slowing, epileptiform discharge, or seizure on the EEG. Clinical correlation is recommended. MMMALENA / IJN: [id number] /
[2024-08-18] MEDS ORDERED: TRANEXAMIC 1,000 MG/100ML-NACL 1,000 MG in SALINE 1 100ML.BAG IVPB PRN (06:00)
[2024-08-18 08:56] LABS: Magnesium 1.9 mg/dL (1.5-2.4)
[2024-08-18 09:00] LABS: HCT 41.2 % (37.2-46.3); HGB 12.9 g/dL (12.0-15.0); MCHC 31.3 g/dL (32.0-37.0); MCV 92.6 FL (80.0-97.0); Mean Platelet Volume 11.5 FL (9.5-12.2); NRBC Per 100 WBC 0 X 10*3/uL (0.00-0.01); Platelet Count 207 X 10*3/uL (140-440); RBC 4.45 X 10*6/uL (4.10-5.20); RDW 15.4 % (11.5-14.5)
[2024-08-18 09:05] LABS: ALT 37 U/L (8-44); AST 139 U/L (13-35); Alkaline Phosphatase 76 U/L (41-126); Blood Urea Nitrogen 22.2 mg/dL (9.0-27.0); Calcium 8.2 mg/dL (8.7-10.3); Carbon Dioxide 25.3 mmol/L (21.6-31.8); Chloride 110 mmol/L (96-109); Globulin 2.3 g/dL (1.6-3.3); Glucose 104 mg/dL (70-110); Potassium 4.7 mmol/L (3.5-5.5); Sodium 143 mmol/L (135-145); Total Bilirubin <0.2 mg/dL (0.3-1.2); Total Protein 5.3 g/dL (6.2-8.2)
[2024-08-18 09:18] LABS: INR 1.27 sec (0.93-1.11); Prothrombin Time 14.2 sec (9.9-11.9)
--- NOTE | 2024-08-18 11:19 | P.PN ---
Subjective HISTORY OF PRESENT ILLNESS: Patient is a 79-year-old female with past medical history of chronic atrial fibrillation on anticoagulation with warfarin, hypertension dyslipidemia prior CVA. She also has CKD and is a smoker. She presented to the hospital because for last few days she has been feeling more weak, nauseous, having vomiting and diarrhea. Apparently she had influenza A and since then she has been very weak. She reports that she was in the restroom and was just gotten vomiting and when she stood up she remember waking up on the floor of the bathroom with severe pain in the right hip. She is not able to give me specifications if she passed out. The last thing she remembers was vomiting the next and she remembers was finding herself on floor. 08/16 Patient seen and examined. Patient has been having some more confusion. She has with a one-to-one sitter. Her creatinine went from 1.0-1.7 and had decreased urine output and therefore given liter bolus. She has had worsening hypoxia with increasing oxygen demands and currently on high flow. She denies any chest pain or pressure. She states she has some appetite. Currently receiving IV fluids at 100 cc/h. Echocardiogram performed which shows EF 50 to 55%. Chest x-ray concerning for upper infiltrate. 08/17 Patient seen and examined. Patient denies any chest pain or pressure. Tolerating diet. Creatinine mildly improved from 1.7-1.6 with IV fluids. 08/18/2024 Patient examined this morning at the bedside. Patient currently denies chest pain or pressure. She denies shortness of breath. Patient is positive for influenza A. She is awaiting hip surgery. INR today 1.27. Echocardiogram completed revealing ejection fraction 50 to 55%, mild to moderate AI, mild TR, RVSP 48. PHYSICAL EXAM: VITAL SIGNS: Reviewed. GENERAL: Well-developed in no acute distress. NECK: Supple. No JVD or thyromegaly LUNGS: Respirations even and unlabored. Lungs with bilateral rhonchi HEART: Regular rate and rhythm. S1 and S2 heard. EXTREMITIES: Normal range of motion. No clubbing or cyanosis. Peripheral pulses intact. No lower extremity edema ASSESSMENT: Acute influenza A Syncope, suspect vasovagal in nature Right hip fracture, awaiting surgical intervention Permanent atrial fibrillation with controlled ventricular rate Hypertension Hyperlipidemia Acute on chronic kidney disease History of CVA PLAN: Coumadin remains on hold. INR today 1.27. Resume Coumadin postoperatively Continue additional cardiac medications including atorvastatin and metoprolol succinate No absolute contraindications for patient to proceed with surgery from a cardiac standpoint Further recommendations pending patient course Nurse practitioner note has been reviewed by physician. Signing provider agrees with the documented findings, assessment, and plan of care documented by DRY WALL FINISHER as a scribe. Objective - Vital Signs Vital signs: Vital Signs Temp 98.2 F 08/18/24 07:02 Pulse 94 08/18/24 10:19 Resp 20 08/18/24 07:02 BP 145/79 08/18/24 07:02 Pulse Ox 97 08/18/24 10:06 FiO2 Intake & Output 08/17/24 08/18/24 08/18/24 18:59 06:59 18:59 Output Total 1200 500 Balance -1200 -500 Output: Urine 1200 500 Other: Voiding Method Indwelling Catheter Indwelling Catheter Indwelling Catheter # Bowel Movements 1 - Labs CBC & Chem 7: 08/18/24 03:03 08/18/24 03:03 Labs: Abnormal Lab Results - Last 24 Hours (Table) 08/18/24 08/18/24 08/18/24 Range/Units 03:03 03:03 03:03 MCHC 31.3 L (32.0-37.0) g/dL RDW 15.4 H (11.5-14.5) % PT 14.2 H (9.9-11.9) sec INR 1.27 H (0.93-1.11) sec Chloride 110 H (96-109) mmol/L Est GFR (CKD-EPI) 46 L (>=60) Calcium 8.2 L (8.7-10.3) mg/dL Total Bilirubin <0.2 L (0.3-1.2) mg/dL AST 139 H (13-35) U/L Total Protein 5.3 L (6.2-8.2) g/dL Albumin 3.0 L (3.8-4.9) g/dL Albumin/Globulin Ratio 1.30 L (1.60-3.17) Ratio
[2024-08-18 12:36] LABS: INR 1.3 (<1.2); Partial Thromboplastin Time 30.3 sec (22.0-30.0); Prothrombin Time 13.6 sec (10.0-12.5)
--- NOTE | 2024-08-18 14:51 | P.PN ---
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 She presented to the emergency department via EMS after fall/syncopal episode at home. Patient reports she began feeling under the weather on Friday evening and just extra tired and states by morning she began having nausea, vomiting, and diarrhea multiple times daily. Patient reports she was in the restroom and just got done vomiting twice and stood up and the next thing she remembers was waking up on the bathroom floor with severe pain to her right hip. Patient does not recall fall and is unsure if she experienced any dizziness/lightheadedness prior to event. Patient currently reports only pain is to right hip and leg. She denies having any headache, lightheadedness, dizziness, chest pain, palpitations, shortness of breath, or experiencing any numbness in her extremities. Upon arrival to our facility, patient underwent evaluation in the emergency department. Vital signs upon arrival show blood pressure 134/75, heart rate 70, respiratory rate 20, temp 98.6 F, and SpO2 of 95% on 2 L. EKG completed showing atrial fibrillation with a controlled ventricular rate of [address] head and cervical spine revealing moderate to severe degenerative disc disease throughout the cervical spine but negative for acute fracture or subluxation and CT head revealing age-related changes with encephalomalacia of the right parietal-occipital region. Chest x- ray showing atherosclerotic disease but negative for acute cardiopulmonary process. X-ray right hip showing acute transcervical fracture of the proximal right femur with varus angulation. Labs completed and reviewed. CBC unremarkable. Coagulation profile showing elevated PT of 18.5, subtherapeutic INR of 1.8, and PTT of 33.7. BMP showing sodium 136, bicarb of 21, and elevated anion gap of 13 and renal function consistent with known CKD stage IIIa with BUN of 22, creatinine 1.06, GFR 50. Blood glucose was 157. Magnesium was slightly low at 1.7. Her profile showing elevated AST of 55 otherwise normal findings. Troponin was negative at less than 0.012 and proBNP 5810. Serum alcohol level was less than 10. COVID and RSV were negative but patient positive for influenza A. Repeat chest x-ray showing right upper lobe acute infiltrate. Patient was started on IV antibiotics with Rocephin 2 g daily and a Zithromax 500 mg daily in addition to Tamiflu as recommended by [employer] Supervisor. Physical exam: Patient was seen and fully evaluated at bedside, she continues to have increased oxygenation needs throughout the night and currently remains on 8 LO2 via high flow NC cannula. Currently SpO2 is 97% on 8 L. Patient turned down to 6 L at this time maintaining SpO2 of 96%. Discussed with RN at bedside attempt to wean as patient tolerates. Vital signs reviewed and stable. General: Nontoxic, no distress and appears stated age. Derm: Skin warm and dry, normal coloration for ethnicity. Head: Atraumatic, normocephalic and symmetric. Eyes: EOM's intact, no lid lag, and anicteric sclera Mouth: no lip lesions, mucus membranes moist Cardiovascular: Irregularly irregular, soft systolic murmur, positive posterior tibial pulses bilaterally, and cap refill < 2 seconds. Lungs: Respirations even, regular, and unlabored on 6 L O2 via nasal cannula. Lungs with diffuse rhonchi and soft expiratory wheezes bilaterally. Abdominal: Soft, nontender to palpation, no guarding, no appreciable organomegaly Ext: No gross muscle atrophy, no edema, no contractures. Movement and sensation intact. Varicose veins present. Patient with lateral rotation and shortening of right leg Neuro: Speech clear, face symmetrical and CN II-XII grossly intact with no noted focal neuro deficits Psych: Alert and oriented to person, place, time, and situation. Appropriate and pleasant affect. Assessment and Plan of Care: Preoperative clearance Transcervical fracture of the proximal right femur with varus angulation -Revised cardiac risk score is 2 and METS score is 4. -NSQIP surgical risk calculator completed showing patient is at a 10.4% risk of serious complications with average risk being 11%, increased risk of developing pneumonia at 3.2% with average risk being 2.6%, and below average risk of at 2% with average risk being 3.6%. -Secondary to patients cardiac history and presenting with syncopal episode, discussed with inoculator (Dr. Pruitt) and cardiology to provide cardiac clearance prior to patient undergoing surgical intervention. -Patient is at an elevated risk to undergo any surgical procedures at this time secondary to history as well as current infection with influenza A resulting in acute hypoxic respiratory failure. Patient will be at high risk for postoperative pneumonia. However due to urgent need for surgical repair of r ight femur fracture, there are no absolute contraindications for her to undergo surgery from a medical standpoint at this time. She has been cleared from cardiac perspective and once cleared by outpatient clerk recommend proceeding with needed surgical repair. Influenza A infection Right upper lobe pneumonia Acute hypoxic respiratory failure, secondary to above and suspect underlying undiagnosed COPD -Suspect underlying COPD, however patient denies history of COPD or reports of shortness of breath at home. She denies using inhalers or nebulizer treatments at home. Patient is a longtime smoker. -Consult placed to pulmonology as patient is requiring 4 L O2 with morning SpO2 of 91%. With increased oxygen needs and current influenza A infection with suspected underlying COPD, recommend pulmonology clearance for surgery. Discuss ed case in detail with Dr. Gunn. -Oxygenation to be administered and titrated as needed to maintain SPO2 equal to or greater than 92%. Patient currently on 4 L O2 via nasal cannula with SpO2 of 96%. -Telemetry monitoring. -Monitor pulse-oximetry -Duonebs scheduled 4 times daily and as needed for SOB and/or wheezing -Incentive Spirometry -Steroids: Discussed with orthopedic surgery PA, they were in agreement for administration of one-time dose of Solu-Medrol 125 mg IVP prior to surgery. -Tamiflu 30 mg p.o. every 12 hours x 5 days (day 3) along with Rocephin 2 g daily and Zithromax 500 mg daily. Syncopal episode, believed to be vasovagal episode vs orthostatic hypotension Abnormal CT brain, showing encephalomalacia of the right parietal/occipital region Chronic atrial fibrillation Subtherapeutic INR History of CVA Hypertension Hyperlipidemia -Consult placed to inoculator and discussed plan of care with Dr. Pruitt stating patient cleared from cardiac perspective for discharge. -Neurology evaluated, discussed with neurologist, Dr. Osullivan stating abnormal CT findings appear old, not acute finding. -Patient to remain on continuous telemetry monitoring with neurochecks every 4 hours. -Unable to evaluate orthostatic vital signs secondary to acute fracture of right femur and immobilization. -Coumadin held secondary to scheduled hemiarthroplasty of right hip, recommend resumption once cleared by primary admitting orthopedic surgery team. -Continue atorvastatin 40 mg nightly. Recommend daily aspirin once cleared by orthopedic surgery team. -Initial troponin less than 0.012 with repeat troponin of 0.016 and 0.017. -Echocardiogram completed showing a preserved EF of 50 to 55% with moderate right ventricular dilation and mild to moderate aortic regurgitation and mild tricuspid regurgitation. ALEE on CKD stage IIIa -Nolasco catheter in place. Documented urine output over the past 24 hours is 1200 cc. -Strict I's and O's -Continue IV fluid hydration with lactated Ringer's at 130 cc/h with close monitoring of renal function with repeat morning labs. Nicotine dependence -Recommend smoking cessation and order placed for nicotine patch 14 mg daily. Data and imaging reviewed: -Vital signs reviewed. Blood pressure 145/79, heart rate 96, respiratory rate 20, temp 98.2 F, and SpO2 of 93% on 6 L high flow nasal cannula. -Morning labs reviewed. CBC unremarkable. Coagulation profile showing PT of 14.2 and INR of 1.27. BMP showing mild hyperchloremia with chloride of 110 blood glucose of 104. Liver profile showing further elevated AST of 139, total protein 5.3, and albumin of 3.0. Thank you for allowing us to participate in the care of this pleasant patient. Do not hesitate to contact us with questions. Someone can be reached from the [facility] hospitalist group all hours of the day at [phone] or via [employer]. Patient was seen independently by Nurse Practitioner. This document was prepared using [employer] dictation software. Please allow for errors in instrument mechanic weapons system while rare they do occur. Antonio Mcmahan NP rendered care for this patient independently, reviewed the findings and plan as documented in the note above and agree with plan. I did not physically speak with or examine the patient on this date. Objective - Vital Signs Vital signs: Vital Signs Temp 98.2 F 08/18/24 07:02 Pulse 96 08/18/24 07:02 Resp 20 08/18/24 07:02 BP 145/79 08/18/24 07:02 Pulse Ox 93 L 08/18/24 07:02 FiO2 Intake & Output 08/17/24 08/18/24 08/18/24 18:59 06:59 18:59 Output Total 1200 500 Balance -1200 -500 Output: Urine 1200 500 Other: Voiding Method Indwelling Catheter Indwelling Catheter # Bowel Movements 1 - Labs CBC & Chem 7: 08/18/24 03:03 08/18/24 03:03 Labs: Abnormal Lab Results - Last 24 Hours (Table) 08/17/24 08/18/24 Range/Units 09:54 03:03 MCHC 31.3 L (32.0-37.0) g/dL RDW 15.4 H (11.5-14.5) % PT 16.3 H (10.0-12.5) sec INR 1.6 H (<1.2)
--- NOTE | 2024-08-18 17:00 | P.PN ---
Subjective Progress Note Date: 08/18/24 This is an 79-year-old female who is admitted for a right hip fracture. Patient is being followed closely for influenza and pneumonia. Patient is seen and evaluated at bedside today. Patient denies any new complaints today. Surgery has been postponed due elevated INR. Objective - Vital Signs Vital signs: Vital Signs Temp 98.1 F 08/18/24 14:07 Pulse 106 H 08/18/24 16:46 Resp 20 08/18/24 14:07 BP 145/72 08/18/24 14:07 Pulse Ox 93 L 08/18/24 16:35 FiO2 Intake & Output 08/17/24 08/18/24 08/18/24 18:59 06:59 18:59 Output Total 6683 655 1250 Balance -1200 -500 -1700 Output: Urine 9485 323 9985 Other: Voiding Method Indwelling Catheter Indwelling Catheter Indwelling Catheter # Bowel Movements 1 - Exam On exam patient is resting comfortably in bed in no acute distress. Patient is alert and oriented 3. Right lower extremity: Skin is intact. There is mild soft tissue swelling. There is tenderness over the right hip. Patient has limited range of motion of the right hip secondary to pain. Right lower extremity is warm and well- perfused. Calf is soft and nontender to palpation. Sensation intact. Neurovascular status and circulatory status are intact. - Labs CBC & Chem 7: 08/18/24 03:03 08/18/24 03:03 Labs: Abnormal Lab Results - Last 24 Hours (Table) 08/18/24 08/18/24 08/18/24 Range/Units 03:03 03:03 03:03 MCHC 31.3 L (32.0-37.0) g/dL RDW 15.4 H (11.5-14.5) % PT 14.2 H (9.9-11.9) sec INR 1.27 H (0.93-1.11) sec APTT (22.0-30.0) sec Chloride 110 H (96-109) mmol/L Est GFR (CKD-EPI) 46 L (>=60) Calcium 8.2 L (8.7-10.3) mg/dL Total Bilirubin <0.2 L (0.3-1.2) mg/dL AST 139 H (13-35) U/L Total Protein 5.3 L (6.2-8.2) g/dL Albumin 3.0 L (3.8-4.9) g/dL Albumin/Globulin Ratio 1.30 L (1.60-3.17) Ratio 08/18/24 Range/Units 11:59 MCHC (32.0-37.0) g/dL RDW (11.5-14.5) % PT 13.6 H (9.9-11.9) sec INR 1.3 H (0.93-1.11) sec APTT 30.3 H (22.0-30.0) sec Chloride (96-109) mmol/L Est GFR (CKD-EPI) (>=60) Calcium (8.7-10.3) mg/dL Total Bilirubin (0.3-1.2) mg/dL AST (13-35) U/L Total Protein (6.2-8.2) g/dL Albumin (3.8-4.9) g/dL Albumin/Globulin Ratio (1.60-3.17) Ratio Assessment and Plan (1) Closed right hip fracture Current Visit: Yes Status: Acute Code(s): S72.001A - FRACTURE OF UNSP PART OF NECK OF RIGHT FEMUR, INIT SNOMED Code(s): 145297165 (2) Fall Current Visit: Yes Status: Acute Code(s): W19.XXXA - UNSPECIFIED FALL, INITIAL ENCOUNTER SNOMED Code(s): 8424360 Plan: 1. N.p.o. after midnight. 2. Continue bedrest and pain control. 3. Appreciate input from internal medicine, pulmonology and cardiology. 4. Planning for right hip hemiarthroplasty on 08/19/2024 pending INR results.
--- NOTE | 2024-08-18 19:48 | P.PN ---
Subjective Progress Note Date: 08/18/24 This is a 79-year-old female patient who is being seen in consult for an acute hypoxic respiratory failure and a fall and a hip fracture. This patient has history of CVA without any residual deficits, chronic stage IIIa kidney disease, hypertension hyperlipidemia and history of chronic atrial fibrillation and she has been maintained on anticoagulation with warfarin. The patient presents to the emergency department after a fall. Apparently, she was getting progressively more tired and she was also having episodes of nausea and emesis and diarrhea on multiple occasions. She was getting progressively more dehydrated. She is not recalling the fall and she is unsure if she experienced any dizziness or lightheadedness prior to this event. The patient is complaining of pain in her right hip/right lower extremity area. In the emergency department, further investigation was done. CAT scan of the brain showed no acute abnormalities other than some age-related changes with encephalomalacia and an old right occipital/parietal infarcts. CT scan of the neck showed moderate to severe degenerative changes involving the cervical spine. The blood work showed a white cell count of 8.6 with a was 1.4 and a platelet count of 216. Her INR is at 1.6 and a PT of 16.9 off warfarin. Her BUN is at 31 with a creatinine of 1.7 and the patient has sustained acute kidney injury probably due to his advanced ago depletion and dehydration. Sodium levels at 136 and a potassium of 5. Serum bicarb is at 22. LFTs are normal. She tested positive for influenza A. Serum alcohol was negative. UA was no nsignificant other than +1 protein. Chest x-ray was reviewed and it showed no acute abnormalities. There is some increased bilateral pulmonary vascular markings. No consolidation. No airspace disease. Echocardiogram showed a preserved LV function. X-ray of the hip and the pelvis showed a acute transcervical fracture of the proximal right femur and orthopedic surgery has been consulted and the patient is being contemplated for surgery with the next 24 hours. In terms of oxygenation, the patient was initially on 2 L and her oxygen requirements progressively went up and she is currently up to 8 L nasal cannula. No previous history of DVTs or pulmonary embolism. No angina. No palpitations. No other complaints otherwise for now. On 08/17/2024, the patient is still awaiting a hip surgery. This was postponed that the patient was having an acute hypoxic respiratory failure and the patient is currently on 60 L O2 nasal cannula with a pulse ox of 96%. Follow-up chest x-ray showed right upper lobe consolidation repeat chest x-ray from today shows a persistent right upper lobe infiltrate with a new right basilar infiltrate/atelectasis. The patient remains on DuoNeb. The patient remains on a combination of Rocephin and Zithromax. The patient is also on Tamiflu. The white cell count is at 10.8, hemoglobin 11.8 and platelet count of 211. Sodium is at 142, BUN 32 with a creatinine of 1.6. Potassium is at 4.8, LFTs are normal.Noted the patient also sustained acute kidney injury. Creatinine from yesterday was at 1.7 and the patient is currently receiving IV fluids and sub sequent creatinine from today is at 1.6. She remains on lactated Ringer at rate of 130 cc an hour. Pain is under adequate control for now.Echocardiogram was also completed and the patient was found to have a preserved LV function, moderate right ventricular dilatation with a RVSP of 48 with mild to moderate aortic regurgitation. On 08/18/2024, the patient is being seen for a follow-up. The patient is stable on oxygen which was titrated down to 4 L nasal cannula with a pulse ox of 97%. She remains uncomfortable due to her hip fracture. She has an acute influenza A infection for which she was given Tamiflu. She also developed a right upper lobe pulmonary consolidation/infiltrate and she is currently on IV Rocephin. She remains on DuoNeb nebulized treatments [id number]. She is off warfarin. Her current INR is down to 1.27. Limited cough and congestion. No significant sputum. The white cell count of 9.3 with a hemoglobin of 12.9 and a platelet count of 207. BUN is 22 with a creatinine 1.2 and sodium levels at 143 and a potassium level is at 4.7. The patient is still being followed up by orthopedic surgery. Surgery is to follow within the next 24 to 48 hours. Natali patel be kept n.p.o. after midnight and she is tentatively having her surgery done tomorrow which will involve a right hip hemiarthroplasty. The follow-up chest x-ray is also to be obtained in a.m. She remains on lactated Ringer at rate of 130 cc an hour. Rest of the medications remain unchanged. Echocardiogram was also done on 08/16/2024 and the patient has a preserved LV function with an EF of around 50 to 55%, RVSP of 48, moderate RV dilatation. Objective - Vital Signs Vital signs: Vital Signs Temp 98.2 F 08/18/24 07:02 Pulse 94 08/18/24 10:19 Resp 20 08/18/24 07:02 BP 145/79 08/18/24 07:02 Pulse Ox 97 08/18/24 10:06 FiO2 Intake & Output 08/17/24 08/18/24 08/18/24 18:59 06:59 18:59 Output Total 1200 500 Balance -1200 -500 Output: Urine 1200 500 Other: Voiding Method Indwelling Catheter Indwelling Catheter Indwelling Catheter # Bowel Movements 1 - Exam The patient is currently on 4 L of oxygen by nasal cannula. Denies having any significant respiratory distress General: Nontoxic, no distress and appears stated age. Derm: Skin warm and dry, normal coloration for ethnicity. Head: Atraumatic, normocephalic and symmetric. Eyes: EOM's intact, no lid lag, and anicteric sclera Mouth: no lip lesions, mucus membranes moist Cardiovascular: Irregularly irregular, soft systolic murmur, positive posterior tibial pulses bilaterally, and cap refill < 2 seconds. Lungs: Respirations even, regular, and unlabored on room air. Lungs with diffuse expiratory wheezes bilaterally. Abdominal: soft, nontender to palpation, no guarding, no appreciable organomegaly Ext: No gross muscle atrophy, no edema, no contractures. Movement and sensation intact. Varicose veins present. Patient with lateral rotation and shortening of right leg Neuro: Speech clear, face symmetrical and CN II-XII grossly intact with no noted focal neuro deficits Psych: Alert and oriented to person, place, time, and situation. Appropriate and pleasant affect. - Labs CBC & Chem 7: 08/18/24 03:03 08/18/24 03:03 Labs: Abnormal Lab Results - Last 24 Hours (Table) 08/18/24 08/18/24 08/18/24 Range/Units 03:03 03:03 03:03 MCHC 31.3 L (32.0-37.0) g/dL RDW 15.4 H (11.5-14.5) % PT 14.2 H (9.9-11.9) sec INR 1.27 H (0.93-1.11) sec Chloride 110 H (96-109) mmol/L Est GFR (CKD-EPI) 46 L (>=60) Calcium 8.2 L (8.7-10.3) mg/dL Total Bilirubin <0.2 L (0.3-1.2) mg/dL AST 139 H (13-35) U/L Total Protein 5.3 L (6.2-8.2) g/dL Albumin 3.0 L (3.8-4.9) g/dL Albumin/Globulin Ratio 1.30 L (1.60-3.17) Ratio Assessment and Plan Plan: Acute hypoxic respiratory failure, currently on 4 L of oxygen by nasal cannula Right upper lobe infiltrate/consolidation involving on subsequent chest x-ray. Rule out influenza infection with secondary pneumonia, which could be potentially bacterial. The patient is currently on a combination of Rocephin and Zithromax and Tamiflu. Acute influenza A infection, currently on Tamiflu Acute dehydration with nausea emesis and diarrhea with intravascular volume depletion, improving Acute kidney injury likely due to intravascular volume depletion,, still on IV fluids and the patient is on lactated Ringer at rate of 130 cc an hour. Creatinine is down to 1.3 Acute fracture of the right femur post fall Presyncope secondary to above History of CVA Chronic A-fib, maintained on anticoagulation with warfarin. PT/INR subtherapeutic at this point in the Coumadin is on hold in preparation for hip surgery Hypertension Hyperlipidemia Plan Titrate oxygen flow to maintain saturation above 90%, currently on 4 Continue Rocephin Continue Tamiflu Repeat chest x-ray in the morning Continue IV fluids lactated Ringer at rate of 130 cc an hour creatinine is improving Echo was noted and the patient has a preserved LV function Keep off warfarin and monitor the PT/INR Monitor renal function Right hip ORIF on 08/19/2024. The patient be kept n.p.o. after midnight Chest x-ray to be obtained in a.m. Time with Patient: Greater than 30
[2024-08-18] MEDS: OSELTAMIVIR 30 MG CAP PO SCH (21:09)
[2024-08-19 06:15] LABS: INR 1.4 (<1.2); Prothrombin Time 14.6 sec (10.0-12.5)
[2024-08-19 06:17] LABS: Glucose,Whole Blood 117 mg/dL (70-110)
--- NOTE | 2024-08-19 07:02 | XR ---
EXAMINATION TYPE: XR chest 1V DATE OF EXAM: 08/19/2024 CLINICAL INDICATION: Female, 79 years old with history of Pneumonia follow-up, progress study. TECHNIQUE: Single AP portable upright view of the chest is obtained. COMPARISON: Chest x-ray from 2 days earlier FINDINGS: Persistent right upper lobe increased opacity and right basilar increased opacity. Left beba ng remains clear. Cardiac silhouette size is stable and upper limits of normal. Surgical change left shoulder is redemonstrated. IMPRESSION: Persistent right upper lung and right basilar acute infiltrates and/or atelectasis. [facility], , 08/19/2024 7:00 AM
[2024-08-19 08:53] LABS: ALT 34 U/L (8-44); AST 98 U/L (13-35); Albumin 3.1 g/dL (3.8-4.9); Albumin/Globulin Ratio 1.19 Ratio (1.60-3.17); Alkaline Phosphatase 89 U/L (41-126); Blood Urea Nitrogen 12.3 mg/dL (9.0-27.0); Calcium 8.5 mg/dL (8.7-10.3); Carbon Dioxide 24.8 mmol/L (21.6-31.8); Chloride 108 mmol/L (96-109); Globulin 2.6 g/dL (1.6-3.3); Glucose 111 mg/dL (70-110); Magnesium 1.5 mg/dL (1.5-2.4); Sodium 145 mmol/L (135-145); Total Bilirubin 0.4 mg/dL (0.3-1.2); Total Protein 5.7 g/dL (6.2-8.2)
[2024-08-19 09:17] LABS: HGB 13.2 g/dL (12.0-15.0); MCH 31.5 pg (27.0-32.0); MCHC 33.8 g/dL (32.0-37.0); MCV 93.1 FL (80.0-97.0); Mean Platelet Volume 11.8 FL (9.5-12.2); NRBC Per 100 WBC 0 X 10*3/uL (0.00-0.01); Platelet Count 218 X 10*3/uL (140-440); RBC 4.19 X 10*6/uL (4.10-5.20); RDW 16.3 % (11.5-14.5); WBC 7.42 X 10*3/uL (4.50-10.00)
[2024-08-19] MEDS: METOPROLOL SUCCINATE (ER) 50 MG TAB.ER.24H PO SCH (10:56)
--- NOTE | 2024-08-19 12:12 | P.PN ---
Subjective HISTORY OF PRESENT ILLNESS: Patient is a 79-year-old female with past medical history of chronic atrial fibrillation on anticoagulation with warfarin, hypertension dyslipidemia prior CVA. She also has CKD and is a smoker. She presented to the hospital because for last few days she has been feeling more weak, nauseous, having vomiting and diarrhea. Apparently she had influenza A and since then she has been very weak. She reports that she was in the restroom and was just gotten vomiting and when she stood up she remember waking up on the floor of the bathroom with severe pain in the right hip. She is not able to give me specifications if she passed out. The last thing she remembers was vomiting the next and she remembers was finding herself on floor. 08/16 Patient seen and examined. Patient has been having some more confusion. She has with a one-to-one sitter. Her creatinine went from 1.0-1.7 and had decreased urine output and therefore given liter bolus. She has had worsening hypoxia with increasing oxygen demands and currently on high flow. She denies any chest pain or pressure. She states she has some appetite. Currently receiving IV fluids at 100 cc/h. Echocardiogram performed which shows EF 50 to 55%. Chest x-ray concerning for upper infiltrate. 08/17 Patient seen and examined. Patient denies any chest pain or pressure. Tolerating diet. Creatinine mildly improved from 1.7-1.6 with IV fluids. 08/18/2024 Patient examined this morning at the bedside. Patient currently denies chest pain or pressure. She denies shortness of breath. Patient is positive for influenza A. She is awaiting hip surgery. INR today 1.27. Echocardiogram completed revealing ejection fraction 50 to 55%, mild to moderate AI, mild TR, RVSP 48. 08/19/2024 Patient examined this morning at the bedside. Patient complains of a sore throat this morning states her breathing feels " so-so". She denies chest pain or pressure. Patient said heart rate is elevated this morning around 115. She remains in atrial fibrillation. INR today 1.4. She is awaiting surgery. PHYSICAL EXAM: VITAL SIGNS: Reviewed. GENERAL: Well-developed in no acute distress. NECK: Supple. No JVD or thyromegaly LUNGS: Respirations even and unlabored. Lungs with bilateral rhonchi HEART: Tachycardic. Irregular rate and rhythm. S1 and S2 heard. EXTREMITIES: Normal range of motion. No clubbing or cyanosis. Peripheral pulses intact. No lower extremity edema ASSESSMENT: Acute influenza A Syncope, suspect vasovagal in nature Right hip fracture, awaiting surgical intervention Permanent atrial fibrillation with controlled ventricular rate Hypertension Hyperlipidemia Acute on chronic kidney disease History of CVA PLAN: Coumadin remains on hold. INR today 1.4. Resume Coumadin postoperatively. No indication for Vitamin K from cardiac standpoint. Increase metoprolol succinate to 50 mg twice a day. Give a dose now. Continue telemetry monitoring Continue additional cardiac medications including atorvastatin No absolute contraindications for patient to proceed with surgery from a cardiac standpoint Further recommendations pending patient course Nurse practitioner note has been reviewed by physician. Signing provider agrees with the documented findings, assessment, and plan of care documented by [employer] as a scribe. Objective - Vital Signs Vital signs: Vital Signs Temp 98 F 08/19/24 07:31 Pulse 116 H 08/19/24 09:55 Resp 22 08/19/24 07:31 BP 134/88 08/19/24 07:31 Pulse Ox 90 L 08/19/24 08:36 FiO2 Intake & Output 08/18/24 08/19/24 08/19/24 18:59 06:59 18:59 Output Total 1700 1200 Balance -1700 -1200 Output: Urine 1700 1200 Other: Voiding Method Indwelling Catheter Indwelling Catheter Indwelling Catheter - Labs CBC & Chem 7: 08/19/24 05:39 08/19/24 05:39 Labs: Abnormal Lab Results - Last 24 Hours (Table) 08/18/24 08/19/24 08/19/24 Range/Units 11:59 05:39 05:39 RDW 16.3 H (11.5-14.5) % PT 13.6 H (10.0-12.5) sec INR 1.3 H (<1.2) APTT 30.3 H (22.0-30.0) sec Anion Gap 12.20 H (4.00-12.00) mmol/L Est GFR (CKD-EPI) 57 L (>=60) Glucose 111 H (70-110) mg/dL POC Glucose (mg/dL) (70-110) mg/dL Calcium 8.5 L (8.7-10.3) mg/dL AST 98 H (13-35) U/L Total Protein 5.7 L (6.2-8.2) g/dL Albumin 3.1 L (3.8-4.9) g/dL Albumin/Globulin Ratio 1.19 L (1.60-3.17) Ratio 08/19/24 08/19/24 Range/Units 05:39 06:16 RDW (11.5-14.5) % PT 14.6 H (10.0-12.5) sec INR 1.4 H (<1.2) APTT (22.0-30.0) sec Anion Gap (4.00-12.00) mmol/L Est GFR (CKD-EPI) (>=60) Glucose (70-110) mg/dL POC Glucose (mg/dL) 117 H (70-110) mg/dL Calcium (8.7-10.3) mg/dL AST (13-35) U/L Total Protein (6.2-8.2) g/dL Albumin (3.8-4.9) g/dL Albumin/Globulin Ratio (1.60-3.17) Ratio
--- NOTE | 2024-08-19 13:27 | P.PN ---
Subjective Progress Note Date: 08/19/24 This is an 79-year-old female who is admitted for a right hip fracture. Patient is requiring 5 liters of oxygen secondary to influenza and pneumonia. Patient is seen and evaluated at bedside today. Patient denies any new complaints today. Surgery has been postponed due elevated INR. Objective - Vital Signs Vital signs: Vital Signs Temp 98 F 08/19/24 07:31 Pulse 116 H 08/19/24 09:55 Resp 22 08/19/24 07:31 BP 134/88 08/19/24 07:31 Pulse Ox 90 L 08/19/24 08:36 FiO2 Intake & Output 08/18/24 08/19/24 08/19/24 18:59 06:59 18:59 Output Total 1700 1200 Balance -1700 -1200 Output: Urine 1700 1200 Other: Voiding Method Indwelling Catheter Indwelling Catheter Indwelling Catheter - Exam On exam patient is resting comfortably in bed in no acute distress. Patient is alert and oriented 3. Right lower extremity: Skin is intact. There is mild soft tissue swelling. There is tenderness over the right hip. Patient has limited range of motion of the right hip secondary to pain. Right lower extremity is warm and well- perfused. Calf is soft and nontender to palpation. Sensation intact. Neurovascular status and circulatory status are intact. - Labs CBC & Chem 7: 08/19/24 05:39 08/19/24 05:39 Labs: Abnormal Lab Results - Last 24 Hours (Table) 08/19/24 08/19/24 08/19/24 Range/Units 05:39 05:39 05:39 RDW 16.3 H (11.5-14.5) % PT 14.6 H (10.0-12.5) sec INR 1.4 H (<1.2) Anion Gap 12.20 H (4.00-12.00) mmol/L Est GFR (CKD-EPI) 57 L (>=60) Glucose 111 H (70-110) mg/dL POC Glucose (mg/dL) (70-110) mg/dL Calcium 8.5 L (8.7-10.3) mg/dL AST 98 H (13-35) U/L Total Protein 5.7 L (6.2-8.2) g/dL Albumin 3.1 L (3.8-4.9) g/dL Albumin/Globulin Ratio 1.19 L (1.60-3.17) Ratio 08/19/24 Range/Units 06:16 RDW (11.5-14.5) % PT (10.0-12.5) sec INR (<1.2) Anion Gap (4.00-12.00) mmol/L Est GFR (CKD-EPI) (>=60) Glucose (70-110) mg/dL POC Glucose (mg/dL) 117 H (70-110) mg/dL Calcium (8.7-10.3) mg/dL AST (13-35) U/L Total Protein (6.2-8.2) g/dL Albumin (3.8-4.9) g/dL Albumin/Globulin Ratio (1.60-3.17) Ratio Assessment and Plan (1) Closed right hip fracture Current Visit: Yes Status: Acute Code(s): S72.001A - FRACTURE OF UNSP PART OF NECK OF RIGHT FEMUR, INIT SNOMED Code(s): 260648857 (2) Fall Current Visit: Yes Status: Acute Code(s): W19.XXXA - UNSPECIFIED FALL, INITIAL ENCOUNTER SNOMED Code(s): 1783773 Plan: 1. N.p.o. after midnight. 2. Continue bedrest and pain control. 3. Appreciate input from internal medicine, pulmonology and cardiology. 4. Discussed at bedside that the patient's INR remains too high for a spinal anesthesia. Due to her current respiratory issues and increased risk of complications with a general anesthesia, planning for right hip hemiarthroplasty on 08/20/2024 pending INR results and anesthesia recommendations.
--- NOTE | 2024-08-19 15:01 | P.PN ---
Subjective Progress Note Date: 08/19/24 Principal diagnosis: Hospital Course: Patient is a very pleasant 79-year-old female with a past medical history of chronic atrial fibrillation on anticoagulation with Coumadin, hypertension, hyperlipidemia, previous CVA with no residual deficit, CKD stage IIIa and sandra rea dependence. She presented to the emergency department via EMS after fall/syncopal episode at home. Patient reports she began feeling under the weather on Friday evening and just extra tired and states by morning she began having nausea, vomiting, and diarrhea multiple times daily. Patient reports she was in the restroom and just got done vomiting twice and stood up and the next thing she remembers was waking up on the bathroom floor with severe pain to her right hip. Patient does not recall fall and is unsure if she experienced any dizziness/lightheadedness prior to event. Patient currently reports only pain is to right hip and leg. She denies having any headache, ligh theadedness, dizziness, chest pain, palpitations, shortness of breath, or experiencing any numbness in her extremities. Upon arrival to our facility, patient underwent evaluation in the emergency department. Vital signs upon arrival show blood pressure 134/75, heart rate 70, respiratory rate 20, temp 98.6 F, and SpO2 of 95% on 2 L. EKG completed showing atrial fibrillation with a controlled ventricular rate of [address] head and cervical spine revealing moderate to severe degenerative disc disease throughout the cervical spine but negative for acute fracture or subluxation and CT head revealing age-related changes with encephalomalacia of the right parietal-occipital region. Chest x-r ay showing atherosclerotic disease but negative for acute cardiopulmonary process. X-ray right hip showing acute transcervical fracture of the proximal right femur with varus angulation. Labs completed and reviewed. CBC unremarkable. Coagulation profile showing elevated PT of 18.5, subtherapeutic INR of 1.8, and PTT of 33.7. BMP showing sodium 136, bicarb of 21, and elevated anion gap of 13 and renal function consistent with known CKD stage IIIa with BUN of 22, creatinine 1.06, GFR 50. Blood glucose was 157. Magnesium was slightly low at 1.7. Her profile showing elevated AST of 55 otherwise normal findings. Troponin was negative at less than 0.012 and proBNP 5810. Serum alcohol level was less than 10. COVID and RSV were negative but patient positive for influenza A. Repeat chest x-ray showing right upper lobe acute infiltrate. Patient was started on IV antibiotics with Rocephin 2 g daily and a Zithromax 500 mg daily in addition to Tamiflu as recommended by Subsea Engineer. Patient was supposed to go for surgery on 08/19, her heart rate was noted to be elevated this morning, she is not atrial fibrillation, INR 1 point 4 in the morning, Coumadin on hold, cardiology recommended to increase metoprolol succinate to 50 mg twice daily. On 5 L nasal cannula today. Surgery postponed due to elevated INR, plan for right hip hemiarthroplasty on 08/20. Internal medicine assumed care as primary team now with orthopedic surgery on consult Pertinent Imaging: Chest x-ray repeated showed persistent right upper lung and right basilar acute infiltrates and atelectasis Subjective: Denies shortness of breath or chest pain, mostly complaining of having to stay in the hospital for so long Pertinent positives and negatives as discussed above, a complete review of systems was performed and all other systems are negative. Vitals Signs Reviewed. eneral: Nontoxic, no distress and appears stated age. Derm: Skin warm and dry, normal coloration for ethnicity. Head: Atraumatic, normocephalic and symmetric. Eyes: EOM's intact, no lid lag, and anicteric sclera Mouth: no lip lesions, mucus membranes moist Cardiovascular: Irregularly irregular, soft systolic murmur, positive posterior tibial pulses bilaterally, and cap refill < 2 seconds. Lungs: Respirations even, regular, and unlabored on nasal cannula. Lungs with diffuse rhonchi and soft expiratory wheezes bilaterally. Abdominal: Soft, nontender to palpation, no guarding, no appreciable organomegaly Ext: No gross muscle atrophy, no edema, no contractures. Movement and sensation intact. Varicose veins present. Patient with lateral rotation and shortening of right leg Neuro: Speech clear, face symmetrical and CN II-XII grossly intact with no noted focal neuro deficits Psych: Alert and oriented to person, place, time, and situation. Appropriate affect. Data Reviewed Today: Pertinent Labs: CBC with normal WBC and hemoglobin, platelet count. Sodium and potassium, bicarb normal creatinine normal, glucose is controlled Assessment and Plan: Preoperative clearance Transcervical fracture of the proximal right femur with varus angulation -Revised cardiac risk score is 2 and METS score is 4. -NSQIP surgical risk calculator completed showing patient is at a 10.4% risk of serious complications with average risk being 11%, increased risk of developing pneumonia at 3.2% with average risk being 2.6%, and below average risk of at 2% with average risk being 3.6%. -Secondary to patients cardiac history and presenting with syncopal episode, discussed with steam table worker (Dr. Pruitt) and cardiology to provide cardiac clearance prior to patient undergoing surgical intervention. -Patient is at an elevated risk to undergo any surgical procedures at this time secondary to history as well as current infection with influenza A resulting in acute hypoxic respiratory failure. Patient will be at high risk for postoperative pneumonia. However due to urgent need for surgical repair of right femur fracture, there are no absolute contraindications for her to undergo surgery from a medical standpoint at this time. She has been cleared from cardiac perspective and once cleared by residential youth counselor recommend proceeding with needed surgical repair. Influenza A infection Right upper lobe pneumonia Acute hypoxic respiratory failure, secondary to above and suspect underlying undiagnosed COPD -Suspect underlying COPD, however patient denies history of COPD or reports of shortness of breath at home. She denies using inhalers or nebulizer treatments at home. Patient is a longtime smoker. -Pulmonology following., Patient was cleared for surgery by pulmonology -Oxygenation to be administered and titrated as needed to maintain SPO2 equal to or greater than 92% -Encouraged to work with incentive spirometry -Telemetry monitoring. -Monitor pulse-oximetry -Duonebs scheduled 4 times daily and as needed for SOB and/or wheezing -Steroids: Discussed with orthopedic surgery PA, they were in agreement for ad ministration of one-time dose of Solu-Medrol 125 mg IVP prior to surgery. -Tamiflu 30 mg p.o. every 12 hours x 5 days (day 3) along with Rocephin 2 g daily and Zithromax 500 mg daily. Syncopal episode, believed to be vasovagal episode vs orthostatic hypotension Abnormal CT brain, showing encephalomalacia of the right parietal/occipital region Chronic atrial fibrillation Subtherapeutic INR History of CVA Hypertension Hyperlipidemia -Consult placed to steam table worker and discussed plan of care with Dr. Pruitt stating patient cleared from cardiac perspective for discharge. -Metoprolol succinate increased to 50 twice daily by cardiology -Neurology evaluated, discussed with neurologist, Dr. Osullivan stating abnormal CT findings appear old, not acute finding. -Patient to remain on continuous telemetry monitoring with neurochecks every 4 hours. -Unable to evaluate orthostatic vital signs secondary to acute fracture of right femur and immobilization. -Coumadin held secondary to scheduled hemiarthroplasty of right hip, recommend resumption once cleared by primary admitting orthopedic surgery team. -Continue atorvastatin 40 mg nightly. Recommend daily aspirin once cleared by orthopedic surgery team. -Initial troponin less than 0.012 with repeat troponin of 0.016 and 0.017. -Echocardiogram completed showing a preserved EF of 50 to 55% with moderate right ventricular dilation and mild to moderate aortic regurgitation and mild tricuspid regurgitation. ALEE on CKD stage IIIa, resolved -Nolasco catheter in place. -Strict I's and O's -Can continue LR at 75 cc/h Nicotine dependence -Recommend smoking cessation and order placed for nicotine patch 14 mg daily. DVT ppx: SCD Code status: Full code Anticipated discharge place: TBD Anticipated discharge time: TBD Objective - Vital Signs Vital signs: Vital Signs Temp 98 F 08/19/24 13:58 Pulse 126 H 08/19/24 13:58 Resp 20 08/19/24 13:58 BP 127/55 08/19/24 13:58 Pulse Ox 96 08/19/24 13:58 FiO2 Intake & Output 08/18/24 08/19/24 08/19/24 18:59 06:59 18:59 Output Total 1700 1200 Balance -1700 -1200 Output: Urine 1700 1200 Other: Voiding Method Indwelling Catheter Indwelling Catheter Indwelling Catheter - Labs CBC & Chem 7: 08/19/24 05:39 08/19/24 05:39 Labs: Abnormal Lab Results - Last 24 Hours (Table) 08/19/24 08/19/24 08/19/24 Range/Units 05:39 05:39 05:39 RDW 16.3 H (11.5-14.5) % PT 14.6 H (10.0-12.5) sec INR 1.4 H (<1.2) Anion Gap 12.20 H (4.00-12.00) mmol/L Est GFR (CKD-EPI) 57 L (>=60) Glucose 111 H (70-110) mg/dL POC Glucose (mg/dL) (70-110) mg/dL Calcium 8.5 L (8.7-10.3) mg/dL AST 98 H (13-35) U/L Total Protein 5.7 L (6.2-8.2) g/dL Albumin 3.1 L (3.8-4.9) g/dL Albumin/Globulin Ratio 1.19 L (1.60-3.17) Ratio 08/19/24 Range/Units 06:16 RDW (11.5-14.5) % PT (10.0-12.5) sec INR (<1.2) Anion Gap (4.00-12.00) mmol/L Est GFR (CKD-EPI) (>=60) Glucose (70-110) mg/dL POC Glucose (mg/dL) 117 H (70-110) mg/dL Calcium (8.7-10.3) mg/dL AST (13-35) U/L Total Protein (6.2-8.2) g/dL Albumin (3.8-4.9) g/dL Albumin/Globulin Ratio (1.60-3.17) Ratio
[2024-08-19] MEDS: METOPROLOL TARTRATE 25 MG TAB PO STA (16:45)
[2024-08-19] MEDS: METOPROLOL SUCCINATE (ER) 25 MG TAB.ER.24H PO SCH (21:32)
--- NOTE | 2024-08-19 22:52 | P.PN ---
Subjective Progress Note Date: 08/19/24 This is a 79-year-old female patient who is being seen in consult for an acute hypoxic respiratory failure and a fall and a hip fracture. This patient has history of CVA without any residual deficits, chronic stage IIIa kidney disease, hypertension hyperlipidemia and history of chronic atrial fibrillation and she has been maintained on anticoagulation with warfarin. The patient presents to the emergency department after a fall. Apparently, she was getting progressively more tired and she was also having episodes of nausea and emesis and diarrhea on multiple occasions. She was getting progressively more dehydrated. She is not recalling the fall and she is unsure if she experienced any dizziness or lightheadedness prior to this event. The patient is complaining of pain in her right hip/right lower extremity area. In the emergency department, further investigation was done. CAT scan of the brain showed no acute abnormalities other than some age-related changes with encephalomalacia and an old right occipital/parietal infarcts. CT scan of the neck showed moderate to severe degenerative changes involving the cervical spine. The blood work showed a white cell count of 8.6 with a was 1.4 and a platelet count of 216. Her INR is at 1.6 and a PT of 16.9 off warfarin. Her BUN is at 31 with a creatinine of 1.7 and the patient has sustained acute kidney injury probably due to his advanced ago depletion and dehydration. Sodium levels at 136 and a potassium of 5. Serum bicarb is at 22. LFTs are normal. She tested positive for influenza A. Serum alcohol was negative. UA was no nsignificant other than +1 protein. Chest x-ray was reviewed and it showed no acute abnormalities. There is some increased bilateral pulmonary vascular markings. No consolidation. No airspace disease. Echocardiogram showed a preserved LV function. X-ray of the hip and the pelvis showed a acute transcervical fracture of the proximal right femur and orthopedic surgery has been consulted and the patient is being contemplated for surgery with the next 24 hours. In terms of oxygenation, the patient was initially on 2 L and her oxygen requirements progressively went up and she is currently up to 8 L nasal cannula. No previous history of DVTs or pulmonary embolism. No angina. No palpitations. No other complaints otherwise for now. On 08/17/2024, the patient is still awaiting a hip surgery. This was postponed that the patient was having an acute hypoxic respiratory failure and the patient is currently on 60 L O2 nasal cannula with a pulse ox of 96%. Follow-up chest x-ray showed right upper lobe consolidation repeat chest x-ray from today shows a persistent right upper lobe infiltrate with a new right basilar infiltrate/atelectasis. The patient remains on DuoNeb. The patient remains on a combination of Rocephin and Zithromax. The patient is also on Tamiflu. The white cell count is at 10.8, hemoglobin 11.8 and platelet count of 211. Sodium is at 142, BUN 32 with a creatinine of 1.6. Potassium is at 4.8, LFTs are normal.Noted the patient also sustained acute kidney injury. Creatinine from yesterday was at 1.7 and the patient is currently receiving IV fluids and sub sequent creatinine from today is at 1.6. She remains on lactated Ringer at rate of 130 cc an hour. Pain is under adequate control for now.Echocardiogram was also completed and the patient was found to have a preserved LV function, moderate right ventricular dilatation with a RVSP of 48 with mild to moderate aortic regurgitation. On 08/18/2024, the patient is being seen for a follow-up. The patient is stable on oxygen which was titrated down to 4 L nasal cannula with a pulse ox of 97%. She remains uncomfortable due to her hip fracture. She has an acute influenza A infection for which she was given Tamiflu. She also developed a right upper lobe pulmonary consolidation/infiltrate and she is currently on IV Rocephin. She remains on DuoNeb nebulized treatments [id number]. She is off warfarin. Her current INR is down to 1.27. Limited cough and congestion. No significant sputum. The white cell count of 9.3 with a hemoglobin of 12.9 and a platelet count of 207. BUN is 22 with a creatinine 1.2 and sodium levels at 143 and a potassium level is at 4.7. The patient is still being followed up by orthopedic surgery. Surgery is to follow within the next 24 to 48 hours. Natali patel be kept n.p.o. after midnight and she is tentatively having her surgery done tomorrow which will involve a right hip hemiarthroplasty. The follow-up chest x-ray is also to be obtained in a.m. She remains on lactated Ringer at rate of 130 cc an hour. Rest of the medications remain unchanged. Echocardiogram was also done on 08/16/2024 and the patient has a preserved LV function with an EF of around 50 to 55%, RVSP of 48, moderate RV dilatation. On 08/19/2024, overall respiratory status is stable. The patient has been weaned down to 4 L of oxygen by nasal cannula. A follow-up chest x-ray was done today that showed right upper lobe pulmonary infiltrates which is somewhat decreased in size and density. Rest of the lung findings are essentially unchanged. Patient is currently afebrile. Hemodynamically stable. The white cell count is at 7.4 with a hemoglobin 13.2 and a platelet count of 218. INR is at 1.4. Sodium is at 145, BUN is 12 with a creatinine of 1.0. Orthopedic surgery is on the case, awaiting hemiarthroplasty of the right hip. The patient has no chest pain. Previous echocardiogram done during his current admission showed preserved LV function without any significant l valve abnormalities. The patient has an EF of around 50 to 55% along with mild to moderate aortic regurgitation and RVSP of 48. Objective - Vital Signs Vital signs: Vital Signs Temp 98 F 08/19/24 13:58 Pulse 126 H 08/19/24 13:58 Resp 20 08/19/24 13:58 BP 127/55 08/19/24 13:58 Pulse Ox 96 08/19/24 13:58 FiO2 Intake & Output 08/18/24 08/19/24 08/19/24 18:59 06:59 18:59 Output Total 1700 1200 Balance -1700 -1200 Output: Urine 1700 1200 Other: Voiding Method Indwelling Catheter Indwelling Catheter Indwelling Catheter - Exam The patient is currently on 4 L of oxygen by nasal cannula. Denies having any significant respiratory distress, calm and comfortable, communicating. General: Nontoxic, no distress and appears stated age. Derm: Skin warm and dry, normal coloration for ethnicity. Head: Atraumatic, normocephalic and symmetric. Eyes: EOM's intact, no lid lag, and anicteric sclera Mouth: no lip lesions, mucus membranes moist Cardiovascular: Irregularly irregular, soft systolic murmur, positive posterior tibial pulses bilaterally, and cap refill < 2 seconds. Lungs: Respirations even, regular, and unlabored on room air. Lungs with diffuse expiratory wheezes bilaterally. Abdominal: soft, nontender to palpation, no guarding, no appreciable organomegaly Ext: No gross muscle atrophy, no edema, no contractures. Movement and sensation intact. Varicose veins present. Patient with lateral rotation and shortening of right leg Neuro: Speech clear, face symmetrical and CN II-XII grossly intact with no noted focal neuro deficits Psych: Alert and oriented to person, place, time, and situation. Appropriate and pleasant affect. - Labs CBC & Chem 7: 08/19/24 05:39 08/19/24 05:39 Labs: Abnormal Lab Results - Last 24 Hours (Table) 08/19/24 08/19/24 08/19/24 Range/Units 05:39 05:39 05:39 RDW 16.3 H (11.5-14.5) % PT 14.6 H (10.0-12.5) sec INR 1.4 H (<1.2) Anion Gap 12.20 H (4.00-12.00) mmol/L Est GFR (CKD-EPI) 57 L (>=60) Glucose 111 H (70-110) mg/dL POC Glucose (mg/dL) (70-110) mg/dL Calcium 8.5 L (8.7-10.3) mg/dL AST 98 H (13-35) U/L Total Protein 5.7 L (6.2-8.2) g/dL Albumin 3.1 L (3.8-4.9) g/dL Albumin/Globulin Ratio 1.19 L (1.60-3.17) Ratio 08/19/24 Range/Units 06:16 RDW (11.5-14.5) % PT (10.0-12.5) sec INR (<1.2) Anion Gap (4.00-12.00) mmol/L Est GFR (CKD-EPI) (>=60) Glucose (70-110) mg/dL POC Glucose (mg/dL) 117 H (70-110) mg/dL Calcium (8.7-10.3) mg/dL AST (13-35) U/L Total Protein (6.2-8.2) g/dL Albumin (3.8-4.9) g/dL Albumin/Globulin Ratio (1.60-3.17) Ratio Assessment and Plan Plan: Acute hypoxic respiratory failure, currently on 4 L of oxygen by nasal cannula Right upper lobe infiltrate/consolidation involving on subsequent chest x-ray. Rule out influenza infection with secondary pneumonia, which could be potentially bacterial. The patient is currently on a combination of Rocephin and Zithromax and Tamiflu. Chest x-ray on 08/19/2024 shows improvement in the right upper lobe consolidation. Acute influenza A infection, currently on Tamiflu Acute dehydration with nausea emesis and diarrhea with intravascular volume depletion, improving Acute kidney injury likely due to intravascular volume depletion,, still on IV fluids and the patient is on lactated Ringer at rate of 130 cc an hour. C reatinine is down to 1.4 Acute fracture of the right femur post fall Presyncope secondary to above History of CVA Chronic A-fib, maintained on anticoagulation with warfarin. PT/INR subtherapeutic at this point in the Coumadin is on hold in preparation for hip surgery Hypertension Hyperlipidemia Plan Titrate oxygen flow to maintain saturation above 90%, currently on 4 Continue Rocephin Continue Tamiflu Repeat chest x-ray findings are stable and improving Continue IV fluids lactated Ringer at rate of 130 cc an hour creatinine is improving Echo was noted and the patient has a preserved LV function Keep off warfarin and monitor the PT/INR Monitor renal function Will ask orthopedic surgery to schedule the right hip ORIF. Surgery was tentatively scheduled to be done today and this was postponed. Will follow. Pulmonary clearance was given. Time with Patient: Greater than 30
[2024-08-20 06:45] LABS: INR 1.4 (<1.2)
--- NOTE | 2024-08-20 09:00 | P.PN ---
Progress Note - Text Progress Note Date: 08/20/24 Orthopedics: History of present illness: Patient is a pleasant 79-year-old female who is seen examined at bedside for evaluation for her right hip. She is scheduled for a right hip hemiarthroplasty to be performed today. She is currently NPO. She has continued significant pain in her right hip and inability ambulate. Her INR continues to be elevated at 1.4. Her PT is 15. Anesthesia was planning for planning for a spinal but she does not meet criteria because her INR remains elevated even after discontinuation of anticoagulation. Patient was discussed in detail with anesthesia today. They are willing to proceed forward with general intubation so patient may proceed forward with surgical intervention. Patient is being seen and examined by pulmonology as well and is being treated for right upper lobe infiltrate/consolidation. Nursing states patient was diagnosed with influenza with pneumonia. Patient is ready proceed forward with surgical intervention. Physical Exam: Status post surgical day number Patient is examined lying in bed Patient is awake and alert, and oriented 3 Vital signs stable Adequate chest excursion with deep inspiration and expiration; patient currently on O2 nasal cannula No signs or symptoms of DVT; no calf pain Patient's right leg is shortened and externally rotated Active full range of motion of left lower extremity without difficulty Full range of motion of ankles bilaterally Dorsiflexion, plantarflexion, and extensor hallucis longus positive sustained bilaterally Neurovascularly intact bilateral lower extremities Assessment: Right hip fracture Inability to ambulate due to hip Right hip pain Pneumonia Influenza Acute hypoxic respiratory failure History of CVA Chronic atrial fibrillation Hypertension Hyperlipidemia Plan: 1. Patient is known to have a right hip fracture. She is scheduled for right hip hemiarthroplasty to be performed today, 08/20/2024. Patient's INR continues to be elevated to 1.4 with PT of 15. Anesthesia was originally planning for spinal. She does not meet criteria for spinal given her elevated INR. They are willing to proceed forward with general intubation. Patient is being seen and examined by pulmonology and will continue to do so. We are currently planning for the patient to remain n.p.o. status with anticipation for surgical intervention this afternoon at approximately 1 PM. Patient will remain on bedrest. She will be nonweightbearing on the right lower extremity. She will continue with her Nolasco catheter intact. 2. Patient will continue be seen exam by multiple other medical providers including medicine and pulmonology.
[2024-08-20] MEDS: METOPROLOL SUCCINATE (ER) 25 MG TAB.ER.24H PO STA (12:17)
--- NOTE | 2024-08-20 12:49 | P.PN ---
Subjective HISTORY OF PRESENT ILLNESS: Patient is a 79-year-old female with past medical history of chronic atrial fibrillation on anticoagulation with warfarin, hypertension dyslipidemia prior CVA. She also has CKD and is a smoker. She presented to the hospital because for last few days she has been feeling more weak, nauseous, having vomiting and diarrhea. Apparently she had influenza A and since then she has been very weak. She reports that she was in the restroom and was just gotten vomiting and when she stood up she remember waking up on the floor of the bathroom with severe pain in the right hip. She is not able to give me specifications if she passed out. The last thing she remembers was vomiting the next and she remembers was finding herself on floor. 08/16 Patient seen and examined. Patient has been having some more confusion. She has with a one-to-one sitter. Her creatinine went from 1.0-1.7 and had decreased urine output and therefore given liter bolus. She has had worsening hypoxia with increasing oxygen demands and currently on high flow. She denies any chest pain or pressure. She states she has some appetite. Currently receiving IV fluids at 100 cc/h. Echocardiogram performed which shows EF 50 to 55%. Chest x-ray concerning for upper infiltrate. 08/17 Patient seen and examined. Patient denies any chest pain or pressure. Tolerating diet. Creatinine mildly improved from 1.7-1.6 with IV fluids. 08/18/2024 Patient examined this morning at the bedside. Patient currently denies chest pain or pressure. She denies shortness of breath. Patient is positive for influenza A. She is awaiting hip surgery. INR today 1.27. Echocardiogram completed revealing ejection fraction 50 to 55%, mild to moderate AI, mild TR, RVSP 48. 08/19/2024 Patient examined this morning at the bedside. Patient complains of a sore throat this morning states her breathing feels " so-so". She denies chest pain or pressure. Patient said heart rate is elevated this morning around 115. She remains in atrial fibrillation. INR today 1.4. She is awaiting surgery. 08/20/2024 Patient examined this morning at the bedside. Patient currently denies chest pain or pressure. She denies shortness of breath. She remains in atrial fibrillation with heart rate around 120. She is scheduled for surgical invention today with orthopedics. PHYSICAL EXAM: VITAL SIGNS: Reviewed. GENERAL: Well-developed in no acute distress. NECK: Supple. No JVD or thyromegaly LUNGS: Respirations even and unlabored. Lungs with bilateral rhonchi HEART: Tachycardic. Irregular rate and rhythm. S1 and S2 heard. EXTREMITIES: Normal range of motion. No clubbing or cyanosis. Peripheral pulses intact. No lower extremity edema ASSESSMENT: Acute influenza A Syncope, suspect vasovagal in nature Right hip fracture, awaiting surgical intervention Permanent atrial fibrillation with controlled ventricular rate Hypertension Hyperlipidemia Acute on chronic kidney disease History of CVA PLAN: Coumadin remains on hold. Resume Coumadin postoperatively. Increase metoprolol succinate 100 mg twice a day. Given additional 25 mg now. Continue telemetry monitoring Continue additional cardiac medications including atorvastatin No absolute contraindications for patient to proceed with surgery from a cardiac standpoint Further recommendations pending patient course Nurse practitioner note has been reviewed by physician. Signing provider agrees with the documented findings, assessment, and plan of care documented by CIVIL TECHNICIAN as a scribe. Objective - Vital Signs Vital signs: Vital Signs Temp 98.5 F 08/20/24 08:00 Pulse 108 H 08/20/24 12:35 Resp 18 08/20/24 08:00 BP 158/84 08/20/24 08:00 Pulse Ox 96 08/20/24 09:02 FiO2 Intake & Output 08/19/24 08/20/24 08/20/24 18:59 06:59 18:59 Output Total 1000 475 Balance -1000 -475 Output: Urine 1000 475 Other: Voiding Method Indwelling Catheter Indwelling Catheter Indwelling Catheter - Labs CBC & Chem 7: 08/19/24 05:39 08/19/24 05:39 Labs: Abnormal Lab Results - Last 24 Hours (Table) 08/20/24 Range/Units 05:42 PT 15.0 H (10.0-12.5) sec INR 1.4 H (<1.2)
[2024-08-20 13:16] VITALS: BMI 25.7
[2024-08-20] MEDS ORDERED: TRANEXAMIC 1,000 MG/100ML-NACL 2,000 MG in SALINE 1 100ML.BAG IVPB ONE (14:26)
[2024-08-20] MEDS: ONDANSETRON 4 MG/2 ML VIAL IVP PRN (14:31)
[2024-08-20] MEDS: DEXAMETHASONE SOD PHOSPHATE 4 MG/ML 1 ML VIAL IVP STA (14:32)
[2024-08-20] MEDS: LACTATED RINGERS 1,000 ML IV ONE (14:44)
--- NOTE | 2024-08-20 14:46 | P.PN ---
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 She presented to the emergency department via EMS after fall/syncopal episode at home. Patient reports she began feeling under the weather on Friday evening and just extra tired and states by morning she began having nausea, vomiting, and diarrhea multiple times daily. Patient reports she was in the restroom and just got done vomiting twice and stood up and the next thing she remembers was waking up on the bathroom floor with severe pain to her right hip. Patient does not recall fall and is unsure if she expe rienced any dizziness/lightheadedness prior to event. Patient currently reports only pain is to right hip and leg. She denies having any headache, lightheadedness, dizziness, chest pain, palpitations, shortness of breath, or experiencing any numbness in her extremities. Upon arrival to our facility, patient underwent evaluation in the emergency department. Vital signs upon arrival show blood pressure 134/75, heart rate 70, respiratory rate 20, temp 98.6 F, and SpO2 of 95% on 2 L. EKG completed showing atrial fibrillation with a controlled ventricular rate of [address] head and cervical spine revealing moderate to severe degenerative disc disease throughout the cervical spine but negative for acute fracture or subluxation and CT head revealing age-related changes with encephalomalacia of the right parietal-occipital region. Chest x- ray showing atherosclerotic disease but negative for acute cardiopulmonary process. X-ray right hip showing acute transcervical fracture of the proximal right femur with varus angulation. Labs completed and reviewed. CBC unremarkable. Coagulation profile showing elevated PT of 18.5, subtherapeutic INR of 1.8, and PTT of 33.7. BMP showing sodium 136, bicarb of 21, and elevated anion gap of 13 and renal function consistent with known CKD stage IIIa with BUN of 22, creatinine 1.06, GFR 50. Blood glucose was 157. Magnesium was slightly low at 1.7. Her profile showing elevated AST of 55 otherwise normal findings. Troponin was negative at less than 0.012 and proBNP 5810. Serum alcohol level was less than 10. COVID and RSV were negative but patient positive for influenza A. Repeat chest x-ray showing right upper lobe acute infiltrate. Patient was started on IV antibiotics with Rocephin 2 g daily and a Zithromax 500 mg daily in addition to Tamiflu as recommended by Electronic Calibration Technician. Patient was supposed to go for surgery on 08/19, her heart rate was noted to be elevated this morning, she is not atrial fibrillation, INR 1 point 4 in the morning, Coumadin on hold, cardiology recommended to increase metoprolol succinate to 50 mg twice daily. On 5 L nasal cannula today. Surgery postponed due to elevated INR, plan for right hip hemiarthroplasty on 08/20. Internal medicine assumed care as primary team now with orthopedic surgery on consult 08/20, patient is on 4 L nasal cannula, heart rate in 100 110s, surgery scheduled for today, metoprolol increased to 100 twice daily Pertinent Imaging: EKG interpreted independently, showed A-fib with RVR, QTc 491 Subjective: Denies shortness of breath or chest pain, feeling anxious before surgery Pertinent positives and negatives as discussed above, a complete review of systems was performed and all other systems are negative. Vitals Signs Reviewed. eneral: Nontoxic, no distress and appears stated age. Derm: Skin warm and dry, normal coloration for ethnicity. Head: Atraumatic, normocephalic and symmetric. Eyes: EOM's intact, no lid lag, and anicteric sclera Mouth: no lip lesions, mucus membranes moist Cardiovascular: Irregularly irregular, soft systolic murmur, positive posterior tibial pulses bilaterally, and cap refill < 2 seconds. Lungs: Respirations even, regular, and unlabored on nasal cannula. Lungs with diffuse rhonchi and soft expiratory wheezes bilaterally. Abdominal: Soft, nontender to palpation, no guarding, no appreciable organomegaly Ext: No gross muscle atrophy, no edema, no contractures. Movement and sensation intact. Varicose veins present. Patient with lateral rotation and shortening of right leg Neuro: Speech clear, face symmetrical and CN II-XII grossly intact with no noted focal neuro deficits Psych: Alert and oriented to person, place, time, and situation. Appropriate affect. Data Reviewed Today: Pertinent Labs: No new blood work today Assessment and Plan: Preoperative clearance Transcervical fracture of the proximal right femur with varus angulation -Revised cardiac risk score is 2 and METS score is 4. -NSQIP surgical risk calculator completed showing patient is at a 10.4% risk of serious complications with average risk being 11%, increased risk of developing pneumonia at 3.2% with average risk being 2.6%, and below average risk of at 2% with average risk being 3.6%. -Secondary to patients cardiac history and presenting with syncopal episode, discussed with haul cane brakeman (Dr. Pruitt) and cardiology to provide cardiac clearance prior to patient undergoing surgical intervention. -Patient is at an elevated risk to undergo any surgical procedures at this time secondary to history as well as current infection with influenza A resulting in acute hypoxic respiratory failure. Patient will be at high risk for postoperative pneumonia. However due to urgent need for surgical repair of right femur fracture, there are no absolute contraindications for her to undergo surgery from a medical standpoint at this time. She has been cleared from cardiac perspective and once cleared by chain dyer recommend proceeding with needed surgical repair. Influenza A infection Right upper lobe pneumonia Acute hypoxic respiratory failure, secondary to above and suspect underlying undiagnosed COPD -Suspect underlying COPD, however patient denies history of COPD or reports of shortness of breath at home. She denies using inhalers or nebulizer treatments at home. Patient is a longtime smoker. -Pulmonology following., Patient was cleared for surgery by pulmonology -Oxygenation to be administered and titrated as needed to maintain SPO2 equal to or greater than 92% -Encouraged to work with incentive spirometry -Telemetry monitoring. -Monitor pulse-oximetry -Duonebs scheduled 4 times daily and as needed for SOB and/or wheezing -Steroids: Discussed with orthopedic surgery PA, they were in agreement for admi nistration of one-time dose of Solu-Medrol 125 mg IVP prior to surgery. -Tamiflu 30 mg p.o. every 12 hours x 5 days (day 3) along with Rocephin 2 g daily and Zithromax 500 mg daily. Syncopal episode, believed to be vasovagal episode vs orthostatic hypotension Abnormal CT brain, showing encephalomalacia of the right parietal/occipital region Chronic atrial fibrillation Subtherapeutic INR History of CVA Hypertension Hyperlipidemia -Consult placed to haul cane brakeman and discussed plan of care with Dr. Pruitt stating patient cleared from cardiac perspective for discharge. -Metoprolol succinate increased to 100 twice daily by cardiology -Neurology evaluated, discussed with neurologist, Dr. Osullivan stating abnormal CT findings appear old, not acute finding. -Patient to remain on continuous telemetry monitoring with neurochecks every 4 hours. -Unable to evaluate orthostatic vital signs secondary to acute fracture of right femur and immobilization. -Coumadin held secondary to scheduled hemiarthroplasty of right hip, recommend resumption once cleared by primary admitting orthopedic surgery team. -Continue atorvastatin 40 mg nightly. Recommend daily aspirin once cleared by orthopedic surgery team. -Initial troponin less than 0.012 with repeat troponin of 0.016 and 0.017. -Echocardiogram completed showing a preserved EF of 50 to 55% with moderate right ventricular dilation and mild to moderate aortic regurgitation and mild tricuspid regurgitation. ALEE on CKD stage IIIa, resolved -Nolasco catheter in place. -Strict I's and O's -Can continue LR at 75 cc/h Nicotine dependence -Recommend smoking cessation and order placed for nicotine patch 14 mg daily. DVT ppx: SCD Code status: Full code Anticipated discharge place: TBD Anticipated discharge time: TBD Objective - Vital Signs Vital signs: Vital Signs Temp 98.9 F 08/20/24 13:56 Pulse 112 H 08/20/24 13:56 Resp 18 08/20/24 13:56 BP 164/87 08/20/24 13:56 Pulse Ox 96 08/20/24 13:56 FiO2 Intake & Output 08/19/24 08/20/24 08/20/24 18:59 06:59 18:59 Output Total 1000 475 Balance -1000 -475 Weight 70.307 kg Output: Urine 1000 475 Other: Voiding Method Indwelling Catheter Indwelling Catheter Indwelling Catheter - Labs CBC & Chem 7: 08/19/24 05:39 08/19/24 05:39 Labs: Abnormal Lab Results - Last 24 Hours (Table) 08/20/24 Range/Units 05:42 PT 15.0 H (10.0-12.5) sec INR 1.4 H (<1.2)
[2024-08-20] MEDS: SODIUM CHLORIDE 0.9% 100 ML with ceFAZolin 2,000 MG IV ONE (15:10)
[2024-08-20] MEDS: ROPIVACAINE 5 MG/ML 30 ML VIAL MISCELLANE ONE (15:33)
[2024-08-20] MEDS: ceFAZolin 1,000 MG in SODIUM CHLORIDE 0.9% 1,000 ML IRRIGATION ONE (15:33)
--- NOTE | 2024-08-20 16:15 | P.OP ---
Date of Procedure: 08/20/24 Preoperative Diagnosis: Subcapital fracture right hip Postoperative Diagnosis: Subcapital fracture right hip Procedure(s) Performed: Right hip hemiarthroplasty Implants: Bennett and nephew Polarstem size 6 standard with a collar Bennett [employer] Nephew tandem unipolar, 47 mm Bennett [employer]hew tandem unipolar 12/14 taper sleeve, +4 mm All components were press-fit. Anesthesia: TL Surgeon: Shaw Shelton Estimated Blood Loss (ml): 150 Pathology: none sent Condition: stable Disposition: PACU Indications for Procedure: This is an 79-year-old female that sustained a ground-level fall and fractured her right hip. After discussing the surgical and nonsurgical treatment options at length, I recommended a right hip hemiarthroplasty. Patient has been unable to be cleared secondary to pulmonary status until today. She is at significant risk of pulmonary complications postoperatively, and she is aware of this. Informed consent was obtained. Operative Findings: The operative findings are consistent with a subcapital fracture of the right hip Description of Procedure: Patient was seen and evaluated in the preoperative area, consent was reviewed and the operative site was marked with a skin marker. Patient was then brought to the operating room and given 2 g of Ancef intravenously. A spinal anesthetic was administered by the anesthesia department. Patient was then placed in a lateral decubitus position and held with a [place]ral hip positioner. The bony prominences were well-padded and an axillary roll was placed. The hip was then prepped and draped in the usual sterile fashion. A universal timeout was then performed which confirmed the patient's name, surgical site, ALLERGIES, and procedure. A standard anterolateral approach the hip was performed. Skin and subcutaneous tissues were sharply incised with an incision centered over the tip of the greater trochanter. The incision was carefully dissected down to the fascia. The fascia was then split in line with skin incision and a Charnley retractor was gently placed. The abductors were then identified, and the anterior one third of the abductors were released off the trochanter and one large sleeve. The fracture hematoma was evacuated and the proximal femur was exposed by externally rotating the femur. The fracture site was readily visualized. Next, using an osteotomy guide, the proximal femur was osteotomized at the appropriate level of the above the lesser trochanter. This bone was then removed. Attention was then turned to the femoral head. Using a corkscrew, the femoral head was removed from the acetabulum without incident. The acetabulum was inspected, and found to have no significant arthrosis. Femoral head was then measured. Attention was then redirected to the femur. Proximal femur was re-exposed and a box osteotome was used to lateralize the proximal femur. A bulk materials handling plant operator was then used to locate the femoral canal. Sequential broaching was then performed to the appropriate size. The calcar was then planed and trial head and neck were placed. The hip was then gently reduced. Leg lengths were checked and found to be equal. Hip was then taken through a full range of motion was stable throughout. The hip was then gently dislocated with the aid of a bone hook. The trial head and neck were then removed. The femoral broach was then inspected and found to have a secure fit. The broach was then removed. The hip was then copiously irrigated with antibiotic solution with a pulse lavage. Components were then opened and the femoral stem was then impacted into the proximal femur. The trunnion was cleaned and dried, and the femoral head and neck were then impacted. Hip was again gently reduced. Again leg lengths were checked and found to be equal, and the hip was taken through a full range of motion and found to be stable. The hip was again irrigated with pulsatile lavage, then followed by the Irrrisept solution. The abductors were then repaired through drill holes to the bone to the greater trochanter, utilizing #5 Ethibond suture. Next the fascia was repaired with #2 strata fix suture. The subcutaneous tissue was then repaired with 3-0 Vicryl. The subcuticular tissue was then repaired with 3-0 strata fix suture. Skin was then closed with Exofin skin glue. A sterile dressing was then applied and the patient was transported to the recovery room in stable condition.
[2024-08-20] MEDS ORDERED: NALOXONE 0.4 MG/ML 1 ML VIAL IV PRN (16:23)
--- NOTE | 2024-08-20 16:26 | XR ---
EXAMINATION TYPE: XR Hip Limited RT, FL guidance operating room DATE OF EXAM: 08/20/2024 4:19 PM COMPARISON: Pre Operative Images if available both CT/MRI or plain film CLINICAL INDICATION: Female, 79 years old with history of HIP FRACTURE; TECHNIQUE: XR Hip Limited RT, FL guidance operating room, multiple fluoroscopic images provided for p rocedure. DAP: 0.3225 mGym2 Gycm2 uGym2 cGycm2 or equivalent. FINDINGS: Fluoroscopic images during internal fixation/arthroplasty demonstrate hardware in appropriate positio n. Hardware appears intact. No immediate complication identified. IMPRESSION: 1. No evidence for intraoperative complication. 2. Please see the operative/procedural note for further details. [facility], , 08/20/2024 4:24 PM
[2024-08-20] MEDS: HYDROmorphone 0.5 MG/0.5 ML SYRINGE IVP PRN (16:43)
--- NOTE | 2024-08-20 17:06 | XR ---
EXAMINATION TYPE: XR Hip Limited RT DATE OF EXAM: 08/20/2024 5:01 PM INDICATION: Patient age:Female; 79 years old; Reason for study: S/P Right Hip Hemiarthroplasty; PHH. pain COMPARISON: Right hip fluoroscopic images 08/20/2024 TECHNIQUE: The right hip was examined in the single frontal projection. FINDINGS: Postsurgical changes from right hip hemiarthroplasty. Hardware appears intact and appropria tely aligned on this single view. There is associated soft tissue gas and edema. No acute fracture or dislocation. Right-sided pelvic phleboliths. IMPRESSION: Postsurgical changes from right hip hemiarthroplasty. Hardware appears intact with appropriate alignm ent. [facility], , 08/20/2024 5:04 PM
--- NOTE | 2024-08-20 17:58 | P.PN ---
Subjective Progress Note Date: 08/20/24 This is a 79-year-old female patient who is being seen in consult for an acute hypoxic respiratory failure and a fall and a hip fracture. This patient has history of CVA without any residual deficits, chronic stage IIIa kidney disease, hypertension hyperlipidemia and history of chronic atrial fibrillation and she has been maintained on anticoagulation with warfarin. The patient presents to the emergency department after a fall. Apparently, she was getting progressively more tired and she was also having episodes of nausea and emesis and diarrhea on multiple occasions. She was getting progressively more dehydrated. She is not recalling the fall and she is unsure if she experienced any dizziness or lightheadedness prior to this event. The patient is complaining of pain in her right hip/right lower extremity area. In the emergency department, further investigation was done. CAT scan of the brain showed no acute abnormalities other than some age-related changes with encephalomalacia and an old right occipital/parietal infarcts. CT scan of the neck showed moderate to severe degenerative changes involving the cervical spine. The blood work showed a white cell count of 8.6 with a was 1.4 and a platelet count of 216. Her INR is at 1.6 and a PT of 16.9 off warfarin. Her BUN is at 31 with a creatinine of 1.7 and the patient has sustained acute kidney injury probably due to his advanced ago depletion and dehydration. Sodium levels at 136 and a potassium of 5. Serum bicarb is at 22. LFTs are normal. She tested positive for influenza A. Serum alcohol was negative. UA was no nsignificant other than +1 protein. Chest x-ray was reviewed and it showed no acute abnormalities. There is some increased bilateral pulmonary vascular markings. No consolidation. No airspace disease. Echocardiogram showed a preserved LV function. X-ray of the hip and the pelvis showed a acute transcervical fracture of the proximal right femur and orthopedic surgery has been consulted and the patient is being contemplated for surgery with the next 24 hours. In terms of oxygenation, the patient was initially on 2 L and her oxygen requirements progressively went up and she is currently up to 8 L nasal cannula. No previous history of DVTs or pulmonary embolism. No angina. No palpitations. No other complaints otherwise for now. On 08/17/2024, the patient is still awaiting a hip surgery. This was postponed that the patient was having an acute hypoxic respiratory failure and the patient is currently on 60 L O2 nasal cannula with a pulse ox of 96%. Follow-up chest x-ray showed right upper lobe consolidation repeat chest x-ray from today shows a persistent right upper lobe infiltrate with a new right basilar infiltrate/atelectasis. The patient remains on DuoNeb. The patient remains on a combination of Rocephin and Zithromax. The patient is also on Tamiflu. The white cell count is at 10.8, hemoglobin 11.8 and platelet count of 211. Sodium is at 142, BUN 32 with a creatinine of 1.6. Potassium is at 4.8, LFTs are normal.Noted the patient also sustained acute kidney injury. Creatinine from yesterday was at 1.7 and the patient is currently receiving IV fluids and sub sequent creatinine from today is at 1.6. She remains on lactated Ringer at rate of 130 cc an hour. Pain is under adequate control for now.Echocardiogram was also completed and the patient was found to have a preserved LV function, moderate right ventricular dilatation with a RVSP of 48 with mild to moderate aortic regurgitation. On 08/18/2024, the patient is being seen for a follow-up. The patient is stable on oxygen which was titrated down to 4 L nasal cannula with a pulse ox of 97%. She remains uncomfortable due to her hip fracture. She has an acute influenza A infection for which she was given Tamiflu. She also developed a right upper lobe pulmonary consolidation/infiltrate and she is currently on IV Rocephin. She remains on DuoNeb nebulized treatments [id number]. She is off warfarin. Her current INR is down to 1.27. Limited cough and congestion. No significant sputum. The white cell count of 9.3 with a hemoglobin of 12.9 and a platelet count of 207. BUN is 22 with a creatinine 1.2 and sodium levels at 143 and a potassium level is at 4.7. The patient is still being followed up by orthopedic surgery. Surgery is to follow within the next 24 to 48 hours. Natali patel be kept n.p.o. after midnight and she is tentatively having her surgery done tomorrow which will involve a right hip hemiarthroplasty. The follow-up chest x-ray is also to be obtained in a.m. She remains on lactated Ringer at rate of 130 cc an hour. Rest of the medications remain unchanged. Echocardiogram was also done on 08/16/2024 and the patient has a preserved LV function with an EF of around 50 to 55%, RVSP of 48, moderate RV dilatation. On 08/19/2024, overall respiratory status is stable. The patient has been weaned down to 4 L of oxygen by nasal cannula. A follow-up chest x-ray was done today that showed right upper lobe pulmonary infiltrates which is somewhat decreased in size and density. Rest of the lung findings are essentially unchanged. Patient is currently afebrile. Hemodynamically stable. The white cell count is at 7.4 with a hemoglobin 13.2 and a platelet count of 218. INR is at 1.4. Sodium is at 145, BUN is 12 with a creatinine of 1.0. Orthopedic surgery is on the case, awaiting hemiarthroplasty of the right hip. The patient has no chest pain. Previous echocardiogram done during his current admission showed preserved LV function without any significant l valve abnormalities. The patient has an EF of around 50 to 55% along with mild to moderate aortic regurgitation and RVSP of 48. On 08/20/2024, the patient is on 4 L of O2 nasal cannula with a pulse ox of 97%. The patient is scheduled to undergo right hip hemiarthroplasty for a subcapital fracture of the right hip. Hemodynamically stable. No specific complaints. Most recent INR from yesterday was at 1.4. No other new labs are available from today. Remains on bronchodilators with DuoNeb updrafts. Remains on IV Rocephin. Completed the course of Tamiflu. Remains on lactated Ringer at rate of 75 cc an hour. Awaiting surgery. Will monitor her postoperative course. Objective - Vital Signs Vital signs: Vital Signs Temp 98.5 F 08/20/24 08:00 Pulse 116 H 08/20/24 12:48 Resp 18 08/20/24 08:00 BP 158/84 08/20/24 08:00 Pulse Ox 96 08/20/24 09:02 FiO2 Intake & Output 08/19/24 08/20/24 08/20/24 18:59 06:59 18:59 Output Total 1000 475 Balance -1000 -475 Weight 70.307 kg Output: Urine 1000 475 Other: Voiding Method Indwelling Catheter Indwelling Catheter Indwelling Catheter - Exam The patient is currently on 4 L of oxygen by nasal cannula. Denies having any significant respiratory distress, calm and comfortable, communicating. General: Nontoxic, no distress and appears stated age. Derm: Skin warm and dry, normal coloration for ethnicity. Head: Atraumatic, normocephalic and symmetric. Eyes: EOM's intact, no lid lag, and anicteric sclera Mouth: no lip lesions, mucus membranes moist Cardiovascular: Irregularly irregular, soft systolic murmur, positive posterior tibial pulses bilaterally, and cap refill < 2 seconds. Lungs: Respirations even, regular, and unlabored on room air. Lungs with diffuse expiratory wheezes bilaterally. Abdominal: soft, nontender to palpation, no guarding, no appreciable organomegaly Ext: No gross muscle atrophy, no edema, no contractures. Movement and sensation intact. Varicose veins present. Patient with lateral rotation and shortening of right leg Neuro: Speech clear, face symmetrical and CN II-XII grossly intact with no noted focal neuro deficits Psych: Alert and oriented to person, place, time, and situation. Appropriate and pleasant affect. - Labs CBC & Chem 7: 08/19/24 05:39 08/19/24 05:39 Labs: Abnormal Lab Results - Last 24 Hours (Table) 08/20/24 Range/Units 05:42 PT 15.0 H (10.0-12.5) sec INR 1.4 H (<1.2) Assessment and Plan Plan: Acute hypoxic respiratory failure, currently on 4 L of oxygen by nasal cannula Right upper lobe infiltrate/consolidation involving on subsequent chest x-ray. Rule out influenza infection with secondary pneumonia, which could be potentially bacterial. The patient is currently on a combination of Rocephin and Zithromax and Tamiflu. Chest x-ray on 08/19/2024 shows improvement in the right upper lobe consolidation. Acute influenza A infection, currently on Tamiflu Acute dehydration with nausea emesis and diarrhea with intravascular volume depletion, improving Acute kidney injury likely due to intravascular volume depletion,, still on IV fluids and the patient is on lactated Ringer at rate of 130 cc an hour. Creatinine is down to 1.4 Acute fracture of the right femur post fall Presyncope secondary to above History of CVA Chronic A-fib, maintained on anticoagulation with warfarin. PT/INR subtherapeutic at this point in the Coumadin is on hold in preparation for hip surgery Hypertension Hyperlipidemia Plan Proceed with a right hip hemiarthroplasty today Titrate oxygen flow to maintain saturation above 90%, currently on 4 Continue Rocephin Tamiflu completed Repeat chest x-ray findings are stable and improving Continue IV fluids lactated Ringer at rate of 130 cc an hour creatinine is improving Echo was noted and the patient has a preserved LV function Keep off warfarin and monitor the PT/INR Monitor renal function We will follow-up the course.
[2024-08-20] MEDS: TRANEXAMIC 1,000 MG/100ML-NACL 1,000 MG in SALINE 1 100ML.BAG IVPB SCH (20:03)
[2024-08-20] MEDS: SENNOSIDES-DOCUSATE SODIUM 1 EACH TAB PO SCH (21:02)
[2024-08-20] MEDS: METOPROLOL SUCCINATE (ER) 25 MG TAB.ER.24H PO SCH (21:03)
[2024-08-21 04:19] LABS: Basophils # (A) 0.04 X 10*3/uL (0.00-0.10); Basophils % (A) 0.3 %; Eosinophils # (A) 0 X 10*3/uL (0.04-0.35); Eosinophils % (A) 0 %; HCT 38.4 % (37.2-46.3); HGB 12.1 g/dL (12.0-15.0); Lymphocytes # (A) 0.66 X 10*3/uL (0.90-5.00); Lymphocytes % (A) 4.6 %; MCH 29.4 pg (27.0-32.0); MCHC 31.5 g/dL (32.0-37.0); MCV 93.2 FL (80.0-97.0); Mean Platelet Volume 11.6 FL (9.5-12.2); Monocytes # (A) 0.38 X 10*3/uL (0.20-1.00); Monocytes % (A) 2.7 %; NRBC Per 100 WBC 0 X 10*3/uL (0.00-0.01); Neutrophils # (A) 13.15 X 10*3/uL (1.80-7.70); Neutrophils % (A) 91.7 %; Platelet Count 267 X 10*3/uL (140-440); RBC 4.12 X 10*6/uL (4.10-5.20); WBC 14.33 X 10*3/uL (4.50-10.00)
--- NOTE | 2024-08-21 09:41 | P.PN ---
Subjective HISTORY OF PRESENT ILLNESS: Patient is a 79-year-old female with past medical history of chronic atrial fibrillation on anticoagulation with warfarin, hypertension dyslipidemia prior CVA. She also has CKD and is a smoker. She presented to the hospital because for last few days she has been feeling more weak, nauseous, having vomiting and diarrhea. Apparently she had influenza A and since then she has been very weak. She reports that she was in the restroom and was just gotten vomiting and when she stood up she remember waking up on the floor of the bathroom with severe pain in the right hip. She is not able to give me specifications if she passed out. The last thing she remembers was vomiting the next and she remembers was finding herself on floor. 08/16 Patient seen and examined. Patient has been having some more confusion. She has with a one-to-one sitter. Her creatinine went from 1.0-1.7 and had decreased urine output and therefore given liter bolus. She has had worsening hypoxia with increasing oxygen demands and currently on high flow. She denies any chest pain or pressure. She states she has some appetite. Currently receiving IV fluids at 100 cc/h. Echocardiogram performed which shows EF 50 to 55%. Chest x-ray concerning for upper infiltrate. 08/17 Patient seen and examined. Patient denies any chest pain or pressure. Tolerating diet. Creatinine mildly improved from 1.7-1.6 with IV fluids. 08/18/2024 Patient examined this morning at the bedside. Patient currently denies chest pain or pressure. She denies shortness of breath. Patient is positive for influenza A. She is awaiting hip surgery. INR today 1.27. Echocardiogram completed revealing ejection fraction 50 to 55%, mild to moderate AI, mild TR, RVSP 48. 08/19/2024 Patient examined this morning at the bedside. Patient complains of a sore throat this morning states her breathing feels " so-so". She denies chest pain or pressure. Patient said heart rate is elevated this morning around 115. She remains in atrial fibrillation. INR today 1.4. She is awaiting surgery. 08/20/2024 Patient examined this morning at the bedside. Patient currently denies chest pain or pressure. She denies shortness of breath. She remains in atrial fibrillation with heart rate around 120. She is scheduled for surgical invention today with orthopedics. 08/21/2024 Patient examined this morning at the bedside. She is status post right hip hemiarthroplasty yesterday with orthopedics. Patient denies any chest pain or pressure this morning. She denies shortness of breath. She remains in atrial fibrillation with heart [place] [id number]. PHYSICAL EXAM: VITAL SIGNS: Reviewed. GENERAL: Well-developed in no acute distress. NECK: Supple. No JVD or thyromegaly LUNGS: Respirations even and unlabored. Lungs diminished bilaterally. HEART: Tachycardic. Irregular rate and rhythm. S1 and S2 heard. EXTREMITIES: Normal range of motion. No clubbing or cyanosis. Peripheral pulses intact. No lower extremity edema ASSESSMENT: Acute influenza A Syncope, suspect vasovagal in nature Right hip fracture, status post right hip hemiarthroplasty Permanent atrial fibrillation with controlled ventricular rate Hypertension Hyperlipidemia Acute on chronic kidney disease History of CVA PLAN: Resume Coumadin tonight. Monitor INR. Continue metoprolol succinate 100 mg twice a day and atorvastatin 40 mg at night Add oral Cardizem 30 mg 3 times daily for optimal heart rate control Continue telemetry monitoring Further recommendations pending patient course Nurse practitioner note has been reviewed by physician. Signing provider agrees with the documented findings, assessment, and plan of care documented by [employer]ER as a scribe. Objective - Vital Signs Vital signs: Vital Signs Temp 98.4 F 08/21/24 08:00 Pulse 125 H 08/21/24 08:12 Resp 17 08/21/24 08:00 BP 126/68 08/21/24 08:00 Pulse Ox 96 08/21/24 08:12 FiO2 Intake & Output 08/20/24 08/21/24 08/21/24 18:59 06:59 18:59 Intake Total 601 Output Total 150 125 Balance 451 -125 Weight 70.307 kg Intake: IV 601 Output: Urine 125 Estimated Blood Loss 150 Other: Voiding Method Indwelling Catheter Indwelling Catheter - Labs CBC & Chem 7: 08/20/24 19:10 08/19/24 05:39 Labs: Abnormal Lab Results - Last 24 Hours (Table) 08/20/24 Range/Units 19:10 WBC 14.33 H (4.50-10.00) X 10*3/uL MCHC 31.5 L (32.0-37.0) g/dL RDW 15.0 H (11.5-14.5) % Immature Gran # 0.10 H (0.00-0.04) X 10*3/uL Neutrophils # 13.15 H (1.80-7.70) X 10*3/uL Lymphocytes # 0.66 L (0.90-5.00) X 10*3/uL Eosinophils # 0 L (0.04-0.35) X 10*3/uL
[2024-08-21 09:47] LABS: BUN/Creat Ratio 19.33 Ratio (12.00-20.00); Blood Urea Nitrogen 23.2 mg/dL (9.0-27.0); Calcium 8.1 mg/dL (8.7-10.3); Carbon Dioxide 26.2 mmol/L (21.6-31.8); Chloride 101 mmol/L (96-109); Glucose 106 mg/dL (70-110); Potassium 4.6 mmol/L (3.5-5.5); Sodium 141 mmol/L (135-145)
[2024-08-21 10:22] LABS: INR 1.9 (<1.2); Prothrombin Time 19.1 sec (10.0-12.5)
--- NOTE | 2024-08-21 10:26 | P.PN ---
Progress Note - Text Progress Note Date: 08/21/24 Orthopedics: History of present illness: Patient is a pleasant 79-year-old female who is seen examined at bedside for evaluation for her right hip. She is status post right hip hemiarthroplasty to be performed yesterday. She feels her right lower extremity hip pain has significantly improved postoperatively. She continues to have some pain at her right hip which is adequately controlled currently. She was able to transfer to a bedside chair. She is currently sitting in a chair comfortably. She was able to eat breakfast this morning and states the food did not taste very good. She continues to be seen by multiple medical providers including medicine, pulmonology, and cardiology. Physical Exam: Status post surgical day number 1 Patient is examined sitting in a bedside chair Patient is awake and alert, and oriented 3 Vital signs stable Adequate chest excursion with deep inspiration and expiration; patient currently on O2 nasal cannula No signs or symptoms of DVT; no calf pain Dressing over the right hip is clean, dry, and intact No significant pain with palpation over the surgical site of the right hip Dorsiflexion and plantarflexion positive sustained bilateral lower extremities Neurovascularly intact bilateral lower extremities Nolasco catheter intact Assessment: Status post right hip hemiarthroplasty for subcapital right hip fracture Right hip fracture Inability to ambulate due to hip Right hip pain Pneumonia Influenza Acute hypoxic respiratory failure History of CVA Chronic atrial fibrillation Hypertension Hyperlipidemia Plan: 1. Patient may continue to weight-bear as tolerated on the right lower extremity with a walker; patient may work with physical therapy to increase mobility and ambulation 2. Continue pain control as prescribed as needed with hydrocodone or Dilaudid 3. Patient will continue be seen examined multiple medical providers including medicine, pulmonology, and cardiology for her multiple other medical diagnoses 4. Discontinue Nolasco catheter 5. Continue with with anticoagulation therapy per medicine or cardiology; patient was previously on Coumadin 6. We'll continue to follow the patient closely. 7. Patient will need discharge to a rehabilitation facility once cleared by multiple other medical providers. 8. Patient can follow-up with Che Wilkins PA-C or Dr. Shaw Shelton at [facility] in 2-3 weeks following discharge
[2024-08-21 11:27] LABS: Basophils # (A) 0.02 X 10*3/uL (0.00-0.10); Basophils % (A) 0.2 %; Eosinophils # (A) 0 X 10*3/uL (0.04-0.35); Eosinophils % (A) 0 %; HCT 35.3 % (37.2-46.3); HGB 11.3 g/dL (12.0-15.0); Lymphocytes # (A) 1.07 X 10*3/uL (0.90-5.00); Lymphocytes % (A) 8.4 %; MCH 29.3 pg (27.0-32.0); MCV 91.5 FL (80.0-97.0); Mean Platelet Volume 11.4 FL (9.5-12.2); Monocytes # (A) 1.07 X 10*3/uL (0.20-1.00); Monocytes % (A) 8.4 %; NRBC Per 100 WBC 0 X 10*3/uL (0.00-0.01); Neutrophils # (A) 10.53 X 10*3/uL (1.80-7.70); Neutrophils % (A) 82.2 %; Platelet Count 284 X 10*3/uL (140-440); RBC 3.86 X 10*6/uL (4.10-5.20); RDW 15.2 % (11.5-14.5); WBC 12.79 X 10*3/uL (4.50-10.00)
--- NOTE | 2024-08-21 13:07 | P.PN ---
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 She presented to the emergency department via EMS after fall/syncopal episode at home. Patient reports she began feeling under the weather on Friday evening and just extra tired and states by morning she began having nausea, vomiting, and diarrhea multiple times daily. Patient reports she was in the restroom and just got done vomiting twice and stood up and the next thing she remembers was waking up on the bathroom floor with severe pain to her right hip. Patient does not recall fall and is unsure if she expe rienced any dizziness/lightheadedness prior to event. Patient currently reports only pain is to right hip and leg. She denies having any headache, lightheadedness, dizziness, chest pain, palpitations, shortness of breath, or experiencing any numbness in her extremities. Upon arrival to our facility, patient underwent evaluation in the emergency department. Vital signs upon arrival show blood pressure 134/75, heart rate 70, respiratory rate 20, temp 98.6 F, and SpO2 of 95% on 2 L. EKG completed showing atrial fibrillation with a controlled ventricular rate of [address] head and cervical spine revealing moderate to severe degenerative disc disease throughout the cervical spine but negative for acute fracture or subluxation and CT head revealing age-related changes with encephalomalacia of the right parietal-occipital region. Chest x- ray showing atherosclerotic disease but negative for acute cardiopulmonary process. X-ray right hip showing acute transcervical fracture of the proximal right femur with varus angulation. Labs completed and reviewed. CBC unremarkable. Coagulation profile showing elevated PT of 18.5, subtherapeutic INR of 1.8, and PTT of 33.7. BMP showing sodium 136, bicarb of 21, and elevated anion gap of 13 and renal function consistent with known CKD stage IIIa with BUN of 22, creatinine 1.06, GFR 50. Blood glucose was 157. Magnesium was slightly low at 1.7. Her profile showing elevated AST of 55 otherwise normal findings. Troponin was negative at less than 0.012 and proBNP 5810. Serum alcohol level was less than 10. COVID and RSV were negative but patient positive for influenza A. Repeat chest x-ray showing right upper lobe acute infiltrate. Patient was started on IV antibiotics with Rocephin 2 g daily and a Zithromax 500 mg daily in addition to Tamiflu as recommended by [employer]. Patient was supposed to go for surgery on 08/19, her heart rate was noted to be elevated this morning, she is not atrial fibrillation, INR 1 point 4 in the morning, Coumadin on hold, cardiology recommended to increase metoprolol succinate to 50 mg twice daily. On 5 L nasal cannula today. Surgery postponed due to elevated INR, plan for right hip hemiarthroplasty on 08/20. Internal medicine assumed care as primary team now with orthopedic surgery on consult 08/20, patient is on 4 L nasal cannula, heart rate in 100 110s, surgery scheduled for today, metoprolol increased to 100 twice daily 08/21: Patient is s/p right hip hemiarthroplasty 08/20, feeling better today, heart rate improved, Coumadin to be resumed, cardiology added Cardizem 30 mg 3 t imes daily to achieve better heart rate control Subjective: Denies shortness of breath or chest pain, overall feeling better, complains of mild postop pain Pertinent positives and negatives as discussed above, a complete review of systems was performed and all other systems are negative. Vitals Signs Reviewed. eneral: Nontoxic, no distress and appears stated age. Derm: Skin warm and dry, normal coloration for ethnicity. Head: Atraumatic, normocephalic and symmetric. Eyes: EOM's intact, no lid lag, and anicteric sclera Mouth: no lip lesions, mucus membranes moist Cardiovascular: Irregularly irregular, soft systolic murmur, positive posterior tibial pulses bilaterally, and cap refill < 2 seconds. Lungs: Respirations even, regular, and unlabored on nasal cannula. Lungs with diffuse rhonchi and soft expiratory wheezes bilaterally. Abdominal: Soft, nontender to palpation, no guarding, no appreciable organomegaly Ext: No gross muscle atrophy, no edema, no contractures. Movement and sensation intact. Varicose veins present. Right hip dressing clean and dry Neuro: Speech clear, face symmetrical and CN II-XII grossly intact with no noted focal neuro deficits Psych: Alert and oriented to person, place, time, and situation. Appropriate affect. Data Reviewed Today: Pertinent Labs: WBC 12.7, hemoglobin 11.3, platelet count normal, sodium, potassium, bicarb normal, creatinine 1.2, blood glucose 106. Assessment and Plan: Influenza A infection Right upper lobe pneumonia Acute hypoxic respiratory failure, secondary to above and suspect underlying undiagnosed COPD -Suspect underlying COPD, however patient denies history of COPD or reports of shortness of breath at home. She denies using inhalers or nebulizer treatments at home. Patient is a longtime smoker. -Pulmonology following., Patient was cleared for surgery by pulmonology -Oxygenation to be administered and titrated as needed to maintain SPO2 equal to or greater than 92% -Encouraged to work with incentive spirometry -Telemetry monitoring. -Monitor pulse-oximetry -Duonebs scheduled 4 times daily and as needed for SOB and/or wheezing -Tamiflu completed, continue with Rocephin 2 g daily SOT 08/16, completed d Zithromax 500 mg daily. Transcervical fracture of the proximal right femur with varus angulation status post right hip hemiarthroplasty 08/20 -Management per orthopedic surgery Syncopal episode, believed to be vasovagal episode vs orthostatic hypotension Abnormal CT brain, showing encephalomalacia of the right parietal/occipital region Chronic atrial fibrillation Subtherapeutic INR History of CVA Hypertension Hyperlipidemia -Consult placed to hot room attendant and discussed plan of care with Dr. Pruitt stating patient cleared from cardiac perspective for discharge. -Metoprolol succinate increased to 100 twice daily by cardiology -Coumadin to be resumed, cardiology added Cardizem 30 mg 3 times daily to achieve better heart rate control -Neurology evaluated, discussed with neurologist, Dr. Osullivan stating abnormal CT findings appear old, not acute finding. -Patient to remain on continuous telemetry monitoring with neurochecks every 4 hours.. -Continue atorvastatin 40 mg nightly. Recommend daily aspirin once cleared by orthopedic surgery team. -Initial troponin less than 0.012 with repeat troponin of 0.016 and 0.017. -Echocardiogram completed showing a preserved EF of 50 to 55% with moderate right ventricular dilation and mild to moderate aortic regurgitation and mild tricuspid regurgitation. ALEE on CKD stage IIIa, resolved -Strict I's and O's -IV fluids discontinued Nicotine dependence -Recommend smoking cessation and order placed for nicotine patch 14 mg daily. DVT ppx: SCD Code status: Full code Anticipated discharge place: TBD Anticipated discharge time: TBD Objective - Vital Signs Vital signs: Vital Signs Temp 98.4 F 08/21/24 08:00 Pulse 125 H 08/21/24 08:12 Resp 17 08/21/24 08:00 BP 126/68 08/21/24 08:00 Pulse Ox 96 08/21/24 08:12 FiO2 Intake & Output 08/20/24 08/21/24 08/21/24 18:59 06:59 18:59 Intake Total 601 Output Total 150 125 200 Balance 451 -125 -200 Weight 70.307 kg Intake: IV 601 Output: Urine 125 200 Uretheral (Nolasco) 200 Estimated Blood Loss 150 Other: Voiding Method Indwelling Catheter Indwelling Catheter Indwelling Catheter - Labs CBC & Chem 7: 08/21/24 04:14 08/21/24 04:14 Labs: Abnormal Lab Results - Last 24 Hours (Table) 08/20/24 08/21/24 08/21/24 Range/Units 19:10 04:14 04:14 WBC 14.33 H 12.79 H (4.50-10.00) X 10*3/uL RBC 3.86 L (4.10-5.20) X 10*6/uL Hgb 11.3 L (12.0-15.0) g/dL Hct 35.3 L (37.2-46.3) % MCHC 31.5 L (32.0-37.0) g/dL RDW 15.0 H 15.2 H (11.5-14.5) % Immature Gran # 0.10 H 0.10 H (0.00-0.04) X 10*3/uL Neutrophils # 13.15 H 10.53 H (1.80-7.70) X 10*3/uL Lymphocytes # 0.66 L (0.90-5.00) X 10*3/uL Monocytes # 1.07 H (0.20-1.00) X 10*3/uL Eosinophils # 0 L 0 L (0.04-0.35) X 10*3/uL PT (10.0-12.5) sec INR (<1.2) Anion Gap 13.80 H (4.00-12.00) mmol/L Est GFR (CKD-EPI) 46 L (>=60) Calcium 8.1 L (8.7-10.3) mg/dL 03/15/25 Range/Units 09:56 WBC (4.50-10.00) X 10*3/uL RBC (4.10-5.20) X 10*6/uL Hgb (12.0-15.0) g/dL Hct (37.2-46.3) % MCHC (32.0-37.0) g/dL RDW (11.5-14.5) % Immature Gran # (0.00-0.04) X 10*3/uL Neutrophils # (1.80-7.70) X 10*3/uL Lymphocytes # (0.90-5.00) X 10*3/uL Monocytes # (0.20-1.00) X 10*3/uL Eosinophils # (0.04-0.35) X 10*3/uL PT 19.1 H (10.0-12.5) sec INR 1.9 H (<1.2) Anion Gap (4.00-12.00) mmol/L Est GFR (CKD-EPI) (>=60) Calcium (8.7-10.3) mg/dL
[2024-08-21] MEDS: DILTIAZEM ORAL 30 MG TAB PO SCH (13:44)
--- NOTE | 2024-08-21 14:44 | P.PN ---
Subjective Progress Note Date: 08/21/24 This is a 79-year-old female patient who is being seen in consult for an acute hypoxic respiratory failure and a fall and a hip fracture. This patient has history of CVA without any residual deficits, chronic stage IIIa kidney disease, hypertension hyperlipidemia and history of chronic atrial fibrillation and she has been maintained on anticoagulation with warfarin. The patient presents to the emergency department after a fall. Apparently, she was getting progressively more tired and she was also having episodes of nausea and emesis and diarrhea on multiple occasions. She was getting progressively more dehydrated. She is not recalling the fall and she is unsure if she experienced any dizziness or lightheadedness prior to this event. The patient is complaining of pain in her right hip/right lower extremity area. In the emergency department, further investigation was done. CAT scan of the brain showed no acute abnormalities other than some age-related changes with encephalomalacia and an old right occipital/parietal infarcts. CT scan of the neck showed moderate to severe degenerative changes involving the cervical spine. The blood work showed a white cell count of 8.6 with a was 1.4 and a platelet count of 216. Her INR is at 1.6 and a PT of 16.9 off warfarin. Her BUN is at 31 with a creatinine of 1.7 and the patient has sustained acute kidney injury probably due to his advanced ago depletion and dehydration. Sodium levels at 136 and a potassium of 5. Serum bicarb is at 22. LFTs are normal. She tested positive for influenza A. Serum alcohol was negative. UA was no nsignificant other than +1 protein. Chest x-ray was reviewed and it showed no acute abnormalities. There is some increased bilateral pulmonary vascular markings. No consolidation. No airspace disease. Echocardiogram showed a preserved LV function. X-ray of the hip and the pelvis showed a acute transcervical fracture of the proximal right femur and orthopedic surgery has been consulted and the patient is being contemplated for surgery with the next 24 hours. In terms of oxygenation, the patient was initially on 2 L and her oxygen requirements progressively went up and she is currently up to 8 L nasal cannula. No previous history of DVTs or pulmonary embolism. No angina. No palpitations. No other complaints otherwise for now. On 08/17/2024, the patient is still awaiting a hip surgery. This was postponed that the patient was having an acute hypoxic respiratory failure and the patient is currently on 60 L O2 nasal cannula with a pulse ox of 96%. Follow-up chest x-ray showed right upper lobe consolidation repeat chest x-ray from today shows a persistent right upper lobe infiltrate with a new right basilar infiltrate/atelectasis. The patient remains on DuoNeb. The patient remains on a combination of Rocephin and Zithromax. The patient is also on Tamiflu. The white cell count is at 10.8, hemoglobin 11.8 and platelet count of 211. Sodium is at 142, BUN 32 with a creatinine of 1.6. Potassium is at 4.8, LFTs are normal.Noted the patient also sustained acute kidney injury. Creatinine from yesterday was at 1.7 and the patient is currently receiving IV fluids and sub sequent creatinine from today is at 1.6. She remains on lactated Ringer at rate of 130 cc an hour. Pain is under adequate control for now.Echocardiogram was also completed and the patient was found to have a preserved LV function, moderate right ventricular dilatation with a RVSP of 48 with mild to moderate aortic regurgitation. On 08/18/2024, the patient is being seen for a follow-up. The patient is stable on oxygen which was titrated down to 4 L nasal cannula with a pulse ox of 97%. She remains uncomfortable due to her hip fracture. She has an acute influenza A infection for which she was given Tamiflu. She also developed a right upper lobe pulmonary consolidation/infiltrate and she is currently on IV Rocephin. She remains on DuoNeb nebulized treatments [id number]. She is off warfarin. Her current INR is down to 1.27. Limited cough and congestion. No significant sputum. The white cell count of 9.3 with a hemoglobin of 12.9 and a platelet count of 207. BUN is 22 with a creatinine 1.2 and sodium levels at 143 and a potassium level is at 4.7. The patient is still being followed up by orthopedic surgery. Surgery is to follow within the next 24 to 48 hours. Natali patel be kept n.p.o. after midnight and she is tentatively having her surgery done tomorrow which will involve a right hip hemiarthroplasty. The follow-up chest x-ray is also to be obtained in a.m. She remains on lactated Ringer at rate of 130 cc an hour. Rest of the medications remain unchanged. Echocardiogram was also done on 08/16/2024 and the patient has a preserved LV function with an EF of around 50 to 55%, RVSP of 48, moderate RV dilatation. On 08/19/2024, overall respiratory status is stable. The patient has been weaned down to 4 L of oxygen by nasal cannula. A follow-up chest x-ray was done today that showed right upper lobe pulmonary infiltrates which is somewhat decreased in size and density. Rest of the lung findings are essentially unchanged. Patient is currently afebrile. Hemodynamically stable. The white cell count is at 7.4 with a hemoglobin 13.2 and a platelet count of 218. INR is at 1.4. Sodium is at 145, BUN is 12 with a creatinine of 1.0. Orthopedic surgery is on the case, awaiting hemiarthroplasty of the right hip. The patient has no chest pain. Previous echocardiogram done during his current admission showed preserved LV function without any significant l valve abnormalities. The patient has an EF of around 50 to 55% along with mild to moderate aortic regurgitation and RVSP of 48. On 08/20/2024, the patient is on 4 L of O2 nasal cannula with a pulse ox of 97%. The patient is scheduled to undergo right hip hemiarthroplasty for a subcapital fracture of the right hip. Hemodynamically stable. No specific complaints. Most recent INR from yesterday was at 1.4. No other new labs are available from today. Remains on bronchodilators with DuoNeb updrafts. Remains on IV Rocephin. Completed the course of Tamiflu. Remains on lactated Ringer at rate of 75 cc an hour. Awaiting surgery. Will monitor her postoperative course. On 08/21/2024, patient is being seen for a follow-up. Patient underwent a right hip hemiarthroplasty on 08/20/2024. She is unaccompanied chair. She is calm and comfortable. Continues to have some cough and congestion. No significant respiratory distress. Pain is under adequate control. No fever. White cell count of 12 with a hemoglobin of 11.3 and a platelet count of 284. INR is up to 1.9 and BUN is 23 with a creatinine of 1.2 resorbable at 141. Remains on IV Rocephin. Completed the course of Tamiflu. Remains on DuoNeb nebulizer treatments [id number]. No other complaints otherwise for now. Objective - Vital Signs Vital signs: Vital Signs Temp 98.4 F 08/21/24 08:00 Pulse 125 H 08/21/24 08:12 Resp 17 08/21/24 08:00 BP 126/68 08/21/24 08:00 Pulse Ox 96 08/21/24 08:12 FiO2 Intake & Output 08/20/24 08/21/24 08/21/24 18:59 06:59 18:59 Intake Total 601 Output Total 150 125 Balance 451 -125 Weight 70.307 kg Intake: IV 601 Output: Urine 125 Estimated Blood Loss 150 Other: Voiding Method Indwelling Catheter Indwelling Catheter - Exam The patient is currently on 4 L of oxygen by nasal cannula. Denies having any significant respiratory distress, calm and comfortable, communicating. General: Nontoxic, no distress and appears stated age. Derm: Skin warm and dry, normal coloration for ethnicity. Head: Atraumatic, normocephalic and symmetric. Eyes: EOM's intact, no lid lag, and anicteric sclera Mouth: no lip lesions, mucus membranes moist Cardiovascular: Irregularly irregular, soft systolic murmur, positive posterior tibial pulses bilaterally, and cap refill < 2 seconds. Lungs: Respirations even, regular, and unlabored on room air. Lungs with diffuse expiratory wheezes bilaterally. Abdominal: soft, nontender to palpation, no guarding, no appreciable organomegaly Ext: No gross muscle atrophy, no edema, no contractures. Movement and sensation intact. Varicose veins present. Surgical wound site over the left hip area is dry clean and intact Neuro: Speech clear, face symmetrical and CN II-XII grossly intact with no noted focal neuro deficits Psych: Alert and oriented to person, place, time, and situation. Appropriate and pleasant affect. - Labs CBC & Chem 7: 08/21/24 04:14 08/21/24 04:14 Labs: Abnormal Lab Results - Last 24 Hours (Table) 08/20/24 08/21/24 08/21/24 Range/Units 19:10 04:14 04:14 WBC 14.33 H 12.79 H (4.50-10.00) X 10*3/uL RBC 3.86 L (4.10-5.20) X 10*6/uL Hgb 11.3 L (12.0-15.0) g/dL Hct 35.3 L (37.2-46.3) % MCHC 31.5 L (32.0-37.0) g/dL RDW 15.0 H 15.2 H (11.5-14.5) % Immature Gran # 0.10 H 0.10 H (0.00-0.04) X 10*3/uL Neutrophils # 13.15 H 10.53 H (1.80-7.70) X 10*3/uL Lymphocytes # 0.66 L (0.90-5.00) X 10*3/uL Monocytes # 1.07 H (0.20-1.00) X 10*3/uL Eosinophils # 0 L 0 L (0.04-0.35) X 10*3/uL PT (10.0-12.5) sec INR (<1.2) Anion Gap 13.80 H (4.00-12.00) mmol/L Est GFR (CKD-EPI) 46 L (>=60) Calcium 8.1 L (8.7-10.3) mg/dL 08/21/24 Range/Units 09:56 WBC (4.50-10.00) X 10*3/uL RBC (4.10-5.20) X 10*6/uL Hgb (12.0-15.0) g/dL Hct (37.2-46.3) % MCHC (32.0-37.0) g/dL RDW (11.5-14.5) % Immature Gran # (0.00-0.04) X 10*3/uL Neutrophils # (1.80-7.70) X 10*3/uL Lymphocytes # (0.90-5.00) X 10*3/uL Monocytes # (0.20-1.00) X 10*3/uL Eosinophils # (0.04-0.35) X 10*3/uL PT 19.1 H (10.0-12.5) sec INR 1.9 H (<1.2) Anion Gap (4.00-12.00) mmol/L Est GFR (CKD-EPI) (>=60) Calcium (8.7-10.3) mg/dL Assessment and Plan Plan: Acute hypoxic respiratory failure, currently on 4 L of oxygen by nasal cannula Right upper lobe infiltrate/consolidation involving on subsequent chest x-ray. Rule out influenza infection with secondary pneumonia, which could be potentially bacterial. The patient is currently on a combination of Rocephin and Zithromax and Tamiflu. Chest x-ray on 08/19/2024 shows improvement in the right upper lobe consolidation. Acute influenza A infection, completed the course of Tamiflu Acute dehydration with nausea emesis and diarrhea improved with fluid resuscitation Acute kidney injury, recovering Acute fracture of the right femur post fall, status post right hip hemiarthroplasty and the patient underwent surgery on 08/20/2024 Presyncope secondary to above History of CVA Chronic A-fib, maintained on anticoagulation with warfarin. PT/INR subtherapeutic at this point in the Coumadin is on hold in preparation for hip surgery Hypertension Hyperlipidemia Plan Titrate oxygen flow to maintain saturation above 90%, currently on 4 Continue Rocephin Tamiflu completed Repeat chest x-ray findings are stable and improving Continue IV fluids lactated Ringer at rate of 130 cc an hour creatinine is improving Echo was noted and the patient has a preserved LV function May start warfarin once clearance obtained by orthopedic surgery Monitor renal function, renal function continues to improve We will follow-up the course.
[2024-08-21] MEDS: WARFARIN 2 MG TAB PO ONE (18:58)
--- NOTE | 2024-08-22 10:03 | P.PN ---
Subjective HISTORY OF PRESENT ILLNESS: Patient is a 79-year-old female with past medical history of chronic atrial fibrillation on anticoagulation with warfarin, hypertension dyslipidemia prior CVA. She also has CKD and is a smoker. She presented to the hospital because for last few days she has been feeling more weak, nauseous, having vomiting and diarrhea. Apparently she had influenza A and since then she has been very weak. She reports that she was in the restroom and was just gotten vomiting and when she stood up she remember waking up on the floor of the bathroom with severe pain in the right hip. She is not able to give me specifications if she passed out. The last thing she remembers was vomiting the next and she remembers was finding herself on floor. 08/16 Patient seen and examined. Patient has been having some more confusion. She has with a one-to-one sitter. Her creatinine went from 1.0-1.7 and had decreased urine output and therefore given liter bolus. She has had worsening hypoxia with increasing oxygen demands and currently on high flow. She denies any chest pain or pressure. She states she has some appetite. Currently receiving IV fluids at 100 cc/h. Echocardiogram performed which shows EF 50 to 55%. Chest x-ray concerning for upper infiltrate. 08/17 Patient seen and examined. Patient denies any chest pain or pressure. Tolerating diet. Creatinine mildly improved from 1.7-1.6 with IV fluids. 08/18/2024 Patient examined this morning at the bedside. Patient currently denies chest pain or pressure. She denies shortness of breath. Patient is positive for influenza A. She is awaiting hip surgery. INR today 1.27. Echocardiogram completed revealing ejection fraction 50 to 55%, mild to moderate AI, mild TR, RVSP 48. 08/19/2024 Patient examined this morning at the bedside. Patient complains of a sore throat this morning states her breathing feels " so-so". She denies chest pain or pressure. Patient said heart rate is elevated this morning around 115. She remains in atrial fibrillation. INR today 1.4. She is awaiting surgery. 08/20/2024 Patient examined this morning at the bedside. Patient currently denies chest pain or pressure. She denies shortness of breath. She remains in atrial fibrillation with heart rate around 120. She is scheduled for surgical invention today with orthopedics. 08/21/2024 Patient examined this morning at the bedside. She is status post right hip hemiarthroplasty yesterday with orthopedics. Patient denies any chest pain or pressure this morning. She denies shortness of breath. She remains in atrial fibrillation with heart rate between [id number]. 08/22/2024 Patient examined this morning at the bedside. Patient currently denies chest pain or pressure. She denies shortness of breath. She remains in atrial fibrillation with heart rate in the 90s. Coumadin has been resumed. INR 1.9. Vital signs are stable. PHYSICAL EXAM: VITAL SIGNS: Reviewed. GENERAL: Well-developed in no acute distress. NECK: Supple. No JVD or thyromegaly LUNGS: Respirations even and unlabored. Lungs diminished bilaterally. HEART: Irregular rate and rhythm. S1 and S2 heard. EXTREMITIES: Normal range of motion. No clubbing or cyanosis. Peripheral pulses intact. No lower extremity edema ASSESSMENT: Acute influenza A Syncope, suspect vasovagal in nature Right hip fracture, status post right hip hemiarthroplasty Permanent atrial fibrillation with controlled ventricular rate Hypertension Hyperlipidemia Acute on chronic kidney disease History of CVA PLAN: Continue Coumadin with pharmacy to dose. Monitor INR. Continue metoprolol, atorvastatin, and oral Cardizem Continue telemetry monitoring Patient is currently stable for discharge from a cardiac standpoint when cleared by primary medicine and orthopedics Further recommendations pending patient course Nurse practitioner note has been reviewed by physician. Signing provider agrees with the documented findings, assessment, and plan of care documented by [employer] as a scribe. Objective - Vital Signs Vital signs: Vital Signs Temp 98.2 F 08/22/24 07:35 Pulse 85 08/22/24 09:55 Resp 18 08/22/24 09:55 BP 98/64 08/22/24 07:35 Pulse Ox 97 08/22/24 07:35 FiO2 Intake & Output 08/21/24 08/22/24 08/22/24 18:59 06:59 18:59 Intake Total 240 Output Total 200 Balance 40 Intake: Oral 240 Output: Urine 200 Uretheral (Nolasco) 200 Other: Voiding Method Indwelling Catheter Bedside Commode - Labs CBC & Chem 7: 08/21/24 04:14 08/21/24 04:14 Labs: Abnormal Lab Results - Last 24 Hours (Table) 03/15/25 03/15/25 Range/Units 04:14 09:56 WBC 12.79 H (4.50-10.00) X 10*3/uL RBC 3.86 L (4.10-5.20) X 10*6/uL Hgb 11.3 L (12.0-15.0) g/dL Hct 35.3 L (37.2-46.3) % RDW 15.2 H (11.5-14.5) % Immature Gran # 0.10 H (0.00-0.04) X 10*3/uL Neutrophils # 10.53 H (1.80-7.70) X 10*3/uL Monocytes # 1.07 H (0.20-1.00) X 10*3/uL Eosinophils # 0 L (0.04-0.35) X 10*3/uL PT 19.1 H (10.0-12.5) sec INR 1.9 H (<1.2)
[2024-08-22 10:06] LABS: Anisocytosis Slight; Basophils % (A) 0 %; Eosinophils % (A) 0 %; Lymphocytes # (A) 1.6 k/uL (1.0-4.8); Lymphocytes % (A) 13 %; MCH 29.9 pg (25.0-35.0); MCHC 32.3 g/dL (31.0-37.0); MCV 92.4 fL (80.0-100.0); Mean Platelet Volume 9.2; Monocytes % (A) 8 %; Neutrophils # (A) 9.1 k/uL (1.3-7.7); Neutrophils % (A) 75 %; Platelet Count 320 k/uL (150-450); Poikilocytosis Slight; RBC 3.14 m/uL (3.80-5.40); WBC 12.1 k/uL (3.8-10.6)
[2024-08-22 10:15] LABS: HGB 9.4 gm/dL (11.4-16.0)
[2024-08-22 10:16] LABS: INR 3.2 (<1.2); Prothrombin Time 31.8 sec (10.0-12.5)
[2024-08-22 10:19] LABS: African American GFR (CKD) 51 (>60 ml/min/1.73 sqM); Anion Gap 7 mmol/L; Blood Urea Nitrogen 30 mg/dL (7-17); Calcium 8.1 mg/dL (8.4-10.2); Carbon Dioxide 32 mmol/L (22-30); Chloride 96 mmol/L (98-107); Glucose 115 mg/dL (74-99); Non-African American GFR(CKD) 44 (>60 ml/min/1.73 sqM); Potassium 4.1 mmol/L (3.5-5.1); Sodium 135 mmol/L (137-145)
--- NOTE | 2024-08-22 12:05 | P.PN ---
Subjective Progress Note Date: 08/22/24 Hospital Course: Patient is a very pleasant 79-year-old female with a past medical history of c hronic atrial fibrillation on anticoagulation with Coumadin, hypertension, hyperlipidemia, previous CVA with no residual deficit, CKD stage IIIa and nicotine dependence. She presented to the emergency department via EMS after fall/syncopal episode at home. Patient reports she began feeling under the weather on Friday evening and just extra tired and states by morning she began having nausea, vomiting, and diarrhea multiple times daily. Patient reports she was in the restroom and just got done vomiting twice and stood up and the next thing she remembers was waking up on the bathroom floor with severe pain to her right hip. Patient does not recall fall and is unsure if she expe rienced any dizziness/lightheadedness prior to event. Patient currently reports only pain is to right hip and leg. She denies having any headache, lightheadedness, dizziness, chest pain, palpitations, shortness of breath, or experiencing any numbness in her extremities. Upon arrival to our facility, patient underwent evaluation in the emergency department. Vital signs upon arrival show blood pressure 134/75, heart rate 70, respiratory rate 20, temp 98.6 F, and SpO2 of 95% on 2 L. EKG completed showing atrial fibrillation with a controlled ventricular rate of [address] head and cervical spine revealing moderate to severe degenerative disc disease throughout the cervical spine but negative for acute fracture or subluxation and CT head revealing age-related changes with encephalomalacia of the right parietal-occipital region. Chest x- ray showing atherosclerotic disease but negative for acute cardiopulmonary process. X-ray right hip showing acute transcervical fracture of the proximal right femur with varus angulation. Labs completed and reviewed. CBC unremarkable. Coagulation profile showing elevated PT of 18.5, subtherapeutic INR of 1.8, and PTT of 33.7. BMP showing sodium 136, bicarb of 21, and elevated anion gap of 13 and renal function consistent with known CKD stage IIIa with BUN of 22, creatinine 1.06, GFR 50. Blood glucose was 157. Magnesium was slightly low at 1.7. Her profile showing elevated AST of 55 otherwise normal findings. Troponin was negative at less than 0.012 and proBNP 5810. Serum alcohol level was less than 10. COVID and RSV were negative but patient positive for influenza A. Repeat chest x-ray showing right upper lobe acute infiltrate. Patient was started on IV antibiotics with Rocephin 2 g daily and a Zithromax 500 mg daily in addition to Tamiflu as recommended by [employer]. Patient was supposed to go for surgery on 08/19, her heart rate was noted to be elevated this morning, she is not atrial fibrillation, INR 1 point 4 in the morning, Coumadin on hold, cardiology recommended to increase metoprolol succinate to 50 mg twice daily. On 5 L nasal cannula today. Surgery postponed due to elevated INR, plan for right hip hemiarthroplasty on 08/20. Internal medicine assumed care as primary team now with orthopedic surgery on consult metoprolol increased to 100 twice daily 08/22: Patient is s/p right hip hemiarthroplasty 08/20, feeling better today, heart rate improved, Coumadin resumed, cardiology added Cardizem 30 mg 3 times daily to achieve better heart rate control, now she is stable from cardiology standpoint for discharge. Pending PT OT evaluation, still requiring 4 L of nasal cannula Subjective: Denies shortness of breath or chest pain, overall feeling better, complains of mild postop pain, sitting in the recliner Pertinent positives and negatives as discussed above, a complete review of systems was performed and all other systems are negative. Vitals Signs Reviewed. eneral: Nontoxic, no distress and appears stated age. Derm: Skin warm and dry, normal coloration for ethnicity. Head: Atraumatic, normocephalic and symmetric. Eyes: EOM's intact, no lid lag, and anicteric sclera Mouth: no lip lesions, mucus membranes moist Cardiovascular: Irregularly irregular, soft systolic murmur, positive posterior tibial pulses bilaterally, and cap refill < 2 seconds. Lungs: Respirations even, regular, and unlabored on nasal cannula. Lungs with diffuse rhonchi and soft expiratory wheezes bilaterally. Abdominal: Soft, nontender to palpation, no guarding, no appreciable organomegaly Ext: No gross muscle atrophy, no edema, no contractures. Movement and sensation intact. Varicose veins present. Right hip dressing clean and dry Neuro: Speech clear, face symmetrical and CN II-XII grossly intact with no noted focal neuro deficits Psych: Alert and oriented to person, place, time, and situation. Appropriate affect. Data Reviewed Today: Pertinent Labs: WBC 12.1, hemoglobin 9.4, platelet count normal, [id number], potassium 4.1, bicarb 32, creatinine 1.17, blood glucose 115. Assessment and Plan: Influenza A infection Right upper lobe pneumonia Acute hypoxic respiratory failure, secondary to above and suspect underlying undiagnosed COPD -Suspect underlying COPD, however patient denies history of COPD or reports of shortness of breath at home. She denies using inhalers or nebulizer treatments at home. Patient is a longtime smoker. -Pulmonology following., -Oxygenation to be administered and titrated as needed to maintain SPO2 equal to or greater than 92% -Encouraged to work with incentive spirometry -Telemetry monitoring. -Monitor pulse-oximetry -Duonebs scheduled 4 times daily and as needed for SOB and/or wheezing -Tamiflu completed, continue with Rocephin 2 g daily SOT 08/16 due to ongoing endorgan damage with persistent hypoxia requiring supplemental oxygen at 4 L nasal cannula, WBCs are elevated at 12.1, febrile, completed d Zithromax 500 mg daily. Transcervical fracture of the proximal right femur with varus angulation status post right hip hemiarthroplasty 08/20 -Management per orthopedic surgery -PT consulted -Bowel regimen ordered Syncopal episode, believed to be vasovagal episode vs orthostatic hypotension Abnormal CT brain, showing encephalomalacia of the right parietal/occipital region Chronic atrial fibrillation Subtherapeutic INR History of CVA Hypertension Hyperlipidemia -Consult placed to shoe laster ,cleared from cardiac perspective for discharge. -Metoprolol succinate increased to 100 twice daily by cardiology -Coumadin resumed, cardiology added Cardizem 30 mg 3 times daily to achieve better heart rate control -Neurology evaluated, discussed with neurologist, Dr. Osullivan stating abnormal CT findings appear old, not acute finding. -Patient to remain on continuous telemetry monitoring with neurochecks every 4 hours.. -Continue atorvastatin 40 mg nightly. Recommend daily aspirin once cleared by orthopedic surgery team. -Initial troponin less than 0.012 with repeat troponin of 0.016 and 0.017. -Echocardiogram completed showing a preserved EF of 50 to 55% with moderate right ventricular dilation and mild to moderate aortic regurgitation and mild tricuspid regurgitation. ALEE on CKD stage IIIa, resolved -Strict I's and O's -IV fluids discontinued Nicotine dependence -Recommend smoking cessation and order placed for nicotine patch 14 mg daily. DVT ppx: SCD Code status: Full code Anticipated discharge place: TBD Anticipated discharge time: TBD Objective - Vital Signs Vital signs: Vital Signs Temp 98.2 F 08/22/24 07:35 Pulse 84 08/22/24 10:05 Resp 18 08/22/24 10:05 BP 98/64 08/22/24 07:35 Pulse Ox 97 08/22/24 07:35 FiO2 Intake & Output 08/21/24 08/22/24 08/22/24 18:59 06:59 18:59 Intake Total 240 Output Total 200 Balance 40 Intake: Oral 240 Output: Urine 200 Uretheral (Nolasco) 200 Other: Voiding Method Indwelling Catheter Bedside Commode - Labs CBC & Chem 7: 08/22/24 08:54 08/22/24 08:54 Labs: Abnormal Lab Results - Last 24 Hours (Table) 08/22/24 08/22/24 08/22/24 Range/Units 08:54 08:54 08:54 WBC 12.1 H (3.8-10.6) k/uL RBC 3.14 L (3.80-5.40) m/uL Hgb 9.4 L D (11.4-16.0) gm/dL Hct 29.0 L (34.0-46.0) % RDW 16.0 H (11.5-15.5) % Neutrophils # 9.1 H (1.3-7.7) k/uL PT 31.8 H (10.0-12.5) sec INR 3.2 H (<1.2) Sodium 135 L (137-145) mmol/L Chloride 96 L (98-107) mmol/L Carbon Dioxide 32 H (22-30) mmol/L BUN 30 H (7-17) mg/dL Creatinine 1.17 H (0.52-1.04) mg/dL Glucose 115 H (74-99) mg/dL Calcium 8.1 L (8.4-10.2) mg/dL
--- NOTE | 2024-08-22 12:27 | P.PN ---
Progress Note - Text Progress Note Date: 08/22/24 Orthopedics: History of present illness: Patient is a pleasant 79-year-old female who is seen examined at bedside for evaluation for her right hip. She is status post right hip hemiarthroplasty to be performed yesterday. She feels her right lower extremity hip pain has significantly improved postoperatively. She continues to have some pain at her right hip which is adequately controlled currently. She was able to transfer to a bedside chair and is currently in a chair. She is currently sitting in a chair comfortably. Her Nolasco catheter has been discontinued. She is eating and voiding without difficulty. She continues to be seen by multiple medical providers including medicine, pulmonology, and cardiology. Nursing states they are currently planning for discharge to a rehabilitation facility tomorrow, 08/23/2024, if patient is approved through insurance and cleared by multiple medical providers. Physical Exam: Status post surgical day number 2 Patient is examined sitting in a bedside chair Patient is awake and alert, and oriented 3 Vital signs stable Adequate chest excursion with deep inspiration and expiration; patient currently on O2 nasal cannula No signs or symptoms of DVT; no calf pain Dressing over the right hip is clean, dry, and intact No significant pain with palpation over the surgical site of the right hip Dorsiflexion and plantarflexion positive sustained bilateral lower extremities Neurovascularly intact bilateral lower extremities Assessment: Status post right hip hemiarthroplasty for subcapital right hip fracture Right hip fracture Inability to ambulate due to hip Right hip pain Pneumonia Influenza A Acute hypoxic respiratory failure History of CVA Chronic atrial fibrillation Hypertension Hyperlipidemia Plan: We will continue with our plan as set forth yesterday. 1. Patient may continue to weight-bear as tolerated on the right lower extremity with a walker; patient may work with physical therapy to increase mobility and ambulation 2. Continue pain control as prescribed as needed with hydrocodone or Dilaudid 3. Patient will continue be seen examined multiple medical providers including medicine, pulmonology, and cardiology for her multiple other medical diagnoses 4. Continue with with anticoagulation therapy per medicine or cardiology; patient has been restarted on warfarin per cardiology 5. We'll continue to follow the patient closely. 6. Patient will need discharge to a rehabilitation facility once cleared by multiple other medical providers, which could happen tomorrow, 08/23/2024, if approved by insurance and cleared by multiple medical providers. 7. Patient can follow-up with Che Wilkins PA-C or Dr. Shaw Shelton at [facility] in 2-3 weeks following discharge
[2024-08-22] MEDS: ALBUTEROL NEBULIZED 2.5 MG/3 ML INHALATION SCH (12:54)
--- NOTE | 2024-08-22 14:34 | P.PN ---
Subjective Progress Note Date: 08/22/24 This is a 79-year-old female patient who is being seen in consult for an acute hypoxic respiratory failure and a fall and a hip fracture. This patient has history of CVA without any residual deficits, chronic stage IIIa kidney disease, hypertension hyperlipidemia and history of chronic atrial fibrillation and she has been maintained on anticoagulation with warfarin. The patient presents to the emergency department after a fall. Apparently, she was getting progressively more tired and she was also having episodes of nausea and emesis and diarrhea on multiple occasions. She was getting progressively more dehydrated. She is not recalling the fall and she is unsure if she experienced any dizziness or lightheadedness prior to this event. The patient is complaining of pain in her right hip/right lower extremity area. In the emergency department, further investigation was done. CAT scan of the brain showed no acute abnormalities other than some age-related changes with encephalomalacia and an old right occipital/parietal infarcts. CT scan of the neck showed moderate to severe degenerative changes involving the cervical spine. The blood work showed a white cell count of 8.6 with a was 1.4 and a platelet count of 216. Her INR is at 1.6 and a PT of 16.9 off warfarin. Her BUN is at 31 with a creatinine of 1.7 and the patient has sustained acute kidney injury probably due to his advanced ago depletion and dehydration. Sodium levels at 136 and a potassium of 5. Serum bicarb is at 22. LFTs are normal. She tested positive for influenza A. Serum alcohol was negative. UA was no nsignificant other than +1 protein. Chest x-ray was reviewed and it showed no acute abnormalities. There is some increased bilateral pulmonary vascular markings. No consolidation. No airspace disease. Echocardiogram showed a preserved LV function. X-ray of the hip and the pelvis showed a acute transcervical fracture of the proximal right femur and orthopedic surgery has been consulted and the patient is being contemplated for surgery with the next 24 hours. In terms of oxygenation, the patient was initially on 2 L and her oxygen requirements progressively went up and she is currently up to 8 L nasal cannula. No previous history of DVTs or pulmonary embolism. No angina. No palpitations. No other complaints otherwise for now. On 08/17/2024, the patient is still awaiting a hip surgery. This was postponed that the patient was having an acute hypoxic respiratory failure and the patient is currently on 60 L O2 nasal cannula with a pulse ox of 96%. Follow-up chest x-ray showed right upper lobe consolidation repeat chest x-ray from today shows a persistent right upper lobe infiltrate with a new right basilar infiltrate/atelectasis. The patient remains on DuoNeb. The patient remains on a combination of Rocephin and Zithromax. The patient is also on Tamiflu. The white cell count is at 10.8, hemoglobin 11.8 and platelet count of 211. Sodium is at 142, BUN 32 with a creatinine of 1.6. Potassium is at 4.8, LFTs are normal.Noted the patient also sustained acute kidney injury. Creatinine from yesterday was at 1.7 and the patient is currently receiving IV fluids and sub sequent creatinine from today is at 1.6. She remains on lactated Ringer at rate of 130 cc an hour. Pain is under adequate control for now.Echocardiogram was also completed and the patient was found to have a preserved LV function, moderate right ventricular dilatation with a RVSP of 48 with mild to moderate aortic regurgitation. On 08/18/2024, the patient is being seen for a follow-up. The patient is stable on oxygen which was titrated down to 4 L nasal cannula with a pulse ox of 97%. She remains uncomfortable due to her hip fracture. She has an acute influenza A infection for which she was given Tamiflu. She also developed a right upper lobe pulmonary consolidation/infiltrate and she is currently on IV Rocephin. She remains on DuoNeb nebulized treatments [id number]. She is off warfarin. Her current INR is down to 1.27. Limited cough and congestion. No significant sputum. The white cell count of 9.3 with a hemoglobin of 12.9 and a platelet count of 207. BUN is 22 with a creatinine 1.2 and sodium levels at 143 and a potassium level is at 4.7. The patient is still being followed up by orthopedic surgery. Surgery is to follow within the next 24 to 48 hours. Natali patel be kept n.p.o. after midnight and she is tentatively having her surgery done tomorrow which will involve a right hip hemiarthroplasty. The follow-up chest x-ray is also to be obtained in a.m. She remains on lactated Ringer at rate of 130 cc an hour. Rest of the medications remain unchanged. Echocardiogram was also done on 08/16/2024 and the patient has a preserved LV function with an EF of around 50 to 55%, RVSP of 48, moderate RV dilatation. On 08/19/2024, overall respiratory status is stable. The patient has been weaned down to 4 L of oxygen by nasal cannula. A follow-up chest x-ray was done today that showed right upper lobe pulmonary infiltrates which is somewhat decreased in size and density. Rest of the lung findings are essentially unchanged. Patient is currently afebrile. Hemodynamically stable. The white cell count is at 7.4 with a hemoglobin 13.2 and a platelet count of 218. INR is at 1.4. Sodium is at 145, BUN is 12 with a creatinine of 1.0. Orthopedic surgery is on the case, awaiting hemiarthroplasty of the right hip. The patient has no chest pain. Previous echocardiogram done during his current admission showed preserved LV function without any significant l valve abnormalities. The patient has an EF of around 50 to 55% along with mild to moderate aortic regurgitation and RVSP of 48. On 08/20/2024, the patient is on 4 L of O2 nasal cannula with a pulse ox of 97%. The patient is scheduled to undergo right hip hemiarthroplasty for a subcapital fracture of the right hip. Hemodynamically stable. No specific complaints. Most recent INR from yesterday was at 1.4. No other new labs are available from today. Remains on bronchodilators with DuoNeb updrafts. Remains on IV Rocephin. Completed the course of Tamiflu. Remains on lactated Ringer at rate of 75 cc an hour. Awaiting surgery. Will monitor her postoperative course. On 08/21/2024, patient is being seen for a follow-up. Patient underwent a right hip hemiarthroplasty on 08/20/2024. She is unaccompanied chair. She is calm and comfortable. Continues to have some cough and congestion. No significant respiratory distress. Pain is under adequate control. No fever. White cell count of 12 with a hemoglobin of 11.3 and a platelet count of 284. INR is up to 1.9 and BUN is 23 with a creatinine of 1.2 resorbable at 141. Remains on IV Rocephin. Completed the course of Tamiflu. Remains on DuoNeb nebulizer treatments [id number]. No other complaints otherwise for now. On 08/22/2024, the patient is resting comfortably in bed. She is currently on 4 L of oxygen by nasal cannula with a pulse ox of 94%. The white cell count is at 12 with a hemoglobin 9.4 and a platelet count of 320. BUN 30 with a creatinine of 1.1 and sodium is at 135. No respiratory difficulties. She is postop day #2 following a right hip Marek arthroplasty. The patient was restarted on warfarin. PT/INR is being monitored and the INR is currently at 3.2.Meanwhile, the patient completed her antibiotic course. She completed Tamiflu. A follow-up chest x-ray to be obtained in a.m. Rest of the medications are essentially unchanged. Objective - Vital Signs Vital signs: Vital Signs Temp 98.2 F 08/22/24 07:35 Pulse 84 08/22/24 10:05 Resp 18 08/22/24 10:05 BP 98/64 08/22/24 07:35 Pulse Ox 97 08/22/24 07:35 FiO2 Intake & Output 08/21/24 08/22/24 08/22/24 18:59 06:59 18:59 Intake Total 240 Output Total 200 Balance 40 Intake: Oral 240 Output: Urine 200 Uretheral (Nolasco) 200 Other: Voiding Method Indwelling Catheter Bedside Commode - Exam The patient is currently on 4 L of oxygen by nasal cannula. Denies having any significant respiratory distress, calm and comfortable, communicating. General: Nontoxic, no distress and appears stated age. Derm: Skin warm and dry, normal coloration for ethnicity. Head: Atraumatic, normocephalic and symmetric. Eyes: EOM's intact, no lid lag, and anicteric sclera Mouth: no lip lesions, mucus membranes moist Cardiovascular: Irregularly irregular, soft systolic murmur, positive posterior tibial pulses bilaterally, and cap refill < 2 seconds. Lungs: Respirations even, regular, and unlabored on room air. Lungs with diffuse expiratory wheezes bilaterally. Abdominal: soft, nontender to palpation, no guarding, no appreciable organomegaly Ext: No gross muscle atrophy, no edema, no contractures. Movement and sensation intact. Varicose veins present. Surgical wound site over the left hip area is dry clean and intact Neuro: Speech clear, face symmetrical and CN II-XII grossly intact with no noted focal neuro deficits Psych: Alert and oriented to person, place, time, and situation. Appropriate and pleasant affect. - Labs CBC & Chem 7: 08/22/24 08:54 08/22/24 08:54 Labs: Abnormal Lab Results - Last 24 Hours (Table) 08/21/24 08/22/24 08/22/24 Range/Units 04:14 08:54 08:54 WBC 12.79 H 12.1 H (4.50-10.00) X 10*3/uL RBC 3.86 L 3.14 L (4.10-5.20) X 10*6/uL Hgb 11.3 L 9.4 L D (12.0-15.0) g/dL Hct 35.3 L 29.0 L (37.2-46.3) % RDW 15.2 H 16.0 H (11.5-14.5) % Immature Gran # 0.10 H (0.00-0.04) X 10*3/uL Neutrophils # 10.53 H 9.1 H (1.80-7.70) X 10*3/uL Monocytes # 1.07 H (0.20-1.00) X 10*3/uL Eosinophils # 0 L (0.04-0.35) X 10*3/uL PT 31.8 H (10.0-12.5) sec INR 3.2 H (<1.2) Sodium (137-145) mmol/L Chloride (98-107) mmol/L Carbon Dioxide (22-30) mmol/L BUN (7-17) mg/dL Creatinine (0.52-1.04) mg/dL Glucose (74-99) mg/dL Calcium (8.4-10.2) mg/dL 08/22/24 Range/Units 08:54 WBC (4.50-10.00) X 10*3/uL RBC (4.10-5.20) X 10*6/uL Hgb (12.0-15.0) g/dL Hct (37.2-46.3) % RDW (11.5-14.5) % Immature Gran # (0.00-0.04) X 10*3/uL Neutrophils # (1.80-7.70) X 10*3/uL Monocytes # (0.20-1.00) X 10*3/uL Eosinophils # (0.04-0.35) X 10*3/uL PT (10.0-12.5) sec INR (<1.2) Sodium 135 L (137-145) mmol/L Chloride 96 L (98-107) mmol/L Carbon Dioxide 32 H (22-30) mmol/L BUN 30 H (7-17) mg/dL Creatinine 1.17 H (0.52-1.04) mg/dL Glucose 115 H (74-99) mg/dL Calcium 8.1 L (8.4-10.2) mg/dL Assessment and Plan Plan: Acute hypoxic respiratory failure, currently on 4 L of oxygen by nasal cannula Right upper lobe infiltrate/consolidation involving on subsequent chest x-ray. Rule out influenza infection with secondary pneumonia, which could be potentially bacterial. The patient completed the course of antibiotics with Rocephin and Zithromax and completed Tamiflu. Acute influenza A infection, completed the course of Tamiflu Acute dehydration with nausea emesis and diarrhea improved with fluid resuscit ation Acute kidney injury, recovering Acute fracture of the right femur post fall, status post right hip hemiarthroplasty and the patient underwent surgery on 08/20/2024 Presyncope secondary to above History of CVA Chronic A-fib, maintained on anticoagulation with warfarin. PT/INR subtherapeutic at this point in the Coumadin is on hold in preparation for hip surgery Hypertension Hyperlipidemia Plan Titrate oxygen flow to maintain saturation above 90%, currently on 4 Completed Rocephin and Zithromax Tamiflu completed Repeat chest x-ray in a.m. Continue IV fluids lactated Ringer at rate of 130 cc an hour creatinine is improving Echo was noted and the patient has a preserved LV function May start warfarin once clearance obtained by orthopedic surgery Monitor renal function, renal function continues to improve We will follow-up the course.
[2024-08-22] MEDS: WARFARIN 0.5 MG TAB PO ONE (16:56)
[2024-08-22 17:27] LABS: Anisocytosis Slight; Basophils % (A) 0 %; Eosinophils % (A) 0 %; HGB 9.6 gm/dL (11.4-16.0); Lymphocytes # (A) 1.4 k/uL (1.0-4.8); Lymphocytes % (A) 11 %; MCH 29.4 pg (25.0-35.0); MCHC 31.9 g/dL (31.0-37.0); MCV 92.1 fL (80.0-100.0); Mean Platelet Volume 8.9; Monocytes # (A) 0.9 k/uL (0-1.0); Monocytes % (A) 7 %; Neutrophils # (A) 10.1 k/uL (1.3-7.7); Neutrophils % (A) 78 %; Platelet Count 362 k/uL (150-450); Poikilocytosis Slight; RBC 3.26 m/uL (3.80-5.40)
[2024-08-23 02:58] LABS: INR 3.6 (<1.2)
--- NOTE | 2024-08-23 07:26 | XR ---
EXAMINATION TYPE: XR chest 1V DATE OF EXAM: 08/23/2024 7:16 AM COMPARISON: Chest radiograph from 3 days prior. CLINICAL INDICATION: Female, 79 years old with history of Pneumonia follow-up; [facility] TECHNIQUE: XR chest 1V Frontal view of the chest. FINDINGS: Lungs/Pleura: Right basilar airspace opacities There is no evidence of pleural effusion, focal consol idation, or pneumothorax. Pulmonary vascularity: Unremarkable. Heart/mediastinum: Cardiomediastinal silhouette is unremarkable. Musculoskeletal: No acute osseous pathology. Left shoulder arthroplasty appears intact. IMPRESSION: Right basilar airspace opacities are more pronounced, patient is rotated on today's exam attention on follow-up imaging. [facility], , 08/23/2024 7:24 AM
[2024-08-23 08:50] VITALS: BP 138/73; RESP 18; TEMP 99
--- NOTE | 2024-08-23 09:10 | P.PN ---
Subjective Progress Note Date: 08/23/24 This is an 79-year-old female who is status post right hip hemiarthroplasty. This is postoperative day #3 and patient is seen and evaluated at bedside today. Patient states that her pain is well-controlled and she was able to stand with a walker with physical therapy over the weekend. Patient denies any new complaints today. Objective - Vital Signs Vital signs: Vital Signs Temp 99.0 F 08/23/24 08:00 Pulse 100 08/23/24 08:00 Resp 18 08/23/24 08:00 BP 138/73 08/23/24 08:00 Pulse Ox 96 08/23/24 08:00 FiO2 Intake & Output 08/22/24 08/23/24 08/23/24 18:59 06:59 18:59 Other: Voiding Method Toilet # Voids 1 - Exam Vital signs are stable. Patient is in no acute distress and is alert and oriented 3. Calf is soft and nontender to palpation. Dressing is clean, dry, and intact. Patient has full foot and ankle motion without pain or difficulty. Sensation intact. Neurovascular status and circulatory status are intact. - Labs CBC & Chem 7: 08/22/24 16:54 08/22/24 08:54 Labs: Abnormal Lab Results - Last 24 Hours (Table) 08/22/24 08/22/24 08/22/24 Range/Units 08:54 08:54 08:54 WBC 12.1 H (3.8-10.6) k/uL RBC 3.14 L (3.80-5.40) m/uL Hgb 9.4 L D (11.4-16.0) gm/dL Hct 29.0 L (34.0-46.0) % RDW 16.0 H (11.5-15.5) % Neutrophils # 9.1 H (1.3-7.7) k/uL PT 31.8 H (10.0-12.5) sec INR 3.2 H (<1.2) Sodium 135 L (137-145) mmol/L Chloride 96 L (98-107) mmol/L Carbon Dioxide 32 H (22-30) mmol/L BUN 30 H (7-17) mg/dL Creatinine 1.17 H (0.52-1.04) mg/dL Glucose 115 H (74-99) mg/dL Calcium 8.1 L (8.4-10.2) mg/dL 08/22/24 08/23/24 Range/Units 16:54 02:22 WBC 13.0 H (3.8-10.6) k/uL RBC 3.26 L (3.80-5.40) m/uL Hgb 9.6 L (11.4-16.0) gm/dL Hct 30.0 L (34.0-46.0) % RDW 16.0 H (11.5-15.5) % Neutrophils # 10.1 H (1.3-7.7) k/uL PT 36.0 H (10.0-12.5) sec INR 3.6 H (<1.2) Sodium (137-145) mmol/L Chloride (98-107) mmol/L Carbon Dioxide (22-30) mmol/L BUN (7-17) mg/dL Creatinine (0.52-1.04) mg/dL Glucose (74-99) mg/dL Calcium (8.4-10.2) mg/dL Assessment and Plan Assessment: Status post right hip hemiarthroplasty (1) Closed right hip fracture Current Visit: Yes Status: Acute Code(s): S72.001A - FRACTURE OF UNSP PART OF NECK OF RIGHT FEMUR, INIT SNOMED Code(s): 244440723 (2) Fall Current Visit: Yes Status: Acute Code(s): W19.XXXA - UNSPECIFIED FALL, INITIAL ENCOUNTER SNOMED Code(s): 2510026 Plan: Continue routine postop care and pain control. Coumadin for anticoagulation. Weightbearing as tolerated with a walker. Leave dressing in place for 7 days. Appreciate input from internal medicine. Anticipate discharge to ECF in the next 24-48 hours.
[2024-08-23 09:31] LABS: Calcium 7.8 mg/dL (8.7-10.3); Carbon Dioxide 28.9 mmol/L (21.6-31.8); Chloride 101 mmol/L (96-109); Glucose 113 mg/dL (70-110); Potassium 3.7 mmol/L (3.5-5.5); Sodium 141 mmol/L (135-145)
[2024-08-23 10:36] LABS: Basophils # (A) 0.05 X 10*3/uL (0.00-0.10); Basophils % (A) 0.4 %; Eosinophils # (A) 0.08 X 10*3/uL (0.04-0.35); Eosinophils % (A) 0.7 %; HCT 26.8 % (37.2-46.3); HGB 8.5 g/dL (12.0-15.0); Lymphocytes # (A) 1.87 X 10*3/uL (0.90-5.00); Lymphocytes % (A) 15.3 %; MCH 28.9 pg (27.0-32.0); MCHC 31.7 g/dL (32.0-37.0); MCV 91.2 FL (80.0-97.0); Mean Platelet Volume 11.3 FL (9.5-12.2); Monocytes # (A) 1.57 X 10*3/uL (0.20-1.00); Monocytes % (A) 12.8 %; Neutrophils # (A) 8.37 X 10*3/uL (1.80-7.70); Neutrophils % (A) 68.2 %; Platelet Count 318 X 10*3/uL (140-440); RBC 2.94 X 10*6/uL (4.10-5.20); RDW 15.2 % (11.5-14.5); WBC 12.26 X 10*3/uL (4.50-10.00)
--- NOTE | 2024-08-23 12:13 | P.PN ---
Subjective Progress Note Date: 08/23/24 This is a 79-year-old female patient who is being seen in consult for an acute hypoxic respiratory failure and a fall and a hip fracture. This patient has history of CVA without any residual deficits, chronic stage IIIa kidney disease, hypertension hyperlipidemia and history of chronic atrial fibrillation and she has been maintained on anticoagulation with warfarin. The patient presents to the emergency department after a fall. Apparently, she was getting progressively more tired and she was also having episodes of nausea and emesis and diarrhea on multiple occasions. She was getting progressively more dehydrated. She is not recalling the fall and she is unsure if she experienced any dizziness or lightheadedness prior to this event. The patient is complaining of pain in her right hip/right lower extremity area. In the emergency department, further investigation was done. CAT scan of the brain showed no acute abnormalities other than some age-related changes with encephalomalacia and an old right occipital/parietal infarcts. CT scan of the neck showed moderate to severe degenerative changes involving the cervical spine. The blood work showed a white cell count of 8.6 with a was 1.4 and a platelet count of 216. Her INR is at 1.6 and a PT of 16.9 off warfarin. Her BUN is at 31 with a creatinine of 1.7 and the patient has sustained acute kidney injury probably due to his advanced ago depletion and dehydration. Sodium levels at 136 and a potassium of 5. Serum bicarb is at 22. LFTs are normal. She tested positive for influenza A. Serum alcohol was negative. UA was non significant other than +1 protein. Chest x-ray was reviewed and it showed no acute abnormalities. There is some increased bilateral pulmonary vascular markings. No consolidation. No airspace disease. Echocardiogram showed a preserved LV function. X-ray of the hip and the pelvis showed a acute transcervical fracture of the proximal right femur and orthopedic surgery has been consulted and the patient is being contemplated for surgery with the next 24 hours. In terms of oxygenation, the patient was initially on 2 L and her oxygen requirements progressively went up and she is currently up to 8 L nasal cannula. No previous history of DVTs or pulmonary embolism. No angina. No palpitations. No other complaints otherwise for now. On 08/17/2024, the patient is still awaiting a hip surgery. This was postponed that the patient was having an acute hypoxic respiratory failure and the patient is currently on 60 L O2 nasal cannula with a pulse ox of 96%. Follow-up chest x-ray showed right upper lobe consolidation repeat chest x-ray from today shows a persistent right upper lobe infiltrate with a new right basilar infiltrate/atelectasis. The patient remains on DuoNeb. The patient remains on a combination of Rocephin and Zithromax. The patient is also on Tamiflu. The white cell count is at 10.8, hemoglobin 11.8 and platelet count of 211. Sodium is at 142, BUN 32 with a creatinine of 1.6. Potassium is at 4.8, LFTs are normal.Noted the patient also sustained acute kidney injury. Creatinine from yesterday was at 1.7 and the patient is currently receiving IV fluids and subs equent creatinine from today is at 1.6. She remains on lactated Ringer at rate of 130 cc an hour. Pain is under adequate control for now.Echocardiogram was also completed and the patient was found to have a preserved LV function, moderate right ventricular dilatation with a RVSP of 48 with mild to moderate aortic regurgitation. On 08/18/2024, the patient is being seen for a follow-up. The patient is stable on oxygen which was titrated down to 4 L nasal cannula with a pulse ox of 97%. She remains uncomfortable due to her hip fracture. She has an acute influenza A infection for which she was given Tamiflu. She also developed a right upper lobe pulmonary consolidation/infiltrate and she is currently on IV Rocephin. She remains on DuoNeb nebulized treatments [id number]. She is off warfarin. Her current INR is down to 1.27. Limited cough and congestion. No significant sputum. The white cell count of 9.3 with a hemoglobin of 12.9 and a platelet count of 207. BUN is 22 with a creatinine 1.2 and sodium levels at 143 and a potassium level is at 4.7. The patient is still being followed up by orthopedic surgery. Surgery is to follow within the next 24 to 48 hours. Should be kept n.p.o. after midnight and she is tentatively having her surgery done tomorrow which will involve a right hip hemiarthroplasty. The follow-up chest x-ray is also to be obtained in a.m. She remains on lactated Ringer at rate of 130 cc an hour. Rest of the medications remain unchanged. Ech ocardiogram was also done on 08/16/2024 and the patient has a preserved LV function with an EF of around 50 to 55%, RVSP of 48, moderate RV dilatation. On 08/19/2024, overall respiratory status is stable. The patient has been weaned down to 4 L of oxygen by nasal cannula. A follow-up chest x-ray was done today that showed right upper lobe pulmonary infiltrates which is somewhat decreased in size and density. Rest of the lung findings are essentially unchanged. Patient is currently afebrile. Hemodynamically stable. The white cell count is at 7.4 with a hemoglobin 13.2 and a platelet count of 218. INR is at 1.4. Sodium is at 145, BUN is 12 with a creatinine of 1.0. Orthopedic surgery is on the case, awaiting hemiarthroplasty of the right hip. The patient has no chest pain. Previous echocardiogram done during his current admission showed preserved LV function without any significant l valve abnormalities. The patient has an EF of around 50 to 55% along with mild to moderate aortic regurgitation and RVSP of 48. On 08/20/2024, the patient is on 4 L of O2 nasal cannula with a pulse ox of 97%. The patient is scheduled to undergo right hip hemiarthroplasty for a subcapital fracture of the right hip. Hemodynamically stable. No specific complaints. Most recent INR from yesterday was at 1.4. No other new labs are available from today. Remains on bronchodilators with DuoNeb updrafts. Remains on IV Rocephin. Completed the course of Tamiflu. Remains on lactated Ringer at rate of 75 cc an hour. Awaiting surgery. Will monitor her postoperative course. On 08/21/2024, patient is being seen for a follow-up. Patient underwent a right hip hemiarthroplasty on 08/20/2024. She is unaccompanied chair. She is calm and comfortable. Continues to have some cough and congestion. No significant respiratory distress. Pain is under adequate control. No fever. White cell count of 12 with a hemoglobin of 11.3 and a platelet count of 284. INR is up to 1.9 and BUN is 23 with a creatinine of 1.2 resorbable at 141. Remains on IV Rocephin. Completed the course of Tamiflu. Remains on DuoNeb nebulizer treatments [id number]. No other complaints otherwise for now. On 08/22/2024, the patient is resting comfortably in bed. She is currently on 4 L of oxygen by nasal cannula with a pulse ox of 94%. The white cell count is at 12 with a hemoglobin 9.4 and a platelet count of 320. BUN 30 with a creatinine of 1.1 and sodium is at 135. No respiratory difficulties. She is postop day #2 following a right hip Marek arthroplasty. The patient was restarted on warfarin. PT/INR is being monitored and the INR is currently at 3.2.Meanwhile, the patient completed her antibiotic course. She completed Tamiflu. A follow-up chest x-ray to be obtained in a.m. Rest of the medications are essentially unchanged. The patient is seen today August 23, 2024 in follow-up on the regular medical floor. Postoperative day #3 following a right hip hemiarthroplasty. She is aw mignon and alert in no acute distress. Resting comfortably in bed. Maintaining O2 saturations in the 90s on 3 L/min per nasal cannula. She is afebrile. Hemodynamically stable. White count 12.2. Hemoglobin 8.5. Platelets 318. Sodium 141. Potassium 3.7. Bicarb 29. BUN 21. Creatinine 1.0. Glucose 113. INR 3.6. She remains on warfarin. She remains on bronchodilators. She is working with physical therapy. Follow-up chest x-ray reveals right basilar airspace opacity. Completed antibiotics. Completed Tamiflu. Objective - Vital Signs Vital signs: Vital Signs Temp 99.0 F 08/23/24 08:00 Pulse 92 08/23/24 10:18 Resp 18 08/23/24 08:00 BP 138/73 08/23/24 08:00 Pulse Ox 96 08/23/24 10:02 FiO2 Intake & Output 08/22/24 08/23/24 08/23/24 18:59 06:59 18:59 Other: Voiding Method Toilet # Voids 1 - Exam GENERAL EXAM: Alert, active, 79-year-old female, on 3 liters nasal cannula, in no apparent distress. HEAD: Normocephalic. EYES: Normal reaction of pupils, equal size. NOSE: Clear with pink turbinates. THROAT: No erythema or exudates. NECK: No masses, no JVD. CHEST: No chest wall deformity. LUNGS: Equal air entry with no crackles, wheeze, rhonchi or dullness. CVS: S1 and S2 normal with no audible murmur, regular rhythm. ABDOMEN: No hepatosplenomegaly, normal bowel sounds, no guarding or rigidity. SPINE: No scoliosis or deformity SKIN: No rashes CENTRAL NERVOUS SYSTEM: No focal deficits, tone is normal in all 4 extremities. EXTREMITIES: Surgical site over left hip clean and dry. There is no peripheral edema. No clubbing, no cyanosis. Peripheral pulses are intact. - Labs CBC & Chem 7: 08/23/24 02:22 08/23/24 02:22 Labs: Abnormal Lab Results - Last 24 Hours (Table) 08/22/24 08/23/24 08/23/24 Range/Units 16:54 02:22 02:22 WBC 13.0 H 12.26 H (3.8-10.6) k/uL RBC 3.26 L 2.94 L (3.80-5.40) m/uL Hgb 9.6 L 8.5 L (11.4-16.0) gm/dL Hct 30.0 L 26.8 L (34.0-46.0) % MCHC 31.7 L (32.0-37.0) g/dL RDW 16.0 H 15.2 H (11.5-15.5) % Immature Gran # 0.32 H (0.00-0.04) X 10*3/uL Neutrophils # 10.1 H 8.37 H (1.3-7.7) k/uL Monocytes # 1.57 H (0.20-1.00) X 10*3/uL NRBC/100 WBC Diff 0.10 H (0.00-0.01) X 10*3/uL PT 36.0 H (10.0-12.5) sec INR 3.6 H (<1.2) Est GFR (CKD-EPI) (>=60) BUN/Creatinine Ratio (12.00-20.00) Ratio Glucose (70-110) mg/dL Calcium (8.7-10.3) mg/dL 08/23/24 Range/Units 02:22 WBC (3.8-10.6) k/uL RBC (3.80-5.40) m/uL Hgb (11.4-16.0) gm/dL Hct (34.0-46.0) % MCHC (32.0-37.0) g/dL RDW (11.5-15.5) % Immature Gran # (0.00-0.04) X 10*3/uL Neutrophils # (1.3-7.7) k/uL Monocytes # (0.20-1.00) X 10*3/uL NRBC/100 WBC Diff (0.00-0.01) X 10*3/uL PT (10.0-12.5) sec INR (<1.2) Est GFR (CKD-EPI) 57 L (>=60) BUN/Creatinine Ratio 21.00 H (12.00-20.00) Ratio Glucose 113 H (70-110) mg/dL Calcium 7.8 L (8.7-10.3) mg/dL Assessment and Plan Assessment: Acute hypoxic respiratory failure, currently on 3 L of oxygen by nasal cannula, secondary to a right upper lobe infiltrate/consolidation involving on subsequent chest x-ray. Rule out influenza infection with secondary pneumonia, which could be potentially bacterial. The patient completed the course of antibiotics Acute influenza A infection, completed the course of Tamiflu Acute dehydration with nausea, emesis and diarrhea improved with fluid resuscitation Acute kidney injury, recovering Acute fracture of the right femur post fall, status post right hip hemiarthroplasty and the patient underwent surgery on 08/20/2024 Presyncope secondary to above History of CVA Chronic A-fib, maintained on anticoagulation with warfarin. PT/INR subtherapeutic at this point in the Coumadin is on hold in preparation for hip surgery Hypertension Hyperlipidemia Plan: The patient was seen and evaluated Labs and medications reviewed Chest x-ray reviewed Completed antibiotics Completed Tamiflu Working with physical therapy Anticoagulated with warfarin Titrate down the FiO2 as tolerated Plan is for subacute rehabilitation at [facility], possibly today This patient was seen independently by the pulmonary nurse practitioner addressing pulmonary issues I have personally seen and examined the patient, performed the documentation and the assessment and plan as written. Number of minutes spent on the visit: 23 Dictation was produced using Can[employer] software. Please excuse any grammatical, word or spelling errors.
--- NOTE | 2024-08-23 13:27 | P.DS ---
Providers Date of admission: 08/15/24 03:05 Expected date of discharge: 08/23/24 Attending physician: Shercie Rasmussen MD Consults: 08/15/24 03:05 Consult Physician Routine Consulting Provider: Nba Reese Consult Reason/Comments: [employer] Do you want consulting provider notified?: Yes 08/15/24 09:48 Consult Physician Routine Consulting Provider: Ankush Pruitt Consult Reason/Comments: Cardiac surgical clearance, fall/syncope hx atrial fib, HTN, HLD, CVA Do you want consulting provider notified?: Already Contacted 08/15/24 15:59 Consult Physician Routine Consulting Provider: Florin Osullivan Consult Reason/Comments: syncope, abnormal CT brain with encephalomalacia of the right parietal-occi Do you want consulting provider notified?: Yes 08/16/24 07:55 Consult Physician Routine Consulting Provider: Christiana Gunn Consult Reason/Comments: influenza A infection, acute hypoxic resp failure going to OR for femur fx Do you want consulting provider notified?: Yes 08/19/24 13:52 Consult Physician Routine Consulting Provider: Shaw Shelton Consult Reason/Comments: right hip fx Do you want consulting provider notified?: Already Contacted Primary care physician: Stated None Hospital Course: 79 year old F with PMH of A-Fib on Coumadin, HTN, HLD, h/o CVA, CKD stage IIIa, nicotine dependance presented to the ED after a fall/syncopal episode at home. Reported nausea, vomiting and diarrhea for multiple days prior to the fall. Possibly passed out in the washroom after vomiting, immediately experienced right hip pain. In the ED she underwent extensive evaluation. Vital signs upon arrival show BP 134/75, HR 70, RR 20, T 98.6 F, and SpO2 of 95% on 2 L. EKG showed A-Fib. CT head and C-spine showed no acute process but did show age- related changes with encephalomalacia of the right parietal-occipital region. CXR showed no acute process. X-ray right hip showing acute transcervical fracture of the proximal right femur with varus angulation. CBC, Coag panel, CMP significant for PT 18.5, INR 1.8, APTT 33.7, Na 136, bicarb 21, BUN 22, Cr 1.06, glu 157, AST 55. BNP 5810. Mag 1.7. Trop < 0.012, 0.016, 0.017. UA neg LE or nitrite. EtOH neg. Flu +. Admitted for further workup and management. Neurology consulted. EEG negative for seizures. CT findings were old, cleared for surgery and signed off. Cardiology consulted, moderate risk for surgery, Echo ordered showing EF 50-55% mild-mod AR, mild TR, RVSP 48, cleared for surgery. Metoprolol increased and Cardizem added for better rate control. Pulmonary consulted, started on bronchodilators, Rocephin/Azithromycin for PNA and Tamiflu. She underwent right hip hemiarthroplasty on 08/20. 08/23 Patient was seen and examined. Reports well controlled pain in the right hip. 96% on 3L NC. BP 138/73, HR 100. Urinating freely. Plans for [facility]. CBC, Coag panel, BMP significant for WBC 12.26, RBC 2.94, Hg 8.5, Hct 26.8, PT 36, INR 3.6, GFR 57, BUN/Cr 21, glu 113, Ca 7.8. CXR done today shows right basilar airspace opacities. Discharge Plan: Repeat INR and CBC in 3 days to be followed up with PCP. Follow up with Orthopedic S[facility] and Cardiology within 1 week, PCP within 3 days of discharge. General: non toxic, moderate distress, appears at stated age Derm: warm, dry Head: atraumatic, normocephalic, symmetric Mouth: no lip lesion, mucus membranes moist Cardiovascular: S1S2 irreg, no murmur Lungs: Clear to auscultation bilaterally, no rales , no accessory muscle use Ext: no gross muscle atrophy, no edema, no contractures Neuro: no focal neuro deficits Psych: Alert and oriented. Discharge Diagnosis: Acute hypoxic respiratory failure secondary to Flu + PNA Acute blood loss anemia expected result of surgery Leukocytosis likely reactive from surgery, also infection as above.= Transcervical fracture of the proximal right femur with varus angulation status post right hip hemiarthroplasty 08/20 Syncopal episode, believed to be vasovagal episode vs orthostatic hypotension Abnormal CT brain, showing encephalomalacia of the right parietal/occipital region ALEE on CKD Chronic atrial fibrillation Subtherapeutic INR History of CVA Hypertension Hyperlipidemia This complex discharge took 35 minutes to complete. Patient Condition at Discharge: Stable Plan - Discharge Summary Discharge Rx Participant: No New Discharge Prescriptions: New Diltiazem Oral [Cardizem*] 30 mg PO TID tab Ipratropium-Albuterol Nebulize [Duoneb 0.5 mg-3 mg/3 ml Soln] 3 ml INHALATION RT-Q2H PRN each PRN Reason: Shortness Of Breath Or Wheezing Atorvastatin [Lipitor] 40 mg PO HS tab Sennosides-Docusate Sodium [Senokot-S] 2 each PO HS tab Metoprolol Succinate (ER) [Toprol XL] 100 mg PO BID tab Acetaminophen Tab [Tylenol] 650 mg PO Q6HR PRN tab PRN Reason: Mild Pain Or Fever > 100.5 Nicotine 14Mg/24Hr Patch [Habitrol] 1 patch TRANSDERM DAILY patch Melatonin 3 mg PO HS PRN tab PRN Reason: Insomnia HYDROcodone/APAP 5-325MG [[place] 5-325] 1 each PO Q4HR PRN #18 tab PRN Reason: Moderate Pain (Scale 4 To 6) Continue Warfarin [Coumadin] 4.5 mg PO MOWEFRSA@1900 Warfarin [Coumadin] 3 mg PO SUTUTH@1900 Discontinued amLODIPine [Norvasc] 10 mg PO DAILY@1400 Metoprolol Succinate (ER) [Toprol Xl] 50 mg PO DAILY@1400 Discharge Medication List Warfarin [Coumadin] 3 mg PO SUTUTH@1900 08/15/24 [History] Warfarin [Coumadin] 4.5 mg PO MOWEFRSA@1900 08/15/24 [History] Acetaminophen Tab [Tylenol] 650 mg PO Q6HR PRN tab 08/23/24 [Rx] Atorvastatin [Lipitor] 40 mg PO HS tab 08/23/24 [Rx] Diltiazem Oral [Cardizem*] 30 mg PO TID tab 08/23/24 [Rx] HYDROcodone/APAP 5-325MG [[place] 5-325] 1 each PO Q4HR PRN #18 tab 08/23/24 [Rx] Ipratropium-Albuterol Nebulize [Duoneb 0.5 mg-3 mg/3 ml Soln] 3 ml INHALATION RT-Q2H PRN each 08/23/24 [Rx] Melatonin 3 mg PO HS PRN tab 08/23/24 [Rx] Metoprolol Succinate (ER) [Toprol XL] 100 mg PO BID tab 08/23/24 [Rx] Nicotine 14Mg/24Hr Patch [Habitrol] 1 patch TRANSDERM DAILY patch 08/23/24 [Rx] Sennosides-Docusate Sodium [Senokot-S] 2 each PO HS tab 08/23/24 [Rx] Follow up Appointment(s)/Referral(s): Che Wilkins, PAC [PHYSICIAN SEWING MACHINE OPERATOR] - 2 Weeks (Patient may follow-up with Che Wilkins PA-C or Dr. Shaw Shelton at [facility] in 2-3 weeks following discharge. ) None,Stated [Primary Care Provider] - 1-2 days Jay Wallace MD [STAFF PHYSICIAN] - 1 Week Ambulatory/Diagnostic Orders: Complete Blood Count w/diff [LAB.AMB] Time Frame: 3 Days, Location: None Selected Prothrombin Time INR [LAB.AMB] Time Frame: 3 Days, Location: None Selected Activity/Diet/Wound Care/Special Instructions: 1. Keep Optifoam dressing over the right hip intact over the next 7 days 2. Patient may shower with dressing intact over the surgical site of the right hip 3. Patient may shower without a dressing intact after 7 days his incision site remains clean and dry 4. Weight-bear as tolerated right lower extremity with a walker 5. Take medications as prescribed 6. Any questions or concerns patient may contact [facility] at [phone] Discharge Disposition: TRANSFER TO SNF/ECF
[2024-08-23 13:51] VITALS: PULSE 96
[2024-08-23] MEDS ORDERED: WARFARIN 0.5 MG TAB PO ONE (18:00)
== END 2024-08-23 15:03 | DRG 521 ==
LOC: EC 00:05 → 4SSUR 03:05
PROVIDERS: ADMIT Student in an Organized Health Care Education/Training Program; ATTEND Student in an Organized Health Care Education/Training Program
PROC: 0SRR01A Replacement of Right Hip Joint, Femoral Surface with Metal Synthetic Substitute, Uncemented, Open Approach (ICD-10-PCS; principal; 2024-08-20 07:30)
DX: S72.011A Unspecified intracapsular fracture of right femur, initial encounter for closed fracture (principal); J10.00 Influenza due to other identified influenza virus with unspecified type of pneumonia; J96.01 Acute respiratory failure with hypoxia; D68.9 Coagulation defect, unspecified; S09.90XA Unspecified injury of head, initial encounter; N18.31 Chronic kidney disease, stage 3a; I35.1 Nonrheumatic aortic (valve) insufficiency; G93.89 Other specified disorders of brain; I12.9 Hypertensive chronic kidney disease with stage 1 through stage 4 chronic kidney disease, or unspecified chronic kidney disease; I48.21 Permanent atrial fibrillation; D62 Acute posthemorrhagic anemia; N17.9 Acute kidney failure, unspecified; J98.11 Atelectasis; R55 Syncope and collapse; E86.0 Dehydration; R74.01 Elevation of levels of liver transaminase levels; E78.5 Hyperlipidemia, unspecified; M50.30 Other cervical disc degeneration, unspecified cervical region; I83.90 Asymptomatic varicose veins of unspecified lower extremity; F41.9 Anxiety disorder, unspecified; F17.200 Nicotine dependence, unspecified, uncomplicated; Z79.01 Long term (current) use of anticoagulants; Z79.899 Other long term (current) drug therapy; Z87.01 Personal history of pneumonia (recurrent); Z86.73 Personal history of transient ischemic attack (TIA), and cerebral infarction without residual deficits; Y92.000 Kitchen of unspecified non-institutional (private) residence as the place of occurrence of the external cause; W01.0XXA Fall on same level from slipping, tripping and stumbling without subsequent striking against object, initial encounter
CPT/HCPCS: 36415; 70450; 71045; 72125; 73501; 73502; 80048; 80053; 80320; 81001; 83036; 83735; 83880; 84100; 84484; 85025; 85027; 85610; 85730; 86850; 86900; 86901; 87636; 93005; 93306; 94640; 94760; 95816; 96361; 96374; 96375; 99285